=== PATIENT | male | born 1945 | race Caucasian/White ===

== ENCOUNTER 2017-11-12 14:07 | Emergency (ER) | payer OTHER ==
[2017-11-12] MEDS ORDERED: ONDANSETRON 4 MG/2 ML VIAL ONE (14:48)
[2017-11-12] MEDS ORDERED: FAMOTIDINE 20 MG/2 ML VIAL IV ONE (14:48)
--- NOTE | 2017-11-12 15:00 | RAD REPORT ---
EXAM DESCRIPTION: RAD - Chest Single View - 11/12/2017 2:53 pm CLINICAL HISTORY: Abdominal pain, vomiting, CHF history COMPARISON: September 29, 2017 TECHNIQUE: AP portable chest image was obtained 1449 hours . FINDINGS: Lung volumes are low. Mediastinum is substantially distorted by rotation. No acute lung pa renchymal process seen. Heart size is felt to be stable from September. No significant failure or volume overload findings. No tracheal deviation. No pneumothorax or large pleural effusion. No gross bony a bnormality seen. Vascular tortuosity noted accentuated by the rotation. Prominent upper abdominal bowel gas pattern. This can be further evaluated on pending CT abdomen imag ing. No free air or pneumatosis. IMPRESSION: Shallow inspiration film shows no acute cardiopulmonary process. When adjusting for the shallow inspiration and rotation, chest is not substantially different from th e prior study.
[2017-11-12 15:06] LABS: Absolute Lymphocytes (CBC) 0.5 K/uL (0.7-4.9); Absolute Monocytes 0.9 K/uL (0.1-1.3); Basophils % 0.3 % (0-1.3); Eosinophils % 0.1 % (0-4.4); Hematocrit 46.3 % (39.6-49.0); Lymphocytes % 3.2 % (15.3-44.8); MCH 30.9 pg (27.0-35.0); MCV 90.7 fL (80-100); MPV 9.8 fL (7.6-11.3); Monocytes % 6.2 % (3.3-12.3)
[2017-11-12 15:22] LABS: ALT/SGPT 21 U/L (12-78); AST/SGOT 16 U/L (15-37); Albumin 3.9 g/dL (3.4-5.0); Alkaline Phosphatase 106 U/L (45-117); BUN Blood Urea Nitrogen 17 mg/dL (7-18); Bicarbonate 30 mmol/L (21-32); Bilirubin Direct 0.2 mg/dL (0-0.2); Bilirubin Total 0.8 mg/dL (0.2-1.0); Glucose Level 145 mg/dL (74-106); Lipase 95 U/L (73-393); Magnesium 2.7 mg/dL (1.8-2.4); Potassium 4.5 mmol/L (3.5-5.1); Sodium Level 136 mmol/L (136-145); Troponin I < 0.02 ng/mL (0.0-0.045)
--- NOTE | 2017-11-12 15:26 | EKG ---
Test Date: 2017-11-12 Test Time: 14:40:59 System Integration Engineer: KATHY MEASUREMENT RESULTS: Intervals: Rate: 100 MD: 188 QRSD: 82 QT: 346 QTc: 446 Beverly: P: 29 MD: 188 QRS: -11 T: 15 INTERPRETIVE STATEMENTS: Sinus rhythm with premature atrial complexes Minimal voltage criteria for LVH, may be normal variant Borderline ECG Compared to ECG 10/02/2014 06:06:51 Atrial premature complex(es) now present Left ventricular hypertrophy now present Sinus bradycardia no longer present Electronically Signed On 11-12-17 15:25:09 CDT by Jose Rafael Miller
[2017-11-12 15:35] LABS: Blood Morphology Comment NOT SEEN (NOT SEEN); Platelet Estimate ADEQ; Urine White Blood Cell Casts OK
[2017-11-12 17:24] LABS: Urine Blood TRACE (NEG); Urine Glucose NEGATIVE (NEG); Urine Protein 1+ (NEG); Urine Specific Gravity 1.015 (1.005-1.030); Urine pH 5.5 (5.0-7.0)
--- NOTE | 2017-11-12 17:40 | RAD REPORT ---
EXAM DESCRIPTION: CT - Abdomen Pelvis W Contrast - 11/12/2017 5:24 pm CLINICAL HISTORY: Abdominal pain. Constipation COMPARISON: 2010 R TECHNIQUE: Computed axial tomography of the abdomen and pelvis was obtained. 100 cc Isovue-300 is ad ministered intravenously. Oral contrast was given. All CT scans are performed using dose optimization technique as appropriate and may include automated exposure control or mA/KV adjustment according to patient size. FINDINGS: A 28 millimeters cyst containing a septation is present within the dome of the liver. Mild fatty filt ration is present Spleen, pancreas, adrenals and kidneys appear unremarkable. Small renal cysts are present. There is no evidence of diverticulitis. The rectum is mildly distended with stool measuring 6 centime ters. The cecum measures 6.2 centimeters. A moderate amount of stool is present throughout the colon. An ulcerated plaque is present within the upper abdominal aorta. A Kruse catheter has its tip in the bladder Scoliosis is present. A right inguinal hernia contains fat. The prostate gland is mildly to moderatel y enlarged IMPRESSION: Moderate amount of stool within the colon. Mild rectal and cecal distention
[2017-11-12] MEDS ORDERED: MAGNESIUM CITRATE 300 ML BOT ONE (17:56)
[2017-11-12] MEDS ORDERED: FLEET ENEMA ADULT PR ONE (18:29)
[2017-11-12] MEDS ORDERED: FAMOTIDINE 20 MG TAB ONE (18:29)
[2017-11-12] MEDS ORDERED: MAGNE/ALUM HYDROXD 30 ML UCUP ONE (20:21)
[2017-11-12] MEDS ORDERED: LIDOCAINE VISCOUS 2% SOLN 15 ML UDC ONE (20:21)
--- NOTE | 2017-11-12 20:33 | EDPHYS ---
Physician Documentation [facility] Name: Jovani Reinoso Age: 72 yrs Sex: Male : 1945 Arrival Date: 11/12/2017 Time: 14:08 Bed 27 Private MD: None, None ED Physician Sukhjinder Cadet HPI: 11/12 14:35 This 72 yrs old Male presents to ER via Ambulatory with complaints of cp Constipation. 14:35 The patient presents with constipation times 4 days and urinary retention today. cp 14:35 Associated signs and symptoms: Pertinent positives: constipation, vomiting, urinary cp retention, Pertinent negatives: blood in stools, chest pain, diarrhea, fever, headache, testicular pain. Historical: - Allergies: 14:17 No Known Drug Allergies; hb - Home Meds: 14:17 atorvastatin 40 mg Oral tab [Active]; furosemide 40 mg Oral tab [Active]; lisinopril 20 hb mg Oral tab [Active]; ofloxacin 0.3 % Otic drop [Active]; pantoprazole 40 mg Oral TbEC [Active]; Plavix 75 mg Oral tab [Active]; sotalol 80 mg Oral tab [Active]; - PMHx: 14:17 CHF; Hypertension; hb - PSHx: 14:17 stent; foot sx; hb - Immunization history:: Adult Immunizations up to date. - Social history:: Smoking status: Patient/guardian denies using tobacco. - Ebola Screening: : No symptoms or risks identified at this time. ROS: 14:40 Constitutional: Negative for body aches, chills, fever, poor PO intake. cp 14:40 Eyes: Negative for injury, pain, redness, and discharge. cp Exam: 14:45 Constitutional: The patient appears in no acute distress, alert, non-diaphoretic, cp non-toxic, well developed, well nourished, uncomfortable. 14:45 Head/Face: Normocephalic, atraumatic. cp 14:45 Eyes: Periorbital structures: appear normal, Conjunctiva: normal, no exudate, no injection, Sclera: no appreciated abnormality, Lids and lashes: appear normal, bilaterally. 14:45 ENT: External ear(s): are unremarkable, Nose: is normal, Mouth: Lips: dry, Oral mucosa: moist, Posterior pharynx: is normal, airway is patent, no erythema, no exudate. 14:45 Neck: ROM/movement: is normal, is supple, without pain, no range of motions limitations, no nuchal rigidity. 14:45 Chest/axilla: Inspection: normal, Palpation: is normal, no crepitus, no tenderness. 14:45 Cardiovascular: Rate: tachycardic, Rhythm: regular, Edema: is not appreciated, JVD: is not appreciated. 14:45 Respiratory: the patient does not display signs of respiratory distress, Respirations: normal, no use of accessory muscles, no retractions, no splinting, no tachypnea, labored breathing, is not present, Breath sounds: are clear throughout, no decreased breath sounds, no stridor, no wheezing. 14:45 Abdomen/GI: Inspection: distension, that is mild, Bowel sounds: active, all quadrants, Palpation: soft, in all quadrants, mild abdominal tenderness, in all quadrants, Rectal exam: fecal impaction, that is moderate. 14:45 Skin: cellulitis, is not appreciated, no rash present. 14:45 Neuro: Orientation: to person, place \T\ time. Mentation: lucid, able to follow commands, Cerebellar function: is grossly normal, Motor: moves all fours, strength is normal, Sensation: no obvious gross deficits. 14:47 ECG was reviewed by the Attending Physician. Vital Signs: 14:16 BP 149 / 100; Pulse 106; Resp 20; Temp 98.5; Pulse Ox 96% on R/A; Pain 0/10; hb 17:15 BP 157 / 62; Pulse 74; Resp 16; Pulse Ox 100% on R/A; la1 19:40 BP 144 / 75; Pulse 80; Resp 18; Pulse Ox 95% on R/A; aa1 MDM: 14:29 Patient medically screened. cp 15:00 Differential diagnosis: bowel obstruction, diverticulitis, gastritis, Ureterolithiasis, cp urinary tract infection, fecal impaction, prostatitis. 20:30 Data reviewed: vital signs, nurses notes, lab test result(s), EKG, radiologic studies, cp CT scan. 20:30 Test interpretation: by ED physician or midlevel provider: ECG, plain radiologic cp studies. 20:31 Response to treatment: the patient's symptoms have markedly improved after treatment, cp VSS. Patient with BM in ED after fecal disimpaction and soap suds enema. Kruse removed as requested by patient and discharge to home for continued monitoring. 11/12 14:34 Order name: Basic Metabolic Panel; Complete Time: 16:50 cp 11/12 14:34 Order name: CBC with Diff; Complete Time: 16:50 cp 11/12 14:34 Order name: Creatinine for Radiology; Complete Time: 16:50 cp 11/12 14:34 Order name: Hepatic Function; Complete Time: 16:50 cp 11/12 14:34 Order name: Lipase; Complete Time: 16:50 cp 11/12 14:34 Order name: Troponin I; Complete Time: 16:50 cp 11/12 14:34 Order name: CT Abd/Pelvis - W/Contrast; Complete Time: 17:45 cp 11/12 17:46 Interpretation: Report reviewed. cp 11/12 14:34 Order name: Magnesium; Complete Time: 16:50 cp 11/12 14:34 Order name: XRAY Chest (1 view); Complete Time: 16:50 cp 11/12 15:15 Order name: CBC Smear Scan; Complete Time: 16:50 EDMS 11/12 17:10 Order name: Urine Dipstick--Ancillary (enter results); Complete Time: 17:45 bd 11/12 17:45 Interpretation: Normal except: UBLD TRACE; UPROT 1+. cp 11/12 14:34 Order name: IV Saline Lock; Complete Time: 14:40 cp 11/12 14:34 Order name: Labs collected and sent; Complete Time: 14:40 cp 11/12 14:34 Order name: EKG; Complete Time: 14:34 cp 11/12 14:34 Order name: EKG - Nurse/Tech; Complete Time: 14:46 cp 11/12 19:23 Order name: Misc. Order: soap suds enema; Complete Time: 20:00 cp EC:47 Rate is 100 beats/min. Rhythm is regular. MN interval is normal. QRS interval is cp normal. QT interval is normal. Interpreted by me. Reviewed by me. Administered Medications: 14:46 Drug: Zofran 4 mg Route: IVP; Site: right forearm; la1 17:55 Follow up: Response: No adverse reaction la1 14:46 Drug: Pepcid 20 mg Route: IVP; Site: right forearm; la1 17:54 Follow up: Response: No adverse reaction la1 17:54 Drug: Magnesium Citrate Liquid 300 ml Route: PO; la1 19:30 Follow up: Response: No change in condition aa1 18:51 Drug: Fleet Enema 133 ml Route: MN; la1 19:30 Follow up: Response: No change in condition aa1 19:23 CANCELLED (Physician Discretion): Golytely 240 ml PO once cp 20:25 Drug: GI Cocktail without - (Maalox Suspension 30 ml, Lidocaine Liquid 2 % 15 aa1 ml) Route: PO; 20:45 Follow up: Response: No adverse reaction aa1 Disposition: 11/12/17 20:32 Discharged to Home. Impression: Constipation, Retention of urine. - Condition is Stable. - Discharge Instructions: Constipation, Adult, Acute Urinary Retention, Male, Fecal Impaction. - Prescriptions for Miralax 17 gram/dose Oral - take 1 packet by ORAL route once daily dilute powder in 8 ounces of water or juice; 30 packet. - Medication Reconciliation Form, Thank You Letter, Antibiotic Education, Prescription Opioid Use form. - Follow up: Private Physician; When: 1 - 2 days; Reason: Recheck today's complaints. - Problem is new. - Symptoms have improved. Signatures: Dispatcher [employer] EDMaxine Salmon RN RN aa1 Tr Jay RN RN la1 Maurice Mendoza PA PA cp Baxter, Heather, RN RN Corrections: (The following items were deleted from the chart) 19:23 19:20 Golytely 240 ml PO once ordered. cp cp 20:47 20:32 11/12/2017 20:32 Discharged to Home. Impression: Constipation; Retention of aa1 urine. Condition is Stable. Forms are Medication Reconciliation Form, Thank You Letter, Antibiotic Education, Prescription Opioid Use. Follow up: Private Physician; When: 1 - 2 days; Reason: Recheck today's complaints. Problem is new. Symptoms have improved. cp
--- NOTE | 2017-11-12 20:33 | ER ---
Nurse's Notes [facility] Name: Jovani Reinoso Age: 72 yrs Sex: Male : 1945 Arrival Date: 11/12/2017 Time: 14:08 Bed 27 Private MD: None, None Diagnosis: Constipation;Retention of urine Presentation: 11/12 14:15 Presenting complaint: Constipation x 4 days, vomit x 1 today. Transition of care: hb patient was not received from another setting of care. Onset of symptoms was November 08, 2017. Risk Assessment: Do you want to hurt yourself or someone else? Patient reports no desire to harm self or others. 14:15 Method Of Arrival: Ambulatory hb 14:15 Acuity: CAMILA 3 hb 14:30 Initial Sepsis Screen: Does the patient meet any 2 criteria? No. Patient's initial la1 sepsis screen is negative. Does the patient have a suspected source of infection? No. Patient's initial sepsis screen is negative. Care prior to arrival: None. Historical: - Allergies: 14:17 No Known Drug Allergies; hb - Home Meds: 14:17 atorvastatin 40 mg Oral tab [Active]; furosemide 40 mg Oral tab [Active]; lisinopril 20 hb mg Oral tab [Active]; ofloxacin 0.3 % Otic drop [Active]; pantoprazole 40 mg Oral TbEC [Active]; Plavix 75 mg Oral tab [Active]; sotalol 80 mg Oral tab [Active]; - PMHx: 14:17 CHF; Hypertension; hb - PSHx: 14:17 stent; foot sx; hb - Immunization history:: Adult Immunizations up to date. - Social history:: Smoking status: Patient/guardian denies using tobacco. - Ebola Screening: : No symptoms or risks identified at this time. Screenin:47 Abuse screen: Denies threats or abuse. Nutritional screening: No deficits noted. la1 Tuberculosis screening: No symptoms or risk factors identified. Fall Risk None identified. Assessment: 14:47 General: Appears in no apparent distress. Behavior is calm, cooperative. Pain: la1 Complains of pain in abdomen. Neuro: Level of Consciousness is awake, alert, obeys commands, Oriented to person, place, time, situation. Cardiovascular: Capillary refill < 3 seconds Patient's skin is warm and dry. Respiratory: Airway is patent Respiratory effort is even, unlabored, Respiratory pattern is regular, symmetrical, Breath sounds are clear bilaterally. GI: Abdomen is round non-distended, Bowel sounds present X 4 quads. Abd is soft and non tender X 4 quads. : No signs and/or symptoms were reported regarding the genitourinary system. 18:51 Reassessment: Patient appears in no apparent distress at this time. No changes from la1 previously documented assessment. Patient and/or family updated on plan of care and expected duration. Pain level reassessed. 19:40 Reassessment: Patient appears in no apparent distress at this time. Patient and/or aa1 family updated on plan of care and expected duration. Pain level reassessed. Patient is alert, oriented x 3, equal unlabored respirations, skin warm/dry/pink. 20:36 Reassessment: Patient appears in no apparent distress at this time. Patient and/or aa1 family updated on plan of care and expected duration. Pain level reassessed. Patient is alert, oriented x 3, equal unlabored respirations, skin warm/dry/pink. Pt passed 4 gold ball sized hard stools. Reports he feels much better and is ready to be released. Pt given option of being dc'd with bolaños catheter and leg bag until f/u with urologist but pt reports he would rather have the catheter removed and if he is unable to urinate he will return to ED Patient denies pain at this time. Patient states feeling better. 20:46 Reassessment: Discussed d/c \T\ f/u instructions with pt; denies questions or concerns at aa1 this time. Vital Signs: 14:16 BP 149 / 100; Pulse 106; Resp 20; Temp 98.5; Pulse Ox 96% on R/A; Pain 0/10; hb 17:15 BP 157 / 62; Pulse 74; Resp 16; Pulse Ox 100% on R/A; la1 19:40 BP 144 / 75; Pulse 80; Resp 18; Pulse Ox 95% on R/A; aa1 ED Course: 14:08 Patient arrived in ED. sb2 14:08 None, None is Private Physician. sb2 14:16 Triage completed. hb 14:17 Arm band placed on left wrist. hb 14:28 Maurice Mendoza PA is PHCP. cp 14:28 Sukhjinder Cadet MD is Attending Physician. cp 14:29 Tr Jay, RN is Primary Nurse. la1 14:46 EKG done, by low voltage technician. reviewed by Maurice OSBORN. at1 14:47 No provider procedures requiring assistance completed. Inserted saline lock: 20 gauge la1 in right forearm, using aseptic technique. Blood collected. 14:48 Placed in gown. Bed in low position. Call light in reach. la1 14:53 X-ray completed. Portable x-ray completed in exam room. Patient tolerated procedure sw well. 14:53 XRAY Chest (1 view) In Process Unspecified. EDMS 17:01 Bolaños cath inserted, using sterile technique, 18 Fr., by wi, balloon inflated, to la1 gravity drainage, urine specimen collected. returned clear yellow urine. Patient tolerated well. 17:24 CT Abd/Pelvis - W/Contrast In Process Unspecified. EDMS 19:40 Soap suds enema given. Patient tolerated well. aa1 20:46 IV discontinued, intact, bleeding controlled, No redness/swelling at site. Pressure aa1 dressing applied. Administered Medications: 14:46 Drug: Zofran 4 mg Route: IVP; Site: right forearm; la1 17:55 Follow up: Response: No adverse reaction la1 14:46 Drug: Pepcid 20 mg Route: IVP; Site: right forearm; la1 17:54 Follow up: Response: No adverse reaction la1 17:54 Drug: Magnesium Citrate Liquid 300 ml Route: PO; la1 19:30 Follow up: Response: No change in condition aa1 18:51 Drug: Fleet Enema 133 ml Route: OR; la1 19:30 Follow up: Response: No change in condition aa1 19:23 CANCELLED (Physician Discretion): Golytely 240 ml PO once cp 20:25 Drug: GI Cocktail without - (Maalox Suspension 30 ml, Lidocaine Liquid 2 % 15 aa1 ml) Route: PO; 20:45 Follow up: Response: No adverse reaction aa1 Outcome: 20:32 Discharge ordered by . cp 20:46 Discharged to home ambulatory, with friend. aa1 20:46 Condition: good 20:46 Discharge instructions given to patient, Instructed on discharge instructions, follow up and referral plans. medication usage, Demonstrated understanding of instructions, follow-up care, medications, Prescriptions given X 1. 20:47 Patient left the ED. aa1 Signatures: Dispatcher [employer] EDMS Maxine Whitley RN RN aa1 Lissette Vick, spike maker EKG Tat1 Tr Jay RN RN la1 Angeline Munoz Corey, PA PA cp Baxter, Heather, RN RN hb Billeau, Sheri 2
[2017-11-12 20:54] VITALS: TEMP 98.5
[2017-11-12 20:56] VITALS: BP 144/75; O2SAT 95
== END 2017-11-12 20:47 | disposition home or self-care (01) ==
LOC: ER 14:07
DX: R33.9 Retention of urine, unspecified (principal); I10 Essential (primary) hypertension; I50.9 Heart failure, unspecified; Z79.01 Long term (current) use of anticoagulants
CPT/HCPCS: 36415; 71045; 74177; 80048; 80076; 81003; 83690; 83735; 84484; 85025; 93005; J2405; Q9967; 51702; 96374; 96375; 99285

== ENCOUNTER 2017-11-17 08:07 | Emergency (ER) | payer OTHER ==
[2017-11-17 08:38] LABS: Urine Bacteria <20 /HPF (NONE SEEN); Urine Culture Reflex Order NOT NEEDED; Urine RBC TNTC /HPF (NONE SEEN)
--- NOTE | 2017-11-17 09:09 | ER ---
Nurse's Notes [facility] Name: Jovani Reinoso Age: 72 yrs Sex: Male : 1945 Arrival Date: 11/17/2017 Time: 08:08 Bed 5 Private MD: Diagnosis: Hematuria Presentation: 11/17 08:15 Presenting complaint: Patient states: Blood in urine for one day. Transition of care: la1 patient was not received from another setting of care. Onset of symptoms was November 17, 2017. Risk Assessment: Do you want to hurt yourself or someone else? Patient reports no desire to harm self or others. Initial Sepsis Screen: Does the patient meet any 2 criteria? No. Patient's initial sepsis screen is negative. Does the patient have a suspected source of infection? No. Patient's initial sepsis screen is negative. Care prior to arrival: None. 08:15 Method Of Arrival: Ambulatory la1 08:15 Acuity: CAMILA 3 la1 Triage Assessment: 12:00 General: Appears. aj Historical: - Allergies: 08:16 No Known Allergies; la1 - PMHx: 08:16 CHF; Hypertension; cerebral palsy; la1 - Immunization history:: Adult Immunizations up to date. - Social history:: Smoking status: Patient/guardian denies using tobacco. - Ebola Screening: : No symptoms or risks identified at this time. Screenin:20 Abuse screen: Denies threats or abuse. Denies injuries from another. Nutritional sg screening: No deficits noted. Tuberculosis screening: No symptoms or risk factors identified. Never had TB. Fall Risk None identified. Assessment: 08:20 Reassessment: Patient is alert, oriented x 3, equal unlabored respirations, skin sg warm/dry/pink. pt provided urine specimen, yadira blood noted, notified, orders received for post void residual, Urine Micro sent to lab. 08:39 Reassessment: Patient appears in no apparent distress at this time. pt ambulatory with sg use of assist device from home to ER restroom. pt back in exam room on stretcher at this time, awaiting results from urine micro, pt stated understanding. 11:59 Reassessment: Patient appears in no apparent distress at this time. No changes from aj previously documented assessment. Patient and/or family updated on plan of care and expected duration. Pain level reassessed. Patient is alert, oriented x 3, equal unlabored respirations, skin warm/dry/pink. Vital Signs: 08:16 BP 171 / 95; Pulse 85; Resp 16; Temp 97.9(TE); Pulse Ox 100% on R/A; la1 11:24 BP 129 / 68; Pulse 82; Resp 16; Pulse Ox 99% on R/A; iw ED Course: 08:08 Patient arrived in ED. mr 08:16 Triage completed. la1 08:17 Sukhjinder Cadet MD is Attending Physician. gs 08:17 Arm band placed on left wrist. la1 08:28 Hema Rasmussen, RN is Primary Nurse. sg 08:31 Bladder scan completed. 152. la1 08:35 Urine collected: clean catch specimen, cloudy, yadira blood. jb1 09:06 Boogie Ribera MD is Referral Physician. gs 09:47 Missed attempt(s): 20 gauge in right forearm. Bleeding controlled, band aid applied, sg catheter tip intact. 09:53 Primary Nurse role handed off by Hema Rasmussen RN aj 09:53 Lissette Merino, RN is Primary Nurse. aj 10:07 Initial lab(s) drawn, by ri, sent to lab. Inserted saline lock: 22 gauge in left jb1 antecubital area, using aseptic technique. Blood collected. 11:49 Boogie Ribera MD is Referral Physician. gs 11:59 Patient has correct armband on for positive identification. aj 11:59 No provider procedures requiring assistance completed. IV discontinued, intact, aj bleeding controlled, No redness/swelling at site. Pressure dressing applied. Administered Medications: No medications were administered Outcome: 09:08 Discharge ordered by . gs 11:50 Discharge ordered by . gs 11:59 Discharged to home ambulatory. aj 11:59 Condition: good 11:59 Discharge instructions given to patient, Instructed on discharge instructions, follow up and referral plans. medication usage, Need to follow up with Dr Bhatt tomorrow and to hold Xarelto. Patient states "I'll try my best" Demonstrated understanding of instructions, follow-up care, medications, Prescriptions given X 1. 12:00 Patient left the ED. aj Signatures: Elpidio Arellano jb1 Hema Rasmussen RN RN Lissette Merino RN RN aj Rivera, Mary Edilia Beck RN RN iw Attema, Lee, RN RN la1 Sukhjinder Cadet MD MD
--- NOTE | 2017-11-17 09:09 | EDPHYS ---
Physician Documentation [facility] Name: Jovani Reinoso Age: 72 yrs Sex: Male : 1945 Arrival Date: 11/17/2017 Time: 08:08 Bed 5 Private MD: ED Physician Sukhjinder Cadet HPI: 11/17 09:05 This 72 yrs old Male presents to ER via Ambulatory with complaints of Blood gs in Urine. 09:05 The patient presents with urinary symptoms. Onset: The symptoms/episode began/occurred gs yesterday. Modifying factors: The symptoms are alleviated by nothing, the symptoms are aggravated by nothing. Associated signs and symptoms: Pertinent positives: hematuria, Pertinent negatives: abdominal pain, fever. Severity of symptoms: At their worst the symptoms were moderate, in the emergency department the symptoms are unchanged. The patient has experienced similar episodes in the past, a few times. Historical: - Allergies: 08:16 No Known Allergies; la1 - PMHx: 08:16 CHF; Hypertension; cerebral palsy; la1 - Immunization history:: Adult Immunizations up to date. - Social history:: Smoking status: Patient/guardian denies using tobacco. - Ebola Screening: : No symptoms or risks identified at this time. ROS: 09:05 All other systems are negative. gs Exam: 09:05 Head/Face: Normocephalic, atraumatic. Eyes: Pupils equal round and reactive to light, gs extra-ocular motions intact. Lids and lashes normal. Conjunctiva and sclera are non-icteric and not injected. Cornea within normal limits. Periorbital areas with no swelling, redness, or edema. ENT: Nares patent. No nasal discharge, no septal abnormalities noted. Tympanic membranes are normal and external auditory canals are clear. Oropharynx with no redness, swelling, or masses, exudates, or evidence of obstruction, uvula midline. Mucous membranes moist. Neck: Trachea midline, no thyromegaly or masses palpated, and no cervical lymphadenopathy. Supple, full range of motion without nuchal rigidity, or vertebral point tenderness. No Meningismus. Chest/axilla: Normal chest wall appearance and motion. Nontender with no deformity. No lesions are appreciated. Cardiovascular: Regular rate and rhythm with a normal S1 and S2. No gallops, murmurs, or rubs. Normal PMI, no JVD. No pulse deficits. Respiratory: Lungs have equal breath sounds bilaterally, clear to auscultation and percussion. No rales, rhonchi or wheezes noted. No increased work of breathing, no retractions or nasal flaring. Abdomen/GI: Soft, non-tender, with normal bowel sounds. No distension or tympany. No guarding or rebound. No evidence of tenderness throughout. Back: No spinal tenderness. No costovertebral tenderness. Full range of motion. Skin: Warm, dry with normal turgor. Normal color with no rashes, no lesions, and no evidence of cellulitis. MS/ Extremity: Pulses equal, no cyanosis. Neurovascular intact. Full, normal range of motion. Neuro: Awake and alert, GCS 15, oriented to person, place, time, and situation. Cranial nerves II-XII grossly intact. Motor strength 5/5 in all extremities. Sensory grossly intact. Cerebellar exam normal. Normal gait. 09:05 Constitutional: The patient appears alert, awake. Vital Signs: 08:16 BP 171 / 95; Pulse 85; Resp 16; Temp 97.9(TE); Pulse Ox 100% on R/A; la1 11:24 BP 129 / 68; Pulse 82; Resp 16; Pulse Ox 99% on R/A; iw MDM: 08:26 Patient medically screened. 09:05 Differential diagnosis: UTI, urinary retention, prostatitis. Data reviewed: vital gs signs, nurses notes. Counseling: I had a detailed discussion with the patient and/or guardian regarding: the historical points, exam findings, and any diagnostic results supporting the discharge/admit diagnosis, lab results, the need for outpatient follow up, a urologist. Response to treatment: the patient's symptoms have mildly improved after treatment, and as a result, I will discharge patient. 11:48 ED course: talked to dr sky will see in 1-2 days hold xaralto. 11/17 08:18 Order name: Urine Microscopic Only; Complete Time: 09:03 11/17 08:23 Order name: Urine Dipstick--Ancillary (enter results) eb 11/17 08:18 Order name: Urine Dipstick-Ancillary (obtain specimen); Complete Time: 08:28 11/17 09:28 Order name: CBC with Diff; Complete Time: 10:43 11/17 09:28 Order name: Basic Metabolic Panel; Complete Time: 10:43 11/17 09:28 Order name: PT-INR; Complete Time: 10:43 11/17 08:28 Order name: Bladder Scanner; Complete Time: 08:30 Administered Medications: No medications were administered Disposition: 11/17/17 11:50 Discharged to Home. Impression: Hematuria. - Condition is Stable. - Discharge Instructions: Hematuria, Adult. - Prescriptions for Keflex 500 mg Oral Capsule - take 1 capsule by ORAL route every 6 hours for 7 days; 28 capsule. - Medication Reconciliation Form, Thank You Letter, Antibiotic Education, Prescription Opioid Use form. - Follow up: Private Physician; When: 1 - 2 days; Reason: Re-evaluation by your physician. Follow up: Boogie Ribera MD; When: 2 - 3 days; Reason: Re-evaluation by your physician. - Notes: HAN KAUFMAN TOMORROW SEE DR ARAIZA TOMORROW Signatures: Dispatcher [employer] EDMS Hema Rasmussen RN RN sg Myers, Amanda, RN RN aj Attema, Lee, RN RN la1 Sukhjinder Cadet MD MD Corrections: (The following items were deleted from the chart) 09:26 09:08 11/17/2017 09:08 Discharged to Home. Impression: Hematuria. Condition is Stable. Forms are Medication Reconciliation Form, Thank You Letter, Antibiotic Education, Prescription Opioid Use. Follow up: Boogie Ribera; When: 2 - 3 days; Reason: Re-evaluation by your physician. 12:00 11:50 11/17/2017 11:50 Discharged to Home. Impression: Hematuria. Condition is Stable. Prescriptions for Keflex 500 mg Oral Capsule - take 1 capsule by ORAL route every 6 hours for 7 days; 28 capsule. and Forms are Medication Reconciliation Form, Thank You Letter, Antibiotic Education, Prescription Opioid Use. Follow up: Private Physician; When: 1 - 2 days; Reason: Re-evaluation by your physician. Follow up: Boogie Ribera; When: 2 - 3 days; Reason: Re-evaluation by your physician.
[2017-11-17 10:17] LABS: Potassium 4.8 mmol/L (3.5-5.1)
[2017-11-17 10:25] LABS: Absolute Lymphocytes (CBC) 0.7 K/uL (0.7-4.9); Absolute Monocytes 0.8 K/uL (0.1-1.3); Absolute Neutrophil 6.5 K/uL (1.8-8.0); Basophils % 0.4 % (0-1.3); Eosinophils % 1.6 % (0-4.4); Hematocrit 42.4 % (39.6-49.0); Lymphocytes % 8.8 % (15.3-44.8); MCH 30.7 pg (27.0-35.0); MCV 90.6 fL (80-100); MPV 9.6 fL (7.6-11.3); Monocytes % 10.2 % (3.3-12.3); RBC Red Blood Cell Count 4.69 M/uL (4.33-5.43)
[2017-11-17 10:30] LABS: Protime INR 2.14
[2017-11-17 12:06] VITALS: TEMP 97.9
[2017-11-17 12:07] VITALS: BP 129/68; O2SAT 99
[2017-11-17 20:28] LABS: Urine Blood 3+ (NEG); Urine Glucose NEGATIVE (NEG); Urine Protein 3+ (NEG); Urine Specific Gravity 1.015 (1.005-1.030); Urine pH 8.5 (5.0-7.0)
== END 2017-11-17 12:00 | disposition home or self-care (01) ==
LOC: ER 08:07
DX: R31.9 Hematuria, unspecified (principal); I10 Essential (primary) hypertension; G80.9 Cerebral palsy, unspecified
CPT/HCPCS: 36415; 80048; 81003; 81015; 85025; 85610; 99283

== ENCOUNTER 2017-12-10 10:39 | Day surgery (SDC) | payer OTHER ==
[2017-12-05 15:44] LABS: Absolute Lymphocytes (CBC) 0.2 K/uL (0.7-4.9); Absolute Monocytes 0.8 K/uL (0.1-1.3); Absolute Neutrophil 10.2 K/uL (1.8-8.0); Basophils % 0.2 % (0-1.3); Eosinophils % 1.4 % (0-4.4); Hematocrit 43.6 % (39.6-49.0); Lymphocytes % 1.6 % (15.3-44.8); MCH 30.5 pg (27.0-35.0); MPV 8.7 fL (7.6-11.3); Monocytes % 6.6 % (3.3-12.3); RBC Red Blood Cell Count 4.79 M/uL (4.33-5.43)
[2017-12-05 15:57] LABS: Urine Appearance CLEAR; Urine Bilirubin NEGATIVE (NEG); Urine Blood NEGATIVE (NEG); Urine Color YELLOW; Urine Glucose NEGATIVE (NEG); Urine Protein NEGATIVE (NEG); Urine Urobilinogen 0.2 mg/dL (0.2-1.0)
[2017-12-05 15:59] LABS: Urine Microscopic Reflex NO UMIC
[2017-12-05 16:01] LABS: Protime INR 1.13
[2017-12-05 16:07] LABS: Potassium 5.1 mmol/L (3.5-5.1)
--- NOTE | 2017-12-05 16:39 | RAD REPORT ---
EXAM DESCRIPTION: RAD - Chest Pa And Lat (2 Views) - 12/05/2017 4:25 pm CLINICAL HISTORY: Preop chest, pending prostate surgery COMPARISON: September 11 2017, September 30, 2015 TECHNIQUE: PA and lateral views of the chest were obtained. FINDINGS: The lungs are clear of an acute infiltrate, mass or failure finding. Lung markings are sim ilar to comparison. Heart size is normal and central vasculature is within normal limits. No pleur al effusion or pneumothorax seen. Osteopenic changes are noted. These appear prominent for patient a ge. Accentuated kyphosis is noted creating slight wedging of multiple midthoracic vertebrae. Findings are similar to 2016. No aortic abnormality. IMPRESSION: No acute cardiopulmonary process. No significant change from comparison.
[2017-12-05 17:33] LABS: Blood Morphology Comment NOT SEEN (NOT SEEN); Platelet Estimate ADEQ; Urine White Blood Cell Casts OK
[2017-12-10] MEDS ORDERED: Ringers Lactate 1,000 ML IV ONE (11:25)
[2017-12-10] MEDS ORDERED: GENTAMICIN 100 MG/100 ML BAG 100 MG/100 ML BAG IV ONE (11:26)
[2017-12-10] MEDS ORDERED: MIDAZOLAM HCL 2 MG/2 ML INJ ONE (12:22)
[2017-12-10] MEDS ORDERED: LIDOCAINE 2% MPF 5 ML VIAL ONE (12:22)
[2017-12-10] MEDS ORDERED: PROPOFOL 200 MG/20 ML VIAL IV ONE (12:22)
[2017-12-10] MEDS ORDERED: FENTANYL CITR 100 MCG/2 ML ONE (12:22)
[2017-12-10] MEDS ORDERED: LANO/MINERAL OIL/PETRO 3.5 GM ONE (12:35)
[2017-12-10] MEDS ORDERED: EPHEDRINE SULF 50 MG/10 ML SYR ONE (12:38)
[2017-12-10 13:53] VITALS: TEMP 98
[2017-12-10 15:22] VITALS: BP 98/43; O2SAT 95
== END 2017-12-10 14:55 | disposition home or self-care (01) ==
LOC: OR 10:39
PROVIDERS: ATTEND Urology
PROC: 0VT08ZZ Resection of Prostate, Via Natural or Artificial Opening Endoscopic (ICD-10-PCS; principal; 2017-12-10 11:45)
DX: N40.1 Benign prostatic hyperplasia with lower urinary tract symptoms (principal); N39.0 Urinary tract infection, site not specified; R39.12 Poor urinary stream; I10 Essential (primary) hypertension; R79.1 Abnormal coagulation profile; E78.00 Pure hypercholesterolemia, unspecified; K21.9 Gastro-esophageal reflux disease without esophagitis; Z01.818 Encounter for other preprocedural examination; Z79.01 Long term (current) use of anticoagulants; Z87.891 Personal history of nicotine dependence
CPT/HCPCS: 36415; 52601; 71046; 80048; 81003; 85025; 85610; 85730; 87086; 87088; 88305; J1580; J3010; J2250

== ENCOUNTER 2018-05-23 16:38 | Emergency (ER) | payer OTHER ==
[2018-05-23 17:46] LABS: Absolute Lymphocytes (CBC) 1.1 K/uL (0.7-4.9); Absolute Monocytes 1.5 K/uL (0.1-1.3); Absolute Neutrophil 9.5 K/uL (1.8-8.0); Basophils % 0.6 % (0-1.3); Eosinophils % 1.7 % (0-4.4); Hematocrit 43.1 % (39.6-49.0); Lymphocytes % 8.8 % (15.3-44.8); MPV 8.7 fL (7.6-11.3); Monocytes % 12.3 % (3.3-12.3); RBC Red Blood Cell Count 4.75 M/uL (4.33-5.43)
[2018-05-23 17:51] LABS: Protime INR 2.05
[2018-05-23 18:08] LABS: ALT/SGPT 18 U/L (12-78); AST/SGOT 10 U/L (15-37); Albumin 3.2 g/dL (3.4-5.0); Alkaline Phosphatase 110 U/L (45-117); BUN Blood Urea Nitrogen 15 mg/dL (7-18); Bicarbonate 28 mmol/L (21-32); Bilirubin Direct 0.2 mg/dL (0-0.2); Bilirubin Total 0.8 mg/dL (0.2-1.0); Glucose Level 93 mg/dL (74-106); Magnesium 1.8 mg/dL (1.8-2.4); NT PRO-BNP 372 pg/mL (<125); Potassium 3.9 mmol/L (3.5-5.1); Protein, Total 7.1 g/dL (6.4-8.2); Sodium Level 130 mmol/L (136-145); Troponin (Emerg Dept Use Only) < 0.02 ng/mL (0.0-0.045)
[2018-05-23] MEDS ORDERED: IPRATROPIUM BROM 0.5MG/2.5ML ONE (19:36)
[2018-05-23] MEDS ORDERED: ALBUTEROL 2.5 MG/3 ML NEB SOL ONE (19:36)
--- NOTE | 2018-05-23 20:41 | ER ---
Nurse's Notes [facility] Name: Jovani Reinoso Age: 73 yrs Sex: Male : 1945 Arrival Date: 05/23/2018 Time: 16:38 Bed 26 Private MD: Diagnosis: Cough;Palpitations Presentation: 05/23 16:43 Presenting complaint: Patient states: i have cough started a day or so ago; denies hj fever and chills; denies chest; reports irregular heart beat;. Transition of care: patient was not received from another setting of care. Onset of symptoms was May 23, 2018. Risk Assessment: Do you want to hurt yourself or someone else? Patient reports no desire to harm self or others. Initial Sepsis Screen: Does the patient meet any 2 criteria? No. Patient's initial sepsis screen is negative. Does the patient have a suspected source of infection? No. Patient's initial sepsis screen is negative. Care prior to arrival: None. 16:43 Method Of Arrival: Ambulatory 16:43 Acuity: CAMILA 3 hj Historical: - Allergies: 16:45 No Known Allergies; hj - PMHx: 16:45 Cerebral Palsy; CHF; Hypertension; hj - PSHx: 16:45 heart cath; hj - Immunization history:: Adult Immunizations up to date. - Social history:: Smoking status: unknown. - Ebola Screening: : Patient negative for fever greater than or equal to 101.5 degrees Fahrenheit, and additional compatible Ebola Virus Disease symptoms Patient denies exposure to infectious person Patient denies travel to an Ebola-affected area in the 21 days before illness onset. Screenin:37 Abuse screen: Denies threats or abuse. Denies injuries from another. Nutritional rv screening: No deficits noted. Tuberculosis screening: No symptoms or risk factors identified. Fall Risk None identified. Assessment: 17:36 General: Appears in no apparent distress. comfortable, Behavior is calm, cooperative. rv Pain: Denies pain. Neuro: Level of Consciousness is awake, alert, obeys commands, Oriented to person, place, time, situation. Cardiovascular: Capillary refill < 3 seconds. Cardiovascular: Rhythm is atrial fibrillation. Respiratory: Airway is patent. GI: No signs and/or symptoms were reported involving the gastrointestinal system. : No signs and/or symptoms were reported regarding the genitourinary system. EENT: No signs and/or symptoms were reported regarding the EENT system. Derm: Skin is intact. Musculoskeletal: No signs and/or symptoms reported regarding the musculoskeletal system. 19:52 Reassessment: Patient appears in no apparent distress at this time. Patient and/or rv family updated on plan of care and expected duration. Pain level reassessed. Patient is alert, oriented x 3, equal unlabored respirations, skin warm/dry/pink. Patient states feeling better. Vital Signs: 16:45 BP 153 / 83; Pulse 65; Resp 18; Temp 98.8(O); Pulse Ox 95% on R/A; Weight 63.5 kg; hj Height 5 ft. 6 in. (167.64 cm); 18:10 BP 119 / 65 LA; Pulse 60; Resp 20 S; Pulse Ox 95% on R/A; rv 19:51 BP 139 / 69 LA; Pulse 67; Resp 18 S; Pulse Ox 95% on R/A; rv 21:05 BP 130 / 71 LA Supine; Pulse 65; Resp 16 S; Pulse Ox 95% on R/A; rv 16:45 Body Mass Index 22.60 (63.50 kg, 167.64 cm) hj ED Course: 16:38 Patient arrived in ED. as 16:45 Triage completed. hj 16:46 Arm band placed on right wrist. hj 17:00 Patient has correct armband on for positive identification. Bed in low position. Call rv light in reach. Side rails up X 1. Pulse ox on. NIBP on. 17:04 Maurice Mendoza PA is PHCP. cp 17:04 Andrew Cam MD is Attending Physician. cp 17:17 Joel Goodman, REBECCA is Primary Nurse. rv 17:22 EKG done, by career guidance technician. reviewed by Maurice OSBORN. sm3 17:30 Inserted saline lock: 20 gauge in right forearm, using aseptic technique. Blood rv collected. 18:36 X-ray completed. Patient tolerated procedure well. Patient moved back from radiology. 1 18:37 XRAY Chest Pa And Lat (2 Views) In Process Unspecified. EDMS 21:07 No provider procedures requiring assistance completed. IV discontinued, bleeding rv controlled, No redness/swelling at site. Pressure dressing applied. Administered Medications: 19:26 Drug: Albuterol 2.5 mg Route: Inhalation; rv 21:08 Follow up: Response: Marked relief of symptoms rv 19:26 Drug: AtroVENT Aerosol 0.5 mg Route: Inhalation; rv 21:08 Follow up: Response: Marked relief of symptoms rv Outcome: 20:41 Discharge ordered by . cp 21:07 Discharged to home ambulatory. rv 21:07 Condition: good 21:07 Discharge instructions given to patient, Instructed on discharge instructions, follow up and referral plans. medication usage, Demonstrated understanding of instructions, follow-up care, medications, Prescriptions given X 3. 21:07 Patient left the ED. rv Signatures: Dispatcher [employer] EDMS Shelly Pepe 1 Sandy Barboza Henry, RN RN Maurice Richards PA PA cp Montes, Shakira 3 Joel Goodman, RN RN rv
--- NOTE | 2018-05-23 20:41 | EDPHYS ---
Physician Documentation [facility] Name: Jovani Reinoso Age: 73 yrs Sex: Male : 1945 Arrival Date: 05/23/2018 Time: 16:38 Bed 26 Private MD: ED Physician Andrew Cam HPI: 05/23 17:30 This 73 yrs old Male presents to ER via Ambulatory with complaints of cp Palpitations, Cough. 17:30 The patient presents with a history of irregular heart beat. Context: The symptoms cp occur at rest. 17:30 Onset: The symptoms/episode began/occurred today. Duration: The patient or guardian cp reports multiple episodes, that wax and wane. Associated signs and symptoms: Pertinent positives: cough, Pertinent negatives: chest pain, fever, SOB, syncope, vomiting. Severity of symptoms: in the emergency department the symptoms are unchanged. Historical: - Allergies: 16:45 No Known Allergies; hj - PMHx: 16:45 Cerebral Palsy; CHF; Hypertension; hj - PSHx: 16:45 heart cath; hj - Immunization history:: Adult Immunizations up to date. - Social history:: Smoking status: unknown. - Ebola Screening: : Patient negative for fever greater than or equal to 101.5 degrees Fahrenheit, and additional compatible Ebola Virus Disease symptoms Patient denies exposure to infectious person Patient denies travel to an Ebola-affected area in the 21 days before illness onset. ROS: 17:35 Constitutional: Negative for body aches, chills, fever, poor PO intake. cp 17:35 Eyes: Negative for injury, pain, redness, and discharge. cp 17:35 ENT: Negative for drainage from ear(s), ear pain, sore throat, difficulty swallowing, difficulty handling secretions. 17:35 Cardiovascular: Positive for palpitations, Negative for chest pain, edema. 17:35 Respiratory: Positive for cough, with no reported sputum, Negative for wheezing. 17:35 Abdomen/GI: Negative for abdominal pain, nausea, vomiting, and diarrhea. 17:35 Back: Negative for pain at rest, pain with movement. 17:35 MS/extremity: Negative for decreased range of motion, paresthesias, swelling, tenderness. 17:35 Skin: Negative for cellulitis, rash. 17:35 Neuro: Negative for altered mental status, headache, syncope, weakness. 17:35 All other systems are negative. Exam: 17:20 ECG was reviewed by the Attending Physician. cp 17:42 Constitutional: The patient appears in no acute distress, alert, awake, comfortable, cp non-diaphoretic, non-toxic, well developed, well nourished. 17:42 Head/Face: Normocephalic, atraumatic. Eyes: Pupils equal round and reactive to light, cp extra-ocular motions intact. Lids and lashes normal. Conjunctiva and sclera are non-icteric and not injected. Cornea within normal limits. Periorbital areas with no swelling, redness, or edema. ENT: Nares patent. No nasal discharge, no septal abnormalities noted. Tympanic membranes are normal and external auditory canals are clear. Oropharynx with no redness, swelling, or masses, exudates, or evidence of obstruction, uvula midline. Mucous membranes moist. Chest/axilla: Normal chest wall appearance and motion. Nontender with no deformity. No lesions are appreciated. 17:42 Cardiovascular: Rate: normal, Rhythm: regular, Edema: is not appreciated, JVD: is not appreciated. 17:42 Respiratory: the patient does not display signs of respiratory distress, Respirations: labored breathing, is not present, accessory muscle usage, is absent, tachypnea, is not appreciated, Breath sounds: rales, are not appreciated, decreased breath sounds, that are mild, throughout, rhonchi, are not appreciated, stridor, is not appreciated, wheezing: is not appreciated. 17:42 Abdomen/GI: Inspection: abdomen appears normal, Bowel sounds: active, all quadrants, Palpation: abdomen is soft and non-tender, in all quadrants. 17:42 Back: pain, is absent, ROM is normal. 17:42 Skin: cellulitis, is not appreciated, no rash present. 17:42 Neuro: Orientation: to person, place \T\ time. Mentation: is normal, Cerebellar function: is grossly normal, Motor: moves all fours, strength is normal, Sensation: is normal, Gait: is steady. Vital Signs: 16:45 BP 153 / 83; Pulse 65; Resp 18; Temp 98.8(O); Pulse Ox 95% on R/A; Weight 63.5 kg; hj Height 5 ft. 6 in. (167.64 cm); 18:10 BP 119 / 65 LA; Pulse 60; Resp 20 S; Pulse Ox 95% on R/A; rv 19:51 BP 139 / 69 LA; Pulse 67; Resp 18 S; Pulse Ox 95% on R/A; rv 21:05 BP 130 / 71 LA Supine; Pulse 65; Resp 16 S; Pulse Ox 95% on R/A; rv 16:45 Body Mass Index 22.60 (63.50 kg, 167.64 cm) hj MDM: 17:07 Patient medically screened. cp 20:40 Data reviewed: vital signs, nurses notes, radiologic studies, plain films. cp 20:40 Test interpretation: by ED physician or midlevel provider: chest xray negative for cp infiltrates. Counseling: I had a detailed discussion with the patient and/or guardian regarding: the historical points, exam findings, and any diagnostic results supporting the discharge/admit diagnosis, lab results, radiology results, the need for outpatient follow up, a family practitioner, to return to the emergency department if symptoms worsen or persist or if there are any questions or concerns that arise at home. Response to treatment: the patient's symptoms have mildly improved after treatment, and as a result, I will discharge patient. 05/23 17:24 Order name: Basic Metabolic Panel; Complete Time: 19:12 cp 05/23 19:55 Interpretation: Normal except: NA 130; CL 94; GFR 69. cp 05/23 17:24 Order name: CBC with Diff; Complete Time: 19:12 cp 05/23 20:24 Interpretation: Normal except: WBC 12.5; JUANJO% 76.6; LYM% 8.8; NEUT A 9.5; MNA 1.5. cp 05/23 17:24 Order name: LFT's; Complete Time: 19:12 cp 05/23 19:55 Interpretation: Normal except: AST 10; ALB 3.2; GLOB 3.9; A/G 0.8. cp 05/23 17:24 Order name: Magnesium; Complete Time: 19:12 cp 05/23 19:12 Interpretation: Reviewed. cp 05/23 17:24 Order name: NT PRO-BNP; Complete Time: 19:12 cp 05/23 19:55 Interpretation: Abnormal: NT PRO-BNP 372. cp 05/23 17:24 Order name: PT-INR; Complete Time: 19:12 cp 05/23 17:24 Order name: Troponin (emerg Dept Use Only); Complete Time: 19:12 cp 05/23 19:55 Interpretation: Reviewed. 05/23 17:24 Order name: EKG; Complete Time: 17:25 cp 05/23 17:24 Order name: Cardiac monitoring; Complete Time: 17:36 cp 05/23 17:24 Order name: EKG - Nurse/Tech; Complete Time: 17:36 cp 05/23 17:24 Order name: XRAY Chest Pa And Lat (2 Views); Complete Time: 21:04 cp 05/23 21:04 Interpretation: Report reviewed. 05/23 17:24 Order name: Influenza Screen (a \T\ B); Complete Time: 19:12 cp 05/23 17:24 Order name: IV Saline Lock; Complete Time: 17:36 cp 05/23 17:24 Order name: Labs collected and sent; Complete Time: 17:36 cp 05/23 17:24 Order name: O2 Per Protocol; Complete Time: 17:36 cp 05/23 17:24 Order name: O2 Sat Monitoring; Complete Time: 17:36 cp EC:20 Rate is 65 beats/min. Rhythm is regular. GA interval is normal. QRS interval is normal. cp QT interval is normal. T waves are Flattened in lead aVL. Interpreted by me. Reviewed by me. Administered Medications: 19:26 Drug: Albuterol 2.5 mg Route: Inhalation; rv 21:08 Follow up: Response: Marked relief of symptoms rv 19:26 Drug: AtroVENT Aerosol 0.5 mg Route: Inhalation; rv 21:08 Follow up: Response: Marked relief of symptoms rv Disposition: 05/23/18 20:41 Discharged to Home. Impression: Cough, Palpitations. - Condition is Stable. - Discharge Instructions: Palpitations, Cough, Adult. - Prescriptions for Tessalon Perles 100 mg Oral Capsule - take 1 capsule by ORAL route every 8 hours As needed; 15 capsule. Albuterol Sulfate 2.5 mg /3 mL (0.083 %) Inhalation Solution for Nebulization - inhale 1 unit by NEBULIZATION route every 8 hours As needed; 1 box. Albuterol Sulfate 90 mcg/actuation - inhale 1-2 puff by INHALATION route every 4-6 hours; 1 Inhaler. - Medication Reconciliation Form, Thank You Letter, Antibiotic Education, Prescription Opioid Use form. - Follow up: Private Physician; When: 2 - 3 days; Reason: Recheck today's complaints. - Problem is new. - Symptoms have improved. Addendum: 05/26/2018 07:16 Co-signature as Attending Physician, Andrew Cam MD I agree with the assessment and k dr plan of care. Signatures: Dispatcher [employer] EDND Andrew Cam MD MD kdr Umer Rivero RN RN hj Maurice Mendoza PA PA cp Joel Goodman RN RN rv Corrections: (The following items were deleted from the chart) 05/23 20:24 19:55 Normal except: WBC 12.5; JUANJO% 76.6; LYM% 8.8; NEUT A 9.5. cp cp 20:42 20:41 05/23/2018 20:41 Discharged to Home. Impression: Cough. Condition is Stable. cp Forms are Medication Reconciliation Form, Thank You Letter, Antibiotic Education, Prescription Opioid Use. Follow up: Private Physician; When: 2 - 3 days; Reason: Recheck today's complaints. Problem is new. Symptoms have improved. cp 21:07 20:42 05/23/2018 20:41 Discharged to Home. Impression: Cough; Palpitations. Condition rv is Stable. Discharge Instructions: Palpitations, Cough, Adult. Prescriptions for Tessalon Perles 100 mg Oral Capsule - take 1 capsule by ORAL route every 8 hours As needed; 15 capsule, Albuterol Sulfate 2.5 mg /3 mL (0.083 %) Inhalation Solution for Nebulization - inhale 1 unit by NEBULIZATION route every 8 hours As needed; 1 box, Albuterol Sulfate 90 mcg/actuation - inhale 1-2 puff by INHALATION route every 4-6 hours; 1 Inhaler. and Forms are Medication Reconciliation Form, Thank You Letter, Antibiotic Education, Prescription Opioid Use. Follow up: Private Physician; When: 2 - 3 days; Reason: Recheck today's complaints. Problem is new. Symptoms have improved. cp
--- NOTE | 2018-05-23 20:48 | RAD REPORT ---
EXAM DESCRIPTION: RAD - Chest Pa And Lat (2 Views) - 05/23/2018 6:37 pm CLINICAL HISTORY: Cough, arrhythmia COMPARISON: November 2017 TECHNIQUE: PA and lateral views of the chest were obtained. FINDINGS: The lungs are clear of a peripheral mass or consolidation. Interstitial pattern matches th e comparison. Heart size is normal and central vasculature is within normal limits. No pleural eff usion or pneumothorax seen. No acute bone finding. Osteopenic changes are present. Accentuated midth oracic kyphosis present with wedging of several midthoracic vertebrae. This is a stable pattern. No a ortic abnormality. IMPRESSION: No acute cardiopulmonary process. No significant interval change.
[2018-05-23 21:12] VITALS: TEMP 98.8; O2SAT 95
[2018-05-23 21:15] VITALS: BP 130/71
--- NOTE | 2018-05-27 11:26 | EKG ---
Test Date: 2018-05-23 Test Time: 17:11:12 Craft Artist: NOMAN MEASUREMENT RESULTS: Intervals: Rate: 65 NC: 152 QRSD: 78 QT: 416 QTc: 432 Davilla: P: 11 NC: 152 QRS: 13 T: 55 INTERPRETIVE STATEMENTS: Sinus rhythm with premature atrial complexes Otherwise normal ECG Compared to ECG 12/05/2017 16:06:23 Atrial premature complex(es) now present Electronically Signed On 05-23-18 18:20:59 CDT by Bon Kowalski
== END 2018-05-23 21:07 | disposition home or self-care (01) ==
LOC: ER 16:38
DX: R00.2 Palpitations (principal); R05 Cough; G80.9 Cerebral palsy, unspecified; I11.0 Hypertensive heart disease with heart failure; I50.9 Heart failure, unspecified
CPT/HCPCS: 36415; 71046; 80048; 80076; 83735; 83880; 84484; 85025; 85610; 87804; 93005; 99285

== ENCOUNTER 2021-04-09 10:26 | Inpatient (IN) | payer OTHER ==
--- OUTSIDE RECORDS SUMMARY | 2021-04-09 10:31 | XMS REPORT | Continuity of Care Document ---
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, A Attending Clinician Doctor Unassigned, Name Attending Clinician Unavailable Crispin MEHTA Attending Clinician 2, Lab Attending Clinician Unavailable CRISPIN Attending Clinician Unavailable Rm, Surg Spec Procedure Attending Clinician Unavailable Day LUA Attending Clinician Unavailable Abelino MEHTA Attending Clinician Payers Payer Name Policy Type Policy Number Effective Date Expiration Date S ource Problems Condition Condition Condition Status Onset Resolution Last Treating Co mments Source Name Details Category Date Date Treatment Clinician Date No known No known Disease Unive rs active active ity of problems problems [facility] Allergies, Adverse Reactions, Alerts Allergy Allergy Status Severity Reaction(s) Onset Inactive Treating Comm ents Source Name Type Date Date Clinician NO KNOWN Drug Active Univers ALLERGIE Class ity of S [facility] Social History Social Habit Start Date Stop Date Quantity Comments Source Exposure to Not sure University of SARS-CoV-2 [facility] (event) [place] Tobacco use and 2020-06-23 2020-06-23 Never used Universit y of exposure 00:00:00 00:00:00 [facility] Alcohol intake 2020-06-23 2020-06-23 Current drinker of Un iversity of 00:00:00 00:00:00 alcohol (finding) [facility] Tobacco Comment 2014-12-14 2014-12-14 Quit smoking 6 Unive rsity of 00:00:00 00:00:00 years ago; smoked [place] [facility] 1PPD X 40 years Branch Alcohol Comment 2014-12-14 2014-12-14 Occasional Drinker U niversity of 00:00:00 00:00:00 [facility] Sex [birth year] Universit y of 00:00:00 00:00:00 [facility] Smoking Status Start Date Stop Date Source Former smoker 2020-06-23 00:00:00 2020-06-23 00:00:00 Universi ty of [facility] Medications Ordered Filled Start Stop Current Ordering Indication Dosage Frequency Signature Comments Components Source Medication Medication Date Date Medication? Clinician (SIG) Name Name cephALEXin Yes Urinary 500mg Take 1 U nivers 500 mg 3-26 tract capsule by ity of capsule 00:00: infection mouth 2 [place] (two) Medical hematuria, times Branch site daily. unspecified cephALEXin 2020-0 Yes Urinary 500mg Take 1 U nivers 500 mg 3-26 tract capsule by ity of capsule 00:00[place] mouth 2 [place] without (two) Medical hematuria, times Branch site daily. unspecified cephALEXin 2020-0 Yes Urinary 500mg Take 1 U nivers 500 mg 3-26 tract capsule by ity of capsule 00:00: infection mouth 2 [place] without (two) Medical hematuria, times Branch site daily. unspecified cephALEXin 2020-0 Yes [id number] 500mg Take 1 Univers 500 mg 3-26 capsule by ity of capsule 00:00: mouth 2 [place] (two) Medical times Branch daily. cephALEXin 2021-0 Yes [id number] 500mg Take 1 Univers 500 mg 3-26 capsule by ity of capsule 00:00: mouth 2 [place] (two) Medical times Branch daily. cephALEXin 2021-0 Yes [id number] 500mg Take 1 Univers 500 mg 3-26 capsule by ity of capsule 00:00: mouth 2 [place] (two) Medical times Branch daily. cephALEXin 2021-0 Yes [id number] 500mg Take 1 Univers 500 mg 3-26 capsule by ity of capsule 00:00: mouth 2 [place] (two) Medical times Branch daily. cephALEXin 2021-0 Yes [id number] 500mg Take 1 Univers 500 mg 3-26 capsule by ity of capsule 00:00: mouth 2 [place] (two) Medical times [place] daily. cephALEXin 2020-0 Yes [id number] 500mg Take 1 Univers 500 mg 3-26 capsule by ity of capsule 00:00: mouth 2 [place] (two) Medical times [place] daily. cephALEXin 2020-0 Yes [id number] 500mg Take 1 Univers 500 mg 3-26 capsule by ity of capsule 00:00: mouth 2 [place] 00 (two) Medical times [place] daily. cephALEXin 2020-0 Yes [id number] 500mg Take 1 Univers 500 mg 3-26 capsule by ity of capsule 00:00: mouth 2 [place] (two) Medical times [place] daily. cephALEXin 2020-0 Yes [id number] 500mg Take 1 Univers 500 mg 3-26 capsule by ity of capsule 00:00: mouth 2 [place] (two) Medical times [place] daily. cephALEXin 2020-0 Yes [id number] 500mg Take 1 Univers 500 mg 3-26 capsule by ity of capsule 00:00: mouth 2 [place] (two) Medical times [place] daily. iohexol 2020- No [id number] 130mL 130 mL, Univers (OMNIPAQUE 3-16 03-16 Intravenou it y of 350 17:00: 16:52 s, ONCE, 1 [place] BULK-150 00 :00 dose, Tue Medica l mL) 05/03/20 at [place] injection 1200, 130 mL Routine lisinopril 2014-02 Yes 20mg Take 20 mg U nivers (PRINIVIL,Z 2-09 by mouth 2 it y of ESTRIL) 20 17:16: (two) [place] mg tablet 52 times Medical daily. Branch atorvastati 2014-02 Yes 40mg Take 40 mg Univers n (LIPITOR) 2-09 by mouth ity of 40 mg 17:16: at [place] tablet 52 bedtime. Medical Branch clopidogrel 2014-02 Yes 75mg Take 75 mg Univers (PLAVIX) 75 2-09 by mouth ity of mg tablet 17:16: daily. [place] [address] Medical Branch sotalol 2014-02 Yes 80mg Take 80 mg Univ ers (BETAPACE) 2-09 by mouth 2 ity of 80 mg 17:16: (two) [place] tablet 52 times Medical daily. Branch pantoprazol 2014-02 Yes 40mg Take 40 mg Univers e 2-09 by mouth ity of (PROTONIX) 17:16: daily. [place] 40 mg EC 52 Medical tablet Branch lisinopril 2014-02 Yes 20mg Take 20 mg U nivers (PRINIVIL,Z 2-09 by mouth 2 it y of ESTRIL) 20 17:16: (two) [place] mg tablet 52 times Medical daily. Branch atorvastati 2014-02 Yes 40mg Take 40 mg Univers n (LIPITOR) 2-09 by mouth ity of 40 mg 17:16: at [place] tablet 52 bedtime. Medical Branch clopidogrel 2014-02 Yes 75mg Take 75 mg Univers (PLAVIX) 75 2-09 by mouth ity of mg tablet 17:16: daily. [place] [address] Medical Branch sotalol 2014-02 Yes 80mg Take 80 mg Univ ers (BETAPACE) 2-09 by mouth 2 ity of 80 mg 17:16: (two) [place] tablet 52 times Medical daily. Branch pantoprazol 2014-02 Yes 40mg Take 40 mg Univers e 2-09 by mouth ity of (PROTONIX) 17:16: daily. [place] 40 mg EC 52 Medical tablet Branch atorvastati 2014-02 Yes 40mg Take 40 mg Univers n (LIPITOR) 2-09 by mouth ity of 40 mg 17:16: at [place] tablet 52 bedtime. Medical Branch lisinopril 2014-02 Yes 20mg Take 20 mg U nivers (PRINIVIL,Z 2-09 by mouth 2 it y of ESTRIL) 20 17:16: (two) [place] mg tablet 52 times Medical daily. Branch clopidogrel 2014-02 Yes 75mg Take 75 mg Univers (PLAVIX) 75 2-09 by mouth ity of mg tablet 17:16: daily. [place] [address] Medical Branch sotalol 2014-02 Yes 80mg Take 80 mg Univ ers (BETAPACE) 2-09 by mouth 2 ity of 80 mg 17:16: (two) [place] tablet 52 times Medical daily. Branch pantoprazol 2014-02 Yes 40mg Take 40 mg Univers e 2-09 by mouth ity of (PROTONIX) 17:16: daily. [place] 40 mg EC 52 Medical tablet Branch lisinopril 2014-02 Yes 20mg Take 20 mg U nivers (PRINIVIL,Z 2-09 by mouth 2 it y of ESTRIL) 20 17:16: (two) [place] mg tablet 52 times Medical daily. Branch atorvastati 2014-02 Yes 40mg Take 40 mg Univers n (LIPITOR) 2-09 by mouth ity of 40 mg 17:16: at [place] tablet 52 bedtime. Medical Branch clopidogrel 2014-02 Yes 75mg Take 75 mg Univers (PLAVIX) 75 2-09 by mouth ity of mg tablet 17:16: daily. [place] [address] Medical Branch sotalol 2014-02 Yes 80mg Take 80 mg Univ ers (BETAPACE) 2-09 by mouth 2 ity of 80 mg 17:16: (two) [place] tablet 52 times Medical daily. Branch pantoprazol 2014-02 Yes 40mg Take 40 mg Univers e 2-09 by mouth ity of (PROTONIX) 17:16: daily. [place] 40 mg EC 52 Medical tablet Branch lisinopril 2014-02 Yes 20mg Take 20 mg U nivers (PRINIVIL,Z 2-09 by mouth 2 it y of ESTRIL) 20 17:16: (two) [place] mg tablet 52 times Medical daily. Branch atorvastati 2014-02 Yes 40mg Take 40 mg Univers n (LIPITOR) 2-09 by mouth ity of 40 mg 17:16: at [place] tablet 52 bedtime. Medical Branch atorvastati 2014-02 Yes 40mg Take 40 mg Univers n (LIPITOR) 2-09 by mouth ity of 40 mg 17:16: at [place] tablet 52 bedtime. Medical Branch clopidogrel 2014-02 Yes 75mg Take 75 mg Univers (PLAVIX) 75 2-09 by mouth ity of mg tablet 17:16: daily. [place] [address] Medical Branch sotalol 2014-02 Yes 80mg Take 80 mg Univ ers (BETAPACE) 2-09 by mouth 2 ity of 80 mg 17:16: (two) [place] tablet 52 times Medical daily. Branch pantoprazol 2014-02 Yes 40mg Take 40 mg Univers e 2-09 by mouth ity of (PROTONIX) 17:16: daily. [place] 40 mg EC 52 Medical tablet Branch lisinopril 2014-02 Yes 20mg Take 20 mg U nivers (PRINIVIL,Z 2-09 by mouth 2 it y of ESTRIL) 20 17:16: (two) [place] mg tablet 52 times Medical daily. Branch atorvastati 2014-02 Yes 40mg Take 40 mg Univers n (LIPITOR) 2-09 by mouth ity of 40 mg 17:16: at [place] tablet 52 bedtime. Medical Branch clopidogrel 2014-02 Yes 75mg Take 75 mg Univers (PLAVIX) 75 2-09 by mouth ity of mg tablet 17:16: daily. [place] [address] Medical Branch sotalol 2014-02 Yes 80mg Take 80 mg Univ ers (BETAPACE) 2-09 by mouth 2 ity of 80 mg 17:16: (two) [place] tablet 52 times Medical daily. Branch pantoprazol 2014-02 Yes 40mg Take 40 mg Univers e 2-09 by mouth ity of (PROTONIX) 17:16: daily. [place] 40 mg EC 52 Medical tablet Branch lisinopril 2014-02 Yes 20mg Take 20 mg U nivers (PRINIVIL,Z 2-09 by mouth 2 it y of ESTRIL) 20 17:16: (two) [place] mg tablet 52 times Medical daily. Branch atorvastati 2014-02 Yes 40mg Take 40 mg Univers n (LIPITOR) 2-09 by mouth ity of 40 mg 17:16: at [place] tablet 52 bedtime. Medical Branch clopidogrel 2014-02 Yes 75mg Take 75 mg Univers (PLAVIX) 75 2-09 by mouth ity of mg tablet 17:16: daily. [place] [address] Medical Branch clopidogrel 2014-02 Yes 75mg Take 75 mg Univers (PLAVIX) 75 2-09 by mouth ity of mg tablet 17:16: daily. [place] [address] Medical Branch sotalol 2014-02 Yes 80mg Take 80 mg Univ ers (BETAPACE) 2-09 by mouth 2 ity of 80 mg 17:16: (two) [place] tablet 52 times Medical daily. Branch pantoprazol 2014-02 Yes 40mg Take 40 mg Univers e 2-09 by mouth ity of (PROTONIX) 17:16: daily. [place] 40 mg EC 52 Medical tablet Branch lisinopril 2014-02 Yes 20mg Take 20 mg U nivers (PRINIVIL,Z 2-09 by mouth 2 it y of ESTRIL) 20 17:16: (two) [place] mg tablet 52 times Medical daily. Branch atorvastati 2014-02 Yes 40mg Take 40 mg Univers n (LIPITOR) 2-09 by mouth ity of 40 mg 17:16: at [place] tablet 52 bedtime. Medical Branch clopidogrel 2014-02 Yes 75mg Take 75 mg Univers (PLAVIX) 75 2-09 by mouth ity of mg tablet 17:16: daily. [place] [address] Medical Branch sotalol 2014-02 Yes 80mg Take 80 mg Univ ers (BETAPACE) 2-09 by mouth 2 ity of 80 mg 17:16: (two) [place] tablet 52 times Medical daily. Branch pantoprazol 2014-02 Yes 40mg Take 40 mg Univers e 2-09 by mouth ity of (PROTONIX) 17:16: daily. [place] 40 mg EC 52 Medical tablet Branch lisinopril 2014-02 Yes 20mg Take 20 mg U nivers (PRINIVIL,Z 2-09 by mouth 2 it y of ESTRIL) 20 17:16: (two) [place] mg tablet 52 times Medical daily. Branch atorvastati 2014-02 Yes 40mg Take 40 mg Univers n (LIPITOR) 2-09 by mouth ity of 40 mg 17:16: at [place] tablet 52 bedtime. Medical Branch sotalol 2014-02 Yes 80mg Take 80 mg Univ ers (BETAPACE) 2-09 by mouth 2 ity of 80 mg 17:16: (two) [place] tablet 52 times Medical daily. Branch clopidogrel 2014-02 Yes 75mg Take 75 mg Univers (PLAVIX) 75 2-09 by mouth ity of mg tablet 17:16: daily. [place] [address] Medical Branch sotalol 2014-02 Yes 80mg Take 80 mg Univ ers (BETAPACE) 2-09 by mouth 2 ity of 80 mg 17:16: (two) [place] tablet 52 times Medical daily. Branch pantoprazol 2014-02 Yes 40mg Take 40 mg Univers e 2-09 by mouth ity of (PROTONIX) 17:16: daily. [place] 40 mg EC 52 Medical tablet Branch lisinopril 2014-02 Yes 20mg Take 20 mg U nivers (PRINIVIL,Z 2-09 by mouth 2 it y of ESTRIL) 20 17:16: (two) [place] mg tablet 52 times Medical daily. Branch atorvastati 2014-02 Yes 40mg Take 40 mg Univers n (LIPITOR) 2-09 by mouth ity of 40 mg 17:16: at [place] tablet 52 bedtime. Medical Branch clopidogrel 2014-02 Yes 75mg Take 75 mg Univers (PLAVIX) 75 2-09 by mouth ity of mg tablet 17:16: daily. [address] sotalol 2014-02 Yes 80mg Take 80 mg Univ ers (BETAPACE) 2-09 by mouth 2 ity of 80 mg 17:16: (two) [place] tablet 52 times Medical daily. Branch pantoprazol 2014-02 Yes 40mg Take 40 mg Univers e 2-09 by mouth ity of (PROTONIX) 17:16: daily. [place] 40 mg EC 52 Medical tablet Branch lisinopril 2014-02 Yes 20mg Take 20 mg U nivers (PRINIVIL,Z 2-09 by mouth 2 it y of ESTRIL) 20 17:16: (two) [place] mg tablet 52 times Medical daily. Branch atorvastati 2014-02 Yes 40mg Take 40 mg Univers n (LIPITOR) 2-09 by mouth ity of 40 mg 17:16: at [place] tablet 52 bedtime. Medical Branch pantoprazol 2014-02 Yes 40mg Take 40 mg Univers e 2-09 by mouth ity of (PROTONIX) 17:16: daily. [place] 40 mg EC 52 Medical tablet Branch clopidogrel 2014-02 Yes 75mg Take 75 mg Univers (PLAVIX) 75 2-09 by mouth ity of mg tablet 17:16: daily. [place] [address] Medical Branch sotalol 2014-02 Yes 80mg Take 80 mg Univ ers (BETAPACE) 2-09 by mouth 2 ity of 80 mg 17:16: (two) [place] tablet 52 times Medical daily. Branch pantoprazol 2014-02 Yes 40mg Take 40 mg Univers e 2-09 by mouth ity of (PROTONIX) 17:16: daily. [place] 40 mg EC 52 Medical tablet Branch lisinopril 2014-02 Yes 20mg Take 20 mg U nivers (PRINIVIL,Z 2-09 by mouth 2 it y of ESTRIL) 20 17:16: (two) [place] mg tablet 52 times Medical daily. Branch atorvastati 2014-02 Yes 40mg Take 40 mg Univers n (LIPITOR) 2-09 by mouth ity of 40 mg 17:16: at [place] tablet 52 bedtime. Medical Branch clopidogrel 2014-02 Yes 75mg Take 75 mg Univers (PLAVIX) 75 2-09 by mouth ity of mg tablet 17:16: daily. [place] [address] Medical Branch sotalol 2014-02 Yes 80mg Take 80 mg Univ ers (BETAPACE) 2-09 by mouth 2 ity of 80 mg 17:16: (two) [place] tablet 52 times Medical daily. Branch pantoprazol 2014-02 Yes 40mg Take 40 mg Univers e 2-09 by mouth ity of (PROTONIX) 17:16: daily. [place] 40 mg EC 52 Medical tablet Branch lisinopril 2014-02 Yes 20mg Take 20 mg U nivers (PRINIVIL,Z 2-09 by mouth 2 it y of ESTRIL) 20 17:16: (two) [place] mg tablet 52 times Medical daily. Branch atorvastati 2014-02 Yes 40mg Take 40 mg Univers n (LIPITOR) 2-09 by mouth ity of 40 mg 17:16: at [place] tablet 52 bedtime. Medical Branch clopidogrel 2014-02 Yes 75mg Take 75 mg Univers (PLAVIX) 75 2-09 by mouth ity of mg tablet 17:16: daily. [place] [address] Medical Branch sotalol 2014-02 Yes 80mg Take 80 mg Univ ers (BETAPACE) 2-09 by mouth 2 ity of 80 mg 17:16: (two) [place] tablet 52 times Medical daily. Branch pantoprazol 2014-02 Yes 40mg Take 40 mg Univers e 2-09 by mouth ity of (PROTONIX) 17:16: daily. [place] 40 mg EC 52 Medical tablet Branch lisinopril 2014-02 Yes 20mg Take 20 mg U nivers (PRINIVIL,Z 2-09 by mouth 2 it y of ESTRIL) 20 17:16: (two) [place] mg tablet 52 times Medical daily. Branch atorvastati 2014-02 Yes 40mg Take 40 mg Univers n (LIPITOR) 2-09 by mouth ity of 40 mg 17:16: at [place] tablet 52 bedtime. Medical Branch clopidogrel 2014-02 Yes 75mg Take 75 mg Univers (PLAVIX) 75 2-09 by mouth ity of mg tablet 17:16: daily. [place] [address] Medical Branch sotalol 2014-02 Yes 80mg Take 80 mg Univ ers (BETAPACE) 2-09 by mouth 2 ity of 80 mg 17:16: (two) [place] tablet 52 times Medical daily. Branch pantoprazol 2014-02 Yes 40mg Take 40 mg Univers e 2-09 by mouth ity of (PROTONIX) 17:16: daily. [place] 40 mg EC 52 Medical tablet Branch lisinopril 2014-02 Yes 20mg Take 20 mg U nivers (PRINIVIL,Z 2-09 by mouth 2 it y of ESTRIL) 20 17:16: (two) [place] mg tablet 52 times Medical daily. Branch atorvastati 2014-02 Yes 40mg Take 40 mg Univers n (LIPITOR) 2-09 by mouth ity of 40 mg 17:16: at [place] tablet 52 bedtime. Medical Branch clopidogrel 2014-02 Yes 75mg Take 75 mg Univers (PLAVIX) 75 2-09 by mouth ity of mg tablet 17:16: daily. [place] [address] Medical Branch sotalol 2014-02 Yes 80mg Take 80 mg Univ ers (BETAPACE) 2-09 by mouth 2 ity of 80 mg 17:16: (two) [place] tablet 52 times Medical daily. Branch pantoprazol 2014-02 Yes 40mg Take 40 mg Univers e 2-09 by mouth ity of (PROTONIX) 17:16: daily. [place] 40 mg EC 52 Medical tablet Branch lisinopril 2014-02 Yes 20mg Take 20 mg U nivers (PRINIVIL,Z 2-09 by mouth 2 it y of ESTRIL) 20 17:16: (two) [place] mg tablet 52 times Medical daily. Branch atorvastati 2014-02 Yes 40mg Take 40 mg Univers n (LIPITOR) 2-09 by mouth ity of 40 mg 17:16: at [place] tablet 52 bedtime. Medical Branch clopidogrel 2014-02 Yes 75mg Take 75 mg Univers (PLAVIX) 75 2-09 by mouth ity of mg tablet 17:16: daily. [place] [address] Medical Branch sotalol 2014-02 Yes 80mg Take 80 mg Univ ers (BETAPACE) 2-09 by mouth 2 ity of 80 mg 17:16: (two) [place] tablet 52 times Medical daily. Branch pantoprazol 2014-02 Yes 40mg Take 40 mg Univers e 2-09 by mouth ity of (PROTONIX) 17:16: daily. [place] 40 mg EC 52 Medical tablet Branch lisinopril 2014-02 Yes 20mg Take 20 mg U nivers (PRINIVIL,Z 2-09 by mouth 2 it y of ESTRIL) 20 17:16: (two) [place] mg tablet 52 times Medical daily. Branch atorvastati 2014-02 Yes 40mg Take 40 mg Univers n (LIPITOR) 2-09 by mouth ity of 40 mg 17:16: at [place] tablet 52 bedtime. Medical Branch clopidogrel 2014-02 Yes 75mg Take 75 mg Univers (PLAVIX) 75 2-09 by mouth ity of mg tablet 17:16: daily. [place] [address] Medical Branch sotalol 2014-02 Yes 80mg Take 80 mg Univ ers (BETAPACE) 2-09 by mouth 2 ity of 80 mg 17:16: (two) [place] tablet 52 times Medical daily. Branch pantoprazol 2014-02 Yes 40mg Take 40 mg Univers e 2-09 by mouth ity of (PROTONIX) 17:16: daily. [place] 40 mg EC 52 Medical tablet Branch lisinopril 2014-02 Yes 20mg Take 20 mg U nivers (PRINIVIL,Z 2-09 by mouth 2 it y of ESTRIL) 20 17:16: (two) [place] mg tablet 52 times Medical daily. Branch atorvastati 2014-02 Yes 40mg Take 40 mg Univers n (LIPITOR) 2-09 by mouth ity of 40 mg 17:16: at [place] tablet 52 bedtime. Medical Branch clopidogrel 2014-02 Yes 75mg Take 75 mg Univers (PLAVIX) 75 2-09 by mouth ity of mg tablet 17:16: daily. [address] sotalol 2014-02 Yes 80mg Take 80 mg Univ ers (BETAPACE) 2-09 by mouth 2 ity of 80 mg 17:16: (two) [place] tablet 52 times Medical daily. Branch pantoprazol 2014-02 Yes 40mg Take 40 mg Univers e 2-09 by mouth ity of (PROTONIX) 17:16: daily. [place] 40 mg EC 52 Medical tablet Branch lisinopril 2014-02 Yes 20mg Take 20 mg U nivers (PRINIVIL,Z 2-09 by mouth 2 it y of ESTRIL) 20 17:16: (two) [place] mg tablet 52 times Medical daily. Branch atorvastati 2014-02 Yes 40mg Take 40 mg Univers n (LIPITOR) 2-09 by mouth ity of 40 mg 17:16: at [place] tablet 52 bedtime. Medical Branch clopidogrel 2014-02 Yes 75mg Take 75 mg Univers (PLAVIX) 75 2-09 by mouth ity of mg tablet 17:16: daily. [address] sotalol 2014-02 Yes 80mg Take 80 mg Univ ers (BETAPACE) 2-09 by mouth 2 ity of 80 mg 17:16: (two) [place] tablet 52 times Medical daily. Branch pantoprazol 2014-02 Yes 40mg Take 40 mg Univers e 2-09 by mouth ity of (PROTONIX) 17:16: daily. [place] 40 mg EC 52 Medical tablet Branch lisinopril 2014-02 Yes 20mg Take 20 mg U nivers (PRINIVIL,Z 2-09 by mouth 2 it y of ESTRIL) 20 17:16: (two) [place] mg tablet 52 times Medical daily. Branch Immunizations Ordered Filled Immunization Date Status Comments [facility] Immunization Name Name SARS-COV-2 COVID-19 2020-05-16 Completed Unive rsity of MODERNA VACCINE 00:00:00 [facility] Branch SARS-COV-2 COVID-19 2020-05-16 Completed Unive rsity of MODERNA VACCINE 00:00:00 [facility] SARS-COV-2 COVID-19 2020-05-16 Completed Unive rsity of MODERNA VACCINE 00:00:00 [facility] SARS-COV-2 COVID-19 2020-05-16 Completed Unive rsity of MODERNA VACCINE 00:00:00 [facility] Branch SARS-COV-2 COVID-19 2020-05-16 Completed Unive rsity of MODERNA VACCINE 00:00:00 [facility] Branch SARS-COV-2 COVID-19 2020-05-16 Completed Unive rsity of MODERNA VACCINE 00:00:00 [facility] SARS-COV-2 COVID-19 2020-05-16 Completed Unive rsity of MODERNA VACCINE 00:00:00 [facility] Branch SARS-COV-2 COVID-19 2020-05-16 Completed Unive rsity of MODERNA VACCINE 00:00:00 [facility] Branch SARS-COV-2 COVID-19 2020-05-16 Completed Unive rsity of MODERNA VACCINE 00:00:00 [facility] Branch SARS-COV-2 COVID-19 2020-05-16 Completed Unive rsity of MODERNA VACCINE 00:00:00 [facility] SARS-COV-2 COVID-19 2020-05-16 Completed Unive rsity of MODERNA VACCINE 00:00:00 [facility] SARS-COV-2 COVID-19 2020-05-16 Completed Unive rsity of MODERNA VACCINE 00:00:00 [place] [facility] SARS-COV-2 COVID-19 2020-04-18 Completed Unive rsity of MODERNA VACCINE 00:00:00 [place] [facility] SARS-COV-2 COVID-19 2020-04-18 Completed Unive rsity of MODERNA VACCINE 00:00:00 [place] [facility] SARS-COV-2 COVID-19 2020-04-18 Completed Unive rsity of MODERNA VACCINE 00:00:00 [place] [facility] SARS-COV-2 COVID-19 2020-04-18 Completed Unive rsity of MODERNA VACCINE 00:00:00 [place] [facility] Branch SARS-COV-2 COVID-19 2020-04-18 Completed Unive rsity of MODERNA VACCINE 00:00:00 [place] [facility] Branch SARS-COV-2 COVID-19 2020-04-18 Completed Unive rsity of MODERNA VACCINE 00:00:00 [place] [facility] Branch SARS-COV-2 COVID-19 2020-04-18 Completed Unive rsity of MODERNA VACCINE 00:00:00 [place] [facility] Branch SARS-COV-2 COVID-19 2020-04-18 Completed Unive rsity of MODERNA VACCINE 00:00:00 [place] [facility] Branch SARS-COV-2 COVID-19 2020-04-18 Completed Unive rsity of MODERNA VACCINE 00:00:00 [place] [facility] Branch SARS-COV-2 COVID-19 2020-04-18 Completed Unive rsity of MODERNA VACCINE 00:00:00 [place] [facility] Branch SARS-COV-2 COVID-19 2020-04-18 Completed Unive rsity of MODERNA VACCINE 00:00:00 [place] [facility] Branch SARS-COV-2 COVID-19 2020-04-18 Completed Unive rsity of MODERNA VACCINE 00:00:00 [place] [facility] Branch SARS-COV-2 COVID-19 2020-04-18 Completed Unive rsity of MODERNA VACCINE 00:00:00 [place] [facility] Branch SARS-COV-2 COVID-19 2020-04-18 Completed Unive rsity of MODERNA VACCINE 00:00:00 [place] [facility] Branch SARS-COV-2 COVID-19 2020-04-18 Completed Unive rsity of MODERNA VACCINE 00:00:00 [facility] ical Branch SARS-COV-2 COVID-19 2020-04-18 Completed Unive rsity of MODERNA VACCINE 00:00:00 [facility] ical Branch SARS-COV-2 COVID-19 2020-04-18 Completed Unive rsity of MODERNA VACCINE 00:00:00 [facility] Branch SARS-COV-2 COVID-19 2020-04-18 Completed Unive rsity of MODERNA VACCINE 00:00:00 [facility] SARS-COV-2 COVID-19 2020-04-18 Completed Unive rsity of MODERNA VACCINE 00:00:00 [facility] SARS-COV-2 COVID-19 2020-04-18 Completed Unive rsity of MODERNA VACCINE 00:00:00 [facility] Vital Signs Vital Name Observation Time Observation Value Comments Source Systolic blood 2020-06-23 15:10:00 134 mm[Hg] Univer sity of pressure [facility] Diastolic blood 2020-06-23 15:10:00 69 mm[Hg] Unive rsity of pressure [place] [facility] [place] Heart rate 2020-06-23 15:10:00 54 /min [facility] Body temperature 2020-06-23 15:10:00 36.5 [place] Univ ersity of [facility] Systolic blood 2020-06-23 15:10:00 134 mm[Hg] Univer sity of pressure [facility] Diastolic blood 2020-06-23 15:10:00 69 mm[Hg] Unive rsity of pressure [facility] Branch Heart rate 2020-06-23 15:10:00 54 /min [facility] Body temperature 2020-06-23 15:10:00 36.5 [place] Univ ersity of [facility] Branch Respiratory rate 2020-06-23 15:10:00 18 /min Univ ersity of [facility] Body height 2020-06-23 15:10:00 167.6 cm [facility] Respiratory rate 2020-06-23 15:10:00 18 /min Univ ersity of [facility] Body weight 2020-06-23 15:10:00 63.685 kg [facility] BMI 2020-06-23 15:10:00 22.66 kg/m2 [facility] [place] [facility] Body height 2020-06-23 15:10:00 167.6 cm [facility] [place] [facility] Body weight 2020-06-23 15:10:00 63.685 kg [facility] [place] [facility] BMI 2020-06-23 15:10:00 22.66 kg/m2 [facility] [place] [facility] Systolic blood 2020-06-23 15:10:00 134 mm[Hg] Univer [facility] Diastolic blood 2020-06-23 15:10:00 69 mm[Hg] [facility] pressure [facility] Heart rate 2020-06-23 15:10:00 54 /min [facility] Body temperature 2020-06-23 15:10:00 36.5 Katherine [facility] Systolic blood 2020-06-23 15:10:00 134 mm[Hg] [facility] Diastolic blood 2020-06-23 15:10:00 69 mm[Hg] [facility] pressure [facility] Heart rate 2020-06-23 15:10:00 54 /min [facility] Body temperature 2020-06-23 15:10:00 36.5 Katherine [facility] Respiratory rate 2020-06-23 15:10:00 18 /min [facility] Body height 2020-06-23 15:10:00 167.6 cm [facility] Respiratory rate 2020-06-23 15:10:00 18 /min [facility] Body weight 2020-06-23 15:10:00 63.685 kg [facility] BMI 2020-06-23 15:10:00 22.66 kg/m2 [facility] Body height 2020-06-23 15:10:00 167.6 cm [facility] Body weight 2020-06-23 15:10:00 63.685 kg [facility] BMI 2020-06-23 15:10:00 22.66 kg/m2 [facility] Systolic blood 2020-05-23 20:27:00 136 mm[Hg] [facility] pressure [facility] Diastolic blood 2020-05-23 20:27:00 77 mm[Hg] [facility] pressure [facility] Heart rate 2020-05-23 20:27:00 80 /min [facility] Body temperature 2020-05-23 20:27:00 36.83 Katherine [facility] Respiratory rate 2020-05-23 20:27:00 20 /min [facility] Body height 2020-05-23 20:27:00 167.6 cm [facility] Body weight 2020-05-23 20:27:00 65.227 kg [facility] BMI 2020-05-23 20:27:00 23.21 kg/m2 [facility] Oxygen saturation in 2020-05-23 20:27:00 98 /min University of Arterial blood by [facility] Pulse oximetry Branch Systolic blood 2020-05-09 15:34:00 152 mm[Hg] Univer sity of pressure [facility] Diastolic blood 2020-05-09 15:34:00 81 mm[Hg] Unive rsity of pressure [facility] Heart rate 2020-05-09 15:34:00 59 /min [facility] Body temperature 2020-05-09 15:34:00 36.44 Katherine [facility] Respiratory rate 2020-05-09 15:34:00 18 /min [facility] Body height 2020-05-09 15:34:00 167.6 cm [facility] Body weight 2020-05-09 15:34:00 66.497 kg [facility] BMI 2020-05-09 15:34:00 23.66 kg/m2 [facility] Systolic blood 2020-05-03 17:00:00 151 mm[Hg] [facility] Diastolic blood 2020-05-03 17:00:00 72 mm[Hg] Unive rs[facility] pressure [facility] Heart rate 2020-05-03 17:00:00 57 /min [facility] Respiratory rate 2020-05-03 17:00:00 18 /min [facility] Oxygen saturation in 2020-05-03 17:00:00 96 /min [facility] Arterial blood by [facility] Pulse oximetry [place] Body temperature 2020-05-03 14:35:00 36.11 Katherine [facility] Body weight 2020-05-03 14:35:00 64.864 kg [facility] BMI 2020-05-03 14:35:00 23.09 kg/m2 [facility] Procedures Procedure Date / Time Performing Clinician Source Performed REFERRAL- 2020-06-29 05:01:00 Doctor Unassigned, [facility] REQUEST/RESPONSE Name [facility] POCT URINALYSIS AUTO 2020-05-23 20:29:00 Ayesha Roa [facility] DISCLOSURE AND CONSENT, 2020-05-23 05:01:00 Doctor Unassigned, N o [facility] MEDICAL AND SURGICAL Name Medical [facility] PROCEDURES POCT URINALYSIS AUTO 2020-05-09 15:40:00 Ayesha Roa [facility] ASSIGNMENT OF BENEFITS 2020-05-09 14:59:28 Doctor Unassigned, No [facility] CT ABDOMEN PELVIS W WO 2020-05-03 16:55:31 [facility] CONTRAST [facility] HEPATIC FUNCTION PANEL 2020-05-03 14:54:00 Armani Roca [facility] ([id number]) (ALB,T.PRO,BILI [facility] T,BU/BC,ALT,AST,ALK PHOS) BASIC METABOLIC PANEL 2020-05-03 14:54:00 Armani Roca [facility] (NA, K, CL, CO2, Medical [place] GLUCOSE, BUN, CREATININE, CA) CBC WITH DIFF 2020-05-03 14:54:00 Armani Roca o f [facility] PROTHROMBIN TIME / INR 2020-05-03 14:54:00 [facility] ACTIVATED PARTIAL 2020-05-03 14:54:00 Armani Roca [facility] THRMPLAS RAVINDER [facility] URINALYSIS 2020-05-03 14:54:00 Armani Roca o f [facility] Branch Plan of Care Planned Activity Planned Date Details Comments Source Future Scheduled 2021-05-09 Depression screening Uni versity of Test 00:00:00 (procedure) [code = [facility] dical 775620935] Branch Future Scheduled 2021-05-09 Depression screening Uni versity of Test 00:00:00 (procedure) [code = [place] [facility] 882332091] Branch Future Scheduled 2021-05-09 Depression screening Uni versity of Test 00:00:00 (procedure) [code = [facility] dical 669931887] Branch Future Scheduled 2020-10-19 INFLUENZA VACCINE Univer sity of Test 00:00:00 (Season Ended) [code [facility] edical = INFLUENZA VACCINE Branch (Season Ended)] Future Scheduled 2020-10-19 INFLUENZA VACCINE Univer sity of Test 00:00:00 (Season Ended) [code [facility] edical = INFLUENZA VACCINE Branch (Season Ended)] Future Scheduled 2020-10-19 INFLUENZA VACCINE Univer sity of Test 00:00:00 (Season Ended) [code [facility] edical = INFLUENZA VACCINE Branch (Season Ended)] Diagnostic Test 2020-06-23 URINE CULTURE [code Expected: Unive rsity of Pending 00:00:00 = 630-4] 06/23/2020, [place] [facility] Expires: Branch 06/23/2021 Diagnostic Test 2020-06-23 PROSTATIC SPECIFIC Expected: Univer sity of Pending 00:00:00 ANTIGEN [code = 06/23/2020, [place] [facility] 2857-1] Expires: Branch 06/23/2021 Diagnostic Test 2020-06-23 URINE CULTURE [code Expected: Unive rsity of Pending 00:00:00 = 630-4] 06/23/2020, [place] [facility] Expires: Branch 06/23/2021 Diagnostic Test 2020-06-23 PROSTATIC SPECIFIC Expected: Univer sity of Pending 00:00:00 ANTIGEN [code = 06/23/2020, [place] [facility] 2857-1] Expires: Branch 06/23/2021 Future Scheduled 2012 Medicare Annual Universi ty of Test 00:00:00 Wellness Visit [facility] (procedure) [code = Branch 466227075286096] Future Scheduled 2012 PNEUMOCOCCAL University of Test 00:00:00 VACCINES 65+ (1 of 1 [place] edical - PPSV23) [code = Branch PNEUMOCOCCAL VACCINES 65+ (1 of 1 - PPSV23)] Future Scheduled 2012 Medicare Annual Universi ty of Test 00:00:00 Wellness Visit [facility] (procedure) [code = Branch 638980994037673] Future Scheduled 2012 PNEUMOCOCCAL University of Test 00:00:00 VACCINES 65+ (1 of 1 [place] edical - PPSV23) [code = Branch PNEUMOCOCCAL VACCINES 65+ (1 of 1 - PPSV23)] Future Scheduled 2012 Medicare Annual Universi ty of Test 00:00:00 Wellness Visit [facility] (procedure) [code = Branch [id number]] Future Scheduled 2012 PNEUMOCOCCAL University of Test 00:00:00 VACCINES 65+ (1 of 1 [facility] edical - PPSV23) [code = Branch PNEUMOCOCCAL VACCINES 65+ (1 of 1 - PPSV23)] Future Scheduled 2002 Screening for University of Test 00:00:00 malignant neoplasm [place] [facility] lung (procedure) Branch [code = 105151967] Future Scheduled 2002 Screening for University of Test 00:00:00 malignant neoplasm [place] [facility] lung (procedure) Branch [code = 644503167] Future Scheduled 2002 Screening for University of Test 00:00:00 malignant neoplasm [place] [facility] lung (procedure) Branch [code = 231798345] Future Scheduled 1997 Screening for occult Uni versity of Test 00:00:00 blood in feces [facility] (procedure) [code = Branch 330138766] Future Scheduled 1997 Stool DNA-based Universi ty of Test 00:00:00 colorectal cancer [facility] screening Branch (procedure) [code = 018074137973968] Future Scheduled 1997 Flexible fiberoptic Univ ersity of Test 00:00:00 sigmoidoscopy [facility] (procedure) [code = Branch 92361414] Future Scheduled 1997 Screening for University of Test 00:00:00 malignant neoplasm [place] [facility] colon (procedure) Branch [code = 607829794] Future Scheduled 1997 Screening for University of Test 00:00:00 malignant neoplasm [place] [facility] of colon (procedure) Branch [code = 031304067] Future Scheduled 1997 Zoster Recombinant Unive rsity of Test 00:00:00 Vaccine (SHINGRIX) [place] [facility] (1 of 2) [code = Branch Zoster Recombinant Vaccine (SHINGRIX) (1 of 2)] Future Scheduled 1997 Screening for occult Uni versity of Test 00:00:00 blood in feces [facility] (procedure) [code = Branch 647152226] Future Scheduled 1997 Stool DNA-based Universi ty of Test 00:00:00 colorectal cancer [facility] screening Branch (procedure) [code = 072807900538318] Future Scheduled 1997 Flexible fiberoptic Univ ersity of Test 00:00:00 sigmoidoscopy [facility] (procedure) [code = Branch 35695639] Future Scheduled 1997 Screening for University of Test 00:00:00 malignant neoplasm [place] [facility] of colon (procedure) Branch [code = 509154579] Future Scheduled 1997 Screening for University of Test 00:00:00 malignant neoplasm [place] [facility] of colon (procedure) Branch [code = 414429078] Future Scheduled 1997 Zoster Recombinant Unive rsity of Test 00:00:00 Vaccine (SHINGRIX) [place] [facility] (1 of 2) [code = Branch Zoster Recombinant Vaccine (SHINGRIX) (1 of 2)] Future Scheduled 1997 Screening for occult Uni versity of Test 00:00:00 blood in feces [facility] (procedure) [code = Branch 959770792] Future Scheduled 1997 Stool DNA-based Universi ty of Test 00:00:00 colorectal cancer [facility] screening Branch (procedure) [code = 928533617244942] Future Scheduled 1997 Flexible fiberoptic Univ ersity of Test 00:00:00 sigmoidoscopy [facility] (procedure) [code = Branch 67692209] Future Scheduled 1997 Screening for University of Test 00:00:00 malignant neoplasm [place] [facility] of colon (procedure) Branch [code = 656777595] Future Scheduled 1997 Screening for University of Test 00:00:00 malignant neoplasm [place] [facility] of colon (procedure) Branch [code = 327246355] Future Scheduled 1997 Zoster Recombinant Unive rsity of Test 00:00:00 Vaccine (SHINGRIX) [facility] ical (1 of 2) [code = Branch Zoster Recombinant Vaccine (SHINGRIX) (1 of 2)] Future Scheduled 1966 DTaP,Tdap,and Td Univers ity of Test 00:00:00 Vaccines (1 - Tdap) [place] [facility] [code = Branch DTaP,Tdap,and Td Vaccines (1 - Tdap)] Future Scheduled 1966 DTaP,Tdap,and Td Univers ity of Test 00:00:00 Vaccines (1 - Tdap) [place] [facility] [code = Branch DTaP,Tdap,and Td Vaccines (1 - Tdap)] Future Scheduled 1966 DTaP,Tdap,and Td Univers ity of Test 00:00:00 Vaccines (1 - Tdap) [place] [facility] [code = Branch DTaP,Tdap,and Td Vaccines (1 - Tdap)] Future Scheduled 1965 Hepatitis C University of Test 00:00:00 screening [facility] (procedure) [code = Branch 390545493] Future Scheduled 1965 Hepatitis C University of Test 00:00:00 screening [facility] (procedure) [code = Branch 613492924] Future Scheduled 1965 Hepatitis C University of Test 00:00:00 screening [facility] (procedure) [code = Branch 987615906] Future Scheduled PROSTATIC SPECIFIC Unive rsity of Test ANTIGEN [code = [place] [facility] 2857-1] Branch Future Scheduled PROSTATIC SPECIFIC Unive rsity of Test ANTIGEN [code = [place] [facility] 2857-1] Branch Future Scheduled PROSTATIC SPECIFIC Unive rsity of Test ANTIGEN [code = [place] [facility] 2857-1] Branch Encounters Start End Encounter Admission Attending Care Care Encounter Source Date/Time Date/Time Type Type Clinicians Facility Department ID 2020-07-07 2020-07-07 Telephone KARTIK Decker [id number] Univers 00:00:00 00:00:00 Arlene Cadena [id number] ity frank Teran [id number] Teresa Godoy [phone] Me dical nal 204 Branch Building 2020-06-29 2020-06-29 Orders Doctor DUDLEY [id number] Univers 00:00:00 00:00:00 Only Unassigned, COLEMAN [id number] ity of [place] [facility] [id number] [place] as [phone] [address] 2020-06-28 2020-06-28 Telephone Crispin [facility] [id number] Univers 00:00:00 00:00:00 Ayeshakaren Cadena [id number] i [id number] [phone] Dc dical nal 204 [facility] 2020-06-23 2020-06-23 Berry Planter 2, Adc Lab [facility] [id number] Univers 10:54:36 11:09:36 Visit Crispin Ayesha Cadena [id number] [id number] [phone] Dc dical [facility] [address] [facility] 2020-06-23 2020-06-23 [facility] [id number] Univers 09:24:15 10:40:15 Visit Ayesha Cadena [id number] i [id number] [phone] Dc dical [facility] 204 [facility] 2020-06-23 2020-06-23 Outpatient R CRISPIN [facility] [id number] P-20 Univers 09:15:00 09:15:00 [facility] [id number] [facility] 2020-06-23 2020-06-23 [facility] [id number] Univers 09:15:00 09:15:00 [facility] 2020-06-20 2020-06-20 Outpatient R CRISPIN [facility] [id number] P-20 Univers 10:30:00 10:30:00 AYESHA [id number] [facility] 2020-06-20 2020-06-20 [facility] [id number] Univers 10:30:00 10:30:00 [facility] 2020-05-23 2020-05-23 Office Frankosoraida [facility] [id number] Univers 14:39:08 16:25:21 Visit Rm, Adc Surg Spec Procedure [place] 3 50.1.13.10 ity [id number] [phone] Dc dic[address] 2020-05-23 2020-05-23 Outpatient R CRISPIN [facility] [id number] P-20 Univers 14:30:00 14:30:00 [facility] [id number] [facility] 2020-05-23 2020-05-23 [facility] [id number] Univers 14:30:00 14:30:00 [facility] 2020-05-23 2020-05-23 Orders Doctor BUCKNER [id number] Univers 00:00:00 00:00:00 Only Unassigned, COLE[place] [id number] ity of [place] [facility] 4.2.7.2.686 [place] [phone] [address] 2020-05-16 2020-05-16 Outpatient R CHANELL [facility] [id number] Univers 09:50:00 09:50:00 ANASTASIA [id number] ity [facility] 2020-05-16 2020-05-16 Outpatient Kimberly LUA [facility] [id number] Univers 09:50:00 09:50:00 ANASTASIA ity [facility] 2020-05-13 2020-05-13 Telephone [facility] [id number] Univers 00:00:00 00:00:00 Arlene Cadena [id number] it[id number] [phone] Dc dical nal [address] [place] [address] 2020-05-13 2020-05-13 [facility] 1.2.840.114 [id number] Univers 00:00:00 00:00:00 Management Arlene Pang Tammi [id number] it[id number] [phone] [address] 2020-05-12 2020-05-12 Telephone [facility] [id number] Univers 00:00:00 00:00:00 Arlene Pang Tammi [id number] it[place] [phone] [address] 2020-05-09 2020-05-09 Office [facility] 1.2.840.114 [id number] Univers 10:00:00 11:20:47 Visit Ayesha Tammi [id number] i [place] [phone] [address] 2020-05-09 2020-05-09 Outpatient R CRISPIN [facility] [id number] Univers 10:00:00 10:00:00 AYESHA ity [facility] 2020-05-09 2020-05-09 Orders Doctor DUDLEY [id number] [id number] Univers 00:00:00 00:00:00 Only Unassigned, [place]LE[place] [id number] ity of [place] [facility] 4.2.7.2.686 [place] [phone] [facility] [address] [place] 2020-05-03 2020-05-03 Emergency [facility] [id number] Univers 09:47:00 13:00:00 Armani Tammi [id number] i [place] [phone] [facility] 084 [place] 2020-05-03 2020-05-03 Emergency X [facility] ERT [id number] Univers 09:26:00 09:26:00 ity of [facility] 2020-04-18 2020-04-18 Outpatient R CHANELL [facility] [id number] Univers 08:20:00 11:16:47 ANASTASIA [facility] Results Test Description Test Time Test Comments Results Result Comments Source POCT URINALYSIS, INSTRUMENT 2020-05-23 20:30:00 Test Item Value Reference Range Interpretation Comme nts POCT U SP GRAV (test code = 3255) 1.025 mg/dl 1.005-1.025 POCT PH U (test code = 3254) 5.5 mg/dl 5-8 POCT U LEUK EST (test code = 3263) Negative Negative - Negative POCT U NIT (test code = 3262) Negative Negative - Negative POCT U PROT (test code = 3259) Negative Negative - Negative POCT U GLU (test code = 3256) Negative Negative - Negative POCT U KETONE (test code = 3258) Negative Negative - Negative POCT U UROBILI (test code = 3260) 0.2 mg/dl 0.2-1 POCT U BILI (test code = 3261) Negative Negative - Negative POCT U BLD (test code = 3257) Negative Negative - Negative POCT U COLOR (test code = 3266) yellow POCT U APPEAR (test code = 3267) clear Lab Interpretation (test code = 28227-1) [facility] [id number] 20:30:00 Test Item Value Reference Range Interpretation Comments POCT U SP GRAV (test code = 1.025 mg/dl 1.005-1.025 3255) POCT PH U (test code = 3254) 5.5 mg/dl 5-8 POCT U LEUK EST (test code = Negative Negative - Negative 3263) POCT U NIT (test code = 3262) Negative Negative - Negative POCT U PROT (test code = Negative Negative - Negative 3259) POCT U GLU (test code = 3256) Negative Negative - Negative POCT U KETONE (test code = Negative Negative - Negative 3258) POCT U UROBILI (test code = 0.2 mg/dl 0.2-1 3260) POCT U BILI (test code = Negative Negative - Negative 3261) POCT U BLD (test code = 3257) Negative Negative - Negative POCT U COLOR (test code = yellow 3266) POCT U APPEAR (test code = clear 3267) Lab Interpretation (test code Normal = 82740-5) [facility] URINALYSIS, [id number] 15:40:00 Test Item Value Reference Range Interpretation Comments POCT U SP GRAV (test code = 1.020 mg/dl 1.005-1.025 3255) POCT PH U (test code = 3254) 6.0 mg/dl 5-8 POCT U LEUK EST (test code = small Negative - Negative 3263) POCT U NIT (test code = 3262) Negative Negative - Negative POCT U PROT (test code = Negative Negative - Negative 3259) POCT U GLU (test code = 3256) Negative Negative - Negative POCT U KETONE (test code = Negative Negative - Negative 3258) POCT U UROBILI (test code = 0.2 mg/dl 0.2-1 3260) POCT U BILI (test code = Negative Negative - Negative 3261) POCT U BLD (test code = 3257) Negative Negative - Negative POCT U COLOR (test code = yellow 3266) POCT U APPEAR (test code = clear 3267) Lab Interpretation (test code Abnormal = 50459-4) [facility] URINALYSIS, [id number] 15:40:00 Test Item Value Reference Range Interpretation Comments POCT U SP GRAV (test code = 1.020 mg/dl 1.005-1.025 3255) POCT PH U (test code = 3254) 6.0 mg/dl 5-8 POCT U LEUK EST (test code = small Negative - Negative 3263) POCT U NIT (test code = 3262) Negative Negative - Negative POCT U PROT (test code = Negative Negative - Negative 3259) POCT U GLU (test code = 3256) Negative Negative - Negative POCT U KETONE (test code = Negative Negative - Negative 3258) POCT U UROBILI (test code = 0.2 mg/dl 0.2-1 3260) POCT U BILI (test code = Negative Negative - Negative 3261) POCT U BLD (test code = 3257) Negative Negative - Negative POCT U COLOR (test code = yellow 3266) POCT U APPEAR (test code = clear 3267) Lab Interpretation (test code Abnormal = 62549-2) [facility] URINALYSIS, [id number] 15:40:00 Test Item Value Reference Range Interpretation Comments POCT U SP GRAV (test code = 1.020 mg/dl 1.005-1.025 3255) POCT PH U (test code = 3254) 6.0 mg/dl 5-8 POCT U LEUK EST (test code = small Negative - Negative 3263) POCT U NIT (test code = 3262) Negative Negative - Negative POCT U PROT (test code = Negative Negative - Negative 3259) POCT U GLU (test code = 3256) Negative Negative - Negative POCT U KETONE (test code = Negative Negative - Negative 3258) POCT U UROBILI (test code = 0.2 mg/dl 0.2-1 3260) POCT U BILI (test code = Negative Negative - Negative 3261) POCT U BLD (test code = 3257) Negative Negative - Negative POCT U COLOR (test code = yellow 3266) POCT U APPEAR (test code = clear 3267) Lab Interpretation (test code Abnormal = 77227-3) [facility] [id number] 17:10:10CT Abdomen and Pelvis without and with intravenous contrast. CLINICAL HISTORY: Bladder cancer. DOSE:Up-to-date CT equipment and radiation dose reduction techniques wereemployed. CTDIvol: 4.71+4.68 mGy. DLP: 233+232 mGy-cm. TECHNIQUE : Contiguous axial imaging from the level of the lung basesthrough the pubic symphysis were performed initially without contrast andsubsequently after the uncomplicatedadministration of Omnipaque contrastmaterial. ?Coronal and sagittal reconstructions were obtained. Auto mAand/or iterative reconstruction were used to reduce radiation dose. FINDINGS: ? Lower lungs: Clear. Gynecomastia and short sliding hiatal hernia noted. Liver, Gallbladder and Spleen: 3.1 cm size irregular shaped cystic lesionseen in the anterior subdiaphragmatic right lobe of the liver. Liver isapproximately 10.9 cm and spleen measures 10.5 x 5.4 cm. Peritoneum: ?No free air or free fluid. No lymphadenopathy. Pancreas and Adrenals: ?Unremarkable pancreas and adrenal glands. Kidneys and Ureters:?No visible calculi in the renal collecting systems. No hydroureter or hydronephrosis. 15 mm low-density lesion along theposterior cortex and 13 mm lesion along the upper pole of the right kidneyconsistent with simple cysts. Another 6 mm or smaller size lesions arepresent also in the right kidney, too small to accurately characterize. Stable low-density lesions present also in the left kidney rangingfrom 13mm to 4 mm in size, likely incidental simple renal cysts. Vessels: Moderate diffuse atherosclerosis of aorta and iliac arteries aretortuous abdominal aorta and a large noncalcified plaque in theanteriorwall of the descending thoracic aorta at the level of diaphragm, measuringapproximately 21 x18 x 6 mm in size. Retroperitoneum: No abnormal fluid or lymphadenopathy. Bowel: No acute findings. Constipation noted. Normal appendix isvisualized. Bladder and Reproductive Organs: Irregular shaped 14 x 21 x 28 mm tumornoted in the posterior wall of the urinary bladder with frond- likeextensions of the tumor into the bladder lumen. There is no CT evidence ofextraluminal extension of this tumor. Moderately enlarged prostate gland noted. Bones: Kyphoscoliosis of thoracolumbar spines with multilevel de generativedisc disease and changes of old trauma to the endplates of L1, L2 and Q3izozyprgy bodies. Mild bilateral hip joint arthritis. Cystic irregularshaped lesions noted in the neck of the right femur, likely postoperativeresidua from remote of orthopedic hardware. Bone islands in the neck of theleft femur. Soft tissues: Fat-containing direct type bilateral inguinal hernias, largeron the right side without any complications. CONCLUSION:1. 40 x 21 x 28 mm tumor in the posterior wall of the urinarybladder withfrond-like extensions of the tumor protruding into the bladder lumen. No CTevidence of extraluminal extension of the bladder tumor.2. Enlarged prostate.3. Multiple low-density lesions in both kidneys, most of which areconsistent with Bosniak type I renal cysts. Smaller cysts are difficult toaccurately characterize but could be Bosniak type II lesions.4. Irregular shaped cystic lesion in the right lobe of the liver. [facility], Radiant Results Inft User - 05/03/2020 12:11 PM CDTCT Abdomen and Pelvis without and with intravenous contrast.CLINICAL HISTORY: Bladder cancer.DOSE: Up-to-date CTequipment and radiation dose reduction techniques wereemployed. CTDIvol: 4.71+4.68 mGy. DLP: 233+232mGy-cm.TECHNIQUE : Contiguous axial imaging from the level of the lung basesthrough the pubic symphysis were performed initially without contrast andsubsequently after the uncomplicated administration of Omnipaque contrastmaterial. Coronal and sagittal reconstructions were obtained. Auto mAand/or iterative reconstruction were used to reduce radiation dose.FINDINGS: Lower lungs: Clear. Gynecomastia and short sliding hiatal hernia noted.Liver, Gallbladder and Spleen: 3.1 cm size irregular shaped cystic lesionseen in the anterior subdiaphragmatic right lobe of the liver. Liver isapproximately 10.9 cm and spleen measures 10.5 x 5.4 cm.Peritoneum: No free air or free fluid. No lymphadenopathy.Pancreas and Adrenals: Unremarkable pancreas and adrenal glands.Kidneys and Ureters: No visible calculi in the renal collecting systems. No hydroureter or hydronephrosis. 15 mm low-density lesion along theposterior cortex and 13 mm lesion along the upper pole of the right kidneyconsistent with simple cysts. Another 6 mm or smaller size lesions arepresent also in the right kidney, too small to accurately characterize.Stable low-density lesions present also in the left kidney ranging from 13mm to 4 mm in size, likely incidental simple renal cysts. Vessels: Moderate diffuse atherosclerosis of aorta and iliac arteries aretortuous abdominal aorta and a large noncalcified plaque in the anteriorwall of the descending thoracic aorta at the level of diaphragm, measuringapproximately 21 x 18 x 6 mm in size.Retroperitoneum: No abnormal fluid or lymphadenopathy.Bowel: No acute findings. Constipation noted. Normal appendix isvisualized.Bladder and Reproductive Organs: Irregular shaped 14 x 21 x 28 mm tumornoted in the posterior wall of the urinary bladder with frond- likeextensions of the tumor into the bladder lumen. There is no CT evidence ofextraluminal extension of this tumor.Moderately enlarged prostate gland noted.Bones: Kyphoscoliosis of thoracolumbar spines with multilevel degenerativedisc disease and changes of old trauma to the endplates of L1, L2 and X5xuygcudqn bodies. Mild bilateral hip joint arthritis. Cystic irregularshaped lesions noted in the neck of the right femur, likely postoperativeresidua from remote of orthopedic hardware. Bone islands in the neck of theleft femur.Soft tissues: Fat-containing direct type bilateral inguinal hernias, largeron the right side without any complications.CO NCLUSION:1. 40 x 21 x 28 mm tumor in the posterior wall of the urinary bladder withfrond-like extensions of the tumor protruding into the bladder lumen. No CTevidence of extraluminal extension of the bladder tumor.2. Enlarged prostate.3. Multiple low-density lesions in both kidneys, most of which areco nsistent with Bosniak type I renal cysts. Smaller cysts are difficult toaccurately characterize but could be Bosniak type II lesions.4. Irregular shaped cystic lesion in the right lobe of the liver.[facility] QfbkwrTqrybzfmar1205-36-32 15:49:47 Test Item Value Reference Range Interpretation Comments APPEARANCE (test code = Hazy Clear A Prev ious preliminary 3706847950) verified result was Turbid on 2020 at 1045 CDT COLOR (test code = Yellow Yellow Previous preliminary 5568403046) verified result was Red on at 1045 CDT PH (test code = 4.8-8.0 6750739925) SP GRAVITY (test code = 1.003-1.030 6201684329) GLU U QUAL (test code = Normal Normal 0309386229) BLOOD (test code = 3+ Negative A 8156087695) KETONES (test code = Negative Negative 4361835912) PROTEIN (test code = 100 mg/dL Negative A 2887-8) UROBILIN (test code = Normal Normal 2592948694) BILIRUBIN (test code = Negative Negative 4749134359) NITRITE (test code = Negative Negative 4557928236) LEUK ALIRIO (test code = Negative Negative 5465793989) RBC/HPF (test code = >182 See_Comment H [Autom ated message] 2839018317) The system [employer] generated this result transmit kostas reference range : 0 - 3 HPF. The refe rence range was not u sed to interpret th is result as normal/abnormal . WBC/HPF (test code = See_Comment [Autom ated message] 5964491988) The system [employer] generated this result transmit kostas reference range : 0 - 5 HPF. The refe rence range was not u sed to interpret th is result as normal/abnormal . BACTERIA (test code = Few Negative A 9802697150) Lab Interpretation (test Abnormal code = 56278-4) [facility] (NA, K, CL, CO2, GLUCOSE, BUN, CREATININE, CA)2020-05-03 15:23:12 Test Item Value Reference Range Interpretation Comments NA (test code = 135 mmol/L 135-145 5639092761) K (test code = 4.8 mmol/L 3.5-5.0 0767076846) CL (test code = 99 mmol/L 98-108 6357155451) CO2 TOTAL (test code = 29 mmol/L 23-31 6723637004) AGAP (test code = 2-16 5656031127) BUN (test code = 28 mg/dL 7-23 H 8412617435) GLUCOSE (test code = 104 mg/dL 70-110 6107043018) CREATININE (test code = 1.12 mg/dL 0.60-1.25 9862584848) CALCIUM (test code = 9.2 mg/dL 8.6-10.6 7722154224) eGFR Calculation mL/min/1.73m2 (Non-) (test code = 4904712402) eGFR Calculation mL/min/1.73m2 () (test code = 9988155105) ZACHARY (test code = ZACHARY) Association of Glomerular Filtration Rate (GFR) and Staging of Kidney Disease* + --+ --+ ------+| GFR (mL/min/1.73 m2) ?| With Kidney Damage ?| ?Without Kidney Damage+ --------+ --------+ +| ?>90 ?| ?Stage one ?| ? Normal ?+ ---+ ---+ -------+| ?60-89 ?| ?Stage two ?| ? Decreased GFR ? + --+ --+ ------+| ?30-59 ?| ?Stage three ?| ? Stage three ? + --+ --+ ------+| ?15-29 ?| ?Stage four ? | ? Stage four ?+ ---+ ---+ -------+| ?<15 (or dialysis) ? ?| ?Stage five ? | ? Stage five ?+ ---+ ---+ -------+ *Each stage assumes the associated GFR level has been in effect for at least three months. ?Stages 1 to 5, with or without kidney disease, indicate chronic kidney disease. Notes: Determination of stages one and two (with eGFR >59mL/min/1.73 m2) requires estimation of kidney damage for at least three months as defined by structural or functional abnormalities of the kidney, manifested by either:Pathological abnormalities or Markers of kidney damage (including abnormalities in the composition of the blood or urine or abnormalities in imaging tests). Lab Interpretation Abnormal (test code = 15586-5) [facility] (ALB, T.PRO, BILI T, BU/BC, ALT, AST, ALK PHOS)2020-05-03 15:23:12 Test Item Value Reference Range Interpretation Comments TOTAL BILI (test code = 8107927800) 0.6 mg/dL 0.1-1.1 BILI UNCON (test code = 5235553964) 0.6 mg/dL 0.1-1.1 BILI CONJ (test code = 1423118437) 0.0 mg/dL 0.0-0.3 T PROTEIN (test code = 2774727449) 7.1 g/dL 6.3-8.2 ALBUMIN (test code = 6604019256) 4.3 g/dL 3.5-5.0 ALK PHOS (test code = 3644484378) 93 U/L 34-122 ALTv (test code = 1742-6) 17 U/L 5-50 AST(SGOT) (test code = 2856128260) 20 U/L 13-40 Lab Interpretation (test code = Normal 61375-8) [facility]35 Test Item Value Reference Range Interpretation Comments APTT Patient (test See_Comment [Automat ed code = 3173-2) message] The system which generated this result transmitted reference range : 23 - 38 Seconds . The reference range was not used to interpr et this result as normal/abnormal . ZACHARY (test code = ZACHARY) The [facility] patient population mean normal value for aPTT is 30 seconds. Lab Interpretation Normal (test code = 04727-2) [facility] / [id number] 15:16:34 Test Item Value Reference Range Interpretation Comments PROTIME PATIENT (test See_Comment H [Auto mated message] code = 5964-2) The system wh ich generated this result transmitted ref erence range: 12.0 - 1 4.7 Seconds. The reference range was not used to int erpret this result as normal/abnormal . INR (test code = 6301-6) Nor mal INR <1.1; Warfarin Therap eutic range 2.0 to 3. 0 or 2.5 to 3.5, dep ending upon the indica tions. Lab Interpretation (test Abnormal code = 00158-1) [facility] with Ifbydqautsuy6862-54-87 15:03:46 Test Item Value Reference Range Interpretation Comments WBC (test code = See_Comment [Automated 9290-2) message] The sy stem which generated this result transmitted reference range : 4.20 - 10.70 10*3/?L. The reference range was not used to interpret this result as normal/abnormal . RBC (test code = See_Comment [Automated 789-8) message] The sy stem which generated this result transmitted reference range : 4.26 - 5.52 10*6/?L. The reference range was not used to interpret this result as normal/abnormal . HGB (test code = 14.4 g/dL 12.2-16.4 718-7) HCT (test code = 43.7 % 38.4-49.3 4544-3) MCV (test code = 91.0 fL 81.7-95.6 787-2) MCH (test code = 30.0 pg 26.1-32.7 785-6) MCHC (test code = 33.0 g/dL 31.2-35.0 786-4) RDW-SD (test code = 42.1 fL 38.5-51.6 67541-6) RDW-CV (test code = 12.5 % 12.1-15.4 788-0) PLT (test code = See_Comment [Automated 777-3) message] The sy stem which generated this result transmitted reference range : 150 - 328 10*3/ ?L. The reference r jeison was not used to interpret this result as normal/abnormal . MPV (test code = 10.6 fL 9.8-13.0 91546-8) NRBC/100 WBC (test See_Comment [Automat ed code = 2183986663) message] The system which generated this result transmitted reference range : 0.0 - 10.0 /100 WBCs. The refer ence range was not u sed to interpret th is result as normal/abnormal . NRBC x10^3 (test code <0.01 See_Comment [Auto mated = 1861678838) message] The s ystem which generated this result transmitted reference range : 10*3/?L. The reference range was not used to interpret this result as normal/abnormal . GRAN MAT (NEUT) % 74.8 % (test code = 770-8) IMM GRAN % (test code 0.30 % = 8050452906) LYMPH % (test code = 12.0 % 736-9) MONO % (test code = 9.6 % 5905-5) EOS % (test code = 2.5 % 713-8) BASO % (test code = 0.8 % 706-2) GRAN MAT x10^3(ANC) 5.40 10*3/uL 1.99-6.95 (test code = 8504163961) IMM GRAN x10^3 (test <0.03 0.00-0.06 code = 7121998046) LYMPH x10^3 (test code 0.87 10*3/uL 1.09-3.23 L = 731-0) MONO x10^3 (test code 0.69 10*3/uL 0.36-1.02 = 742-7) EOS x10^3 (test code = 0.18 10*3/uL 0.06-0.53 711-2) BASO x10^3 (test code 0.06 10*3/uL 0.01-0.09 = 704-7) Lab Interpretation Abnormal (test code = 52697-3) [facility]"
[2021-04-09 11:07] LABS: Absolute Lymphocytes (CBC) 0.6 K/uL (0.7-4.9); Hematocrit 44.2 % (39.6-49.0); Lymphocytes % 7.9 % (15.3-44.8); MPV 8.7 fL (7.6-11.3); RBC Red Blood Cell Count 5.02 M/uL (4.33-5.43)
[2021-04-09 11:11] LABS: Protime INR 1.18
[2021-04-09 11:24] LABS: ALT/SGPT 17 U/L (12-78); AST/SGOT 9 U/L (15-37); Albumin 3.3 g/dL (3.4-5.0); Alkaline Phosphatase 97 U/L (45-117); BUN Blood Urea Nitrogen 23 mg/dL (7-18); Bicarbonate 30 mmol/L (21-32); Bilirubin Direct 0.1 mg/dL (0-0.2); Bilirubin Total 0.5 mg/dL (0.2-1.0); Glucose Level 92 mg/dL (74-106); Potassium 4.1 mmol/L (3.5-5.1); Protein, Total 7.2 g/dL (6.4-8.2); Sodium Level 138 mmol/L (136-145)
--- NOTE | 2021-04-09 11:32 | RAD REPORT ---
EXAM DESCRIPTION: Kye Single View04/09/2021 11:00 am CLINICAL HISTORY: Cough COMPARISON: none FINDINGS: The lungs appear clear of acute infiltrate. The heart is moderately enlarged. Prominence of the right parahilar region without significant change probably tortuous/ectatic vessels .
--- NOTE | 2021-04-09 11:34 | RAD REPORT ---
EXAM DESCRIPTION: CT - Head Brain Wo Cont - 04/09/2021 11:12 am CLINICAL HISTORY: Alteration of awareness/confusion COMPARISON: None TECHNIQUE: Computed axial tomography of the head was obtained. IV contrast was not requested. All CT scans are performed using dose optimization technique as appropriate and may include automated exposure control or mA/KV adjustment according to patient size. FINDINGS: Significant artifact obscures evaluation of portions of the cerebellum bilaterally. An intracranial bleed is not seen . The ventricles are normal in caliber. No extra-axial fluid collection is noted. Mild low-density areas within periventricular, deep and subcortical white matter likely represent isc hemic changes secondary to small vessel disease. Fluid within the sinuses/ mastoids is not seen. IMPRESSION: No acute intracranial abnormality is seen. If patient's symptoms persist MRI of the bra in would be recommended.
--- NOTE | 2021-04-09 11:42 | RAD REPORT ---
EXAM DESCRIPTION: CTHead angio04/09/2021 11:14 am CLINICAL HISTORY: Confusion COMPARISON: None TECHNIQUE: CT angiogram of the head was obtained. 3D MIPS reconstruction performed. All CT scans are performed using dose optimization technique as appropriate and may include automated exposure control or mA/KV adjustment according to patient size. FINDINGS: Moderate calcified plaque distal left vertebral artery. Mild plaque within right vertebral and right and left internal carotid arteries. Anterior cerebral, middle cerebral and posterior cerebral do not demonstrate a significant stenosis. No aneurysm seen IMPRESSION: Moderate calcified plaque distal left vertebral artery resulting in an approximately 50% stenosis
[2021-04-09 11:51] LABS: Barbiturates NEGATIVE (NEGATIVE); Benzodiazepines NEGATIVE (NEGATIVE); Cocaine NEGATIVE (NEGATIVE); METHAMPHETAM NEGATIVE (NEGATIVE); Methadone NEGATIVE (NEGATIVE); Opiates NEGATIVE (NEGATIVE); Phencyclidine NEGATIVE (NEGATIVE); THC Cannibis NEGATIVE (NEGATIVE)
[2021-04-09 12:11] LABS: SARS-COV-2 RT PCR NEGATIVE (NEGATIVE)
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
[2021-04-09] MEDS ORDERED: ACETAMINOPHEN 500 MG TAB PO PRN (13:25)
[2021-04-09] MEDS ORDERED: MORPHINE 2 MG/ML SYR IV PRN (13:25)
[2021-04-09] MEDS ORDERED: ONDANSETRON 4 MG/2 ML VIAL IV PRN (13:25)
[2021-04-09] MEDS ORDERED: ALBUTEROL 2.5 MG/3 ML NEB SOL NEB PRN (13:25)
--- NOTE | 2021-04-09 13:32 | P.HP ---
Certification for Inpatient Patient admitted to: Observation With expected LOS: <2 Midnights Patient will require the following post-hospital care: None Practitioner: I am a practitioner with admitting privileges, knowledge of patient current condition, hospital course, and medical plan of care. Services: Services provided to patient in accordance with Admission requirements found in Title 42 Section 412.3 of the Code of Federal Regulations Patient History Date of Service: 04/09/21 Reason for admission: Acute confusion History of Present Illness: 76-year-old male with history of hypertension, CAD status post PCI, cerebral palsy with reduced mental intelligence but functional at baseline and reside by himself, was brought in by EMS after patient caregiver who lives in a different house had called EMS. Caregiver reportedly states patient has driven to her place and was driving erratically on the way day. Patient was apparently confused while speaking with a caregiver, which is different from his usual speech pattern at baseline. She had called EMS for acute confusion. On arrival in the ED patient had no recollection of event but was coherent and conversant as reported by the emergency room. Patient is seen now. He is intermittently confused although he attributes some of his poor responses to his lack of hearing aids. He seems to be impulsive and almost stumbled while walking down from his emergency room to the bathroom. He was also noticed to have difficulty opening the door of the bathroom while he was inside. 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 EKG was unremarkable. Laboratory work-up was normal. Urinalysis was negative. Patient is being kept for observation overnight with follow-up MRI in a.m. Allergies No Known Drug Allergies Allergy (Verified 12/09/17 15:48) Unknown Home Medications: Atorvastatin Calcium [Lipitor] 80 mg PO BEDTIME 09/30/14 Furosemide [Lasix] 40 mg PO DAILY #30 tab 10/01/14 Amlodipine [Norvasc] 2.5 mg PO TID 12/09/17 Losartan Potassium 100 mg PO DAILY 12/09/17 Pantoprazole [Protonix Tab] 80 mg PO DAILY 12/09/17 Rivaroxaban [Xarelto] 20 mg PO DAILY 12/09/17 Sotalol HCl [Betapace*] 80 mg PO BID 6AM 6PM 12/09/17 Nitrofurantoin Macrocrystal [Macrodantin] 100 mg PO DAILY 12/10/17 Tamsulosin HCl 0.4 mg PO DAILY 12/10/17 - Past Medical/Surgical History Diabetic: No -: HTN -: Hypercholesterolemia -: Cerebral Palsy -: Heart Stents -: Foot surgery - Social History Smoking Status: Never smoker Smoking therapy provided: No Patient receptive to therapy: No Alcohol use: No CD- Drugs: No Caffeine use: Yes Place of Residence: Home Review of Systems 10-point ROS is otherwise unremarkable Physical Examination - Physical Exam General: In no apparent distress, Oriented x2, Confused HEENT: Atraumatic, Normocephalic, PERRLA, Mucous membr. moist/pink Neck: Supple, 2+ carotid pulse no bruit, JVD not distended Respiratory: Clear to auscultation bilaterally, Normal air movement Cardiovascular: No edema, Normal pulses, Regular rate/rhythm, Normal S1 S2 Gastrointestinal: Normal bowel sounds, Soft and benign, Non-distended Musculoskeletal: No clubbing, No swelling Neurological: Normal speech, Normal strength at 5/5 x4 extr - Studies Laboratory Data (last 24 hrs) 04/09/21 10:46: PT 13.6 H, INR 1.18, APTT 36.1 04/09/21 10:46: WBC 8.10, Hgb 14.8, Hct 44.2, Plt Count 246 04/09/21 10:46: Sodium 138, Potassium 4.1, BUN 23 H, Creatinine 1.24, Glucose 92, Total Bilirubin 0.5, AST 9 L, ALT 17, Alkaline Phosphatase 97 Assessment and Plan - Advance Directives Does patient have a Living Will: No Does patient have a Durable POA for Healthcare: No Physician Review: Patient Assessed, Agree with Above Assessment and Plan Physician Review Additional Text: Impression Acute confusional state Hypertension History of coronary diseasestable History of cerebral palsy Plan We will admit patient to observation His confusion appears to be intermittent, will continue to monitor him We do Geodon as needed agitation or continue confusion My need inpatient psych eval Nursing staff to try to get patient home medication list We will place in telemetry given his history of CAD Neurochecks as needed We will schedule for MRI in a.m. Resume home meds when reconciled DVT prophylaxiscontinue Xarelto
[2021-04-09] MEDS ORDERED: ZIPRASIDONE MESYLA 20 MG/VIAL IM PRN (13:59)
[2021-04-09] MEDS ORDERED: WATER FOR INJ,STERILE 10 ML IM PRN (13:59)
[2021-04-09 16:54] VITALS: BMI 21.6
[2021-04-09] MEDS: METOPROLOL TAR 50 MG TAB PO SCH (17:21)
[2021-04-10 05:47] LABS: Absolute Lymphocytes (CBC) 0.8 K/uL (0.7-4.9); Hematocrit 42.4 % (39.6-49.0); Lymphocytes % 9.7 % (15.3-44.8); MPV 8.7 fL (7.6-11.3); RBC Red Blood Cell Count 4.77 M/uL (4.33-5.43)
[2021-04-10 06:06] LABS: Bilirubin Total 0.5 mg/dL (0.2-1.0); Potassium 4.3 mmol/L (3.5-5.1); Protein, Total 6.7 g/dL (6.4-8.2)
--- NOTE | 2021-04-10 08:59 | RAD REPORT ---
EXAM DESCRIPTION: MRI - Brain W/Wo Cont - 04/10/2021 7:49 am CLINICAL HISTORY: acute confusional state COMPARISON: Head Brain Wo Cont dated 04/09/2021 TECHNIQUE: Sagittal and axial T1-weighted images were obtained. Axial PD/heavily T2-weighted and T2- FLAIR images were obtained along with axial DWI/ADC mapping sequences. Coronal heavily T2 weighted s equence obtained. Axial and coronal post-contrast T1-weighted images were also obtained. A 13 ml Mul tihance contrast following utilized. FINDINGS: Diffusion-weighted imaging shows 2.2 x 1.2 centimeter area of abnormal hyperintense diffus ion signal. There is corresponding diminished signal on ADC mapping. Hyperintense T2/IR corresponding signal seen. This is an acute/ subacute nonhemorrhagic CVA pattern. Patient has mild to moderate for age cerebral atrophy. Moderate severity T2/IR cerebral white matter signal abnormalities are present . The these white matter lesions are typical for chronic ischemic change. Ventricles are in proportio n to the volume loss. There is no edema or shift of midline structures. No extra-axial fluid collections. Rodriguez-matter/white matter junction is preserved. Signal voids are seen as a normal finding in the major intracranial v essels. No enhancement at the infarction site. No abnormal brain or dural enhancement identified. Mastoid air cells and paranasal sinuses are clear. IMPRESSION: Moderately large 2.2 x 1.2 cm brainstem acute/subacute CVA involving substantial portion of the left-side abhijit. Elsewhere the patient has up to moderate severity cerebral chronic ischemic change and mild to modera te atrophy. Ventricles are in proportion to the volume loss.
[2021-04-10] MEDS: METOPROLOL TAR 50 MG TAB PO SCH (09:15)
[2021-04-10 11:20] VITALS: O2SAT 98
[2021-04-10 11:47] LABS: Urine Blood Negative (Negative); Urine Glucose Negative (Negative); Urine Protein Negative (Negative); Urine pH 5.5 (5.0-7.0)
[2021-04-10] MEDS ORDERED: CLOPIDOGREL 75 MG TABLET PO ONE (15:59)
[2021-04-10] MEDS ORDERED: ASPIRIN EC 81 MG TAB PO ONE (15:59)
[2021-04-10] MEDS: SOTALOL HCL 80 MG TAB PO SCH (17:28)
[2021-04-10] MEDS ORDERED: ALBUTEROL 2.5 MG/3 ML NEB SOL NEB PRN (19:00)
[2021-04-10] MEDS ORDERED: ATORVASTATIN 40 MG TAB PO SCH (21:00)
--- NOTE | 2021-04-10 22:38 | CON ---
Reason For Consultation: Acute confusion. History Of Present Illness: Mr. Reinoso is a 76-year-old right-handed patient with hypertension and coronary artery disease, who has baseline cognitive impairment, but still lives alone and drives independently. Reportedly became disoriented and confused when he tried to drive to his caregiver, who lives in a separate home. The emergency medical service was contacted and the patient was brought to [facility]. He himself noted some problems moving his right side when he is trying to walk and actually stumbling and could not move throughout the house to get to the bathroom and he had difficulty opening the door to get to the bathroom. At [facility], he was evaluated by head CT scan, which identified a 50% stenosis in the left vertebral artery. The head CT scan showed no acute ischemic hemorrhagic change. However, subsequent brain MRI done earlier today identified a moderately large, 2.2 x 1.2, brainstem subacute to acute stroke in the more left side of the abhijit. Otherwise, the brain did show moderate severity chronic small-vessel ischemic disease with ventricles increased in size due to the portion of loss of brain tissue. His CT angiogram of the head showed no significant abnormalities. Prior to coming to [facility], the patient was not taking an aspirin. At [facility], he was given aspirin 162 mg daily, Lipitor 40 mg at bedtime, and actually, he has also been on Xarelto 20 mg daily due to possible atrial fibrillation. He does have rate control with sotalol. Past Medical History: Hypertension, dyslipidemia, and history of cerebral palsy. Past Surgical History: Cardiac stents and foot surgery. Family History: Noncontributory. Allergies: NO KNOWN DRUG ALLERGIES. Home Medications: Lipitor 80 mg at bedtime, Lasix 40 mg daily, Norvasc 2.5 mg 3 times daily, losartan 100 mg daily, Xarelto 10 mg daily, sotalol 80 mg twice daily, nitrofurantoin 100 mg daily, and Flomax 0.4 mg daily. Social History: No alcohol, tobacco, or IV drug use. The patient does drink caffeinated beverages. Review of Systems: He reports no recent fevers or chills, nausea, vomiting, myalgias, arthralgias, headache, weight change, rash, or psychiatric issues. He has chronic cognitive impairment. Physical Examination: Vital Signs: Blood pressure 147/83, pulse 73, respiratory rate 16, temperature 97.5, oxygen saturation 98% on room air. Weight 134 pounds, height 5 feet 6 inches, BMI 21.6. General: Mr. Reinoso is resting in bed. He is in no significant distress. HEENT: He appears to be normocephalic, atraumatic with poor dentition. His sclerae are anicteric. Oropharynx is moist and pink. Neck: Supple. Chest: Clear. Heart: Regular. Extremities: Show no significant edema, cyanosis, or clubbing. Neurological: He is slow to respond and repeated questions had to be asked for him to follow instructions. In terms of cranial nerves, there is a subtle decrease of the right nasolabial fold with excursions on smiling. No sensory loss on the right compared to the left face. Otherwise, tongue and palate are midline. Motor examination in the upper extremities, subtle right-sided weakness, 5-/5 proximally and distally; on the left side, 5/5 strength in the lower extremity, subtle 5/5 strength, weakness on the right compared to 5/5 on the left. Sensation intact in the left and right upper and lower extremities. Reflexes symmetric. Coordination intact in upper and lower extremities. Laboratory Studies: Complete blood count with differential essentially normal. Coagulation panel, unremarkable. Chemistries, essentially unremarkable. BUN of 19. Liver function studies unremarkable. Urine drug screen, unremarkable. COVID-19 test is negative. Influenza A and B negative. Assessment: Mr. Reinoso is a 76-year-old patient with a brainstem stroke involving the left brainstem with some right-sided residual upper and lower extremity along with face, findings of weakness. He does have a 50% stenosis of the left vertebral artery, which may have been a contributing factor to that stroke. He did not arrive at [facility] in time for tPA as his stroke onset was unclear. The patient said he could not tell a time when these symptoms began. He did arrive in the ED at 10:29 a[address] and have a CT scan at 11:12 a.m. that was negative. His NIH Stroke Scale is 3 because of dysarthria and mild aphasia and right facial asymmetry with weakness there. Plan: He is currently on Xarelto and aspirin. 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 He may be discharged home and have outpatient physical therapy if need be. At this point, he is actually doing well enough that he may not require it and he should follow up in Dr. Sheets's clinic 1 month later. JUMA/VICTOR HUGO Voice ID: [id number] Report ID: [id number] LAZARA
--- NOTE | 2021-04-10 23:56 | P.PN ---
Subjective Date of Service: 04/10/21 Subjective: Improving, Doing well PATIENT IS DOING WELL. SPOKE TO FAMILY. POSSIBLE DISCHARGE TOMORROW Review of Systems 10-point ROS is otherwise unremarkable Physical Examination - Vital Signs Temperature: 97.8 F Blood Pressure: 154/85 Pulse: 79 Respirations: 18 Pulse Ox (%): 96 - Physical Exam General: Alert, In no apparent distress HEENT: Atraumatic, PERRLA, EOMI Neck: Supple, JVD not distended Respiratory: Clear to auscultation bilaterally, Normal air movement Cardiovascular: Regular rate/rhythm, Normal S1 S2 Gastrointestinal: Normal bowel sounds, No tenderness Musculoskeletal: No tenderness Integumentary: No rashes Neurological: Normal speech, Normal tone, Normal affect Lymphatics: No axilla or inguinal lymphadenopathy - Studies Laboratory Data (last 24 hrs) 04/10/21 05:34: Sodium 138, Potassium 4.3, BUN 19 H, Creatinine 1.06, Glucose 99, Total Bilirubin 0.5, AST 9 L, ALT 16, Alkaline Phosphatase 88 04/10/21 05:34: WBC 8.00, Hgb 14.1, Hct 42.4, Plt Count 241 Medications List Reviewed: Yes Assessment & Plan - Problems (Diagnosis) (1) Acute CVA (cerebrovascular accident) Current Visit: Yes Status: Acute (2) CHF (congestive heart failure) Onset Date: 10/01/14 Current Visit: No Status: Acute - Plan 1. Physical therapy evaluation 2. Speech therapy evaluation 3. Anti-platelet therapy and statin therapy 4. Lipid profile in the morning 5. MRI of the brain/echocardiogram/carotid Doppler 6. Physically patient is doing well and may benefit more from outpatient physical therapy and inpatient rehab 7. Neurology consultation 8. Permissive hypertension and gradual blood pressure control 9. Neuro checks every 4 hr 10. GI and DVT prophylaxis - Advance Directives Does patient have a Living Will: No Does patient have a Durable POA for Healthcare: No Physician Review: Patient Assessed, Agree with Above Assessment and Plan
[2021-04-11] MEDS: SOTALOL HCL 80 MG TAB PO SCH ×2 (06:05→17:56)
[2021-04-11 06:15] LABS: Absolute Lymphocytes (CBC) 0.8 K/uL (0.7-4.9); Hematocrit 41.7 % (39.6-49.0); Lymphocytes % 11.1 % (15.3-44.8); MPV 8.7 fL (7.6-11.3); RBC Red Blood Cell Count 4.74 M/uL (4.33-5.43)
[2021-04-11 07:05] LABS: Potassium 4.5 mmol/L (3.5-5.1)
[2021-04-11 07:06] LABS: Magnesium 2.3 mg/dL (1.8-2.4)
[2021-04-11] MEDS ORDERED: TAMSULOSIN 0.4 MG SR CAP PO SCH (09:00)
[2021-04-11] MEDS ORDERED: ASPIRIN EC 81 MG TAB PO SCH (09:00)
[2021-04-11] MEDS ORDERED: CLOPIDOGREL 75 MG TABLET PO SCH (09:00)
[2021-04-11] MEDS ORDERED: LOSARTAN POTASSIUM 50 MG TABLET PO SCH (09:00)
[2021-04-11] MEDS ORDERED: CYANOCOBALAMIN 1000MCG/ML INJ IM ONE (10:35)
[2021-04-11 17:34] VITALS: BP 147/67; TEMP 97.3
[2021-04-12] MEDS ORDERED: RIVAROXABAN 10 MG TABLET PO SCH (09:00)
[2021-04-12] MEDS ORDERED: RIVAROXABAN 20 MG TABLET PO SCH (17:00)
== END 2021-04-11 17:59 | disposition home health service (06) | DRG 66 ==
LOC: ER 10:26 → ERHOLD 13:25 → 2ND 15:18 → OBSVTOIN 04-10 12:11
PROVIDERS: ADMIT Internal Medicine; ATTEND Hospitalist
DX: I63.9 Cerebral infarction, unspecified (principal); I25.10 Atherosclerotic heart disease of native coronary artery without angina pectoris; I11.0 Hypertensive heart disease with heart failure; I50.9 Heart failure, unspecified; R41.0 Disorientation, unspecified; R47.01 Aphasia; R47.1 Dysarthria and anarthria; R29.703 NIHSS score 3; Z95.5 Presence of coronary angioplasty implant and graft; Z79.899 Other long term (current) drug therapy; Z79.01 Long term (current) use of anticoagulants; Z60.2 Problems related to living alone
CPT/HCPCS: 0240U; 36415; 70450; 70496; 70553; 71045; 80048; 80053; 80061; 80076; 80307; 80320; 80329; 81003; 82565; 82607; 83735; 85025; 85610; 85730; 93005; 96374; 97161; 97165; 99285; A9577; G0378; Q9967

== ENCOUNTER 2021-05-05 15:30 | Emergency (ER) | payer OTHER ==
--- OUTSIDE RECORDS SUMMARY | 2021-05-05 15:33 | XMS REPORT | Continuity of Care Document ---
:1945 Author Organization [facility] t Address [address] [place] [address] Care Team Providers Name Role Phone Izzy Primary Care Physician Valeria SHEIKH Attending Clinician Therapist, Respiratory Attending Clinician Unavailable Darvin Yu MD Attending Clinician VALERIA Attending Clinician Unavailable VALERIA Attending Clinician Unavailable Darvin YU Attending Clinician Unavailable Doctor Unassigned, Name Attending Clinician Unavailable Only, Test Attending Clinician Unavailable Gerson MEHTA Attending Clinician 2, Lab Attending Clinician Unavailable Crispin MEHTA Attending Clinician CRISPIN Attending Clinician Unavailable Day LUA Attending Clinician Unavailable Payers Payer Name Policy Type Policy Number Effective Date Expiration Date S ource Problems Condition Condition Condition Status Onset Resolution Last Treating Co mments Source Name Details Category Date Date Treatment Clinician Date No known No known Disease Unive rs active active ity of problems problems [facility] Allergies, Adverse Reactions, Alerts Allergy Allergy Status Severity Reaction(s) Onset Inactive Treating Comm ents Source Name Type Date Date Clinician NO KNOWN Drug Active Univers ALLERGIE Class ity of S [facility] Social History Social Habit Start Date Stop Date Quantity Comments Source History SDOH University o f Alcohol Frequency [place] [facility] Branch History SDOH University o f Alcohol Std [place] [facility] Drinks Branch History SDOH University o f Alcohol Binge [place] [facility] al Branch Exposure to Not sure University of SARS-CoV-2 [facility] (event) Branch Alcohol intake 2021-04-27 2021-04-27 Current drinker Unive rsity of 00:00:00 00:00:00 of alcohol [place] [facility] (finding) Branch Tobacco use and 2014-12-14 2014-12-14 Never used Universit y of exposure 00:00:00 00:00:00 [facility] Tobacco Comment 2014-12-14 2014-12-14 Quit smoking 6 Unive rsity of 00:00:00 00:00:00 years ago; smoked Alo humphreys 1PPD X 40 years Branch Alcohol Comment 2014-12-14 2014-12-14 Occasional Universit y of 00:00:00 00:00:00 Dr[facility] Sex [birth year] Universit y of 00:00:00 00:00:00 [facility] Smoking Status Start Date Stop Date Source Former smoker 2014-12-14 00:00:00 2014-12-14 00:00:00 Universi ty of [facility] Medications Ordered Filled Start Stop Current Ordering Indication Dosage Frequency Signature Comments Components Source Medication Medication Date Date Medication? Clinician (SIG) Name Name amLODIPine 2022-0 Yes 2.5mg Take 2.5 Un chaitanya 2.5 mg 3-10 mg by ity of tablet 09:24: mouth 2 [place] [id number] ([facility]) Medical times Branch daily. amLODIPine 2022-0 Yes 2.5mg Take 2.5 Un chaitanya 2.5 mg 3-10 mg by ity of tablet 09:24: mouth 2 [place] [address] ([facility]) Medical times Branch daily. amLODIPine 2022-0 Yes 2.5mg Take 2.5 Un chaitanya 2.5 mg 3-10 mg by ity of tablet 09:24: mouth 2 [place] [address] (two) Medical times Branch daily. amLODIPine 2022-0 Yes 2.5mg Take 2.5 Un chaitanya 2.5 mg 3-10 mg by ity of tablet 09:24: mouth 2 [place] [address] (two) Medical times Branch daily. amLODIPine 2022-0 Yes 2.5mg Take 2.5 Un chaitanya 2.5 mg 3-10 mg by ity of tablet 09:24: mouth 2 [place] [address] (two) Medical times Branch daily. amLODIPine 2022-0 Yes 2.5mg Take 2.5 Un chaitanya 2.5 mg 3-10 mg by ity of tablet 09:24: mouth 2 [place] [address] (two) Medical times Branch daily. lisinopril 2022-0 Yes 20mg Take 20 mg U nivers (PRINIVIL,Z 3-10 by mouth 2 it y of ESTRIL) 20 09:11: (two) [place] mg tablet 22 times Medical daily. Branch atorvastati 2-0 Yes 40mg Take 40 mg Univers n (LIPITOR) 3-10 by mouth ity of 40 mg 09:11: at [place] tablet 22 bedtime. Medical Branch clopidogrel 2-0 Yes 75mg Take 75 mg Univers (PLAVIX) 75 3-10 by mouth ity of mg tablet 09:11: daily. [place] 22 Medical Branch sotalol 2-0 Yes 80mg Take 80 mg Univ ers (BETAPACE) 3-10 by mouth 2 ity of 80 mg 09:11: (two) [place] tablet 22 times Medical daily. Branch pantoprazol 2-0 Yes 40mg Take 40 mg Univers e 3-10 by mouth ity of (PROTONIX) 09:11: daily. [place] 40 mg EC 22 Medical tablet Branch lisinopril 2-0 Yes 20mg Take 20 mg U nivers (PRINIVIL,Z 3-10 by mouth 2 it y of ESTRIL) 20 09:11: (two) [place] mg tablet 22 times Medical daily. Branch atorvastati 2-0 Yes 40mg Take 40 mg Univers n (LIPITOR) 3-10 by mouth ity of 40 mg 09:11: at [place] tablet 22 bedtime. Medical Branch clopidogrel 2-0 Yes 75mg Take 75 mg Univers (PLAVIX) 75 3-10 by mouth ity of mg tablet 09:11: daily. [place] [address] Medical Branch sotalol 2-0 Yes 80mg Take 80 mg Univ ers (BETAPACE) 3-10 by mouth 2 ity of 80 mg 09:11: (two) [place] tablet 22 times Medical daily. Branch pantoprazol 2022-0 Yes 40mg Take 40 mg Univers e 3-10 by mouth ity of (PROTONIX) 09:11: daily. [place] 40 mg EC 22 Medical tablet Branch lisinopril 2022-0 Yes 20mg Take 20 mg U nivers (PRINIVIL,Z 3-10 by mouth 2 it y of ESTRIL) 20 09:11: (two) [place] mg tablet 22 times Medical daily. Branch atorvastati 2022-0 Yes 40mg Take 40 mg Univers n (LIPITOR) 3-10 by mouth ity of 40 mg 09:11: at [place] tablet 22 bedtime. Medical Branch clopidogrel 2021-0 Yes 75mg Take 75 mg Univers (PLAVIX) 75 3-10 by mouth ity of mg tablet 09:11: daily. [place] [address] Medical Branch sotalol 2021-0 Yes 80mg Take 80 mg Univ ers (BETAPACE) 3-10 by mouth 2 ity of 80 mg 09:11: (two) [place] tablet 22 times Medical daily. Branch pantoprazol 2021-0 Yes 40mg Take 40 mg Univers e 3-10 by mouth ity of (PROTONIX) 09:11: daily. [place] 40 mg EC 22 Medical tablet Branch lisinopril 2021-0 Yes 20mg Take 20 mg U nivers (PRINIVIL,Z 3-10 by mouth 2 it y of ESTRIL) 20 09:11: (two) [place] mg tablet 22 times Medical daily. Branch atorvastati 2021-0 Yes 40mg Take 40 mg Univers n (LIPITOR) 3-10 by mouth ity of 40 mg 09:11: at [place] tablet 22 bedtime. Medical Branch clopidogrel 2021-0 Yes 75mg Take 75 mg Univers (PLAVIX) 75 3-10 by mouth ity of mg tablet 09:11: daily. [place] [address] Medical Branch sotalol 2021-0 Yes 80mg Take 80 mg Univ ers (BETAPACE) 3-10 by mouth 2 ity of 80 mg 09:11: (two) [place] tablet 22 times Medical daily. Branch pantoprazol 2021-0 Yes 40mg Take 40 mg Univers e 3-10 by mouth ity of (PROTONIX) 09:11: daily. [place] 40 mg EC 22 Medical tablet Branch lisinopril 2021-0 Yes 20mg Take 20 mg U nivers (PRINIVIL,Z 3-10 by mouth 2 it y of ESTRIL) 20 09:11: (two) [place] mg tablet 22 times Medical daily. Branch atorvastati 2-0 Yes 40mg Take 40 mg Univers n (LIPITOR) 3-10 by mouth ity of 40 mg 09:11: at [place] tablet 22 bedtime. Medical Branch clopidogrel 2-0 Yes 75mg Take 75 mg Univers (PLAVIX) 75 3-10 by mouth ity of mg tablet 09:11: daily. [place] [address] Medical Branch sotalol 2021-0 Yes 80mg Take 80 mg Univ ers (BETAPACE) 3-10 by mouth 2 ity of 80 mg 09:11: (two) [place] tablet 22 times Medical daily. Branch pantoprazol 2021-0 Yes 40mg Take 40 mg Univers e 3-10 by mouth ity of (PROTONIX) 09:11: daily. [place] 40 mg EC 22 Medical tablet Branch lisinopril 2021-0 Yes 20mg Take 20 mg U nivers (PRINIVIL,Z 3-10 by mouth 2 it y of ESTRIL) 20 09:11: (two) [place] mg tablet 22 times Medical daily. Branch atorvastati 2021-0 Yes 40mg Take 40 mg Univers n (LIPITOR) 3-10 by mouth ity of 40 mg 09:11: at [place] tablet 22 bedtime. Medical Branch clopidogrel 2021-0 Yes 75mg Take 75 mg Univers (PLAVIX) 75 3-10 by mouth ity of mg tablet 09:11: daily. [place] [address] Medical Branch sotalol 2021-0 Yes 80mg Take 80 mg Univ ers (BETAPACE) 3-10 by mouth 2 ity of 80 mg 09:11: (two) [place] tablet 22 times Medical daily. Branch pantoprazol 2021-0 Yes 40mg Take 40 mg Univers e 3-10 by mouth ity of (PROTONIX) 09:11: daily. [place] 40 mg EC 22 Medical tablet Branch albuterol 0 Yes [id number] 2.5mg Inhale 3 Univers 2.5 mg /3 3-10 mL every 6 ity of mL (0.083 00:00: (six) [place] %) 00 hours as Medical nebulizer needed for Bran ch solution Wheezing or Shortness of Breath. albuterol 2021-0 Yes [id number] 2.5mg Inhale 3 Univers 2.5 mg /3 3-10 mL every 6 ity of mL (0.083 00:00: (six) [place] %) 00 hours as Medical nebulizer needed for Bran ch solution Wheezing or Shortness of Breath. albuterol 2021-0 Yes [id number] 2.5mg Inhale 3 Univers 2.5 mg /3 3-10 mL every 6 ity of mL (0.083 00:00: (six) [place] %) 00 hours as Medical nebulizer needed for Bran ch solution Wheezing or Shortness of Breath. albuterol 2021-0 Yes [id number] 2.5mg Inhale 3 Univers 2.5 mg /3 3-10 mL every 6 ity of mL (0.083 00:00: (six) [place] %) 00 hours as Medical nebulizer needed for Bran ch solution Wheezing or Shortness of Breath. albuterol 2021-0 Yes [id number] 2.5mg Inhale 3 Univers 2.5 mg /3 3-10 mL every 6 ity of mL (0.083 00:00: (six) [place] %) 00 hours as Medical nebulizer needed for Bran ch solution Wheezing or Shortness of Breath. albuterol 2021-0 Yes [id number] 2.5mg Inhale 3 Univers 2.5 mg /3 3-10 mL every 6 ity of mL (0.083 00:00: (six) [place] %) 00 hours as Medical nebulizer needed for Bran ch solution Wheezing or Shortness of Breath. FLOVENT HFA 2021-0 Yes INHALE ONE Univers 44 3-04 (1) PUFF ity of mcg/actuati 00:00: BY MOUTH [place] on inhaler 00 IN THE [facility] MORNING Branch AND 1 PUFF BEFORE BEDTIME. RINSE MOUTH WITH WATER AFTER USE TO REDUCE AFTERTASTE AND INCIDENCE FLOVENT HFA 2-0 Yes INHALE ONE Univers 44 3-04 (1) PUFF ity of mcg/actuati 00:00: BY MOUTH [place] on inhaler 00 IN THE [facility] Branch AND 1 PUFF BEFORE BEDTIME. RINSE MOUTH WITH WATER AFTER USE TO REDUCE AFTERTASTE AND INCIDENCE FLOVENT HFA 2022-0 Yes INHALE ONE Univers 44 3-04 (1) PUFF ity of mcg/actuati 00:00: BY MOUTH [place] on inhaler 00 IN THE [facility] MORNING Branch AND 1 PUFF BEFORE BEDTIME. RINSE MOUTH WITH WATER AFTER USE TO REDUCE AFTERTASTE AND INCIDENCE FLOVENT HFA 2022-0 Yes INHALE ONE Univers 44 3-04 (1) PUFF ity of mcg/actuati 00:00: BY MOUTH [place] on inhaler 00 IN THE [facility] MORNING Branch AND 1 PUFF BEFORE BEDTIME. RINSE MOUTH WITH WATER AFTER USE TO REDUCE AFTERTASTE AND INCIDENCE FLOVENT HFA 2022-0 Yes INHALE ONE Univers 44 3-04 (1) PUFF ity of mcg/actuati 00:00: BY MOUTH [place] on inhaler 00 IN THE Medical MORNING Branch AND 1 PUFF BEFORE BEDTIME. RINSE MOUTH WITH WATER AFTER USE TO REDUCE AFTERTASTE AND INCIDENCE FLOVENT HFA 2021-0 Yes INHALE ONE Univers 44 3-04 (1) PUFF ity of mcg/actuati 00:00: BY MOUTH [place] on inhaler 00 IN THE Medical MORNING Branch AND 1 PUFF BEFORE BEDTIME. RINSE MOUTH WITH WATER AFTER USE TO REDUCE AFTERTASTE AND INCIDENCE cyanocobala Yes INJECT 1 Un chaitanya min 1,000 3-03 ML IN THE ity o f mcg/mL 00:00: MUSCLE [place] injection 00 TWICE A Medical WEEK FOR1 Branch MONTH THEN 1 ML IN THE MUSCLE EVERY MONTH cyanocobala 0 Yes INJECT 1 Un chaitanya min 1,000 3-03 ML IN THE ity o f mcg/mL 00:00: MUSCLE [place] injection 00 TWICE A Medical WEEK FOR1 Branch MONTH THEN 1 ML IN THE MUSCLE EVERY MONTH cyanocobala 0 Yes INJECT 1 Un chaitanya min 1,000 3-03 ML IN THE ity o f mcg/mL 00:00: MUSCLE [place] injection 00 TWICE A Medical WEEK FOR1 Branch MONTH THEN 1 ML IN THE MUSCLE EVERY MONTH cyanocobala 2021-0 Yes INJECT 1 Un chaitanya min 1,000 3-03 ML IN THE ity o f mcg/mL 00:00: MUSCLE [place] injection 00 TWICE A Medical WEEK FOR1 Branch MONTH THEN 1 ML IN THE MUSCLE EVERY MONTH cyanocobala 0 Yes INJECT 1 Un chaitanya min 1,000 3-03 ML IN THE ity o f mcg/mL 00:00: MUSCLE [place] injection 00 TWICE A Medical WEEK FOR1 Branch MONTH THEN 1 ML IN THE MUSCLE EVERY MONTH cyanocobala 0 Yes INJECT 1 Un chaitanya min 1,000 3-03 ML IN THE ity o f mcg/mL 00:00: MUSCLE [place] injection 00 TWICE A Medical WEEK FOR1 Branch MONTH THEN 1 ML IN THE MUSCLE EVERY MONTH FLOVENT 2021-0 2- No INHALE 1 Unive rs DISKUS 50 3-03 03-10 PUFF BY ity of mcg/actuati 00:00: 00:00 [place]TH [place] disk[place] 00 :00 EVERY Medical inhaler MORNING Branch AND 1 EVERY NIGHT AT BEDTIME. RINSE MOUTH WITH WATER AFTER USE. DO NOT SWALLOW FLOVENT 2-0 2- No INHALE 1 Unive rs DISKUS 50 3-03 03-10 PUFF BY ity of mcg/actuati 00:00: 00:00 MOUTH [place] disk[place] 00 :00 EVERY Medical inhaler MORNING Branch AND 1 EVERY NIGHT AT BEDTIME. RINSE MOUTH WITH WATER AFTER USE. DO NOT SWALLOW doxycycline 2-0 Yes TAKE 1 Univ ers hyclate 100 3-02 CAPSULE BY it y of mg capsule 00:00: MOUTH 00 EVERY Medical MORNING Branch AND EVERY EVENING WITH FULL GLASS OF WATER AND DO NOT LIE FOR 30 MINS omeprazole 2-0 Yes One po Unive rs 40 mg 3-02 Each Day ity of capsule 00:00: for [facility] gerd Branch doxycycline 2-0 Yes TAKE 1 Univ ers hyclate 100 3-02 CAPSULE BY it y of mg capsule 00:00: MOUTH EVERY Medical MORNING Branch AND EVERY EVENING WITH FULL GLASS OF WATER AND DO NOT LIE FOR 30 MINS omeprazole 2-0 Yes One po Unive rs 40 mg 3-02 Each Day ity of capsule 00:00: for [facility] nDx gerd Branch doxycycline 2-0 Yes TAKE 1 Univ ers hyclate 100 3-02 CAPSULE BY it y of mg capsule 00:00: MOUTH EVERY Medical MORNING Branch AND EVERY EVENING WITH FULL GLASS OF WATER AND DO NOT LIE FOR 30 MINS omeprazole 2022-0 Yes One po Unive rs 40 mg 3-02 Each Day ity of capsule 00:00: for [facility] nDx gerd Branch doxycycline 2022-0 Yes TAKE 1 Univ ers hyclate 100 3-02 CAPSULE BY it y of mg capsule 00:00: MOUTH EVERY Medical MORNING Branch AND EVERY EVENING WITH FULL GLASS OF WATER AND DO NOT LIE FOR 30 MINS omeprazole 2022-0 Yes One po Unive rs 40 mg 3-02 Each Day ity of capsule 00:00: for [facility] nDx gerd Branch doxycycline 2022-0 Yes TAKE 1 Univ ers hyclate 100 3-02 CAPSULE BY it y of mg capsule 00:00: MOUTH EVERY Medical MORNING Branch AND EVERY EVENING WITH FULL GLASS OF WATER AND DO NOT LIE FOR 30 MINS omeprazole Yes One po Unive rs 40 mg 3-02 Each Day ity of capsule 00:00: for [place] [facility] Branch doxycycline Yes TAKE 1 Univ ers hyclate 100 3- CAPSULE BY it y of mg capsule 00:00: MOUTH EVERY Medical MORNING Branch AND EVERY EVENING WITH FULL GLASS OF WATER AND DO NOT LIE FOR 30 MINS omeprazole Yes One po Unive rs 40 mg 3-02 Each Day ity of capsule 00:00: for [facility] Medical nDx gerd Branch albuterol 2021- No One vial Uni vers 2.5 mg /3 04-19 03-10 in ity of mL (0.083 00:00: 00:00 nebulizer [place] %) 00 :00 every 4 to Medical nebulizer 6 hrs prn Branc h solution sob, cough or wheeze albuterol 2021- No USE 1 VIAL U nivers 2.5 mg /3 04-19 03-10 VIA ity of mL (0.083 00:00: 00:00 NEBULIZER [place] %) 00 :00 EVERY 4 TO Medical nebulizer 6 HOURS Bran ch solution NEEDED FOR SHORTNESS OF BREATH OR COUGH OR WHEEZING albuterol 2021- No One vial Uni vers 2.5 mg /3 04-19 03-10 in ity of mL (0.083 00:00: 00:00 nebulizer [place] %) 00 :00 every 4 to Medical nebulizer 6 hrs prn Branc h solution sob, cough or wheeze albuterol 2021- No USE 1 VIAL U nivers 2.5 mg /3 04-19 03-10 VIA ity of mL (0.083 00:00: 00:00 NEBULIZER [place] %) 00 :00 EVERY 4 TO Medical nebulizer 6 HOURS Bran ch solution NEEDED FOR SHORTNESS OF BREATH OR COUGH OR WHEEZING XARELTO 20 Yes 20mg Take 20 mg U nivers mg tablet 2-23 by mouth ity of 00:00: every [place] morning. Medical Branch XARELTO 20 Yes 20mg Take 20 mg U nivers mg tablet 2-23 by mouth ity of 00:00: every [place] morning. Medical Branch XARELTO 20 2-0 Yes 20mg Take 20 mg U nivers mg tablet 2-23 by mouth ity of 00:00: every [place] morning. Medical Branch XARELTO 20 2-0 Yes 20mg Take 20 mg U nivers mg tablet 2-23 by mouth ity of 00:00: [place] morning. Medical Branch XARELTO 20 2-0 Yes 20mg Take 20 mg U nivers mg tablet 2-23 by mouth ity of 00:00: [place] morning. Medical Branch XARELTO 20 2-0 Yes 20mg Take 20 mg U nivers mg tablet 2-23 by mouth ity of 00:00: [place] morning. Medical Branch clonazePAM 2-0 Yes .5mg Take 0.5 Uni vers 0.5 mg 2-22 mg by ity of tablet 00:00: [facility] [place] (two) Medical times Branch daily as needed. clonazePAM 2022-0 Yes .5mg Take 0.5 Uni vers 0.5 mg 2-22 mg by ity of tablet 00:00: [facility] [place] (two) Medical times Branch daily as needed. clonazePAM 2022-0 Yes .5mg Take 0.5 Uni vers 0.5 mg 2-22 mg by ity of tablet 00:00: [facility] [place] (two) Medical times Branch daily as needed. clonazePAM 2022-0 Yes .5mg Take 0.5 Uni vers 0.5 mg 2-22 mg by ity of tablet 00:00: [facility] [place] (two) Medical times Branch daily as needed. clonazePAM 2022-0 Yes .5mg Take 0.5 Uni vers 0.5 mg 2-22 mg by ity of tablet 00:00: [address] (two) Medical times Branch daily as needed. clonazePAM 2022-0 Yes .5mg Take 0.5 Uni vers 0.5 mg 2-22 mg by ity of tablet 00:00: [address] (two) Medical times Branch daily as needed. albuterol 2021-0 Yes INHALE 2 Univ ers 90 2-14 PUFFS BY ity of mcg/actuati 00:00: [facility] on inhaler 00 EVERY 4 TO Med ical 6 HOURS Branch WHILE AWAKE NEEDED FOR COUGHING SHORTNESS OF BREATH OR WHEEZING albuterol Yes INHALE 2 Univ ers 90 2-14 PUFFS BY ity of mcg/actuati 00:00: MOUTH [place] on inhaler 00 EVERY 4 TO Med ical 6 HOURS Branch WHILE AWAKE NEEDED FOR COUGHING SHORTNESS OF BREATH OR WHEEZING albuterol 0 Yes INHALE 2 Univ ers 90 2-14 PUFFS BY ity of mcg/actuati 00:00: MOUTH [place] on inhaler 00 EVERY 4 TO Med ical 6 HOURS Branch WHILE AWAKE NEEDED FOR COUGHING SHORTNESS OF BREATH OR WHEEZING albuterol Yes INHALE 2 Univ ers 90 2-14 PUFFS BY ity of mcg/actuati 00:00: MOUTH [place] on inhaler 00 EVERY 4 TO Med ical 6 HOURS Branch WHILE AWAKE NEEDED FOR COUGHING SHORTNESS OF BREATH OR WHEEZING albuterol Yes INHALE 2 Univ ers 90 2-14 PUFFS BY ity of mcg/actuati 00:00: MOUTH [place] on inhaler 00 EVERY 4 TO Med ical 6 HOURS Branch WHILE AWAKE NEEDED FOR COUGHING SHORTNESS OF BREATH OR WHEEZING albuterol Yes INHALE 2 Univ ers 90 2-14 PUFFS BY ity of mcg/actuati 00:00: MOUTH [place] on inhaler 00 EVERY 4 TO Med ical 6 HOURS Branch WHILE AWAKE NEEDED FOR COUGHING SHORTNESS OF BREATH OR WHEEZING levothyroxi 2020-02 Yes TAKE 1 Univ ers ne 75 mcg 0-25 TABLET BY ity o f tablet 00:00: MOUTH IN [place] 00 THE Medical MORNING ON Branch AN EMPTY STOMACH FOR THYROID DISEASE. levothyroxi 2020-02 Yes TAKE 1 Univ ers ne 75 mcg 0-25 TABLET BY ity o f tablet 00:00: MOUTH IN [place] 00 THE Medical MORNING ON Branch AN EMPTY STOMACH FOR THYROID DISEASE. levothyroxi 2020-02 Yes TAKE 1 Univ ers ne 75 mcg 0-25 TABLET BY ity o f tablet 00:00: MOUTH IN [place] 00 THE Medical MORNING ON Branch AN EMPTY STOMACH FOR THYROID DISEASE. levothyroxi 2020-02 Yes TAKE 1 Univ ers ne 75 mcg 0-25 TABLET BY ity o f tablet 00:00: MOUTH IN [place] 00 THE Medical MORNING ON Branch AN EMPTY STOMACH FOR THYROID DISEASE. levothyroxi 2020-02 Yes TAKE 1 Univ ers ne 75 mcg 0-25 TABLET BY ity o f tablet 00:00: MOUTH IN [place] 00 THE Medical MORNING ON Branch AN EMPTY STOMACH FOR THYROID DISEASE. levothyroxi 2020-02 Yes TAKE 1 Univ ers ne 75 mcg 0-25 TABLET BY ity o f tablet 00:00: MOUTH IN [place] 00 THE Medical MORNING ON Branch AN EMPTY STOMACH FOR THYROID DISEASE. cephALEXin Yes Urinary 500mg Take 1 U nivers 500 mg 3-26 tract capsule by ity of capsule 00:00: infection mouth 2 [place] 00 without (two) Medical hematuria, times Branch site daily. unspecified cephALEXin Yes Urinary 500mg Take 1 U nivers 500 mg 3-26 tract capsule by ity of capsule 00:00: infection mouth 2 [place] 00 without (two) Medical hematuria, times Branch site daily. unspecified cephALEXin Yes Urinary 500mg Take 1 U nivers 500 mg 3-26 tract capsule by ity of capsule 00:00: infection mouth 2 [place] 00 without (two) Medical hematuria, times Branch site daily. unspecified cephALEXin 2021- No [id number] 500mg Take 1 Univers 500 mg 3-26 03-10 capsule by ity of capsule 00:00: 00:00 mouth 2 [place] 00 :00 (two) Medical times Branch daily. cephALEXin 2021- No [id number] 500mg Take 1 Univers 500 mg 3-26 03-10 capsule by ity of capsule 00:00: 00:00 mouth 2 [place] 00 :00 (two) Medical times Branch daily. lisinopril 2014-02 Yes 20mg Take 20 mg U nivers (PRINIVIL,Z 03-29 by mouth 2 it y of ESTRIL) 20 17:16: (two) [place] mg tablet 52 times Medical daily. Branch atorvastati 2014-02 Yes 40mg Take 40 mg Univers n (LIPITOR) 03-29 by mouth ity of 40 mg 17:16: at [place] tablet 52 bedtime. Medical Branch clopidogrel 2014-02 Yes 75mg Take 75 mg Univers (PLAVIX) 75 03-29 by mouth ity of mg tablet 17:16: daily. [place] [address] Medical Branch sotalol 2014-02 Yes 80mg Take 80 mg Univ ers (BETAPACE) 2-09 by mouth 2 ity of 80 mg 17:16: (two) [place] tablet 52 times Medical daily. Branch pantoprazol 2014-02 Yes 40mg Take 40 mg Univers e 2-09 by mouth ity of (PROTONIX) 17:16: daily. [place] 40 mg EC 52 Medical tablet Branch [...] mouth ity of mg tablet 17:16: daily. [place] [address] Medical Branch sotalol 2014-02 Yes 80mg Take 80 mg Univ ers (BETAPACE) 2-09 by mouth 2 ity of 80 mg 17:16: (two) [place] tablet 52 times Medical daily. Branch pantoprazol 2014-02 Yes 40mg Take 40 mg Univers e 2-09 by mouth ity of (PROTONIX) 17:16: daily. [place] 40 mg EC 52 Medical tablet Branch [...] mouth ity of mg tablet 17:16: daily. [place] [address] Medical Branch sotalol 2014-02 Yes 80mg Take 80 mg Univ ers (BETAPACE) 2-09 by mouth 2 ity of 80 mg 17:16: (two) [place] tablet 52 times Medical daily. Branch pantoprazol 2014-02 Yes 40mg Take 40 mg Univers e 2-09 by mouth ity of (PROTONIX) 17:16: daily. [place] 40 mg EC 52 Medical tablet Branch Immunizations Ordered Filled Immunization Date Status Comments [facility] e Immunization Name Name SARS-COV-2 COVID-19 2020-05-16 Completed Unive rsity of MODERNA VACCINE 00:00:00 [place] Med ical Branch SARS-COV-2 COVID-19 2020-05-16 Completed Unive rsity of MODERNA VACCINE 00:00:00 [place] Med ical Branch SARS-COV-2 COVID-19 2020-05-16 Completed Unive rsity of MODERNA VACCINE 00:00:00 [place] Med ical Branch SARS-COV-2 COVID-19 2020-05-16 Completed Unive rsity of MODERNA VACCINE 00:00:00 [place] Med ical Branch SARS-COV-2 COVID-19 2020-05-16 Completed Unive rsity of MODERNA VACCINE 00:00:00 [place] Med ical Branch SARS-COV-2 COVID-19 2020-05-16 Completed Unive rsity of MODERNA VACCINE 00:00:00 [place] Med ical Branch SARS-COV-2 COVID-19 2020-05-16 Completed Unive rsity of MODERNA VACCINE 00:00:00 [place] Med ical Branch SARS-COV-2 COVID-19 2020-05-16 Completed Unive rsity of MODERNA VACCINE 00:00:00 [place] Med ical Branch SARS-COV-2 COVID-19 2020-05-16 Completed Unive rsity [...] Unive rsity of MODERNA VACCINE 00:00:00 [facility] [place] [facility] Branch SARS-COV-2 COVID-19 2020-04-18 Completed Unive rsity of MODERNA VACCINE 00:00:00 [facility] [place] [facility] Branch SARS-COV-2 COVID-19 2020-04-18 Completed Unive rsity of MODERNA VACCINE 00:00:00 [facility] [place] SARS-COV-2 COVID-19 2020-04-18 Completed Unive rsity of MODERNA VACCINE 00:00:00 [facility] [place] Vital Signs Vital Name Observation Time Observation Value Comments Source Systolic blood 2021-04-27 15:26:00 156 mm[Hg] Univer sity of pressure [facility] Diastolic blood 2021-04-27 15:26:00 70 mm[Hg] Unive rsity of pressure [facility] Heart rate 2021-04-27 15:26:00 62 /min Universi ty [facility] Respiratory rate 2021-04-27 15:24:00 19 /min Univ ersity of [facility] Body height 2021-04-27 15:24:00 167.6 cm Universi ty of [facility] Body weight 2021-04-27 15:24:00 60.782 kg Universi ty [facility] BMI 2021-04-27 15:24:00 21.63 kg/m2 Universi ty [facility] Oxygen saturation in 2021-04-27 15:24:00 96 /min [facility] Arterial blood by [facility] Pulse oximetry Branch Systolic blood 2020-06-23 15:10:00 134 mm[Hg] Univer sity of pressure [facility] Diastolic blood 2020-06-23 15:10:00 69 mm[Hg] Unive rsity of pressure [facility] Heart rate 2020-06-23 15:10:00 54 /min Universi ty of [facility] Body temperature 2020-06-23 15:10:00 36.5 [place] Univ ersity of [facility] Respiratory rate 2020-06-23 15:10:00 18 /min Univ ersity of [facility] Body height 2020-06-23 15:10:00 167.6 cm [facility] Body weight 2020-06-23 15:10:[address] [facility] BMI 2020-06-23 15:10:00 22.66 kg/m2 [facility] Procedures Procedure Date / Time Performed Performing Clinician Formerly [facility] e ASSIGNMENT OF BENEFITS 2021-05-03 19:08:15 Doctor Unassigned, No [facility] Plan of Care Planned Activity Planned Date Details Comments Source Future Scheduled 2021-05-09 Depression screening Uni versity of Test 00:00:00 (procedure) [code = [facility] dical [id number]] Branch Future Scheduled 2021-05-09 Depression screening Uni versity of Test 00:00:00 (procedure) [code = [facility] dical [id number]] Branch Future Scheduled 2021-05-09 Depression screening Uni versity of Test 00:00:00 (procedure) [code = [facility] dical [id number]] Branch Future Scheduled 2020-10-19 INFLUENZA VACCINE Univer sity of Test 00:00:00 (Season Ended) [code [facility] edical = INFLUENZA VACCINE Branch (Season Ended)] Future Scheduled 2020-10-19 INFLUENZA VACCINE Univer sity of Test 00:00:00 (Season Ended) [code [facility] edical = INFLUENZA VACCINE Branch (Season Ended)] Future Scheduled 2020-10-19 INFLUENZA VACCINE Univer sity of Test 00:00:00 (Season Ended) [code [facility] edical = INFLUENZA VACCINE Branch (Season Ended)] Diagnostic Test 2020-06-23 URINE CULTURE [code Expected: Unive rsity of Pending 00:00:00 = 630-4] 06/23/2020, [facility] Expires: Branch 06/23/2021 Diagnostic Test 2020-06-23 PROSTATIC SPECIFIC Expected: Univer sity of Pending 00:00:00 ANTIGEN [code = 06/23/2020, [place] [facility] 2857-1] Expires: Branch 06/23/2021 Diagnostic Test 2020-06-23 URINE CULTURE [code Expected: Unive rsity of Pending 00:00:00 = 630-4] 06/23/2020, [facility] Expires: Branch 06/23/2021 Diagnostic Test 2020-06-23 PROSTATIC SPECIFIC Expected: Univer sity of Pending 00:00:00 ANTIGEN [code = 06/23/2020, [place] [facility] 2857-1] Expires: Branch 06/23/2021 Future Scheduled 2012 Medicare Annual Universi ty of Test 00:00:00 Wellness Visit [facility] (procedure) [code = Branch [id number]] Future Scheduled 2012 PNEUMOCOCCAL University of Test 00:00:00 VACCINES 65+ (1 of 1 [place] [facility] - PPSV23) [code = Branch PNEUMOCOCCAL VACCINES 65+ (1 of 1 - PPSV23)] Future Scheduled 2012 Medicare Annual Universi ty of Test 00:00:00 Wellness Visit [facility] (procedure) [code = Branch [id number]] Future Scheduled 2012 PNEUMOCOCCAL University of Test 00:00:00 VACCINES 65+ (1 of 1 [place] [facility] - PPSV23) [code = Branch PNEUMOCOCCAL VACCINES 65+ (1 of 1 - PPSV23)] Future Scheduled 2012 Medicare Annual Universi ty of Test 00:00:00 Wellness Visit [facility] (procedure) [code = Branch [id number]] Future Scheduled 2012 PNEUMOCOCCAL University of Test 00:00:00 VACCINES 65+ (1 of 1 [place] [facility] - PPSV23) [code = Branch PNEUMOCOCCAL VACCINES 65+ (1 of 1 - PPSV23)] Future Scheduled 2002 Screening for University of Test 00:00:00 malignant neoplasm [place] [facility] of lung (procedure) Branch [code = 583279007] Future Scheduled 2002 Screening for University of Test 00:00:00 malignant neoplasm [place] [facility] of lung (procedure) Branch [code = 984352470] Future Scheduled 2002 Screening for University of Test 00:00:00 malignant neoplasm [place] [facility] of lung (procedure) Branch [code = 334065004] Future Scheduled 1997 Screening for occult Uni versity of Test 00:00:00 blood in feces [facility] (procedure) [code = Branch [id number]] Future Scheduled 1997 Stool DNA-based Universi ty of Test 00:00:00 colorectal cancer [place] [facility] osmani screening Branch (procedure) [code = [id number]] Future Scheduled 1997 Flexible fiberoptic Univ ersity of Test 00:00:00 sigmoidoscopy [facility] (procedure) [code = Branch 53586713] Future Scheduled 1997 Screening for University of Test 00:00:00 malignant neoplasm [place] [facility] of colon (procedure) Branch [code = 767196912] Future Scheduled 1997 Screening for University of Test 00:00:00 malignant neoplasm [place] [facility] of colon (procedure) Branch [code = 689271692] Future Scheduled 1997 Zoster Recombinant Unive rsity of Test 00:00:00 Vaccine (SHINGRIX) [place] [facility] (1 of 2) [code = Branch Zoster Recombinant Vaccine (SHINGRIX) (1 of 2)] Future Scheduled 1997 Screening for occult Uni versity of Test 00:00:00 blood in feces [facility] (procedure) [code = Branch [id number]] Future Scheduled 1997 Stool DNA-based Universi ty of Test 00:00:00 colorectal cancer [facility] screening Branch (procedure) [code = 735550535040437] Future Scheduled 1997 Flexible fiberoptic Univ ersity of Test 00:00:00 sigmoidoscopy [facility] (procedure) [code = Branch 44462388] Future Scheduled 1997 Screening for University of Test 00:00:00 malignant neoplasm [place] [facility] of colon (procedure) Branch [code = 805867286] Future Scheduled 1997 Screening for University of Test 00:00:00 malignant neoplasm [place] [facility] of colon (procedure) Branch [code = 332652105] Future Scheduled 1997 Zoster Recombinant Unive rsity of Test 00:00:00 Vaccine (SHINGRIX) [place] [facility] (1 of 2) [code = Branch Zoster Recombinant Vaccine (SHINGRIX) (1 of 2)] Future Scheduled 1997 Screening for occult Uni versity of Test 00:00:00 blood in feces [facility] (procedure) [code = Branch 309089529] Future Scheduled 1997 Stool DNA-based Universi ty of Test 00:00:00 colorectal cancer [facility] screening Branch (procedure) [code = 589659217858415] Future Scheduled 1997 Flexible fiberoptic Univ ersity of Test 00:00:00 sigmoidoscopy [facility] (procedure) [code = Branch 46134128] Future Scheduled 1997 Screening for University of Test 00:00:00 malignant neoplasm [place] [facility] of colon (procedure) Branch [code = 183762605] Future Scheduled 1997 Screening for University of Test 00:00:00 malignant neoplasm [place] [facility] ical of colon (procedure) Branch [code = 158605125] Future Scheduled 1997 Zoster Recombinant Unive rsity of Test 00:00:00 Vaccine (SHINGRIX) [place] [facility] (1 of 2) [code = Branch Zoster Recombinant Vaccine (SHINGRIX) (1 of 2)] Future Scheduled 1966 DTaP,Tdap,and Td Univers ity of Test 00:00:00 Vaccines (1 - Tdap) [place] [facility] [code = Branch DTaP,Tdap,and Td Vaccines (1 - Tdap)] Future Scheduled 1966 DTaP,Tdap,and Td Univers ity of Test 00:00:00 Vaccines (1 - Tdap) [place] [facility] [code = Branch DTaP,Tdap,and Td Vaccines (1 - Tdap)] Future Scheduled 1966 DTaP,Tdap,and Td Univers ity of Test 00:00:00 Vaccines (1 - Tdap) [facility] dical [code = Branch DTaP,Tdap,and Td Vaccines (1 - Tdap)] Future Scheduled 1965 Hepatitis C University of Test 00:00:00 screening [facility] (procedure) [code = Branch [id number]] Future Scheduled 1965 Hepatitis C University of Test 00:00:00 screening [facility] (procedure) [code = Branch 562396110] Future Scheduled 1965 Hepatitis C University of Test 00:00:00 screening [facility] (procedure) [code = Branch 795977001] Future Scheduled PROSTATIC SPECIFIC Unive rsity of [...] Date/Time Type Type Clinicians Facility Department ID 2021-05-03 2021-05-03 [facility] [id number] Univers 15:37:13 23:59:00 Encounter Alma Rosa HAYES [id number] ity of [place] [id number] [facility] [id number] [facility] 801 Branch 2021-05-03 2021-05-03 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 10 ity of [place] [id number] [facility] [phone] [facility] 083 Branch 2021-05-03 2021-05-03 Outpatient R ALMA ROSA SHAW [facility] [id number] Univers 14:00:00 14:00:00 ALMA ROSA SHAW [id number] i ty of [facility] 2021-05-03 2021-05-03 Outpatient R GIGI [facility] [id number] Univers 14:00:00 14:00:00 INDRA ity [facility] 2021-05-03 2021-05-03 Orders Doctor DUDLEY [id number] Univers 00:00:00 00:00:00 Only Unassigned, COLEMAN [id number] ity of [place] [facility] [id number] [place] [address] [id number] [facility] 009 Branch 2021-05-01 2021-05-01 Ornamental Metal Erector Only, [facility] Test [facility] 1.2.840. [id number] Univers 16:00:00 16:15:00 Visit Mkii Nieto 350.1.13.10 ity of Alma Rosa Shaw 4.2.7.2.686 [facility] [id number] [facility] 353 Branch 2021-05-01 2021-05-01 Outpatient R [facility] [id number] Univers 16:00:00 16:00:00 [id number] ity of [facility] 2021-05-01 2021-05-01 Outpatient R ALMA ROSA SHAW [facility] [id number] Univers 16:00:00 16:00:00 ALMA ROSA SHAW i ty of [facility] 2021-04-27 2021-04-27 Office Valeria [facility] [id number] Univers 09:00:00 10:06:47 Visit Alma Rosa HAYES 350.1.13.10 i ty of [facility] [id number] Roberthaz traore SANJU[place] [id number] Mo dical [facility] [employer] 2021-04-27 2021-04-27 Outpatient R ALMA ROSA SHAW [facility] [id number] Univers 09:00:00 10:06:47 ALMA ROSA SHAW i ty of [facility] 2020-05-23 2020-05-23 Outpatient R CRISPIN [facility] [id number] Univers 14:30:00 16:25:21 [facility] 2020-05-16 2020-05-16 Outpatient R CHANELL [facility] [id number] Univers 09:50:00 09:30:56 [facility] 2020-05-09 2020-05-09 Outpatient R CRISPIN [facility] [id number] Univers 10:00:00 11:20:47 [facility] Results This patient has no known results.
--- NOTE | 2021-05-05 16:28 | RAD REPORT ---
EXAM DESCRIPTION: CT - CTHCSPWOC - 05/05/2021 3:59 pm CLINICAL HISTORY: Trauma, head and neck injury. fall COMPARISON: No comparisons TECHNIQUE: Axial 5 mm thick images of the head were obtained. Axial 2 mm thick images of the cervical spine were obtained with sagittal and coronal reconstruction images generated and reviewed. All CT scans are performed using dose optimization technique as appropriate and may include automated exposure control or mA/KV adjustment according to patient size. FINDINGS: CT HEAD WITHOUT CONTRAST: No acute hemorrhage, hydrocephalus or extra-axial collection is identified.Mild generalized brain atr ophy is present with mild periventricular and deep white matter chronic microvascular ischemic change s.No areas of brain edema or midline shift. The paranasal sinuses and mastoids are clear.Bilateral vertebral atherosclerosis.The calvarium is int act. CT CERVICAL SPINE WITHOUT CONTRAST: No fracture or subluxation.Mild mid and lower cervical degenerative spondylosis.No prevertebral soft tissues swelling is identified. IMPRESSION: No acute intracranial or cervical spine findings.
--- NOTE | 2021-05-05 16:58 | RAD REPORT ---
EXAM DESCRIPTION: RAD - Hip Right 2 View - 05/05/2021 4:17 pm CLINICAL HISTORY: PAIN COMPARISON: No comparisons FINDINGS: Fracture is seen involving the inferior pubic ramus on the right. Proximal right femur priscilla ears intact.
--- NOTE | 2021-05-05 16:58 | RAD REPORT ---
EXAM DESCRIPTION: RAD - Pelvis - 05/05/2021 4:16 pm CLINICAL HISTORY: fall Fall, pain COMPARISON: No comparisons FINDINGS: Mildly displaced fracture involves the inferior pubic ramus on the right. Proximal right f emur appears intact.
[2021-05-05 17:24] LABS: Absolute Lymphocytes (CBC) 0.8 K/uL (0.7-4.9); Hematocrit 42.7 % (39.6-49.0); Lymphocytes % 7.9 % (15.3-44.8); MPV 9.8 fL (7.6-11.3); RBC Red Blood Cell Count 4.83 M/uL (4.33-5.43)
[2021-05-05 17:34] LABS: Potassium 4.1 mmol/L (3.5-5.1)
--- NOTE | 2021-05-05 18:08 | RAD REPORT ---
EXAM DESCRIPTION: CT - Chest Abdomen Pelvis W Cont - 05/05/2021 5:57 pm CLINICAL HISTORY: Chest and abdomen pain. fall COMPARISON: No comparisons TECHNIQUE: Approximately 100 mL nonionic IV contrast was administered to the patient. All CT scans are performed using dose optimization technique as appropriate and may include automated exposure control or mA/KV adjustment according to patient size. FINDINGS: The lungs are clear.No pleural or pericardial effusion.No intrathoracic adenopathy. Benign liver cysts are present anterior right lobe of the liver measuring up to 27 mm. Spleen is inta ct. The pancreas is mildly atrophic with possible ductal dilatation in the region of the pancreatic n francisco j. Both adrenal glands are normal. Renal cysts are present bilaterally, benign appearance. No bowel obstruction, free air, free fluid or abscess. Normal appendix. No pathologic lymphadenopath y in the abdomen or pelvis. Mildly displaced fracture the right ischium is noted. Prominent multilevel degenerative spondylosis o f the thoracic and lumbar spine is seen. Moderate scoliosis of the thoracolumbar spine also present. IMPRESSION: Mildly displaced fracture of the right ischium.No additional trauma related abnormality seen. Mild dilatation of the pancreatic duct is possible. Advise followup nonemergent MRCP study.
--- NOTE | 2021-05-05 18:51 | ER ---
Nurse's Notes [facility] Name: Jovani Reinoso Age: 76 yrs Sex: Male : 1945 Arrival Date: 05/05/2021 Time: 15:33 Bed 19 Private MD: Diagnosis: Right Ishium Fracture Presentation: 05/05 15:33 Chief complaint: Patient states: pt presented to Ed reporting Fall hitting head and ruiz injured right hip. pt denies LOC and is currently taking blood thiners. Coronavirus screen: Vaccine status: Patient reports receiving the 2nd dose of the covid vaccine. Ebola Screen: Patient denies travel to an Ebola-affected area in the 21 days before illness onset. Initial Sepsis Screen: Does the patient meet any 2 criteria? No. Patient's initial sepsis screen is negative. Does the patient have a suspected source of infection? No. Patient's initial sepsis screen is negative. Risk Assessment: Do you want to hurt yourself or someone else? Patient reports no desire to harm self or others. 15:33 Method Of Arrival: EMS: [facility] ruiz 15:33 Acuity: CAMILA 3 ruiz Triage Assessment: 15:33 General: Appears in no apparent distress. Behavior is calm, cooperative. Pain: ruiz Complains of pain in scalp and right leg. Historical: - Home Meds: 15:45 atorvastatin 40 mg Oral tab [Active]; sotalol 80 mg Oral tab [Active]; ruiz 15:48 aspirin 81 mg Oral chew 1 tab once daily [Active]; Xarelto 20 mg oral tab 1 tab once ruiz daily [Active]; omeprazole 20 mg Oral cpDR 1 cap once daily [Active]; levothyroxine 75 mcg cap 1 cap once daily [Active]; amlodipine 2.5 mg tab 1 tab once daily [Active]; - PMHx: 15:45 Cerebral Palsy; CHF; Hypertension; ruiz - Immunization history:: Adult Immunizations up to date. - Social history:: Smoking status: Patient/guardian denies using tobacco, the patient reports quitting approximately 14 years ago. Screenin:48 Abuse screen: Denies threats or abuse. Nutritional screening: No deficits noted. sf1 Tuberculosis screening: No symptoms or risk factors identified. Fall Risk Fall in past 12 months (25 points). Secondary diagnosis (15 points) impaired mobility, IV access (20 points). Ambulatory Aid- None/Bed Rest/Nurse Assist (0 pts). Gait- Impaired (20 pts.). Mental Status- Oriented to own ability (0 pts). Assessment: 15:43 General: Appears in no apparent distress. Behavior is calm, cooperative. Pain: ruiz Complains of pain in scalp and right leg. Vital Signs: 15:33 BP 140 / 89; Pulse 89; Resp 18; Temp 97.1(O); Pulse Ox 96% on R/A; Weight 61.23 kg; ruiz Height 5 ft. 6 in. (167.64 cm); 17:10 BP 135 / 84; Pulse 101; Resp 18; Pulse Ox 96% on R/A; ruiz 18:22 BP 125 / 73; Pulse 93; Resp 18; Pulse Ox 98% on R/A; ruiz 20:48 BP 133 / 86; Pulse 92; Resp 20; Pulse Ox 98% on R/A; sf1 15:33 Body Mass Index 21.79 (61.23 kg, 167.64 cm) ruiz ED Course: 15:33 Patient arrived in ED. ruiz 15:33 Arm band placed on. ruiz 15:35 Maurice Mendoza PA is PHCP. cp 15:35 Rand Rueda MD is Attending Physician. cp 15:35 Triage completed. ruiz 15:44 No provider procedures requiring assistance completed. ruiz 15:48 Chey Tee, RN is Primary Nurse. ruiz 15:59 CT Head C Spine In Process Unspecified. EDMS 16:16 XRAY Pelvis In Process Unspecified. EDMS 16:17 XRAY Hip RIGHT 2 view In Process Unspecified. EDMS 17:04 Basic Metabolic Panel Sent. ruiz 17:04 CBC with Diff Sent. ruiz 17:04 Type And Screen Sent. ruiz 17:04 Initial lab(s) drawn, by az, sent to lab. Legal drug screen obtained per protocol. 3 Inserted saline lock: 22 gauge in right forearm, using aseptic technique. Blood collected. 17:57 CT Chest, Abdomen, Pelvis - W/Contrast: fall, pelvic fracture In Process Unspecified. EDMS 18:26 initiated a transfer with Opal Mitchell from the [facility]. eb 18:51 SARS-COV-2 RT PCR (Document "Date of Onset" if Symptomatic) Sent. mh5 18:51 COVID swab sent to lab. 5 18:58 initiated a transfer with Hermann from [facility]. mw2 19:42 administrative approval given by Yesica Bran/ patient has been accepted to [facility] mw2 [facility] [place] bed 1643/Dr. Barker accepted the patient in transfer/report to be called to [phone]. 20:48 Patient has correct armband on for positive identification. sf1 Administered Medications: No medications were administered Outcome: 18:50 ER care complete, transfer ordered by MD. cp 20:48 Transferred by ground EMS Transfer form completed. X-rays sent w/ patient. sf1 20:48 Condition: stable 20:51 Patient left the ED. sf1 Signatures: Dispatcher [employer] EDMS Maurice Mendoza PA PA cp Martinez, Maria [facility] Larissa Evans 3 Peggy Schaffer 2 Opal Scott Heather, RN RN ha Fillers, Samantha, RN RN sf1 Corrections: (The following items were deleted from the chart) 15:51 15:45 Home Meds: lisinopril 20 mg Oral tab; ruiz ruiz
--- NOTE | 2021-05-05 18:51 | EDPHYS ---
Physician Documentation [facility] Name: Jovani Reinoso Age: 76 yrs Sex: Male : 1945 Arrival Date: 05/05/2021 Time: 15:33 Bed 19 Private MD: ED Physician Rand Rueda HPI: 05/05 15:45 This 76 yrs old Male presents to ER via EMS with complaints of Fall. cp 15:45 Details of fall: The patient fell from an upright position, while walking. cp 15:45 Onset: The symptoms/episode began/occurred just prior to arrival. cp 15:45 Associated injuries: The patient sustained injury to the head, contusion, right hip and cp buttock pain, painful injury. Patient reports losing balance while in home and falling backward causing him to strike head against cabinet and land on floor. No reported LOC. Patient takes Xeralto . Historical: - Home Meds: 15:45 atorvastatin 40 mg Oral tab [Active]; sotalol 80 mg Oral tab [Active]; ruiz 15:48 aspirin 81 mg Oral chew 1 tab once daily [Active]; Xarelto 20 mg oral tab 1 tab once ruiz daily [Active]; omeprazole 20 mg Oral cpDR 1 cap once daily [Active]; levothyroxine 75 mcg cap 1 cap once daily [Active]; amlodipine 2.5 mg tab 1 tab once daily [Active]; - PMHx: 15:45 Cerebral Palsy; CHF; Hypertension; ruiz - Immunization history:: Adult Immunizations up to date. - Social history:: Smoking status: Patient/guardian denies using tobacco, the patient reports quitting approximately 14 years ago. ROS: 15:50 Constitutional: Negative for body aches, chills, fever, poor PO intake. cp 15:50 Eyes: Negative for injury, pain, redness, and discharge. cp 15:50 Neck: Negative for pain with movement, pain at rest, stiffness. 15:50 Cardiovascular: Negative for chest pain, edema, palpitations. 15:50 Respiratory: Negative for cough, shortness of breath, wheezing. 15:50 Abdomen/GI: Negative for abdominal pain, vomiting, diarrhea, constipation. 15:50 Back: Negative for pain at rest, pain with movement. 15:50 MS/extremity: Positive for pain, of the right hip and right buttock, Negative for decreased range of motion, paresthesias. 15:50 Neuro: Negative for altered mental status, headache, loss of consciousness, seizure activity, syncope, weakness. 15:50 All other systems are negative. Exam: 15:55 Constitutional: The patient appears in no acute distress, alert, awake, cp non-diaphoretic, non-toxic, well developed, well nourished, uncomfortable. 15:55 Head/Face: Normocephalic, atraumatic. cp 15:55 Eyes: Periorbital structures: appear normal, Pupils: equal, round, and reactive to light and accomodation, Extraocular movements: intact throughout, Conjunctiva: normal, no exudate, no injection, Sclera: no appreciated abnormality, Lids and lashes: appear normal, bilaterally. 15:55 ENT: External ear(s): are unremarkable, Nose: is normal, Mouth: Lips: moist, Oral mucosa: pink and intact, moist, Posterior pharynx: Airway: no evidence of obstruction, patent. 15:55 Neck: C-spine: vertebral tenderness, is not appreciated, crepitus, is not appreciated, ROM/movement: is normal, is supple, without pain, no range of motions limitations. 15:55 Chest/axilla: Inspection: normal, Palpation: is normal, no crepitus, no tenderness. 15:55 Cardiovascular: Rate: normal, Rhythm: regular, Edema: is not appreciated, JVD: is not appreciated. 15:55 Respiratory: the patient does not display signs of respiratory distress, Respirations: normal, no use of accessory muscles, no retractions, labored breathing, is not present, Breath sounds: are clear throughout, no decreased breath sounds, no stridor, no wheezing. 15:55 Abdomen/GI: Inspection: abdomen appears normal, Bowel sounds: active, all quadrants, Palpation: soft, in all quadrants, mild abdominal tenderness, in the right lower quadrant and left lower quadrant, rebound tenderness, is not appreciated, voluntary guarding, is not appreciated, involuntary guarding, is not appreciated. 15:55 Back: vertebral tenderness, is not appreciated. 15:55 Musculoskeletal/extremity: Extremities: grossly normal except: noted in the right buttock and right hip: pain, There is no evidence of decreased ROM, deformity, ROM: full passive range of motion, in the right hip, Perfusion: the extremity is normally perfused throughout, the right leg Sensation intact. 15:55 Neuro: Orientation: to person, place, situation, Mentation: able to follow commands, Motor: moves all fours, strength is normal. Vital Signs: 15:33 BP 140 / 89; Pulse 89; Resp 18; Temp 97.1(O); Pulse Ox 96% on R/A; Weight 61.23 kg; ruiz Height 5 ft. 6 in. (167.64 cm); 17:10 BP 135 / 84; Pulse 101; Resp 18; Pulse Ox 96% on R/A; ruiz 18:22 BP 125 / 73; Pulse 93; Resp 18; Pulse Ox 98% on R/A; ruiz 20:48 BP 133 / 86; Pulse 92; Resp 20; Pulse Ox 98% on R/A; sf1 15:33 Body Mass Index 21.79 (61.23 kg, 167.64 cm) ruiz MDM: 15:36 Patient medically screened. 18:15 Data reviewed: vital signs, nurses notes, radiologic studies, CT scan, plain films, I cp have discussed the patient's presentation/case with the attending Emergency Department Physician; and as a result, I will transfer patient for orthopedic consult due to no ortho coverage. 19:00 Physician consultation: DR Parnell, ortho with [facility], will consult on cp patient and request transfer to services of hospitalist. 19:30 Physician consultation: was contacted at 19:25, regarding regarding transfer, to [facility]. patient's condition, accepting physician will be DR Barker, hospitalist. 05/05 16:41 Order name: Basic Metabolic Panel; Complete Time: 17:34 05/05 18:12 Interpretation: Normal except: NA 134; BUN 23; GFR 65. 05/05 16:41 Order name: CBC with Diff; Complete Time: 17:34 05/05 16:41 Order name: Type And Screen cp 05/05 18:01 Order name: Antibody Identification EDMS 05/05 18:25 Order name: SARS-COV-2 RT PCR (Document "Date of Onset" if Symptomatic) eb 05/05 15:36 Order name: XRAY Pelvis; Complete Time: 17:34 cp 05/05 15:36 Order name: XRAY Hip RIGHT 2 view; Complete Time: 17:34 cp 05/05 15:36 Order name: CT Head C Spine; Complete Time: 17:34 cp 05/05 16:41 Order name: Labs collected and sent; Complete Time: 17:04 cp 05/05 16:42 Order name: CT Chest, Abdomen, Pelvis - W/Contrast: fall, pelvic fracture; Complete cp Time: 18:10 05/05 20:27 Order name: Antigen type EDMS Administered Medications: No medications were administered Disposition Summary: 05/05/21 18:50 Transfer Ordered Transfer Location: [facility] cp Reason: Higher level of care cp Condition: Stable cp Problem: new cp Symptoms: have improved cp Accepting Physician: DR Barker(05/05/21 20:51) sf1 Diagnosis - Right Ishium Fracture cp Forms: - Medication Reconciliation Form cp - SBAR form cp Signatures: Dispatcher [employer] EDMS Maurice Mendoza PA PA cp Au-StagerChey RN RN ruiz Merle Street RN RN sf1 Corrections: (The following items were deleted from the chart) 15:51 15:45 Home Meds: lisinopril 20 mg Oral tab; ruiz ruiz 18:35 18:20 Misc. Order ordered. cp aa5 19:31 18:50 DR roberson cp 20:51 19:31 DR Barker cp sf1 05/06 19:01 05/05 15:45 Details of fall: The patient fell from an upright position, while walking, cp cp
[2021-05-05 21:34] VITALS: TEMP 97.1
[2021-05-05 21:37] VITALS: O2SAT 98
[2021-05-05 21:38] VITALS: BP 133/86
== END 2021-05-05 20:51 | disposition short-term general hospital (02) ==
LOC: ER 15:30
DX: S32.601A Unspecified fracture of right ischium, initial encounter for closed fracture (principal); W18.30XA Fall on same level, unspecified, initial encounter; I10 Essential (primary) hypertension; I50.9 Heart failure, unspecified; Z79.01 Long term (current) use of anticoagulants; Z79.82 Long term (current) use of aspirin; Z20.822 Contact with and (suspected) exposure to COVID-19
CPT/HCPCS: 85025; 80048; 36415; 86900; 86850; 86902; 86870; 86901; 70450; 72125; 71260; 74177; 72170; 73502; 99285; U0003; Q9967

== ENCOUNTER 2021-05-10 10:13 | Inpatient (IN) | payer OTHER ==
--- NOTE | 2021-05-10 15:49 | R.PREADM ---
PRE-ADMISSION SCREENING FORM SCREENING DATE AND TIME 05/09/2021 10:40 (CDT) ANTICIPATED REHAB ADMISSION DATE 05/11/2021 REFERRING FACILITY [facility] REFERRAL DATE AND TIME 05/09/2021 10:40 (CDT) REFERRAL ROOM# 1646/01 ACUTE ADMIT DATE 05/05/2021 Previous Rehabilitation(s): No. 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 Petros Sheets M.D. MR# [id number] NAME RAFI SCHRADER ADDRESS [address] [place] [address] DATE OF 1945 AGE 76 SSN# [id number] GENDER male MARITAL STATUS Single (Never ) PREF. LANGUAGE (IF NON-ITALIAN) Estonian ADMIT FROM 02 - [facility] PRE-HOSPITAL LIVING SETTING 01 - Home (private home/apt. board/care, assisted living, long term, transitional living) HOME TYPE AND DETAILS Type of home: single family house # of steps to enter the residence: 0 # of levels in the residence: 1 # of steps within the residence: 0 PRE-HOSPITAL LIVING WITH Family/Relatives FAMILY SUPPORT Yes PRIMARY FAMILY CONTACT NAME JW TEIXEIRA PRIMARY FAMILY CONTACT PHONE PRIMARY FAMILY CONTACT RELATIONSHIP FRIEND PHONE PRIMARY FAMILY CONTACT ON ADM.? no IS PRIMARY FAMILY CONTACT AUTH. REP.? no 1ST EMERGENCY CONTACT JW TEIXEIRA 1ST CONTACT PHONE 1ST CONTACT RELATIONSHIP FRIEND PHONE 1ST CONTACT ON ADM. no IS 1ST CONTACT AUTH. REP.? no PHONE 2ND CONTACT ON ADM.? no PATIENT EMPLOYMENT STATUS Retired (for age) PATIENT EMPLOYER No Employer PAYOR INFORMATION: 1ST PAYOR NAME MEDICARE 1ST PAYOR PHONE 1ST PAYOR INJURY/ILLNESS DUE TO ACCIDENT? No ANOTHER CONSTITUTION PARTY RESPONSIBLE? No PRIMARY REHAB/ACUTE DIAGNOSIS: RIGHT ISCHIUM FRACTURE ONSET DATE 05/05/2021 REHAB IMPAIRMENT CATEGORY (PURVI): 09 Orthopaedic (Ortho) may NOT meet conditional compliance for 60% rule PRIMARY DIAGNOSIS-RELATED SURGERIES: N/A INTERVENTIONS: - A-Fib monitor for complications Vitals will be monitored regularly and medications administered as indicated by Physician - HYPERLIPIDEMIA Patient is to continue on lipitor 40 mg p.o. daily - CHF monitoring of patient symptoms and medication management by physician Daily weights will be obtained Regular assessment of patient vitals. RISK FOR COMPLICATIONS: - CARDIC AFIB - Weakness Regular therapeutic activity and exercise Strengthening exercises to be performed - SKIN BREAKDOWN Nursing will assess skin daily using assessment tool and will place on Skin Breakdown Precautions as Indicated per protocol - FALLS Patient will be evaluated for Fall Precautions and will be placed on Fall Precautions as indicated pe r protocol. - DVT PTT and INR will be monitored to effectively mitigate risk for development of DVT or PE while here. Medications will be administered as per MD Mobility training and regular exercise - Pain Educate patient on pain management strategies Clinical staff will assess patient's pain level every shift per protocol to monitor for pain manageme nt effectiveness - CVA pt has history of recent CVA. Will monitor blood pressure and manage with medication. pt has A-Fib and requires medical monitoring and medication management to reduce risk for CVA pt's blood pressures have been inconsistent and require monitoring and medication management as inidi cated by physician. SUMMARY OF ACUTE HOSPITALIZATION: Pt. is a 76 yo Right-handed male. On 05/05/2021 he was admitted to [facility] with diagnosis RIGHT ISCHIUM FRACTURE. His impairment category is Orthopaedic Disorders 08 - Pelvic Fracture (08.3). Pre-morbidly, Pt. was independent/mod-I in Locomotion, Safety Awareness, Social Cognition, Transfers Control, and Balance; and he had good Transfers Control, Sphincter Control, Self-Care, and Endurance. Currently, he has deficits of Locomotion, Safety Awareness, Balance, Social Cognition, Transfers Cont rol, Self-Care, Sphincter Control, and Communication. Pt. is now referred to [facility] for acute in-patient rehabilitation in order to maximize patient's functional independence in activities of daily living, strength, ROM, and mobi lity. Patient has realistic goal of being discharged at assistance level 7-Ind to reside at Home with Fami ly/Relatives. PAST MEDICAL HISTORY AFIB HLD HCC CVA-RIGHT SIDED WEAKNESS FALLS Hypertension MEDICATION ALLERGIES: No Known Drug Allergies (NKDA) ENVIRONMENTAL ALLERGIES: - Substance Allergies None Known - Other Allergies None Known CODE STATUS: Full code BMI N/A DIET: - Diet Type Regular - Diet - Solid Texture Regular - Diet - Liquid Texture Regular - Tube Feed N/A SKIN DIAGRAM: on ; extent - small; stage - NS(Not Stageable). Treatment - Per Physician's Orders. REVIEW OF SYSTEMS: - Gen Alert and awake Lying in bed No apparent distress Oriented to: person, time, and place - Vital Signs Temperature: 98 F SBP/DBP: 116/65 Pulse: 85 Resp: 18 Vital signs stable, afebrile - CVS RRR VITAL SIGNS Temperature: 98 F SBP/DBP: 116/65 Pulse: 85 Resp: 18 Vital signs stable, afebrile MEDICATIONS/TREATMENT: Other- See attached MAR (Medication Administration Record). CURRENT SPHINCTER CONTROL: Pre-hospital bladder status: unspecified # of bladder accidents in the last 7 days prior to screenin Pre-hospital bowel status: unspecified # of bowel accidents in the last 7 days prior to screenin Last Bowel Movement Date: 05/09/2021 CURRENT LOCOMOTION STATUS: distance walked 44' feet WITH ROLLING WALKER DETAILED CURRENT FUNCTIONAL STATUS: - Bladder accident frequency: 7-Ind - No accidents in the past 7 days - Bowel accident frequency: 7-Ind - No accidents in the past 7 days - Walking score based on distance walked: 0(N/A) score based on distance walked: 1(<=50ft) - Wheelchair score based on distance traveled: 0(N/A) QI SCORES: - Self-Care A. Eating 04-Supervision or touching assistance B. Oral hygiene 03-Partial/moderate assistance C. Toileting hygiene 03-Partial/moderate assistance E. Shower/bathe self 03-Partial/moderate assistance F. Upper body dressing 03-Partial/moderate assistance G. Lower body dressing 03-Partial/moderate assistance H. Putting on/taking off footwear 88-Not attempted due to medical condition or safety concerns - Mobility A. Roll left and right 03-Partial/moderate assistance B. Sit to lying 03-Partial/moderate assistance C. Lying to sitting on side of bed 03-Partial/moderate assistance D. Sit to stand 03-Partial/moderate assistance E. Chair/hhr-rv-fknpm transfer 03-Partial/moderate assistance F. Toilet transfer 03-Partial/moderate assistance G. Car transfer 88-Not attempted due to medical condition or safety concerns I. Walk 10 feet 03-Partial/moderate assistance J. Walk 50 feet with two turns 88-Not attempted due to medical condition or safety concerns K. Walk 150 feet 88-Not attempted due to medical condition or safety concerns L. Walking 10 feet on uneven surfaces 88-Not attempted due to medical condition or safety concerns M. 1 step (curb) 88-Not attempted due to medical condition or safety concerns N. 4 steps 88-Not attempted due to medical condition or safety concerns O. 12 steps 88-Not attempted due to medical condition or safety concerns P. Picking up object 03-Partial/moderate assistance R. Wheel 50 feet with two turns 88-Not attempted due to medical condition or safety concerns S. Wheel 150 feet 88-Not attempted due to medical condition or safety concerns - Bladder and Bowel Bladder continence Bowel continence - Endurance Fair - Balance Fair - Safety Awareness Fair CURRENT FUNC. DEFICITS: Self-Care, Mobility, Endurance, Balance, and Safety Awareness CURRENT / PREVIOUS ASSISTIVE DEVICES: Rolling Walker HISTORY OF FALLS. HAS THE PATIENT HAD TWO OR MORE FALLS IN THE PAST YEAR OR ANY FALL WITH INJURY IN T HE PAST YEAR?: Yes PRIOR SURGERY. DID THE PATIENT HAVE MAJOR SURGERY DURING THE 100 DAYS PRIOR TO ADMISSION?: No THERAPY NOTES FROM ACUTE CARE: Attached. SPECIAL NEEDS: - Safety Concerns Skin breakdown precautions needed due to skin breakdown risk PRECAUTIONS: - Fall Precaution SAFTY AND FALL PATIENT NEEDS ACTIVE AND ONGOING THERAPEUTIC INTERVENTION OF MULTIPLE THERAPY DISCIPLINES, INCLUDING: - Dietary and Nutrition Adequate Nutrition. Nutritional Education. Nutritional Supplements. Evaluate and Treat. - Occupational Therapy Cognitive Retraining. Patient needs Occupational Therapy for a daily minimum of 1.5 hours at least 5 out of 7 days, to improve Activities of Daily Living, including: Eating, Grooming, Bathing, Dressing, Toileting, Toilet Transfers, Community Reintegration, Higher functional activities, Adaptive Equipme nt, Splinting, Household Tasks, and Other activities as determined. Visual Perceptual Training. Evalu ate and Treat. Patient/Family Education. Safety Awareness. Transfer Training. ADL Training. Household Tasks. Eating. UE Strengthening. - Speech Therapy Cognitive Training. Expressive Language Skills. Memory Strategies. Patient needs Speech Therapy for a daily minimum of 1.5 hours at least 5 out of 7 days, to improve: Swallowing, Cognition, Language Ski lls, and Compensatory Strategies. Receptive Language Skills. Speech Intelligibility Training. Evaluat e and Treat. - Physical Therapy Mobility Training. Patient needs Physical Therapy for a daily minimum of 1.5 hours at least 5 out of 7 days, to improve: Mobility, Strengthening, Transfers, Stretching, ROM, Endurance, Ability to manage stairs, Gait, and Balance. Balance Training. Gait Training. Safety Awareness. Transfer Training. Pat ient/Family Education. PATIENT NEEDS CLOSE MEDICAL SUPERVISION BY A REHABILITATION PHYSICIAN FOR: Coordination of Treatment Team Wound Care Medical and Co-Morbidity Management Pain Management DVT Management PATIENT REQUIRES 24X7 REHAB NURSING FOR MEDICAL AND FUNCTIONAL MGT. OF THE FOLLOWING DEFICITS: Disease Management Medication Management Patient requires 24x7 Rehabilitation Nursing for: Pain Issues, Identifying and preventing risk factor s, Monitoring and reporting current medical conditions, Assisting with ambulation and transfer, Luis A ting with all ADL-s, Teaching patients about disease process and medications, Family teaching, Provid ing safe environment, Bowel and Bladder Issues, Skin Integrity, and Medication Management Patient/Family Education Providing Safe Environment Skin Integrity Bowel and Bladder Management Pain Management PATIENT REQUIRES INTENSIVE, COORDINATED INTERDISCIPLINARY APPROACH TO REHAB: Arranging Home Equipment/Services Discharge Planning Family Intervention/Training Patient needs Dietary and Nutrition Services for: Adequate Nutrition, Nutritional Supplements, and Nu tritional Education Patient needs Purchasing Department Clerk and/or Case Management for: Discharge Planning, Arranging Home Equipmen t or Services, and Family Interventions Purchasing Department Clerk/Case Management PATIENT REHAB POTENTIAL: Jose SCHRADER is able and expected to receive 3 hours of individualized therapy daily on at least 5 of tami ry 7 days Jose TEJADAs prognosis for significant practical improvement within a reasonable period of time appears Good Expected level of measurable improvement will be of a practical value to Jose SCHRADER's functional capaci ty or adaptations to impairments Has a viable Discharge Plan Medically appropriate; condition is sufficiently stable to participate in intensive rehab program DISCHARGE PLAN: - Estimated Length of Stay (days) 12. - Consensus on plan Discharge plan has been discussed with primary caregiver. Patient/Family is in agreement with the mir n. Primary caregiver is in agreement with the plan. - Patient/Family Goals Return home independently. - Planned Living Setting Upon Discharge Home, to live with Family/Relatives. Transitional Living. RECOMMENDED CARE LEVEL: IRF RECOMMENDATION DETAILS: Recommended Admission to Comprehensive Rehabilitation Program to Increase Functional Pettis SCREENER'S COMPLETENESS CONFIRMATION: - Screening Confirmation The patient data collection on this preadmission screening form is finished PHYSICIANS REVIEW AND ADMISSION DETERMINATION Admit - Based on my review of the Pre-Admission Screening results, in my medical judgment and experie nce, I concur with the findings and recommend admission to [facility], as this patient requires an IRF level of care. SIGNATURE PANEL: Special Trackwork Blacksmith - [electronically] signed by Yu Holland on 05/10/2021 at 15:28 (CDT) Special Trackwork Blacksmith - [electronically] signed by Prince Maurice PT on 05/10/2021 at 15:45 (CDT) Physician Reviewer - [electronically] signed by Dr. Petros Sheets M.D. on 05/10/2021 at 15:48 (CDT )
--- OUTSIDE RECORDS SUMMARY | 2021-05-10 18:36 | XMS REPORT | Continuity of Care Document ---
:1945 Author Organization [facility] t Address [address] [place] [address] Care Team Providers Name Role Phone Izzy Primary Care Physician TREY PASTRANA Attending Clinician Unavailable LORRAINE POWELL Attending Clinician Unavailable Valeria SHEIKH Attending Clinician Therapist, Respiratory Attending Clinician Unavailable Darvin Yu MD Attending Clinician VALERIA Attending Clinician Unavailable VALERIA Attending Clinician Unavailable Darvin YU Attending Clinician Unavailable Doctor Unassigned, Name Attending Clinician Unavailable Only, Test Attending Clinician Unavailable Gerson MEHTA Attending Clinician 2, Lab Attending Clinician Unavailable Crispin MEHTA Attending Clinician CRISPIN Attending Clinician Unavailable Day LUA Attending Clinician Unavailable ANJELICA Admitting Clinician Unavailable Payers Payer Name Policy Type Policy Number Effective Date Expiration Date S r[place] MEDICARE A B [id number] 2012 00:00:00 MEDICAID [facility] [id number] 2021 00:00:00 [place]ICAID [place] [id number] Problems Condition Condition Condition Status Onset Resolution Last Treating Co mments Source Name Details Category Date Date Treatment Clinician Date No known No known Disease Unive rs active active ity of problems problems [facility] Allergies, Adverse Reactions, Alerts Allergy Allergy Status Severity Reaction(s) Onset Inactive Treating Comm ents Source Name Type Date Date Clinician NO KNOWN Drug Active Univers ALLERGIE Class ity of S [facility] NO KNOWN Allergy Active [facility] Social History Social Habit Start Date Stop Date Quantity Comments Source History SDOH University o f Alcohol Frequency [place] [facility] History SDOH University o f Alcohol Std [place] [facility] Drinks Branch History SDOH University o f Alcohol Binge [place] [facility] Branch Exposure to Not sure University of SARS-CoV-2 [facility] (event) Branch Alcohol intake 2021-04-27 2021-04-27 Current drinker Unive rsity of 00:00:00 00:00:00 of alcohol [facility] (finding) Branch Tobacco use and 2014-12-14 2014-12-14 Never used Universit y of exposure 00:00:00 00:00:00 [facility] Tobacco Comment 2014-12-14 2014-12-14 Quit smoking 6 Unive rsity of 00:00:00 00:00:00 years ago; smoked [facility] edical 1PPD X 40 years Branch Alcohol Comment 2014-12-14 2014-12-14 Occasional Universit y of 00:00:00 00:00:00 Drinker [facility] Sex [birth year] Universit y of 00:00:00 00:00:00 [facility] Smoking Status Start Date Stop Date Source Former smoker 2014-12-14 00:00:00 2014-12-14 00:00:00 Universi ty of [facility] Medications Ordered Filled Start Stop Current Ordering Indication Dosage Frequency Signature Comments Components Source Medication Medication Date Date Medication? Clinician (SIG) Name Name amLODIPine 2021- Yes 2.5mg Take 2.5 Un chaitanya 2.5 mg 3-10 mg by ity of tablet 09:24: mouth 2 [place] [address] (two) Medical times Branch daily. amLODIPine 2021-0 Yes 2.5mg Take 2.5 Un chaitanya 2.5 mg 3-10 mg by ity of tablet 09:24: mouth 2 [place] [address] (two) Medical times Branch daily. amLODIPine 2022-0 Yes 2.5mg Take 2.5 Un chaitanya 2.5 mg 3-10 mg by ity of tablet 09:24: mouth 2 [place] [address] (two) Medical times Branch daily. amLODIPine 2-0 Yes 2.5mg Take 2.5 Un chaitanya 2.5 mg 3-10 mg by ity of tablet 09:24: mouth 2 [place] 33 (two) Medical times Branch daily. amLODIPine 2022-0 Yes 2.5mg Take 2.5 Un chaitanya 2.5 mg 3-10 mg by ity of tablet 09:24: mouth 2 [place] 33 (two) Medical times Branch daily. amLODIPine 2022-0 Yes 2.5mg Take 2.5 Un chaitanya 2.5 mg 3-10 mg by ity of tablet 09:24: mouth 2 [place] 33 (two) Medical times Branch daily. lisinopril 2022-0 [...] mouth ity of mg tablet 09:11: daily. [place] [address] Medical Branch sotalol 2-0 Yes 80mg Take 80 mg Univ ers (BETAPACE) 3-10 by mouth 2 ity of 80 mg 09:11: (two) [place] tablet 22 times Medical daily. Branch pantoprazol 2-0 Yes 40mg Take 40 mg Univers e 3-10 by mouth ity of (PROTONIX) 09:11: daily. [place] 40 mg EC 22 Medical tablet Branch lisinopril 2-0 Yes 20mg Take 20 mg U nivers (PRINIVIL,Z 3-10 by mouth 2 it y of ESTRIL) 20 09:11: (two) [place] mg tablet 22 times Medical daily. Branch atorvastati 2022-0 Yes 40mg Take 40 mg Univers n (LIPITOR) 3-10 by mouth ity of 40 mg 09:11: at [place] tablet 22 bedtime. Medical Branch clopidogrel 2022-0 Yes 75mg Take 75 mg Univers (PLAVIX) 75 3-10 by mouth ity of mg tablet 09:11: daily. [place] [address] Medical Branch sotalol 2022-0 Yes 80mg Take 80 mg Univ ers [...] mouth ity of mg tablet 09:11: daily. [place] [address] Medical Branch sotalol 2021-0 Yes 80mg Take [...] mouth ity of mg tablet 09:11: daily. [place] 22 Medical Branch sotalol 2-0 Yes 80mg [...] mouth ity of mg tablet 09:11: daily. [place] [address] Medical Branch sotalol 2021-0 Yes 80mg Take [...] tablet 22 times Medical daily. Branch atorvastati 0 Yes 40mg Take 40 mg Univers n (LIPITOR) 3-10 by mouth ity of 40 mg 09:11: at [place] tablet 22 bedtime. Medical Branch clopidogrel 2021-0 Yes 75mg Take 75 mg Univers (PLAVIX) 75 3-10 by mouth ity of mg tablet 09:11: daily. [place] [address] Medical Branch sotalol 2021-0 Yes 80mg Take 80 mg Univ ers (BETAPACE) 3-10 by mouth 2 ity of 80 mg 09:11: (two) [place] tablet 22 times Medical daily. Branch pantoprazol 2021-0 Yes 40mg Take 40 mg Univers e 3-10 by mouth ity of (PROTONIX) 09:11: daily. [place] 40 mg EC 22 Medical tablet Branch albuterol 2021-0 Yes [id number] 2.5mg Inhale 3 Univers 2.5 mg /3 3-10 mL every 6 ity of mL (0.083 00:00: (six) [place] %) 00 hours as Medical nebulizer needed for Bran ch solution Wheezing or Shortness of Breath. albuterol 2021-0 Yes [id number] 2.5mg Inhale 3 Univers 2.5 mg /3 3-10 mL every 6 ity of mL (0.083 00:00: (six) [place] %) 00 hours as Medical nebulizer needed for Bran ch solution Wheezing or Shortness of Breath. albuterol 0 Yes [id number] 2.5mg Inhale 3 Univers 2.5 mg /3 3-10 mL every 6 ity of mL (0.083 00:00: (six) [place] %) 00 hours as Medical nebulizer needed for Bran ch solution Wheezing or Shortness of Breath. albuterol 2021-0 Yes [id number] 2.5mg Inhale 3 Univers 2.5 mg /3 3-10 mL every 6 ity of mL (0.083 00:00: (six) [place] %) 00 hours as Medical nebulizer needed for Bran ch solution Wheezing or Shortness of Breath. albuterol 0 Yes [id number] 2.5mg Inhale 3 Univers 2.5 mg /3 3-10 mL every 6 ity of mL (0.083 00:00: (six) [place] %) 00 hours as Medical nebulizer needed for Bran ch solution Wheezing or Shortness of Breath. albuterol 0 Yes [id number] 2.5mg Inhale 3 Univers 2.5 mg /3 3-10 mL every 6 ity of mL (0.083 00:00: (six) [place] %) 00 hours as Medical nebulizer needed for Bran ch solution Wheezing or Shortness of Breath. FLOVENT HFA Yes INHALE ONE Univers 44 3-04 (1) PUFF ity of mcg/actuati 00:00: BY MOUTH [place] on inhaler 00 IN THE Medical MORNING Branch AND 1 PUFF BEFORE BEDTIME. RINSE MOUTH WITH WATER AFTER USE TO REDUCE AFTERTASTE AND INCIDENCE FLOVENT HFA 0 Yes INHALE ONE Univers 44 3-04 (1) PUFF ity of mcg/actuati 00:00: [place]TH [place] inhaler 00 IN THE Medical MORNING Branch AND 1 PUFF BEFORE BEDTIME. RINSE MOUTH WITH WATER AFTER USE TO REDUCE AFTERTASTE AND INCIDENCE FLOVENT HFA 0 Yes INHALE ONE Univers 44 3-04 (1) [...] USE TO REDUCE AFTERTASTE AND INCIDENCE cyanocobala 2021-0 Yes INJECT 1 Un chaitanya [...] IN THE MUSCLE EVERY MONTH FLOVENT 2021-0 2021- No INHALE 1 Unive rs DISKUS 50 3-03 03-10 PUFF BY ity of mcg/actuati 00:00: 00:00 [place]TH [place] disk[place] 00 :00 EVERY Medical inhaler MORNING Branch AND 1 EVERY NIGHT AT BEDTIME. RINSE MOUTH WITH WATER AFTER USE. DO NOT SWALLOW FLOVENT 2021-0 2021- No INHALE 1 Unive rs DISKUS 50 3-03 03-10 PUFF BY ity of mcg/actuati 00:00: 00:00 MOUTH [place] disk[place] 00 :00 EVERY Medical inhaler MORNING Branch AND 1 EVERY NIGHT AT BEDTIME. RINSE MOUTH WITH WATER AFTER USE. DO NOT SWALLOW doxycycline 2021-0 Yes TAKE 1 Univ ers hyclate 100 3-02 CAPSULE BY it y of mg capsule 00:00: MOUTH 00 EVERY Medical MORNING Branch AND EVERY EVENING WITH FULL GLASS OF WATER AND DO NOT LIE FOR 30 MINS omeprazole 2021-0 Yes One po Unive rs 40 mg 3-02 Each Day ity of capsule 00:00: for [facility] nDx gerd Branch doxycycline 2021-0 Yes TAKE 1 Univ ers hyclate 100 3-02 CAPSULE BY it y of mg capsule 00:00: MOUTH 00 EVERY Medical MORNING Branch AND EVERY EVENING WITH FULL GLASS OF WATER AND DO NOT LIE FOR 30 MINS omeprazole 2-0 Yes One po Unive rs 40 mg 3-02 Each Day ity of capsule 00:00: for [place] [facility] nDx gerd Branch doxycycline 2021-0 Yes TAKE 1 Univ ers hyclate 100 3-02 CAPSULE BY it y of mg capsule 00:00: MOUTH 00 EVERY Medical MORNING Branch AND EVERY EVENING WITH FULL GLASS OF WATER AND DO NOT LIE FOR 30 MINS omeprazole 2-0 Yes One po Unive rs 40 mg 3-02 Each Day ity of capsule 00:00: for [place] [facility] nDx gerd Branch doxycycline 2021-0 Yes TAKE 1 Univ ers hyclate 100 3-02 CAPSULE BY it y of mg capsule 00:00: MOUTH 00 EVERY Medical MORNING Branch AND EVERY EVENING WITH FULL GLASS OF WATER AND DO NOT LIE FOR 30 MINS omeprazole 0 Yes One po Unive rs 40 mg 3-02 Each Day ity of capsule 00:00: for [place] nDx gerd Branch doxycycline Yes TAKE 1 Univ ers hyclate 100 3-02 CAPSULE BY it y of mg capsule 00:00: MOUTH EVERY Medical MORNING Branch AND EVERY EVENING WITH FULL GLASS OF WATER AND DO NOT LIE FOR 30 MINS omeprazole 2021-0 Yes One po Unive rs 40 mg 3-02 Each Day ity of capsule 00:00: for [place] [facility] nDx gerd Branch doxycycline Yes TAKE 1 Univ ers hyclate 100 3-02 CAPSULE BY it y of mg capsule 00:00: MOUTH EVERY Medical MORNING Branch AND EVERY EVENING WITH FULL GLASS OF WATER AND DO NOT LIE FOR 30 MINS omeprazole 2021-0 Yes One po Unive rs 40 mg 3-02 Each Day ity of capsule 00:00: for [place] nDx gerd Branch albuterol 2021- No One vial Uni vers 2.5 mg /3 - 03-10 in ity of mL (0.083 00:00: 00:00 nebulizer [place] 00 :00 every 4 to Medical nebulizer 6 hrs prn Branc h solution sob, cough or wheeze albuterol 2021- No USE 1 VIAL U nivers 2.5 mg /3 - 03-10 VIA ity of mL (0.083 00:00: 00:00 NEBULIZER [place] 00 :00 EVERY 4 TO Medical nebulizer 6 HOURS Bran ch solution NEEDED FOR SHORTNESS OF BREATH OR COUGH OR WHEEZING albuterol 2021- No One vial Uni vers 2.5 mg /3 - 03-10 in ity of mL (0.083 00:00: 00:00 nebulizer [place] 00 :00 every 4 to Medical nebulizer 6 hrs prn Branc h solution sob, cough or wheeze albuterol 2021- No USE 1 VIAL U nivers 2.5 mg /3 04-1910 VIA ity of mL (0.083 00:00: 00:00 NEBULIZER [place] 00 :00 EVERY 4 TO Medical nebulizer 6 HOURS Bran ch solution NEEDED FOR SHORTNESS OF BREATH OR COUGH OR WHEEZING XARELTO 20 2021-0 Yes 20mg Take 20 mg U nivers mg tablet 2-23 by mouth ity of 00:00: every [place] morning. Medical Branch XARELTO 20 2021-0 Yes 20mg Take 20 mg U nivers mg tablet 2-23 by mouth ity of 00:00: morning. Medical Branch XARELTO 20 2021-0 Yes 20mg Take 20 mg U nivers mg tablet 2-23 by mouth ity of 00:00: morning. Medical Branch XARELTO 20 2021-0 Yes 20mg Take 20 mg U nivers mg tablet 2-23 by mouth ity of 00:00: [place] morning. Medical Branch XARELTO 20 2021-0 Yes 20mg Take 20 mg U nivers mg tablet 2-23 by mouth ity of 00:00: every morning. Medical Branch XARELTO 20 2021-0 Yes 20mg Take 20 mg U nivers mg tablet 2-23 by mouth ity of 00:00: [place] morning. Medical Branch clonazePAM 2022-0 Yes .5mg Take 0.5 Uni vers 0.5 mg 2-22 mg by ity of tablet 00:00: mouth (two) Medical times Branch daily as needed. clonazePAM 2022-0 Yes .5mg Take 0.5 Uni vers 0.5 mg 2-22 mg by ity of tablet 00:00: mouth (two) Medical times Branch daily as needed. clonazePAM 2022-0 Yes .5mg Take 0.5 Uni vers 0.5 mg 2-22 mg by ity of tablet 00:00: mouth (two) Medical times Branch daily as needed. clonazePAM 2022-0 Yes .5mg Take 0.5 Uni vers 0.5 mg 2-22 mg by ity of tablet 00:00: mouth (two) Medical times Branch daily as needed. clonazePAM 2022-0 Yes .5mg Take 0.5 Uni vers 0.5 mg 2-22 mg by ity of tablet 00:00: mouth 2 (two) Medical times Branch daily as needed. clonazePAM 0 Yes .5mg Take 0.5 Uni vers 0.5 mg 2-22 mg by ity of tablet 00:00: mouth 2 (two) Medical times Branch daily as needed. albuterol Yes INHALE 2 Univ ers 90 2-14 PUFFS BY ity of mcg/actuati 00:00: MOUTH [place] on inhaler 00 EVERY 4 TO Med ical 6 HOURS Branch WHILE AWAKE NEEDED FOR COUGHING SHORTNESS OF BREATH OR WHEEZING albuterol Yes INHALE 2 Univ ers 90 2-14 PUFFS BY ity of mcg/actuati 00:00: MOUTH on inhaler 00 EVERY 4 TO Med ical 6 HOURS Branch WHILE AWAKE NEEDED FOR COUGHING SHORTNESS OF BREATH OR WHEEZING albuterol Yes INHALE 2 Univ ers 90 2-14 PUFFS BY ity of mcg/actuati 00:00: MOUTH on inhaler 00 EVERY 4 TO Med ical 6 HOURS Branch WHILE AWAKE NEEDED FOR COUGHING SHORTNESS OF BREATH OR WHEEZING albuterol Yes INHALE 2 Univ ers 90 2-14 PUFFS BY ity of mcg/actuati 00:00: MOUTH on inhaler 00 EVERY 4 TO Med ical 6 HOURS Branch WHILE AWAKE NEEDED FOR COUGHING SHORTNESS OF BREATH OR WHEEZING albuterol Yes INHALE 2 Univ ers 90 2-14 PUFFS BY ity of mcg/actuati 00:00: MOUTH on inhaler 00 EVERY 4 TO Med [...] ity o f tablet 00:00: MOUTH IN [place] 00 THE Medical MORNING ON Branch AN EMPTY STOMACH FOR THYROID DISEASE. levothyroxi 2020-02 Yes TAKE 1 Univ ers ne 75 mcg 0-25 TABLET BY ity o f tablet 00:00: MOUTH IN [place] 00 THE Medical MORNING ON Branch AN EMPTY STOMACH FOR THYROID DISEASE. levothyroxi 2020-02 Yes TAKE 1 Univ ers ne 75 mcg 0-25 TABLET BY ity o f tablet 00:00: MOUTH IN [place] 00 THE Medical MORNING ON Branch AN EMPTY STOMACH FOR THYROID DISEASE. levothyroxi 2020-02 Yes TAKE 1 Univ ers ne 75 mcg 0-25 TABLET BY ity o f tablet 00:00: MOUTH IN [place] 00 THE Medical MORNING ON Branch AN EMPTY STOMACH FOR THYROID DISEASE. levothyroxi 2020-02 Yes TAKE 1 Univ ers ne 75 mcg 0-25 TABLET BY ity o f tablet 00:00: MOUTH IN [place] 00 THE Medical MORNING ON Branch AN EMPTY STOMACH FOR THYROID DISEASE. levothyroxi 2020-02 Yes TAKE 1 Univ ers ne 75 mcg 0-25 TABLET BY ity o f tablet 00:00: MOUTH IN [place] 00 THE Medical MORNING ON Branch AN [...] Branch site daily. unspecified cephALEXin 2021- No [id number] 500mg Take 1 Univers 500 mg 3-26 03-10 capsule by ity of capsule 00:00: 00:00 mouth 2 [place] 00 :00 (two) Medical times Branch daily. cephALEXin 2020-0 2021- No [id number] 500mg Take 1 Univers 500 mg 3-26 03-10 capsule by ity of capsule 00:00: 00:00 mouth 2 [place] 00 :00 (two) Medical times Branch daily. [...] mouth ity of mg tablet 17:16: daily. [place] [address] Medical Branch sotalol 2014-02 Yes 80mg Take [...] mouth ity of mg tablet 17:16: daily. [place] [address] Medical Branch sotalol 2014-02 Yes 80mg Take [...] mouth ity of mg tablet 17:16: daily. [place] 52 Medical Branch sotalol 2014-02 Yes 80mg Take 80 mg Univ ers (BETAPACE) 2-09 by mouth 2 ity of 80 mg 17:16: (two) [place] tablet 52 times Medical daily. Branch pantoprazol 2014-02 Yes 40mg Take 40 mg Univers e 2-09 by mouth ity of (PROTONIX) 17:16: daily. [place] 40 mg EC 52 Medical tablet Branch Immunizations Ordered Filled Immunization Date Status Comments [facility] e Immunization Name Name SARS-COV-2 COVID-19 2020-05-16 Completed Unive rsity of MODERNA VACCINE 00:00:00 [facility] Branch SARS-COV-2 COVID-19 2020-05-16 Completed Unive rsity of MODERNA VACCINE 00:00:00 [facility] Branch SARS-COV-2 COVID-19 2020-05-16 Completed Unive rsity of MODERNA VACCINE 00:00:00 [facility] Branch SARS-COV-2 COVID-19 2020-05-16 Completed Unive rsity of MODERNA VACCINE 00:00:00 [facility] Branch SARS-COV-2 COVID-19 2020-05-16 Completed Unive rsity of MODERNA VACCINE 00:00:00 [facility] [place] [facility] Branch SARS-COV-2 COVID-19 2020-05-16 Completed Unive rsity of MODERNA VACCINE 00:00:00 [facility] Branch SARS-COV-2 COVID-19 2020-05-16 Completed Unive rsity of MODERNA VACCINE 00:00:00 [facility] Branch SARS-COV-2 COVID-19 2020-05-16 Completed Unive rsity of MODERNA VACCINE 00:00:00 [facility] Branch SARS-COV-2 COVID-19 2020-05-16 Completed Unive rsity of MODERNA VACCINE 00:00:00 [facility] Branch SARS-COV-2 COVID-19 2020-04-18 Completed Unive rsity of MODERNA VACCINE 00:00:00 [facility] [place] [facility] SARS-COV-2 COVID-19 2020-04-18 Completed Unive rsity of MODERNA VACCINE 00:00:00 [facility] [place] [facility] SARS-COV-2 COVID-19 2020-04-18 Completed Unive rsity of MODERNA VACCINE 00:00:00 [facility] ical Branch SARS-COV-2 COVID-19 2020-04-18 Completed Unive rsity of MODERNA VACCINE 00:00:00 [facility] ical Branch SARS-COV-2 COVID-19 2020-04-18 Completed Unive rsity of MODERNA VACCINE 00:00:00 [facility] Branch SARS-COV-2 COVID-19 2020-04-18 Completed Unive rsity of MODERNA VACCINE 00:00:00 [facility] Branch SARS-COV-2 COVID-19 2020-04-18 Completed Unive rsity of MODERNA VACCINE 00:00:00 [facility] Branch SARS-COV-2 COVID-19 2020-04-18 Completed Unive rsity of MODERNA VACCINE 00:00:00 [facility] [place] [facility] SARS-COV-2 COVID-19 2020-04-18 Completed Unive rsity of MODERNA VACCINE 00:00:00 [facility] [place] [facility] Vital Signs Vital Name Observation Time Observation Value Comments Source Systolic blood 2021-04-27 15:26:00 156 mm[Hg] Univer sity of pressure [facility] Diastolic blood 2021-04-27 15:26:00 70 mm[Hg] Unive rsity of pressure [facility] Heart rate 2021-04-27 15:26:00 62 /min [facility] Respiratory rate 2021-04-27 15:24:00 19 /[facility] Body height 2021-04-27 15:24:00 167.6 cm [facility] Body weight 2021-04-27 15:24:00 60.782 kg [facility] BMI 2021-04-27 15:24:00 21.63 kg/m2 [facility] Oxygen saturation in 2021-04-27 15:24:00 96 /min [facility] Arterial blood by [facility] Pulse oximetry Branch Systolic blood 2020-06-23 15:10:00 134 mm[Hg] Univer sity of pressure [facility] Diastolic blood 2020-06-23 15:10:00 69 mm[Hg] Unive rsity of pressure [facility] Heart rate 2020-06-23 15:10:00 54 /min [facility] Body temperature 2020-06-23 15:10:00 36.5 [facility] Respiratory rate 2020-06-23 15:10:00 18 /min [facility] Body height 2020-06-23 15:10:00 167.6 cm [facility] Body weight 2020-06-23 15:10:00 63.685 kg [facility] BMI 2020-06-23 15:10:00 22.66 kg/m2 [facility] Procedures Procedure Date / Time Performed Performing Clinician Sour e ASSIGNMENT OF BENEFITS 2021-05-03 19:08:15 Doctor Unassigned, No [facility] Plan of Care Planned Activity Planned Date Details Comments Source Future Scheduled 2021-05-09 Depression screening Uni versity of Test 00:00:00 (procedure) [code = [facility] dical [id number]] Branch Future Scheduled 2021-05-09 Depression screening Uni versity of Test 00:00:00 (procedure) [code = [facility] dical [id number]] Branch Future Scheduled 2021-05-09 Depression screening Uni versity of Test 00:00:00 (procedure) [code = [facility] dical [id number]] Branch Future Scheduled 2020-10-19 INFLUENZA VACCINE Univer sity of Test 00:00:00 (Season Ended) [code [facility] edical = INFLUENZA VACCINE Branch (Season Ended)] Future Scheduled 2020-10-19 INFLUENZA VACCINE Univer sity of Test 00:00:00 (Season Ended) [code [facility] edical = INFLUENZA VACCINE Branch (Season Ended)] Future Scheduled 2020-10-19 INFLUENZA VACCINE Univer sity of Test 00:00:00 (Season Ended) [code [facility] edical = INFLUENZA VACCINE Branch (Season [...] Universi ty of Test 00:00:00 Wellness Visit [facility] (procedure) [code = Branch [id number]] Future Scheduled 2012 PNEUMOCOCCAL University of Test 00:00:00 VACCINES 65+ (1 of 1 [place] M edical - PPSV23) [code = Branch PNEUMOCOCCAL VACCINES 65+ (1 of 1 - PPSV23)] Future Scheduled 2012 Medicare Annual Universi ty of Test 00:00:00 Wellness Visit [facility] (procedure) [code = Branch [id number]] Future Scheduled 2012 PNEUMOCOCCAL University of Test 00:00:00 VACCINES 65+ (1 of 1 [place] M edical - PPSV23) [code = Branch PNEUMOCOCCAL VACCINES 65+ (1 of 1 - PPSV23)] Future Scheduled 2012 Medicare Annual Universi ty of Test 00:00:00 Wellness Visit [facility] (procedure) [code = Branch [id number]] Future Scheduled 2012 PNEUMOCOCCAL University of Test 00:00:00 VACCINES 65+ (1 of 1 [place] M edical - PPSV23) [code = Branch PNEUMOCOCCAL VACCINES 65+ (1 of 1 - PPSV23)] Future Scheduled 2002 Screening for University of Test 00:00:00 malignant neoplasm [place] Med ical of lung (procedure) Branch [code = [id number]] Future Scheduled 2002 Screening for University of Test 00:00:00 malignant neoplasm [place] Med ical of lung (procedure) Branch [code = [id number]] Future Scheduled 2002 Screening for University of Test 00:00:00 malignant neoplasm [place] Med ical of lung (procedure) Branch [code = [id number]] Future Scheduled 1997 Flexible fiberoptic Univ ersity of Test 00:00:00 sigmoidoscopy [place] [facility] (procedure) [code = Branch [id number]] Future Scheduled 1997 Screening for University of Test 00:00:00 malignant neoplasm [place] Med ical of colon (procedure) Branch [code = [id number]] Future Scheduled 1997 Screening for University of Test 00:00:00 malignant neoplasm [place] Med ical of colon (procedure) Branch [code = [id number]] Future Scheduled 1997 Zoster Recombinant Unive rsity of Test 00:00:00 Vaccine (SHINGRIX) [place] Med ical (1 of 2) [code = Branch Zoster Recombinant Vaccine (SHINGRIX) (1 of 2)] Future Scheduled 1997 Screening for occult Uni versity of Test 00:00:00 blood in feces [facility] (procedure) [code = Branch [id number]] Future Scheduled 1997 Stool DNA-based Universi ty of Test 00:00:00 colorectal cancer [facility] screening Branch (procedure) [code = [id number]] Future Scheduled 1997 Flexible fiberoptic Univ ersity of Test 00:00:00 sigmoidoscopy [place] [facility] (procedure) [code = Branch [id number]] Future Scheduled 1997 Screening for University of Test 00:00:00 malignant neoplasm [place] Med ical of colon (procedure) Branch [code = [id number]] Future Scheduled 1997 Screening for University of Test 00:00:00 malignant neoplasm [place] Med ical of colon (procedure) Branch [code = [id number]] Future Scheduled 1997 Zoster Recombinant Unive rsity of Test 00:00:00 Vaccine (SHINGRIX) [place] Med ical (1 of 2) [code = Branch Zoster Recombinant Vaccine (SHINGRIX) (1 of 2)] Future Scheduled 1997 Screening for occult Uni versity of Test 00:00:00 blood in feces [facility] (procedure) [code = Branch [id number]] Future Scheduled 1997 Stool DNA-based Universi ty of Test 00:00:00 colorectal cancer [facility] screening Branch (procedure) [code = [id number]] Future Scheduled 1997 Flexible fiberoptic Univ ersity of Test 00:00:00 sigmoidoscopy [facility] (procedure) [code = Branch [id number]] Future Scheduled 1997 Screening for University of Test 00:00:00 malignant neoplasm [place] Med ical of colon (procedure) Branch [code = [id number]] Future Scheduled 1997 Screening for University of Test 00:00:00 malignant neoplasm [place] Med ical of colon (procedure) Branch [code = [id number]] Future Scheduled 1997 Zoster Recombinant Unive rsity of Test 00:00:00 Vaccine (SHINGRIX) [facility] ical (1 of 2) [code = Branch Zoster Recombinant Vaccine (SHINGRIX) (1 of 2)] Future Scheduled 1997 Screening for occult Uni versity of Test 00:00:00 blood in feces [facility] (procedure) [code = Branch [id number]] Future Scheduled 1997 Stool DNA-based Universi ty of Test 00:00:00 colorectal cancer [facility] screening Branch (procedure) [code = [id number]] Future Scheduled 1966 DTaP,Tdap,and Td Univers ity of Test 00:00:00 Vaccines (1 - Tdap) [facility] dical [code = Branch DTaP,Tdap,and Td Vaccines (1 - Tdap)] Future Scheduled 1966 DTaP,Tdap,and Td Univers ity of Test 00:00:00 Vaccines (1 - Tdap) [facility] dical [code = Branch DTaP,Tdap,and Td Vaccines (1 - Tdap)] Future Scheduled 1966 DTaP,Tdap,and Td Univers ity of Test 00:00:00 Vaccines (1 - Tdap) [facility] dical [code = Branch DTaP,Tdap,and Td Vaccines (1 - Tdap)] Future Scheduled 1965 Hepatitis C University of Test 00:00:00 screening [facility] (procedure) [code = Branch [id number]] Future Scheduled 1965 Hepatitis C University of Test 00:00:00 screening [facility] (procedure) [code = Branch [id number]] Future Scheduled 1965 Hepatitis C University of Test 00:00:00 screening [facility] (procedure) [code = Branch [id number]] Future Scheduled PROSTATIC SPECIFIC Unive rsity of [...] Date/Time Type Type Clinicians Facility Department ID 2021-05-05 2021-05-10 Inpatient ER [facility], [facility] Orthopaedic [id number] [facility] 22:12:00 17:27:00 BRENNAN 2021-05-03 2021-05-03 Hospital [facility] [id number] Univers 15:37:13 23:59:00 Encounter Alma Rosa HAYES [id number] ity of [place] 4.2.7.[address] [facility] [phone] [facility] osmani 801 Branch 2021-05-03 2021-05-03 Chief Estimator Therapist, Adc Respiratory [facility] [id number] Univers 14:00:00 15:30:00 Visit Indra Yu 350.1.13. 10 ity of [place] 4.2.7.2.686 [facility] [id number] [facility] osmani 083 Branch 2021-05-03 2021-05-03 Outpatient R ALMA ROSA SAHW [facility] [id number] Univers 14:00:00 14:00:00 ALMA ROSA SHAW [id number] i ty [facility] 2021-05-03 2021-05-03 Outpatient R GIGI [facility] [id number] Univers 14:00:00 14:00:00 INDRA ity of [facility] 2021-05-03 2021-05-03 Orders Doctor BUCKNER [id number] [id number] Univers 00:00:00 00:00:00 Only Unassigned, COLEMAN 350.1.13.10 ity of [place] [facility] 4.2.7.2.686 [facility] [phone] [facility] osmani 009 Branch 2021-05-01 2021-05-01 Chief Estimator Only, Adc Test [facility] 1.2.840. 114 [id number] Univers 16:00:00 16:15:00 Visit Miki Nieto 350.1.13.10 ity of [place] Rosa Shaw [place] 4.2.7.2.686 [facility] [phone] [address] 2021-05-01 2021-05-01 Outpatient R [facility] [id number] Univers 16:00:00 16:00:00 [id number] ity [facility] 2021-05-01 2021-05-01 Outpatient R ALMA ROSA SHAW [facility] [id number] Univers 16:00:00 16:00:00 ALMA ROSA SHAW i ty of [facility] 2021-04-27 2021-04-27 Office Valeria [facility] [id number] [facility] 09:00:00 10:06:47 Visit Alma Rosa HAYES 350.1.13.10 i ty of [place] 4.2.7.2.686 [id number] Co d[facility] [address] 2021-04-27 2021-04-27 Outpatient R ALMA ROSA SHAW [facility] 10 [id number] Univers 09:00:00 10:06:47 ALMA ROSA SHAW i ty of [facility] 2020-05-23 2020-05-23 Outpatient R CRISPIN [facility] [id number] Univers 14:30:00 16:25:21 [facility]-05-[facility] 2020-05-16 Outpatient R CHANELL [facility] [id number] Univers 09:50:00 09:30:56 [facility] 2020-05-09 2020-05-09 Outpatient R CRISPIN [facility] [id number] Univers 10:00:00 11:20:47 [facility] Results Test Description Test Time Test Comments Results Result Comments Source SARS-COV2/RT-PCR ([facility]) 2021-05-10 14:51:32 Test Item Value Reference Range Interpretation Comme nts SARS-COV2/RT-PCR (test code = Negative Negative The SARS-CoV-2 target nucleic [id number]) acids are not d etected in this specimen. Nega tive results do not preclude SA RS-CoV-2 infection and s hould not be used as the sole bas is for patient management deci sions. Negative results must be combined with clinical observ ations, patient history, and ep idemiological information. A false negative result may occu r if a specimen is improperly c ollected, transported or handled. This SARS CoV-2 test is a rapid, real-time RT-PC R test intended for the qualita tive detection of nucleic acid fr om SARS-CoV-2 in a nasopharyngea l swab specimen collected from individuals suspected of CO VID-19 by their healthcare [facility]. This test has been authorized by FDA under an EUA for use by authorized laboratories. This test is only authorized for the duration of the declaration that circumstances exist justifying the authorization of emergency use of in vitro diagnostic tests for detection and/or diagnosis of COVID-19 under Section 564(b)(1) of the Federal Food, Drug and Cosmetic Act, 21 U.S.C. 360bbb- 3(b)(1), unless the authorization is terminated or revoked sooner. Fact Sheet for Healthcare Providers: https://www.[employer])/Documents/Xpert%20Xpress%20SARS%20CoV-2/Fact%20Sheets/302-3802%20SARS-COV -2%20HEALTHCARE%20PROVIDERS%20FACT%20SHEET.pdf Fact Sheet for Healthcare Patients: https://www.[employer]/Documents/Xpert %20Xpress%20SARS%20CoV-2/Fact%20Sheets/302-3801%41LUKQ-JJG-0%20PATIENT%20FACT%20 SHEET.pdfBASI METABOLIC [id number] 05:29:37 Test Item Value Reference Range Interpretation Comments SODIUM (BEAKER) 135 meq/L 136-145 L (test code = 381) POTASSIUM (BEAKER) 4.3 meq/L 3.5-5.1 (test code = 379) CHLORIDE (BEAKER) 100 meq/L 98-107 (test code = 382) CO2 (BEAKER) (test 29 meq/L 22-29 code = 355) BLOOD UREA NITROGEN 22 mg/dL 7-21 H (BEAKER) (test code = 354) CREATININE (BEAKER) 0.96 mg/dL 0.57-1.25 (test code = 358) GLUCOSE RANDOM 96 mg/dL 70-105 (BEAKER) (test code = 652) CALCIUM (BEAKER) 8.6 mg/dL 8.4-10.2 (test code = 697) EGFR (BEAKER) (test 77 mL/min/1.73 ESTIMA ARMAND GFR IS code = 1092) sq m NOT ACCURATE CREATININE CLEARANCE IN PREDICTING GLOMERULAR FILTRATION RATE . ESTIMATED GFR I S NOT APPLICABLE FOR DIALYSIS PATIEN TS. Employment Programs Analyst ID - BSCBC W/PLT COUNT & AUTO [id number] 04:58:35 Test Item Value Reference Range Interpretation Comments WHITE BLOOD CELL COUNT (BEAKER) 8.5 K/ L 3.5-10.5 (test code = 775) RED BLOOD CELL COUNT (BEAKER) 4.63 M/ L 4.63-6.08 (test code = 761) HEMOGLOBIN (BEAKER) (test code = 13.5 GM/DL 13.7-17.5 L 410) HEMATOCRIT (BEAKER) (test code = 42.1 % 40.1-51.0 411) MEAN CORPUSCULAR VOLUME (BEAKER) 90.9 fL 79.0-92.2 (test code = 753) MEAN CORPUSCULAR HEMOGLOBIN 29.2 pg 25.7-32.2 (BEAKER) (test code = 751) MEAN CORPUSCULAR HEMOGLOBIN CONC 32.1 GM/DL 32.3-36.5 L (BEAKER) (test code = 752) RED CELL DISTRIBUTION WIDTH 14.0 % 11.6-14.4 (BEAKER) (test code = 412) PLATELET COUNT (BEAKER) (test 222 K/CU MM 150-450 code = 756) MEAN PLATELET VOLUME (BEAKER) 11.6 fL 9.4-12.4 (test code = 754) NUCLEATED RED BLOOD CELLS 0 /100 WBC 0-0 (BEAKER) (test code = 413) NEUTROPHILS RELATIVE PERCENT 73 % (BEAKER) (test code = 429) LYMPHOCYTES RELATIVE PERCENT 10 % (BEAKER) (test code = 430) MONOCYTES RELATIVE PERCENT 14 % (BEAKER) (test code = 431) EOSINOPHILS RELATIVE PERCENT 2 % (BEAKER) (test code = 432) BASOPHILS RELATIVE PERCENT 1 % (BEAKER) (test code = 437) NEUTROPHILS ABSOLUTE COUNT 6.23 K/ L 1.78-5.38 H (BEAKER) (test code = 670) LYMPHOCYTES ABSOLUTE COUNT 0.87 K/ L 1.32-3.57 L (BEAKER) (test code = 414) MONOCYTES ABSOLUTE COUNT (BEAKER) 1.16 K/ L 0.30-0.82 H (test code = 415) EOSINOPHILS ABSOLUTE COUNT 0.20 K/ L 0.04-0.54 (BEAKER) (test code = 416) BASOPHILS ABSOLUTE COUNT (BEAKER) 0.04 K/ L 0.01-0.08 (test code = 417) IMMATURE GRANULOCYTES-RELATIVE 0 % 0-1 PERCENT (BEAKER) (test code = 2801) CT, PELVIS, WO [id number] 23:44:00Unlisted Reason for Exam - Click Yes and Enter Reason Below->NoWill this procedure require oral contrast?->No [facility] 1945 Sex: MFINAL REPORT CLINICAL HISTORY: Pelvic trauma, initial exam COMPARISON:None. FINDINGS: Multiple axial images were obtained without IV contrast. Coronal and sagittal reformats were created. This exam was performed according to our departmental dose-optimization program, which includes automated exposure control, adjustment of the mA and/or kV according to patient size and/or use of the iterative reconstruction technique. There is a minimally displaced, comminuted fracture of the right ischial tuberosity. No additional pelvic fracture is identified. The hip joints are aligned. Degenerative changes are present in the lower lumbar spine and bilateral hips. There is atheros clerotic calcification in the pelvis. The prostate gland is prominent. IMPRESSION: Minimally displaced, comminuted fracture of the right ischial tuberosity. Signed: Shiva Anderson MDReport Verified Date/Time: 05/06/2021 23:44:32 RAD, PELVIS, 1 OR 2 [id number] 13:38:00Reason for exam:->ischial tuberoisty fracture, with inlet/outlet views and AP [facility] 1945 Sex: MFINAL REPORT TECHNIQUE: Two views of the pelvis. INDICATION: 76-year-old man with ischial tuberosity fracture. COMPARISON: None. FINDINGS:Cortical irregularity of the rightischial tuberosity likely correlates with the reported fracture; no significant displacement of the fracture fragments.Visualized joint spaces are within normal limits.Soft tissues are grossly unremarkable. IMPRESSION:Suspected right ischial tuberosity fracture without significant displacement. Signed: Kp Moore MDReport Verified Date/Time: 05/06/2021 13:38:35 BASI METABOLIC [id number] 06:35:20 Test Item Value Reference Range Interpretation Comments SODIUM (BEAKER) 134 meq/L 136-145 L (test code = 381) POTASSIUM (BEAKER) 4.1 meq/L 3.5-5.1 Specimen slightly (test code = 379) hemolyzed CHLORIDE (BEAKER) 100 meq/L 98-107 (test code = 382) CO2 (BEAKER) (test 24 meq/L 22-29 code = 355) BLOOD UREA NITROGEN 20 mg/dL 7-21 (BEAKER) (test code = 354) CREATININE (BEAKER) 0.85 mg/dL 0.57-1.25 Specimen slightly (test code = 358) hemolyzed GLUCOSE RANDOM 90 mg/dL 70-105 (BEAKER) (test code = 652) CALCIUM (BEAKER) 8.8 mg/dL 8.4-10.2 (test code = 697) EGFR (BEAKER) (test 88 mL/min/1.73 ESTIMA ARMAND GFR IS code = 1092) sq m NOT ACCURATE CREATININE CLEARANCE IN PREDICTING GLOMERULAR FILTRATION RATE . ESTIMATED GFR I S NOT APPLICABLE FOR DIALYSIS PATIEN TS. Employment Programs Analyst ID - DBHEPATIC FUNCTION [id number] 06:35:20 Test Item Value Reference Range Interpretation Comments TOTAL PROTEIN (BEAKER) 6.4 gm/dL 6.0-8.3 Speci men slightly (test code = 770) hemolyzed ALBUMIN (BEAKER) (test 3.5 g/dL 3.5-5.0 Speci men slightly code = 1145) hemolyzed BILIRUBIN TOTAL 0.6 mg/dL 0.2-1.2 Specimen sli ghtly (BEAKER) (test code = hemoly zed 377) BILIRUBIN DIRECT 0.2 mg/dL 0.1-0.5 Specimen sl ightly (BEAKER) (test code = hemoly zed 706) ALKALINE PHOSPHATASE 94 U/L 40-150 (BEAKER) (test code = 346) AST (SGOT) (BEAKER) 18 U/L 5-34 Specimen slightly (test code = 353) hemolyzed ALT (SGPT) (BEAKER) 16 U/L 6-55 Specimen slightly (test code = 347) hemolyzed Employment Programs Analyst ID - [id number] 06:35:19 Test Item Value Reference Range Interpretation Comments MAGNESIUM (BEAKER) 2.0 mg/dL 1.6-2.6 Specimen slightly (test code = 627) hemolyzed Employment Programs Analyst ID - [id number] 06:03:49 Test Item Value Reference Range Interpretation Comments PROTIME (BEAKER) 18.5 seconds 11.9-14.2 H (test code = 759) INR (BEAKER) (test 1.57 See_Comment [Automat ed message] code = 370) The system [employer] generated this result transmitted ref erence range: <=5.90. The reference range was not used to int erpret this result as normal/abnormal . RECOMMENDED COUMADIN/WARFARIN INR THERAPY RANGESSTANDARD DOSE: 2.0 - 3.0 Includes: PROPHYLAXIS forvenous thrombosis, systemic embolization; TREATMENT for venous thrombosis and/or pulmonary embolus.HIGH RISK: Target INR is 2.5-3.5 for patients with mechanical heart valves.CBC W/PLT COUNT & AUTO DIFFERENTIAL 2021-05-06 05:53:35 Test Item Value Reference Range Interpretation Comments WHITE BLOOD CELL COUNT (BEAKER) 9.9 K/ L 3.5-10.5 (test code = 775) RED BLOOD CELL COUNT (BEAKER) 4.91 M/ L 4.63-6.08 (test code = 761) HEMOGLOBIN (BEAKER) (test code = 14.3 GM/DL 13.7-17.5 410) HEMATOCRIT (BEAKER) (test code = 43.4 % 40.1-51.0 411) MEAN CORPUSCULAR VOLUME (BEAKER) 88.4 fL 79.0-92.2 (test code = 753) MEAN CORPUSCULAR HEMOGLOBIN 29.1 pg 25.7-32.2 (BEAKER) (test code = 751) MEAN CORPUSCULAR HEMOGLOBIN CONC 32.9 GM/DL 32.3-36.5 (BEAKER) (test code = 752) RED CELL DISTRIBUTION WIDTH 13.7 % 11.6-14.4 (BEAKER) (test code = 412) PLATELET COUNT (BEAKER) (test 226 K/CU MM 150-450 code = 756) MEAN PLATELET VOLUME (BEAKER) 11.8 fL 9.4-12.4 (test code = 754) NUCLEATED RED BLOOD CELLS 0 /100 WBC 0-0 (BEAKER) (test code = 413) NEUTROPHILS RELATIVE PERCENT 77 % (BEAKER) (test code = 429) LYMPHOCYTES RELATIVE PERCENT 9 % (BEAKER) (test code = 430) MONOCYTES RELATIVE PERCENT 12 % (BEAKER) (test code = 431) EOSINOPHILS RELATIVE PERCENT 1 % (BEAKER) (test code = 432) BASOPHILS RELATIVE PERCENT 0 % (BEAKER) (test code = 437) NEUTROPHILS ABSOLUTE COUNT 7.58 K/ L 1.78-5.38 H (BEAKER) (test code = 670) LYMPHOCYTES ABSOLUTE COUNT 0.89 K/ L 1.32-3.57 L (BEAKER) (test code = 414) MONOCYTES ABSOLUTE COUNT (BEAKER) 1.18 K/ L 0.30-0.82 H (test code = 415) EOSINOPHILS ABSOLUTE COUNT 0.13 K/ L 0.04-0.54 (BEAKER) (test code = 416) BASOPHILS ABSOLUTE COUNT (BEAKER) 0.03 K/ L 0.01-0.08 (test code = 417) IMMATURE GRANULOCYTES-RELATIVE 0 % 0-1 PERCENT (BEAKER) (test code = 2801)
[2021-05-10] MEDS ORDERED: BISACODYL 10 MG RECTAL SUPP PR PRN (18:51)
[2021-05-10] MEDS ORDERED: MELATONIN 3 MG TABLET PO PRN (18:51)
[2021-05-10] MEDS: ATORVASTATIN 40 MG TAB PO SCH (20:15)
[2021-05-10] MEDS: AMLODIPINE 2.5 MG TAB PO SCH (20:15)
[2021-05-10] MEDS: DOCUSATE NA/SENNA CONC 1 TAB PO SCH (20:15)
[2021-05-10] MEDS: ALBUTEROL 2.5 MG/3 ML NEB SOL NEB PRN (20:30)
[2021-05-10] MEDS: IPRATROPIUM BROM 0.5MG/2.5ML NEB PRN (20:30)
[2021-05-10 23:10] LABS: Urine Appearance Clear (Clear); Urine Bilirubin Negative (Negative); Urine Blood Trace-intact (Negative); Urine Color Yellow (Yellow); Urine Glucose Negative (Negative); Urine Protein Negative (Negative); Urine Specific Gravity 1.025 (1.005-1.030)
[2021-05-10 23:31] LABS: Urine Microscopic Reflex ORDER UMIC
[2021-05-10 23:59] LABS: Urine Bacteria <20 /HPF (NONE SEEN); Urine RBC <5 /HPF (NONE SEEN)
[2021-05-11] LABS: Urine Urothelial Cells <5 /HPF (NONE SEEN)
[2021-05-11 04:42] LABS: Absolute Lymphocytes (CBC) 0.7 K/uL (0.7-4.9); Hematocrit 38.4 % (39.6-49.0); Lymphocytes % 7.7 % (15.3-44.8); MPV 9.3 fL (7.6-11.3); RBC Red Blood Cell Count 4.37 M/uL (4.33-5.43)
[2021-05-11 05:00] LABS: Albumin 2.4 g/dL (3.4-5.0); Magnesium 2.2 mg/dL (1.8-2.4); Potassium 4.5 mmol/L (3.5-5.1); Prealbumin 12.8 mg/dL (20-40)
[2021-05-11] MEDS: LEVOTHYROXINE SOD 0.075 MG TAB PO SCH ×2 (05:25→06:25)
[2021-05-11] MEDS ORDERED: PANTOPRAZOLE 40MG TABLET PO SCH (07:30)
[2021-05-11] MEDS: TRAMADOL HCL 50 MG TAB PO PRN (08:13)
[2021-05-11] MEDS: ASPIRIN EC 81 MG TAB PO SCH (08:13)
[2021-05-11] MEDS: SOTALOL HCL 80 MG TAB PO SCH (08:13)
[2021-05-11] MEDS: AMLODIPINE 2.5 MG TAB PO SCH ×2 (08:13→19:34)
--- NOTE | 2021-05-11 15:02 | RAD REPORT ---
EXAM DESCRIPTION: RAD - Hip Right 2 View - 05/11/2021 2:51 pm CLINICAL HISTORY: R/O fracture COMPARISON: No comparisonsHip Right 2 View dated 05/05/2021 FINDINGS: AP and frog-leg views of the right hip were obtained. No fracture or dislocation of the femoral head. Femoral neck and intertrochanteric regions are intact . There is bony hypertrophy along the superior margin of the greater trochanter. Previously detailed fracture of the ischium at the inferior acetabular margin shows no change in posi tioning from prior examination. No new or additional fracture identified. IMPRESSION: No significant change to the previously detailed right ischium fracture detailed on the 05/05/2021 study. No new hip joint or proximal femur finding.
--- NOTE | 2021-05-11 15:05 | RAD REPORT ---
EXAM DESCRIPTION: CT - Head Brain Wo Cont - 05/11/2021 2:48 pm CLINICAL HISTORY: r/o hemorrhagic conversion after stroke COMPARISON: Head Brain Wo Cont dated 04/09/2021; Brain W/Wo Cont dated 04/10/2021 TECHNIQUE: Axial 5 mm thick images of the head were obtained without IV contrast. All CT scans are performed using dose optimization technique as appropriate and may include automated exposure control or mA/KV adjustment according to patient size. FINDINGS: Previously detailed nonhemorrhagic infarction in the anterior left abhijit shows further redu ction in density. No hemorrhage has developed at the infarction site. No new infarction changes are e vident. Atrophy and chronic ischemic pattern has not changed since the April 09 study. No abnormal extra-axial fluid collections. Ventricles are in proportion to the atrophy. Mastoid air cells and visualized portions of the paranasal sinuses are clear. No acute bony findings. IMPRESSION: No brainstem or other intraparenchymal hemorrhage has developed. 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.
[2021-05-11] MEDS: MAGNESIUM CITRATE 300 ML BOT PO PRN (15:43)
[2021-05-11] MEDS: RIVAROXABAN 10 MG TABLET PO SCH (16:58)
--- NOTE | 2021-05-11 17:30 | R.HP ---
HISTORY AND PHYSICAL FACILITY: [facility] ENCOUNTER DATE AND TIME: 05/11/2021 17:21 (CDT) MR#: [id number] NAME RAFI SCHRADER ADDRESS: [address] [place] [address] CITY: [place] [address]IP [id number] PHONE: DATE OF : 1945 AGE: 76 SSN# [id number] GENDER: Male MARITAL STATUS Single (Never ) PRE-HOSPITAL LIVING SETTING 01 - Home (private home/apt. board/care, assisted living, care home, transitional living) PRE-HOSPITAL LIVING WITH Family/Relatives ENCOUNTER PHYSICIAN: Dr. Petros hSeets M.D. REFERRING DOCTOR: BRENNAN PASTRANA MD DATE OF ADMISSION: 05/10/2021 18:32 (CDT) REFERRING FACILITY [facility] HOME TYPE AND DETAILS: Type of home: single family house # of steps to enter the residence: 0 # of levels in the residence: 1 # of steps within the residence: 0 ONSET DATE: 05/05/2021 PRIMARY DIAGNOSIS-RELATED SURGERIES: N/A HISTORY OF PRESENT ILLNESS (HPI): Pt. is a 76 yo Right-handed male. On 05/05/2021 he was admitted to [facility] with diagnosis RIGHT ISCHIUM FRACTURE. His impairment category is Orthopaedic Disorders 08 - Pelvic Fracture (08.3). Pre-morbidly, Pt. was independent/mod-I in Locomotion, Safety Awareness, Social Cognition, Transfers Control, and Balance; and he had good Transfers Control, Sphincter Control, Self-Care, and Endurance. Currently, he has deficits of Locomotion, Safety Awareness, Balance, Social Cognition, Transfers Cont rol, Self-Care, Sphincter Control, and Communication. Pt. is now referred to [facility] for acute in-patient rehabilitation in order to maximize patient's functional independence in activities of daily living, strength, ROM, and mobi lity. Patient has realistic goal of being discharged at assistance level 7-Ind to reside at Home with Fami ly/Relatives. MEDICATION ALLERGIES: No Known Drug Allergies (NKDA) ENVIRONMENTAL ALLERGIES: - Substance Allergies None Known - Other Allergies None Known PAST MEDICAL HISTORY: AFIB HLD HCC CVA-RIGHT SIDED WEAKNESS FALLS Hypertension SOCIAL HISTORY: - Home Living Family/Relatives REVIEW OF SYSTEMS: - Gen No Chills Fatigue No Fever - Eyes No Double Vision No itchiness - ENMT No Difficulty Swallowing - CVS No Chest Discomfort No Chest Pain Fatigue No Weight Gain - Resp No Cough Shortness of Breath - GI Continent No Abdominal Pain No Constipation No Diarrhea - Continent No Kidney Pain No Painful Urination No Urinary Urgency - MSK No Joint Pain Muscle Cramps Stiffness - Skin No Itching No Rash No Suspicious Lesions - Neuro Coordination Difficulty Difficulty with Concentration No Memory Loss No Seizures Weakness - Psych No Anxiety No Depression No HIV Exposure No Persistent Infections No Seasonal Allergies - Endo No Cold/Heat Intolerance No Excessive Hunger No Excessive Thirst No Excessive Urination PHYSICAL EXAM - Gen Alert and awake Lying in bed No apparent distress Oriented to: person, time, and place - Skin No breakdown No abnormalities - Eyes No abnormalities - ENMT No abnormalities - Neck No abnormalities - CVS RRR - Chest No abnormalities - Abd Soft - GI Soft Deferred - No abnormalities - Ext Mild bilateral lower extremity edema. - MSK 4/5 weakness in left lower extremity. - Neuro 4/5 strength left upper and lower extremities. - Psych Mild depression. VITAL SIGNS Temperature: 97.5 F SBP/DBP: 148/74 Pulse: 85 Resp: 16 NURSING: - Shower allowing shower - Skin care per protocol PRECAUTIONS: - Fall Precaution SAFTY AND FALL ACTIVITIES OOB only with supervision QI SCORES: - Self-Care A. Eating 04-Supervision or touching assistance B. Oral hygiene 03-Partial/moderate assistance C. Toileting hygiene 03-Partial/moderate assistance E. Shower/bathe self 03-Partial/moderate assistance F. Upper body dressing 03-Partial/moderate assistance G. Lower body dressing 03-Partial/moderate assistance H. Putting on/taking off footwear 88-Not attempted due to medical condition or safety concerns - Mobility A. Roll left and right 03-Partial/moderate assistance B. Sit to lying 03-Partial/moderate assistance C. Lying to sitting on side of bed 03-Partial/moderate assistance D. Sit to stand 03-Partial/moderate assistance E. Chair/[id number] transfer 03-Partial/moderate assistance F. Toilet transfer 03-Partial/moderate assistance G. Car transfer 88-Not attempted due to medical condition or safety concerns I. Walk 10 feet 03-Partial/moderate assistance J. Walk 50 feet with two turns 88-Not attempted due to medical condition or safety concerns K. Walk 150 feet 88-Not attempted due to medical condition or safety concerns L. Walking 10 feet on uneven surfaces 88-Not attempted due to medical condition or safety concerns M. 1 step (curb) 88-Not attempted due to medical condition or safety concerns N. 4 steps 88-Not attempted due to medical condition or safety concerns O. 12 steps 88-Not attempted due to medical condition or safety concerns P. Picking up object 03-Partial/moderate assistance R. Wheel 50 feet with two turns 88-Not attempted due to medical condition or safety concerns S. Wheel 150 feet 88-Not attempted due to medical condition or safety concerns - Bladder and Bowel Bladder continence Bowel continence - Endurance Fair - Balance Fair - Safety Awareness Fair CURRENT FUNC. DEFICITS: Self-Care, Mobility, Endurance, Balance, and Safety Awareness MEDICATIONS: - Other See attached MAR (Medication Administration Record) ASSESSMENT: Pt. is a 76 yo Right-handed male.On 05/05/2021 he was admitted to [facility] with di agnosis RIGHT ISCHIUM FRACTURE.His impairment category is Orthopaedic Disorders 08 - Pelvic Fracture (08.3).Pre-morbidly, Pt. was independent/mod-I in Locomotion, Safety Awareness, Social Cognition, Tr ansfers Control, and Balance; and he had good Transfers Control, Sphincter Control, Self-Care, and En durance.Currently, he has deficits of Locomotion, Safety Awareness, Balance, Social Cognition, Transf ers Control, Self-Care, Sphincter Control, and Communication.Pt. is now referred to [facility] for acute in-patient rehabilitation in order to maximize patient's functional indepe ndence in activities of daily living, strength, ROM, and mobility.- Rehab Goal Patient has realistic goal of being discharged at assistance level 7-Ind to reside at Home with Fami ly/Relatives. - Physical Therapy Decreased range of motion - to improve, our physical therapists will perform initial evaluation of pt 's status upon admission and devise an individualized program for increasing patient's Range of Motio n. Gait dysfunction - to improve, our physical therapists will perform initial evaluation of pt's status upon admission and devise an individualized program for Gait Training, and Wheel Chair mobility Inability to transfer - to improve, our physical therapists will perform initial evaluation of pt's s tatus upon admission and devise an individualized program for Bed mobility Need for home safety evaluation - to improve, our physical therapists will perform initial evaluation of pt's status upon admission and devise an individualized program for Home Evaluation Need in caregiver upon discharge - to improve, our physical therapists will perform initial evaluatio n of pt's status upon admission and devise an individualized program for Caregiver Training Edema - to improve, our physical therapists will perform initial evaluation of pt's status upon admi ssion and devise an individualized program for Elevation Training, and Lymphedema Therapy New precaution - to improve, our physical therapists will perform initial evaluation of pt's status u braydon admission and devise an individualized program for Patient precaution education Poor balance - to improve, our physical therapists will perform initial evaluation of pt's status upo n admission and devise an individualized program for Balance Training Weakness - to improve, our physical therapists will perform initial evaluation of pt's status upon ad mission and devise an individualized program for Aquatic Therapy, Neuromuscular Reeducation, and Stre ngthening Achieving independence - to improve, our physical therapists will perform initial evaluation of pt's status upon admission and devise an individualized program for Community Reintegration Activities - Occupational Therapy ADL deficits - to improve, our occupation therapists will perform initial evaluation of pt's status u braydon admission and devise an individualized program for Bathing, Bed mobility, Community Reintegration , Cooking, Dressing, Eating, Fine Motor Skills, Grooming, Homemaking, Kitchen Mobility, Laundry, Kyara ent Education, Safety Awareness, Splinting - Positioning, Transfers(Toilet, Tub, Shower), and Wheel C hair Management Cognitive deficits - to improve, our occupation therapists will perform initial evaluation of pt's st atus upon admission and devise an individualized program for Cognition - orientation Need for care management assistant - to improve, our occupation therapists will perform initial evaluation of pt's s tatus upon admission and devise an individualized program for Caregiver Training Weakness - to improve, our occupation therapists will perform initial evaluation of pt's status upon admission and devise an individualized program for Aquatic Therapy, Balance, Endurance, UE ROM, and U E strengthening MEDICAL PLAN: - Diet Type Start Regular - Diet - Liquid Texture Start Regular - Tube Feed Start N/A - Fall Precaution SAFTY AND FALL - Skin care per protocol - Other See attached MAR (Medication Administration Record) - Diet - Solid Texture Regular - Shower shower DISCHARGE PLAN: - Estimated Length of Stay (days) 12. - Consensus on plan Discharge plan has been discussed with primary caregiver. Patient/Family is in agreement with the mir n. Primary caregiver is in agreement with the plan. - Patient/Family Goals Return home independently. - Planned Living Setting Upon Discharge Home, to live with Family/Relatives. Transitional Living. SIGNATURE PANEL: (CDT)
[2021-05-11] MEDS: ATORVASTATIN 40 MG TAB PO SCH (19:33)
[2021-05-11] MEDS: CRANBERRY FRUIT EXTRACT 400 MG CAP PO SCH (19:34)
[2021-05-11] MEDS: DOCUSATE NA/SENNA CONC 1 TAB PO SCH (19:34)
[2021-05-11] MEDS: guaiFENesin 100 MG/5 ML UCUP PO PRN (21:02)
[2021-05-12] MEDS: LEVOTHYROXINE SOD 0.075 MG TAB PO SCH (05:10)
[2021-05-12] MEDS: PANTOPRAZOLE 40MG TABLET PO SCH ×2 (08:00→08:40)
[2021-05-12] MEDS: TRAMADOL HCL 50 MG TAB PO PRN (08:40)
[2021-05-12] MEDS: ASPIRIN EC 81 MG TAB PO SCH (08:40)
[2021-05-12] MEDS: CRANBERRY FRUIT EXTRACT 400 MG CAP PO SCH ×2 (08:40→21:33)
[2021-05-12] MEDS: AMLODIPINE 2.5 MG TAB PO SCH ×2 (08:41→21:38)
[2021-05-12] MEDS: SOTALOL HCL 80 MG TAB PO SCH (09:10)
--- NOTE | 2021-05-12 09:53 | P.RH.PN ---
Estimated Length of Stay: 12 Expected Discharge Date: 05/23/21 Discharge Disposition Plan: Home Family Support: Yes Half-Way Goal: Mobility, Transfers, Self Care Vital Signs: Last Vital Signs Temp 98.0 F 05/12/21 08:00 Pulse 87 05/12/21 08:41 Resp 18 05/12/21 08:40 BP 120/75 05/12/21 08:41 Pulse Ox 94 05/12/21 08:40 Laboratory: Laboratory Last Values WBC 8.40 K/uL (4.3-10.9) 05/11/21 04:23 RBC 4.37 M/uL (4.33-5.43) 05/11/21 04:23 Hgb 13.0 g/dL (13.6-17.9) L 05/11/21 04:23 Hct 38.4 % (39.6-49.0) L 05/11/21 04:23 MCV 87.8 fL (80-100) 05/11/21 04:23 MCH 29.7 pg (27.0-35.0) 05/11/21 04:23 MCHC 33.9 g/dL (32.0-36.0) 05/11/21 04:23 RDW 14.5 % (12.1-15.2) 05/11/21 04:23 Plt Count 213 K/uL (152-406) 05/11/21 04:23 MPV 9.3 fL (7.6-11.3) 05/11/21 04:23 Neutrophils % 75.8 % (41.7-73.7) H 05/11/21 04:23 Lymphocytes % 7.7 % (15.3-44.8) L 05/11/21 04:23 Monocytes % 13.6 % (3.3-12.3) H 05/11/21 04:23 Eosinophils % 2.3 % (0-4.4) 05/11/21 04:23 Basophils % 0.6 % (0-1.3) 05/11/21 04:23 Absolute Neutrophils 6.4 K/uL (1.8-8.0) 05/11/21 04:23 Absolute Lymphocytes 0.7 K/uL (0.7-4.9) 05/11/21 04:23 Absolute Monocytes 1.1 K/uL (0.1-1.3) 05/11/21 04:23 Absolute Eosinophils 0.2 K/uL (0-0.5) 05/11/21 04:23 Absolute Basophils 0.0 K/uL (0-0.5) 05/11/21 04:23 Sodium 134 mmol/L (136-145) L 05/11/21 04:23 Potassium 4.5 mmol/L (3.5-5.1) 05/11/21 04:23 Chloride 100 mmol/L (98-107) 05/11/21 04:23 Carbon Dioxide 32 mmol/L (21-32) 05/11/21 04:23 BUN 22 mg/dL (7-18) H 05/11/21 04:23 Creatinine 0.95 mg/dL (0.55-1.3) 05/11/21 04:23 Estimated GFR 77 mL/min (=/>90) L 05/11/21 04:23 Glucose 98 mg/dL (74-106) 05/11/21 04:23 Calcium 8.6 mg/dL (8.5-10.1) 05/11/21 04:23 Magnesium 2.2 mg/dL (1.8-2.4) 05/11/21 04:23 Albumin 2.4 g/dL (3.4-5.0) L 05/11/21 04:23 Prealbumin 12.8 mg/dL (20-40) L 05/11/21 04:23 Urine Color Yellow (Yellow) 05/10/21 23:07 Urine Appearance Clear (Clear) 05/10/21 23:07 Urine pH 6.0 (5.0-7.0) 05/10/21 23:07 Ur Specific [place] 1.025 (1.005-1.030) 05/10/21 23:07 Glucose (UA)(Auto) Negative (Negative) 05/10/21 23:07 Urine Ketones Negative (Negative) 05/10/21 23:07 Urine Blood Trace-intact (Negative) H 05/10/21 23:07 Urine Nitrite Negative (Negative) 05/10/21 23:07 Urine Bilirubin Negative (Negative) 05/10/21 23:07 Urine Urobilinogen 1.0 mg/dL (0.2-1.0) 05/10/21 23:07 Ur Leukocyte Esterase Negative (Negative) 05/10/21 23:07 Urine RBC <5 /HPF (NONE SEEN) 05/10/21 23:07 Urine WBC <5 /HPF (<5) 05/10/21 23:07 Ur Squamous Epith Cells FOOD AND BEVERAGE INTERN 05/10/21 23:07 Ur Urothelial Cells <5 /HPF (NONE SEEN) 05/10/21 23:07 Calcium Oxalate Crystal Cancelled 05/10/21 22:45 Uric Acid Crystals Cancelled 05/10/21 22:45 Triple Phos Crystals Cancelled 05/10/21 22:45 Other Crystals Cancelled 05/10/21 22:45 Amorphous Sediment Cancelled 05/10/21 22:45 Glitter Cells Cancelled 05/10/21 22:45 Urine Bacteria <20 /HPF (NONE SEEN) 05/10/21 23:07 Hyaline Casts 0-5 /LPF (NONE SEEN) 05/10/21 23:07 Fine Granular Casts Cancelled 05/10/21 22:45 Coarse Granular Casts Cancelled 05/10/21 22:45 Waxy Casts Cancelled 05/10/21 22:45 RBC Casts Cancelled 05/10/21 22:45 WBC Casts Cancelled 05/10/21 22:45 Urine Mucus Cancelled 05/10/21 22:45 Urine Other Cancelled 05/10/21 22:45 Urine Trichomonas Cancelled 05/10/21 22:45 Urine Yeast Cancelled 05/10/21 22:45 Ur Yeast w Hyphae Cancelled 05/10/21 22:45 Urine Yeast (Budding) Cancelled 05/10/21 22:45 Urine Sperm Cancelled 05/10/21 22:45 Urine Culture Reflexed Not needed 05/10/21 23:07 Urine Total Volume Cancelled 05/10/21 22:45 Urine Total Protein Negative (Negative) 05/10/21 23:07 SARS-CoV-2 Rap RNA(RT-PCR) Negative (NEGATIVE) 05/10/21 18:40 Weight: 131 lb Closed Surgical Incision Present: No Physician Update: Labs were reviewed. He is making fair overall progress. CGA with bed mobility. Need verbal queing. Walked 100' with moderate assistance. L eft pontine subacute stroke. Right hip x-ray showed no unexpected findings. MMSE was 19/30. Speech is working on attention. Comment: clearing bruising on the rt shoulder and lt arm ; st 1 rt butt Functional Improvement: Patient is a new admit, therefore has not reached any goals at this present time. Patient presents w/ good attitude, and seemingly work ethic toward therapy. Summary: Patient's care plan and group home goals have been reviewed and revised as necessary. Please see the Rehabilitation Signature page for all necessary signatures.
[2021-05-12] MEDS: RIVAROXABAN 10 MG TABLET PO SCH (16:53)
[2021-05-12] MEDS: DOCUSATE NA/SENNA CONC 1 TAB PO SCH (21:33)
[2021-05-12] MEDS: ATORVASTATIN 40 MG TAB PO SCH (21:33)
[2021-05-13] MEDS: LEVOTHYROXINE SOD 0.075 MG TAB PO SCH (06:18)
[2021-05-13] MEDS: AMLODIPINE 2.5 MG TAB PO SCH ×2 (08:29→20:12)
[2021-05-13] MEDS: PANTOPRAZOLE 40MG TABLET PO SCH (08:29)
[2021-05-13] MEDS: ASPIRIN EC 81 MG TAB PO SCH (08:30)
[2021-05-13] MEDS: CRANBERRY FRUIT EXTRACT 400 MG CAP PO SCH ×2 (08:30→20:12)
[2021-05-13] MEDS: SOTALOL HCL 80 MG TAB PO SCH (08:30)
[2021-05-13] MEDS: ALBUTEROL 2.5 MG/3 ML NEB SOL NEB PRN (09:48)
[2021-05-13] MEDS: TRAMADOL HCL 50 MG TAB PO PRN (12:28)
[2021-05-13] MEDS: POLYVINYL ALCOHOL 1.4% 15 ML EACH EYE PRN ×2 (13:04→20:13)
[2021-05-13] MEDS: guaiFENesin 100 MG/5 ML UCUP PO PRN (13:04)
[2021-05-13] MEDS ORDERED: LORATADINE 10 MG TAB PO PRN (15:00)
--- NOTE | 2021-05-13 15:12 | R.PN ---
PROGRESS NOTES ENCOUNTER DATE AND TIME: 05/13/2021 15:03 (CDT) NAME RAFI SCHRADER DATE OF : 1945 DATE OF ADMISSION: 05/10/2021 18:32 (CDT) RIGHT ISCHIUM FRACTURECHIEF COMPLAINT: Right ischium fracture SUBJECTIVE: Pt denied any depression. Pt denied any Shortness of Breath. WBC 8.4, Hgb 13.0, Plt 213, Na 134, prealbumin 12.8, UA is negative. Covid-19 is negative. Ambulated 150' with contact guard assistance using rolling walker. VITAL SIGNS Temperature: 97.1 F SBP/DBP: 148/84 Pulse: 90 Resp: 15 MEDICATION ALLERGIES: No Known Drug Allergies (NKDA) ENVIRONMENTAL ALLERGIES: - Substance Allergies None Known - Other Allergies None Known NURSING: - Shower allowing shower - Skin care per protocol PRECAUTIONS: - Fall Precaution SAFTY AND FALL ACTIVITIES OOB only with supervision THERAPIES: - Dietary and Nutrition Adequate Nutrition. Nutritional Education. Nutritional Supplements. Evaluate and Treat. - Occupational Therapy Cognitive Retraining. Patient needs Occupational Therapy for a daily minimum of 1.5 hours at least 5 out of 7 days, to improve Activities of Daily Living, including: Eating, Grooming, Bathing, Dressing, Toileting, Toilet Transfers, Community Reintegration, Higher functional activities, Adaptive Equipme nt, Splinting, Household Tasks, and Other activities as determined. Visual Perceptual Training. Evalu ate and Treat. Patient/Family Education. Safety Awareness. Transfer Training. ADL Training. Household Tasks. Eating. UE Strengthening. - Speech Therapy Cognitive Training. Expressive Language Skills. Memory Strategies. Patient needs Speech Therapy for a daily minimum of 1.5 hours at least 5 out of 7 days, to improve: Swallowing, Cognition, Language Ski lls, and Compensatory Strategies. Receptive Language Skills. Speech Intelligibility Training. Evaluat e and Treat. - Physical Therapy Mobility Training. Patient needs Physical Therapy for a daily minimum of 1.5 hours at least 5 out of 7 days, to improve: Mobility, Strengthening, Transfers, Stretching, ROM, Endurance, Ability to manage stairs, Gait, and Balance. Balance Training. Gait Training. Safety Awareness. Transfer Training. Pat ient/Family Education. PHYSICAL EXAM - Gen Alert and awake Lying in bed No apparent distress Oriented to: person, time, and place - Skin No breakdown No abnormalities - Eyes No abnormalities - ENMT No abnormalities - Neck No abnormalities - CVS RRR - Chest No abnormalities - Abd Soft - GI Soft Deferred - No abnormalities - Ext Mild bilateral lower extremity edema. - MSK 4/5 weakness in left lower extremity. - Neuro 4/5 strength left upper and lower extremities. - Psych Mild depression. ASSESSMENT: Pt. is a 76 yo Right-handed male.On 05/05/2021 he was admitted to [facility] with di agnosis RIGHT ISCHIUM FRACTURE.[05/11/2021 17:31 (CDT), by Dr. Petros Sheets]Subacute left pontin e nonhemorrhagic infarction.His impairment category is Orthopaedic Disorders 08 - Pelvic Fracture (0 8.3).Pre-morbidly, Pt. was independent/mod-I in Locomotion, Safety Awareness, Social Cognition, Trans fers Control, and Balance; and he had good Transfers Control, Sphincter Control, Self-Care, and Endur ance.Currently, he has deficits of Locomotion, Safety Awareness, Balance, Social Cognition, Transfers Control, Self-Care, Sphincter Control, and Communication.Pt. is now referred to [facility] for acute in-patient rehabilitation in order to maximize patient's functional independe nce in activities of daily living, strength, ROM, and mobility.- Rehab Goal Patient has realistic goal of being discharged at assistance level 7-Ind to reside at Home with Fami ly/Relatives. MDM/PLAN: - Physical Therapy Decreased range of motion - to improve, our physical therapists will perform initial evaluation of p t's status upon admission and devise an individualized program for increasing patient's Range of Jamarcus on. Gait dysfunction - to improve, our physical therapists will perform initial evaluation of pt's statu s upon admission and devise an individualized program for Gait Training, and Wheel Chair mobility Inability to transfer - to improve, our physical therapists will perform initial evaluation of pt's status upon admission and devise an individualized program for Bed mobility Need for home safety evaluation - to improve, our physical therapists will perform initial evaluatio n of pt's status upon admission and devise an individualized program for Home Evaluation Need in caregiver upon discharge - to improve, our physical therapists will perform initial evaluati on of pt's status upon admission and devise an individualized program for Caregiver Training Edema - to improve, our physical therapists will perform initial evaluation of pt's status upon admis jennie and devise an individualized program for Elevation Training, and Lymphedema Therapy New precaution - to improve, our physical therapists will perform initial evaluation of pt's status upon admission and devise an individualized program for Patient precaution education Poor balance - to improve, our physical therapists will perform initial evaluation of pt's status up on admission and devise an individualized program for Balance Training Weakness - to improve, our physical therapists will perform initial evaluation of pt's status upon a dmission and devise an individualized program for Aquatic Therapy, Neuromuscular Reeducation, and Str engthening Achieving independence - to improve, our physical therapists will perform initial evaluation of pt's status upon admission and devise an individualized program for Community Reintegration Activities - Occupational Therapy ADL deficits - to improve, our occupation therapists will perform initial evaluation of pt's status upon admission and devise an individualized program for Bathing, Bed mobility, Community Reintegratio n, Cooking, Dressing, Eating, Fine Motor Skills, Grooming, Homemaking, Kitchen Mobility, Laundry, Pat ient Education, Safety Awareness, Splinting - Positioning, Transfers(Toilet, Tub, Shower), and Wheel Chair Management Cognitive deficits - to improve, our occupation therapists will perform initial evaluation of pt's s tatus upon admission and devise an individualized program for Cognition - orientation Need for critical care physician - to improve, our occupation therapists will perform initial evaluation of pt's status upon admission and devise an individualized program for Caregiver Training Weakness - to improve, our occupation therapists will perform initial evaluation of pt's status upon admission and devise an individualized program for Aquatic Therapy, Balance, Endurance, UE ROM, and UE strengthening - Other See attached MAR (Medication Administration Record) - Diet Type Continue Regular - Diet - Liquid Texture Continue Regular - Tube Feed Continue N/A - Fall Precaution SAFTY AND FALL - Skin care per protocol - Diet - Solid Texture Continue Regular - Shower allowing shower FUNCTIONAL STATUS: UPDATED AT WEEKLY TEAM CONFERENCE - Bladder Same accident frequency: 7-Ind - No accidents in the past 7 days - Bowel Same accident frequency: 7-Ind - No accidents in the past 7 days - Walking Same score based on distance walked: 0(N/A) Same score based on distance walked: 1(<=50ft) - Wheelchair Same score based on distance traveled: 0(N/A) FUNCTIONAL STATUS: - Self-Care A. Eating Ind B. Grooming sup C. Bathing Devora D. Dressing - Upper Devora E. Dressing - Lower Devora F. Toileting Devora - Sphincter Control G. Bladder control Norma H. Bowel control Norma - Transfers Control I. Bed/Chair/Wheelchair Devora J. Toilet Devora K. Tub/Shower modA - Locomotion L. Walk/Wheelchair (B) Norma M. Stairs Ind - Communication N. Comprehension (B) Norma O. Expression (B) Norma - Social Cognition P. Social Interaction Ind Q. Problem Solving Ind R. Memory Norma - Endurance Fair - Balance Fair - Safety Awareness Good QI SCORES: - Self-Care A. Eating 04-Supervision or touching assistance B. Oral hygiene 03-Partial/moderate assistance C. Toileting hygiene 03-Partial/moderate assistance E. Shower/bathe self 03-Partial/moderate assistance F. Upper body dressing 03-Partial/moderate assistance G. Lower body dressing 03-Partial/moderate assistance H. Putting on/taking off footwear 88-Not attempted due to medical condition or safety concerns - Mobility A. Roll left and right 03-Partial/moderate assistance B. Sit to lying 03-Partial/moderate assistance C. Lying to sitting on side of bed 03-Partial/moderate assistance D. Sit to stand 03-Partial/moderate assistance E. Chair/otb-pf-cklmi transfer 03-Partial/moderate assistance F. Toilet transfer 03-Partial/moderate assistance G. Car transfer 88-Not attempted due to medical condition or safety concerns I. Walk 10 feet 03-Partial/moderate assistance J. Walk 50 feet with two turns 88-Not attempted due to medical condition or safety concerns K. Walk 150 feet 88-Not attempted due to medical condition or safety concerns L. Walking 10 feet on uneven surfaces 88-Not attempted due to medical condition or safety concerns M. 1 step (curb) 88-Not attempted due to medical condition or safety concerns N. 4 steps 88-Not attempted due to medical condition or safety concerns O. 12 steps 88-Not attempted due to medical condition or safety concerns P. Picking up object 03-Partial/moderate assistance R. Wheel 50 feet with two turns 88-Not attempted due to medical condition or safety concerns S. Wheel 150 feet 88-Not attempted due to medical condition or safety concerns - Bladder and Bowel Bladder continence Bowel continence - Endurance Fair - Balance Fair - Safety Awareness Fair CURRENT [facility]. DEFICITS: Self-Care, Mobility, Endurance, Balance, and Safety Awareness SIGNATURE PANEL: (CDT)
[2021-05-13] MEDS: RIVAROXABAN 10 MG TABLET PO SCH (16:35)
[2021-05-13] MEDS: DOCUSATE NA/SENNA CONC 1 TAB PO SCH (20:12)
[2021-05-13] MEDS: ATORVASTATIN 40 MG TAB PO SCH (20:12)
[2021-05-14] MEDS: LEVOTHYROXINE SOD 0.075 MG TAB PO SCH (06:12)
[2021-05-14] MEDS: POLYVINYL ALCOHOL 1.4% 15 ML EACH EYE PRN ×2 (08:31→19:19)
[2021-05-14] MEDS: SOTALOL HCL 80 MG TAB PO SCH (08:32)
[2021-05-14] MEDS: AMLODIPINE 2.5 MG TAB PO SCH ×2 (08:32→19:19)
[2021-05-14] MEDS: CRANBERRY FRUIT EXTRACT 400 MG CAP PO SCH ×2 (08:33→19:19)
[2021-05-14] MEDS: ASPIRIN EC 81 MG TAB PO SCH (08:33)
[2021-05-14] MEDS: TRAMADOL HCL 50 MG TAB PO PRN (08:33)
[2021-05-14] MEDS: PANTOPRAZOLE 40MG TABLET PO SCH (08:34)
[2021-05-14] MEDS: guaiFENesin 100 MG/5 ML UCUP PO PRN (12:04)
[2021-05-14] MEDS: ACETAMINOPHEN 325 MG TABLET PO PRN (17:02)
[2021-05-14] MEDS: RIVAROXABAN 10 MG TABLET PO SCH (17:03)
[2021-05-14] MEDS: ATORVASTATIN 40 MG TAB PO SCH (19:19)
[2021-05-14] MEDS: DOCUSATE NA/SENNA CONC 1 TAB PO SCH (19:19)
[2021-05-15] MEDS: LEVOTHYROXINE SOD 0.075 MG TAB PO SCH (07:36)
[2021-05-15] MEDS: POLYVINYL ALCOHOL 1.4% 15 ML EACH EYE PRN ×2 (07:37→19:39)
[2021-05-15] MEDS: TRAMADOL HCL 50 MG TAB PO PRN ×2 (07:50→14:24)
[2021-05-15] MEDS: PANTOPRAZOLE 40MG TABLET PO SCH (07:50)
[2021-05-15] MEDS: AMLODIPINE 2.5 MG TAB PO SCH ×2 (08:04→19:41)
[2021-05-15] MEDS: CRANBERRY FRUIT EXTRACT 400 MG CAP PO SCH ×2 (08:04→19:39)
[2021-05-15] MEDS: SOTALOL HCL 80 MG TAB PO SCH (08:05)
[2021-05-15] MEDS: ASPIRIN EC 81 MG TAB PO SCH (08:05)
--- NOTE | 2021-05-15 09:33 | P.CNS ---
Date of Consult: 05/15/21 Reason for Consult: painful toenails Chief Complaint: Painful elongated toenails Allergies No Known Drug Allergies Allergy (Verified 12/09/17 15:48) Unknown Home Medications: Amlodipine [Norvasc*] 2.5 mg PO BID 12/09/17 Sotalol HCl [Betapace*] 40 mg PO DAILY 12/09/17 Aspirin [Aspirin EC 81 MG] 81 mg PO DAILY #30 tablet. 04/10/21 Atorvastatin Calcium [Lipitor] 40 mg PO BEDTIME #30 tab 04/11/21 Rivaroxaban [Xarelto] 20 mg PO DAILY #30 tablet 04/11/21 Acetaminophen [Tylenol] 325 mg PO Q6H PRN 05/10/21 Ipratropium/Albuterol Sulfate [Iprat-Albut 0.5-3(2.5) mg/3 ml] 3 ml IH Q6H PRN 05/10/21 Levothyroxine [Synthroid] 75 mcg PO [id number] 05/10/21 Omeprazole 20 mg PO DAILY 05/10/21 POLYV ALC 1.4% Opth [Liquiflim Tears 1.4% Ophth Michelle] 150 drops EACH EYE QID PRN 05/10/21 Tramadol HCl [Ultram] 50 mg PO Q6H PRN 05/10/21 - Past Medical/Surgical History Diabetic: No -: HTN -: Hypercholesterolemia -: Cerebral Palsy -: Heart Stents 15 yrs ago -: Foot surgery - Social History Smoking Status: Former smoker Alcohol use: No CD- Drugs: No Caffeine use: Yes Place of Residence: Home Review of Systems 10-point ROS is otherwise unremarkable Physical Examination Temp Pulse Resp BP Pulse Ox 97.6 F 96 H 16 149/87 H 97 05/15/21 07:26 05/15/21 08:04 05/15/21 07:50 05/15/21 08:04 05/15/21 07:50 General: Alert, In no apparent distress, Oriented x3 Cardiovascular: No edema, Abnormal pulses (0/4 dp and pt pulses bilateral) Capillary refill: <2 Seconds Musculoskeletal: No clubbing, No swelling, No contractures, No erythema, No tenderness, No warmth Integumentary: No rashes, No breakdown, No significant lesion, No tenderness/swelling, No erythema, No warmth, No cyanosis, Other (thickened hypertrophic nails with subungual debris x 10) Neurological: Sensation intact - Problems (1) Generalized atherosclerosis Current Visit: Yes Status: Acute (2) Tinea unguium Current Visit: Yes Status: Acute Conclusions/Impression: Mechanical debridement of nails at bedside
[2021-05-15] MEDS: LIDOCAINE 4% PATCH TOP SCH (14:25)
[2021-05-15] MEDS: MAGNESIUM CITRATE 300 ML BOT PO PRN (14:25)
[2021-05-15] MEDS: RIVAROXABAN 20 MG TABLET PO SCH (16:49)
--- NOTE | 2021-05-15 17:31 | R.PN ---
PROGRESS NOTES ENCOUNTER DATE AND TIME: 05/15/2021 17:26 (CDT) NAME RAFI SCHRADER DATE OF : 1945 DATE OF ADMISSION: 05/10/2021 18:32 (CDT) RIGHT ISCHIUM FRACTURECHIEF COMPLAINT: Right ischium fracture SUBJECTIVE: Pt denied any depression. Pt denied any Shortness of Breath. WBC 8.4, Hgb 13.0, Plt 213, Na 134, prealbumin 12.8, UA is negative. Covid-19 is negative. Ambulated 200' with contact guard assistance using rolling walker. Alternating attention tasks done with 80% accuracy. VITAL SIGNS Temperature: 97.6 F SBP/DBP: 149/87 Pulse: 90 Resp: 16 MEDICATION ALLERGIES: No Known Drug Allergies (NKDA) ENVIRONMENTAL ALLERGIES: - Substance Allergies None Known - Other Allergies None Known NURSING: - Shower allowing shower - Skin care per protocol PRECAUTIONS: - Fall Precaution SAFTY AND FALL ACTIVITIES OOB only with supervision THERAPIES: - Dietary and Nutrition Adequate Nutrition. Nutritional Education. Nutritional Supplements. Evaluate and Treat. - Occupational Therapy Cognitive Retraining. Patient needs Occupational Therapy for a daily minimum of 1.5 hours at least 5 out of 7 days, to improve Activities of Daily Living, including: Eating, Grooming, Bathing, Dressing, Toileting, Toilet Transfers, Community Reintegration, Higher functional activities, Adaptive Equipme nt, Splinting, Household Tasks, and Other activities as determined. Visual Perceptual Training. Evalu ate and Treat. Patient/Family Education. Safety Awareness. Transfer Training. ADL Training. Household Tasks. Eating. UE Strengthening. - Speech Therapy Cognitive Training. Expressive Language Skills. Memory Strategies. Patient needs Speech Therapy for a daily minimum of 1.5 hours at least 5 out of 7 days, to improve: Swallowing, Cognition, Language Ski lls, and Compensatory Strategies. Receptive Language Skills. Speech Intelligibility Training. Evaluat e and Treat. - Physical Therapy Mobility Training. Patient needs Physical Therapy for a daily minimum of 1.5 hours at least 5 out of 7 days, to improve: Mobility, Strengthening, Transfers, Stretching, ROM, Endurance, Ability to manage stairs, Gait, and Balance. Balance Training. Gait Training. Safety Awareness. Transfer Training. Pat ient/Family Education. PHYSICAL EXAM - Gen Alert and awake Lying in bed No apparent distress Oriented to: person, time, and place - Skin No breakdown No abnormalities - Eyes No abnormalities - ENMT No abnormalities - Neck No abnormalities - CVS RRR - Chest No abnormalities - Abd Soft - GI Soft Deferred - No abnormalities - Ext Mild bilateral lower extremity edema. - MSK 4/5 weakness in left lower extremity. - Neuro 4/5 strength left upper and lower extremities. - Psych Mild depression. ASSESSMENT: Pt. is a 76 yo Right-handed male.On 05/05/2021 he was admitted to [facility] with di agnosis RIGHT ISCHIUM FRACTURE.[05/11/2021 17:31 (CDT), by Dr. Petros Sheets]Subacute left pontin e nonhemorrhagic infarction.His impairment category is Orthopaedic Disorders 08 - Pelvic Fracture (0 8.3).Pre-morbidly, Pt. was independent/mod-I in Locomotion, Safety Awareness, Social Cognition, Trans fers Control, and Balance; and he had good Transfers Control, Sphincter Control, Self-Care, and Endur ance.Currently, he has deficits of Locomotion, Safety Awareness, Balance, Social Cognition, Transfers Control, Self-Care, Sphincter Control, and Communication.Pt. is now referred to [facility] for acute in-patient rehabilitation in order to maximize patient's functional independe nce in activities of daily living, strength, ROM, and mobility.- Rehab Goal Patient has realistic goal of being discharged at assistance level 7-Ind to reside at Home with Fami ly/Relatives. MDM/PLAN: - Physical Therapy Decreased range of motion - to improve, our physical therapists will perform initial evaluation of p t's status upon admission and devise an individualized program for increasing patient's Range of Jamarcus on. Gait dysfunction - to improve, our physical therapists will perform initial evaluation of pt's statu s upon admission and devise an individualized program for Gait Training, and Wheel Chair mobility Inability to transfer - to improve, our physical therapists will perform initial evaluation of pt's status upon admission and devise an individualized program for Bed mobility Need for home safety evaluation - to improve, our physical therapists will perform initial evaluatio n of pt's status upon admission and devise an individualized program for Home Evaluation Need in caregiver upon discharge - to improve, our physical therapists will perform initial evaluati on of pt's status upon admission and devise an individualized program for Caregiver Training Edema - to improve, our physical therapists will perform initial evaluation of pt's status upon admi ssion and devise an individualized program for Elevation Training, and Lymphedema Therapy New precaution - to improve, our physical therapists will perform initial evaluation of pt's status upon admission and devise an individualized program for Patient precaution education Poor balance - to improve, our physical therapists will perform initial evaluation of pt's status up on admission and devise an individualized program for Balance Training Weakness - to improve, our physical therapists will perform initial evaluation of pt's status upon a dmission and devise an individualized program for Aquatic Therapy, Neuromuscular Reeducation, and Str engthening Achieving independence - to improve, our physical therapists will perform initial evaluation of pt's status upon admission and devise an individualized program for Community Reintegration Activities - Occupational Therapy ADL deficits - to improve, our occupation therapists will perform initial evaluation of pt's status upon admission and devise an individualized program for Bathing, Bed mobility, Community Reintegratio n, Cooking, Dressing, Eating, Fine Motor Skills, Grooming, Homemaking, Kitchen Mobility, Laundry, Pat ient Education, Safety Awareness, Splinting - Positioning, Transfers(Toilet, Tub, Shower), and Wheel Chair Management Cognitive deficits - to improve, our occupation therapists will perform initial evaluation of pt's s tatus upon admission and devise an individualized program for Cognition - orientation Need for transitions rn care coordinator - to improve, our occupation therapists will perform initial evaluation of pt's status upon admission and devise an individualized program for Caregiver Training Weakness - to improve, our occupation therapists will perform initial evaluation of pt's status upon admission and devise an individualized program for Aquatic Therapy, Balance, Endurance, UE ROM, and UE strengthening - Other See attached MAR (Medication Administration Record) - Diet Type Continue Regular - Diet - Liquid Texture Continue Regular - Tube Feed Continue N/A - Fall Precaution SAFTY AND FALL - Skin care per protocol - Diet - Solid Texture Continue Regular - Shower allowing shower FUNCTIONAL STATUS: UPDATED AT WEEKLY TEAM CONFERENCE - Bladder Same accident frequency: 7-Ind - No accidents in the past 7 days - Bowel Same accident frequency: 7-Ind - No accidents in the past 7 days - Walking Same score based on distance walked: 0(N/A) Same score based on distance walked: 1(<=50ft) - Wheelchair Same score based on distance traveled: 0(N/A) FUNCTIONAL STATUS: - Self-Care A. Eating Ind B. Grooming sup C. Bathing Devora D. Dressing - Upper Devora E. Dressing - Lower Devora F. Toileting Devora - Sphincter Control G. Bladder control Norma H. Bowel control Norma - Transfers Control I. Bed/Chair/Wheelchair Devora J. Toilet Devora K. Tub/Shower modA - Locomotion L. Walk/Wheelchair (B) Norma M. Stairs Ind - Communication N. Comprehension (B) Norma O. Expression (B) Norma - Social Cognition P. Social Interaction Ind Q. Problem Solving Ind R. Memory Norma - Endurance Fair - Balance Fair - Safety Awareness Good QI SCORES: - Self-Care A. Eating 04-Supervision or touching assistance B. Oral hygiene 03-Partial/moderate assistance C. Toileting hygiene 03-Partial/moderate assistance E. Shower/bathe self 03-Partial/moderate assistance F. Upper body dressing 03-Partial/moderate assistance G. Lower body dressing 03-Partial/moderate assistance H. Putting on/taking off footwear 88-Not attempted due to medical condition or safety concerns - Mobility A. Roll left and right 03-Partial/moderate assistance B. Sit to lying 03-Partial/moderate assistance C. Lying to sitting on side of bed 03-Partial/moderate assistance D. Sit to stand 03-Partial/moderate assistance E. Chair/ira-kg-qpuia transfer 03-Partial/moderate assistance F. Toilet transfer 03-Partial/moderate assistance G. Car transfer 88-Not attempted due to medical condition or safety concerns I. Walk 10 feet 03-Partial/moderate assistance J. Walk 50 feet with two turns 88-Not attempted due to medical condition or safety concerns K. Walk 150 feet 88-Not attempted due to medical condition or safety concerns L. Walking 10 feet on uneven surfaces 88-Not attempted due to medical condition or safety concerns M. 1 step (curb) 88-Not attempted due to medical condition or safety concerns N. 4 steps 88-Not attempted due to medical condition or safety concerns O. 12 steps 88-Not attempted due to medical condition or safety concerns P. Picking up object 03-Partial/moderate assistance R. Wheel 50 feet with two turns 88-Not attempted due to medical condition or safety concerns S. Wheel 150 feet 88-Not attempted due to medical condition or safety concerns - Bladder and Bowel Bladder continence Bowel continence - Endurance Fair - Balance Fair - Safety Awareness Fair CURRENT [facility]. DEFICITS: Self-Care, Mobility, Endurance, Balance, and Safety Awareness SIGNATURE PANEL: (CDT)
[2021-05-15] MEDS: ALBUTEROL 2.5 MG/3 ML NEB SOL NEB PRN (18:24)
[2021-05-15] MEDS: IPRATROPIUM BROM 0.5MG/2.5ML NEB PRN (18:24)
[2021-05-15] MEDS: ATORVASTATIN 40 MG TAB PO SCH (19:39)
[2021-05-15] MEDS: DOCUSATE NA/SENNA CONC 1 TAB PO SCH (19:39)
[2021-05-16] MEDS: LEVOTHYROXINE SOD 0.075 MG TAB PO SCH (05:33)
[2021-05-16] MEDS: LIDOCAINE 4% PATCH TOP SCH (07:28)
[2021-05-16] MEDS: PANTOPRAZOLE 40MG TABLET PO SCH (07:32)
[2021-05-16] MEDS: TRAMADOL HCL 50 MG TAB PO PRN (07:32)
[2021-05-16] MEDS: SOTALOL HCL 80 MG TAB PO SCH (08:18)
[2021-05-16] MEDS: ASPIRIN EC 81 MG TAB PO SCH (08:19)
[2021-05-16] MEDS: AMLODIPINE 2.5 MG TAB PO SCH ×2 (08:19→19:32)
[2021-05-16] MEDS: CRANBERRY FRUIT EXTRACT 400 MG CAP PO SCH ×2 (08:19→19:32)
[2021-05-16] MEDS: ALBUTEROL 2.5 MG/3 ML NEB SOL NEB PRN (14:19)
[2021-05-16] MEDS: IPRATROPIUM BROM 0.5MG/2.5ML NEB PRN (14:19)
[2021-05-16] MEDS: TAMSULOSIN 0.4 MG SR CAP PO SCH (16:37)
[2021-05-16] MEDS: RIVAROXABAN 20 MG TABLET PO SCH (16:37)
--- NOTE | 2021-05-16 18:09 | R.PN ---
PROGRESS NOTES ENCOUNTER DATE AND TIME: 05/16/2021 18:06 (CDT) NAME RAFI SCHRADER DATE OF : 1945 DATE OF ADMISSION: 05/10/2021 18:32 (CDT) RIGHT ISCHIUM FRACTURECHIEF COMPLAINT: Right ischium fracture SUBJECTIVE: Pt denied any depression. Pt denied any Shortness of Breath. WBC 8.4, Hgb 13.0, Plt 213, Na 134, prealbumin 12.8, UA is negative. Covid-19 is negative. Ambulated 250' with standby assistance using rolling walker. Alternating attention tasks done with 80% accuracy. VITAL SIGNS Temperature: 97.8 F SBP/DBP: 131/76 Pulse: 82 Resp: 16 MEDICATION ALLERGIES: No Known Drug Allergies (NKDA) ENVIRONMENTAL ALLERGIES: - Substance Allergies None Known - Other Allergies None Known NURSING: - Shower allowing shower - Skin care per protocol PRECAUTIONS: - Fall Precaution SAFTY AND FALL ACTIVITIES OOB only with supervision THERAPIES: - Dietary and Nutrition Adequate Nutrition. Nutritional Education. Nutritional Supplements. Evaluate and Treat. - Occupational Therapy Cognitive Retraining. Patient needs Occupational Therapy for a daily minimum of 1.5 hours at least 5 out of 7 days, to improve Activities of Daily Living, including: Eating, Grooming, Bathing, Dressing, Toileting, Toilet Transfers, Community Reintegration, Higher functional activities, Adaptive Equipme nt, Splinting, Household Tasks, and Other activities as determined. Visual Perceptual Training. Evalu ate and Treat. Patient/Family Education. Safety Awareness. Transfer Training. ADL Training. Household Tasks. Eating. UE Strengthening. - Speech Therapy Cognitive Training. Expressive Language Skills. Memory Strategies. Patient needs Speech Therapy for a daily minimum of 1.5 hours at least 5 out of 7 days, to improve: Swallowing, Cognition, Language Ski lls, and Compensatory Strategies. Receptive Language Skills. Speech Intelligibility Training. Evaluat e and Treat. - Physical Therapy Mobility Training. Patient needs Physical Therapy for a daily minimum of 1.5 hours at least 5 out of 7 days, to improve: Mobility, Strengthening, Transfers, Stretching, ROM, Endurance, Ability to manage stairs, Gait, and Balance. Balance Training. Gait Training. Safety Awareness. Transfer Training. Pat ient/Family Education. PHYSICAL EXAM - Gen Alert and awake Lying in bed No apparent distress Oriented to: person, time, and place - Skin No breakdown No abnormalities - Eyes No abnormalities - ENMT No abnormalities - Neck No abnormalities - CVS RRR - Chest No abnormalities - Abd Soft - GI Soft Deferred - No abnormalities - Ext Mild bilateral lower extremity edema. - MSK 4/5 weakness in left lower extremity. - Neuro 4/5 strength left upper and lower extremities. - Psych Mild depression. ASSESSMENT: Pt. is a 76 yo Right-handed male.On 05/05/[address] [facility] with di agnosis RIGHT ISCHIUM FRACTURE.[05/11/2021 17:31 (CDT), by Dr. Petros Sheets]Subacute left pontin e nonhemorrhagic infarction.His impairment category is Orthopaedic Disorders 08 - Pelvic Fracture (0 8.3).Pre-morbidly, Pt. was independent/mod-I in Locomotion, Safety Awareness, Social Cognition, Trans fers Control, and Balance; and he had good Transfers Control, Sphincter Control, Self-Care, and Endur ance.Currently, he has deficits of Locomotion, Safety Awareness, Balance, Social Cognition, Transfers Control, Self-Care, Sphincter Control, and Communication.Pt. is now referred to [facility] for acute in-patient rehabilitation in order to maximize patient's functional independe nce in activities of daily living, strength, ROM, and mobility.- Rehab Goal Patient has realistic goal of being discharged at assistance level 7-Ind to reside at Home with Fami ly/Relatives. MDM/PLAN: - Physical Therapy Decreased range of motion - to improve, our physical therapists will perform initial evaluation of p t's status upon admission and devise an individualized program for increasing patient's Range of Jamarcus on. Gait dysfunction - to improve, our physical therapists will perform initial evaluation of pt's statu s upon admission and devise an individualized program for Gait Training, and Wheel Chair mobility Inability to transfer - to improve, our physical therapists will perform initial evaluation of pt's status upon admission and devise an individualized program for Bed mobility Need for home safety evaluation - to improve, our physical therapists will perform initial evaluatio n of pt's status upon admission and devise an individualized program for Home Evaluation Need in caregiver upon discharge - to improve, our physical therapists will perform initial evaluati on of pt's status upon admission and devise an individualized program for Caregiver Training Edema - to improve, our physical therapists will perform initial evaluation of pt's status upon admi ssion and devise an individualized program for Elevation Training, and Lymphedema Therapy New precaution - to improve, our physical therapists will perform initial evaluation of pt's status upon admission and devise an individualized program for Patient precaution education Poor balance - to improve, our physical therapists will perform initial evaluation of pt's status up on admission and devise an individualized program for Balance Training Weakness - to improve, our physical therapists will perform initial evaluation of pt's status upon a dmission and devise an individualized program for Aquatic Therapy, Neuromuscular Reeducation, and Str engthening Achieving independence - to improve, our physical therapists will perform initial evaluation of pt's status upon admission and devise an individualized program for Community Reintegration Activities - Occupational Therapy ADL deficits - to improve, our occupation therapists will perform initial evaluation of pt's status upon admission and devise an individualized program for Bathing, Bed mobility, Community Reintegratio n, Cooking, Dressing, Eating, Fine Motor Skills, Grooming, Homemaking, Kitchen Mobility, Laundry, Pat ient Education, Safety Awareness, Splinting - Positioning, Transfers(Toilet, Tub, Shower), and Wheel Chair Management Cognitive deficits - to improve, our occupation therapists will perform initial evaluation of pt's s tatus upon admission and devise an individualized program for Cognition - orientation Need for child care associate - to improve, our occupation therapists will perform initial evaluation of pt's status upon admission and devise an individualized program for Caregiver Training Weakness - to improve, our occupation therapists will perform initial evaluation of pt's status upon admission and devise an individualized program for Aquatic Therapy, Balance, Endurance, UE ROM, and UE strengthening - Other See attached MAR (Medication Administration Record) - Diet Type Continue Regular - Diet - Liquid Texture Continue Regular - Tube Feed Continue N/A - Fall Precaution SAFTY AND FALL - Skin care per protocol - Diet - Solid Texture Continue Regular - Shower allowing shower FUNCTIONAL STATUS: UPDATED AT WEEKLY TEAM CONFERENCE - Bladder Same accident frequency: 7-Ind - No accidents in the past 7 days - Bowel Same accident frequency: 7-Ind - No accidents in the past 7 days - Walking Same score based on distance walked: 0(N/A) Same score based on distance walked: 1(<=50ft) - Wheelchair Same score based on distance traveled: 0(N/A) FUNCTIONAL STATUS: - Self-Care A. Eating Ind B. Grooming sup C. Bathing Devora D. Dressing - Upper Devora E. Dressing - Lower Devora F. Toileting Devora - Sphincter Control G. Bladder control Norma H. Bowel control Norma - Transfers Control I. Bed/Chair/Wheelchair Devora J. Toilet Devora K. Tub/Shower modA - Locomotion L. Walk/Wheelchair (B) Norma M. Stairs Ind - Communication N. Comprehension (B) Norma O. Expression (B) Norma - Social Cognition P. Social Interaction Ind Q. Problem Solving Ind R. Memory Norma - Endurance Fair - Balance Fair - Safety Awareness Good QI SCORES: - Self-Care A. Eating 04-Supervision or touching assistance B. Oral hygiene 03-Partial/moderate assistance C. Toileting hygiene 03-Partial/moderate assistance E. Shower/bathe self 03-Partial/moderate assistance F. Upper body dressing 03-Partial/moderate assistance G. Lower body dressing 03-Partial/moderate assistance H. Putting on/taking off footwear 88-Not attempted due to medical condition or safety concerns - Mobility A. Roll left and right 03-Partial/moderate assistance B. Sit to lying 03-Partial/moderate assistance C. Lying to sitting on side of bed 03-Partial/moderate assistance D. Sit to stand 03-Partial/moderate assistance E. Chair/[id number] transfer 03-Partial/moderate assistance F. Toilet transfer 03-Partial/moderate assistance G. Car transfer 88-Not attempted due to medical condition or safety concerns I. Walk 10 feet 03-Partial/moderate assistance J. Walk 50 feet with two turns 88-Not attempted due to medical condition or safety concerns K. Walk 150 feet 88-Not attempted due to medical condition or safety concerns L. Walking 10 feet on uneven surfaces 88-Not attempted due to medical condition or safety concerns M. 1 step (curb) 88-Not attempted due to medical condition or safety concerns N. 4 steps 88-Not attempted due to medical condition or safety concerns O. 12 steps 88-Not attempted due to medical condition or safety concerns P. Picking up object 03-Partial/moderate assistance R. Wheel 50 feet with two turns 88-Not attempted due to medical condition or safety concerns S. Wheel 150 feet 88-Not attempted due to medical condition or safety concerns - Bladder and Bowel Bladder continence Bowel continence - Endurance Fair - Balance Fair - Safety Awareness Fair [facility] DEFICITS: Self-Care, Mobility, Endurance, Balance, and Safety Awareness SIGNATURE PANEL: (CDT)
[2021-05-16] MEDS: ATORVASTATIN 40 MG TAB PO SCH (19:32)
[2021-05-16] MEDS: DOCUSATE NA/SENNA CONC 1 TAB PO SCH (19:32)
[2021-05-17] MEDS: LEVOTHYROXINE SOD 0.075 MG TAB PO SCH (05:27)
[2021-05-17] MEDS: TRAMADOL HCL 50 MG TAB PO PRN ×2 (06:45→14:16)
[2021-05-17] MEDS: TAMSULOSIN 0.4 MG SR CAP PO SCH (06:46)
[2021-05-17] MEDS: ASPIRIN EC 81 MG TAB PO SCH (06:46)
[2021-05-17] MEDS: AMLODIPINE 2.5 MG TAB PO SCH ×2 (06:46→19:50)
[2021-05-17] MEDS: SOTALOL HCL 80 MG TAB PO SCH (06:47)
[2021-05-17] MEDS: CRANBERRY FRUIT EXTRACT 400 MG CAP PO SCH ×2 (06:47→19:50)
[2021-05-17] MEDS: PANTOPRAZOLE 40MG TABLET PO SCH (06:47)
[2021-05-17] MEDS: POLYVINYL ALCOHOL 1.4% 15 ML EACH EYE PRN ×2 (06:48→19:50)
[2021-05-17] MEDS: LIDOCAINE 4% PATCH TOP SCH (13:21)
[2021-05-17] MEDS: RIVAROXABAN 20 MG TABLET PO SCH (16:29)
--- NOTE | 2021-05-17 17:34 | R.PN ---
PROGRESS NOTES ENCOUNTER DATE AND TIME: 05/17/2021 17:31 (CDT) NAME RAFI SCHRADER DATE OF : 1945 DATE OF ADMISSION: 05/10/2021 18:32 (CDT) RIGHT ISCHIUM FRACTURECHIEF COMPLAINT: Right ischium fracture SUBJECTIVE: Pt denied any depression. Pt denied any Shortness of Breath. WBC 8.4, Hgb 13.0, Plt 213, Na 134, prealbumin 12.8, UA is negative. Covid-19 is negative. Ambulated 225' with standby assistance using rolling walker. Alternating attention tasks done with 93% accuracy. COVID-19 is negative today. VITAL SIGNS Temperature: 99.2 F SBP/DBP: 112/59 Pulse: 63 Resp: 15 MEDICATION ALLERGIES: No Known Drug Allergies (NKDA) ENVIRONMENTAL ALLERGIES: - Substance Allergies None Known - Other Allergies None Known NURSING: - Shower allowing shower - Skin care per protocol PRECAUTIONS: - Fall Precaution SAFTY AND FALL ACTIVITIES OOB only with supervision THERAPIES: - Dietary and Nutrition Adequate Nutrition. Nutritional Education. Nutritional Supplements. Evaluate and Treat. - Occupational Therapy Cognitive Retraining. Patient needs Occupational Therapy for a daily minimum of 1.5 hours at least 5 out of 7 days, to improve Activities of Daily Living, including: Eating, Grooming, Bathing, Dressing, Toileting, Toilet Transfers, Community Reintegration, Higher functional activities, Adaptive Equipme nt, Splinting, Household Tasks, and Other activities as determined. Visual Perceptual Training. Evalu ate and Treat. Patient/Family Education. Safety Awareness. Transfer Training. ADL Training. Household Tasks. Eating. UE Strengthening. - Speech Therapy Cognitive Training. Expressive Language Skills. Memory Strategies. Patient needs Speech Therapy for a daily minimum of 1.5 hours at least 5 out of 7 days, to improve: Swallowing, Cognition, Language Ski lls, and Compensatory Strategies. Receptive Language Skills. Speech Intelligibility Training. Evaluat e and Treat. - Physical Therapy Mobility Training. Patient needs Physical Therapy for a daily minimum of 1.5 hours at least 5 out of 7 days, to improve: Mobility, Strengthening, Transfers, Stretching, ROM, Endurance, Ability to manage stairs, Gait, and Balance. Balance Training. Gait Training. Safety Awareness. Transfer Training. Pat ient/Family Education. PHYSICAL EXAM - Gen Alert and awake Lying in bed No apparent distress Oriented to: person, time, and place - Skin No breakdown No abnormalities - Eyes No abnormalities - ENMT No abnormalities - Neck No abnormalities - CVS RRR - Chest No abnormalities - Abd Soft - GI Soft Deferred - No abnormalities - Ext Mild bilateral lower extremity edema. - MSK 4/5 weakness in left lower extremity. - Neuro 4/5 strength left upper and lower extremities. - Psych Mild depression. ASSESSMENT: Pt. is a 76 yo Right-handed male.On 05/05/2021 he was admitted to [facility] with di agnosis RIGHT ISCHIUM FRACTURE.[05/11/2021 17:31 (CDT), by Dr. Petros Sheets]Subacute left pontin e nonhemorrhagic infarction.His impairment category is Orthopaedic Disorders 08 - Pelvic Fracture (0 8.3).Pre-morbidly, Pt. was independent/mod-I in Locomotion, Safety Awareness, Social Cognition, Trans fers Control, and Balance; and he had good Transfers Control, Sphincter Control, Self-Care, and Endur ance.Currently, he has deficits of Locomotion, Safety Awareness, Balance, Social Cognition, Transfers Control, Self-Care, Sphincter Control, and Communication.Pt. is now referred to [facility] for acute in-patient rehabilitation in order to maximize patient's functional independe nce in activities of daily living, strength, ROM, and mobility.- Rehab Goal Patient has realistic goal of being discharged at assistance level 7-Ind to reside at Home with Fami ly/Relatives. MDM/PLAN: - Physical Therapy Decreased range of motion - to improve, our physical therapists will perform initial evaluation of p t's status upon admission and devise an individualized program for increasing patient's Range of Jamarcus on. Gait dysfunction - to improve, our physical therapists will perform initial evaluation of pt's statu s upon admission and devise an individualized program for Gait Training, and Wheel Chair mobility Inability to transfer - to improve, our physical therapists will perform initial evaluation of pt's status upon admission and devise an individualized program for Bed mobility Need for home safety evaluation - to improve, our physical therapists will perform initial evaluatio n of pt's status upon admission and devise an individualized program for Home Evaluation Need in caregiver upon discharge - to improve, our physical therapists will perform initial evaluati on of pt's status upon admission and devise an individualized program for Caregiver Training Edema - to improve, our physical therapists will perform initial evaluation of pt's status upon admi ssion and devise an individualized program for Elevation Training, and Lymphedema Therapy New precaution - to improve, our physical therapists will perform initial evaluation of pt's status upon admission and devise an individualized program for Patient precaution education Poor balance - to improve, our physical therapists will perform initial evaluation of pt's status up on admission and devise an individualized program for Balance Training Weakness - to improve, our physical therapists will perform initial evaluation of pt's status upon a dmission and devise an individualized program for Aquatic Therapy, Neuromuscular Reeducation, and Str engthening Achieving independence - to improve, our physical therapists will perform initial evaluation of pt's status upon admission and devise an individualized program for Community Reintegration Activities - Occupational Therapy ADL deficits - to improve, our occupation therapists will perform initial evaluation of pt's status upon admission and devise an individualized program for Bathing, Bed mobility, Community Reintegratio n, Cooking, Dressing, Eating, Fine Motor Skills, Grooming, Homemaking, Kitchen Mobility, Laundry, Pat ient Education, Safety Awareness, Splinting - Positioning, Transfers(Toilet, Tub, Shower), and Wheel Chair Management Cognitive deficits - to improve, our occupation therapists will perform initial evaluation of pt's s tatus upon admission and devise an individualized program for Cognition - orientation Need for urgent care technician - to improve, our occupation therapists will perform initial evaluation of pt's status upon admission and devise an individualized program for Caregiver Training Weakness - to improve, our occupation therapists will perform initial evaluation of pt's status upon admission and devise an individualized program for Aquatic Therapy, Balance, Endurance, UE ROM, and UE strengthening - Other See attached MAR (Medication Administration Record) - Diet Type Continue Regular - Diet - Liquid Texture Continue Regular - Tube Feed Continue N/A - Fall Precaution SAFTY AND FALL - Skin care per protocol - Diet - Solid Texture Continue Regular - Shower allowing shower FUNCTIONAL STATUS: UPDATED AT WEEKLY TEAM CONFERENCE - Bladder Same accident frequency: 7-Ind - No accidents in the past 7 days - Bowel Same accident frequency: 7-Ind - No accidents in the past 7 days - Walking Same score based on distance walked: 0(N/A) Same score based on distance walked: 1(<=50ft) - Wheelchair Same score based on distance traveled: 0(N/A) FUNCTIONAL STATUS: - Self-Care A. Eating Ind B. Grooming sup C. Bathing Devora D. Dressing - Upper Devora E. Dressing - Lower Devora F. Toileting Devora - Sphincter Control G. Bladder control Norma H. Bowel control Norma - Transfers Control I. Bed/Chair/Wheelchair Devora J. Toilet Devora K. Tub/Shower modA - Locomotion L. Walk/Wheelchair (B) Norma M. Stairs Ind - Communication N. Comprehension (B) Norma O. Expression (B) Norma - Social Cognition P. Social Interaction Ind Q. Problem Solving Ind R. Memory Norma - Endurance Fair - Balance Fair - Safety Awareness Good QI SCORES: - Self-Care A. Eating 04-Supervision or touching assistance B. Oral hygiene 03-Partial/moderate assistance C. Toileting hygiene 03-Partial/moderate assistance E. Shower/bathe self 03-Partial/moderate assistance F. Upper body dressing 03-Partial/moderate assistance G. Lower body dressing 03-Partial/moderate assistance H. Putting on/taking off footwear 88-Not attempted due to medical condition or safety concerns - Mobility A. Roll left and right 03-Partial/moderate assistance B. Sit to lying 03-Partial/moderate assistance C. Lying to sitting on side of bed 03-Partial/moderate assistance D. Sit to stand 03-Partial/moderate assistance E. Chair/[id number] transfer 03-Partial/moderate assistance F. Toilet transfer 03-Partial/moderate assistance G. Car transfer 88-Not attempted due to medical condition or safety concerns I. Walk 10 feet 03-Partial/moderate assistance J. Walk 50 feet with two turns 88-Not attempted due to medical condition or safety concerns K. Walk 150 feet 88-Not attempted due to medical condition or safety concerns L. Walking 10 feet on uneven surfaces 88-Not attempted due to medical condition or safety concerns M. 1 step (curb) 88-Not attempted due to medical condition or safety concerns N. 4 steps 88-Not attempted due to medical condition or safety concerns O. 12 steps 88-Not attempted due to medical condition or safety concerns P. Picking up object 03-Partial/moderate assistance R. Wheel 50 feet with two turns 88-Not attempted due to medical condition or safety concerns S. Wheel 150 feet 88-Not attempted due to medical condition or safety concerns - Bladder and Bowel Bladder continence Bowel continence - Endurance Fair - Balance Fair - Safety Awareness Fair [facility]RENT [facility]. DEFICITS: Self-Care, Mobility, Endurance, Balance, and Safety Awareness SIGNATURE PANEL: (CDT)
[2021-05-17] MEDS: ATORVASTATIN 40 MG TAB PO SCH (19:50)
[2021-05-17] MEDS: DOCUSATE NA/SENNA CONC 1 TAB PO SCH (19:50)
[2021-05-17] MEDS: IPRATROPIUM BROM 0.5MG/2.5ML NEB PRN (20:47)
[2021-05-18 04:51] LABS: Absolute Lymphocytes (CBC) 0.8 K/uL (0.7-4.9); Lymphocytes % 10.3 % (15.3-44.8); MPV 8.5 fL (7.6-11.3); RBC Red Blood Cell Count 4.49 M/uL (4.33-5.43)
[2021-05-18 05:13] LABS: Albumin 2.7 g/dL (3.4-5.0); Magnesium 2.3 mg/dL (1.8-2.4); Potassium 4.2 mmol/L (3.5-5.1)
[2021-05-18] MEDS: LEVOTHYROXINE SOD 0.075 MG TAB PO SCH (06:26)
[2021-05-18] MEDS: LIDOCAINE 4% PATCH TOP SCH (06:26)
[2021-05-18] MEDS: POLYVINYL ALCOHOL 1.4% 15 ML EACH EYE PRN ×2 (06:28→19:47)
[2021-05-18] MEDS: TRAMADOL HCL 50 MG TAB PO PRN ×2 (07:10→15:14)
[2021-05-18] MEDS: SOTALOL HCL 80 MG TAB PO SCH (07:11)
[2021-05-18] MEDS: AMLODIPINE 2.5 MG TAB PO SCH ×2 (07:11→19:47)
[2021-05-18] MEDS: ASPIRIN EC 81 MG TAB PO SCH (07:11)
[2021-05-18] MEDS: PANTOPRAZOLE 40MG TABLET PO SCH (07:11)
[2021-05-18] MEDS: TAMSULOSIN 0.4 MG SR CAP PO SCH (07:12)
[2021-05-18] MEDS: CRANBERRY FRUIT EXTRACT 400 MG CAP PO SCH ×2 (07:12→19:47)
[2021-05-18 16:23] LABS: Prealbumin 19.7 mg/dL (20-40)
[2021-05-18] MEDS: RIVAROXABAN 20 MG TABLET PO SCH (17:09)
--- NOTE | 2021-05-18 17:54 | R.PN ---
PROGRESS NOTES ENCOUNTER DATE AND TIME: 05/18/2021 17:48 (CDT) NAME RAFI SCHRADER DATE OF : 1945 DATE OF ADMISSION: 05/10/2021 18:32 (CDT) RIGHT ISCHIUM FRACTURECHIEF COMPLAINT: Right ischium fracture SUBJECTIVE: Pt denied any depression. Pt denied any Shortness of Breath. WBC 7.4, Hgb 13.2, Plt 244, Na 134, prealbumin 19.7, UA is negative. Covid-19 is negative. Ambulated 164' with standby assistance using rolling walker. Alternating attention tasks done with 93% accuracy. COVID-19 is negative today. VITAL SIGNS Temperature: 97.8 F SBP/DBP: 134/76 Pulse: 67 Resp: 15 MEDICATION ALLERGIES: No Known Drug Allergies (NKDA) ENVIRONMENTAL ALLERGIES: - Substance Allergies None Known - Other Allergies None Known NURSING: - Shower allowing shower - Skin care per protocol PRECAUTIONS: - Fall Precaution SAFTY AND FALL ACTIVITIES OOB only with supervision THERAPIES: - Dietary and Nutrition Adequate Nutrition. Nutritional Education. Nutritional Supplements. Evaluate and Treat. - Occupational Therapy Cognitive Retraining. Patient needs Occupational Therapy for a daily minimum of 1.5 hours at least 5 out of 7 days, to improve Activities of Daily Living, including: Eating, Grooming, Bathing, Dressing, Toileting, Toilet Transfers, Community Reintegration, Higher functional activities, Adaptive Equipme nt, Splinting, Household Tasks, and Other activities as determined. Visual Perceptual Training. Evalu ate and Treat. Patient/Family Education. Safety Awareness. Transfer Training. ADL Training. Household Tasks. Eating. UE Strengthening. - Speech Therapy Cognitive Training. Expressive Language Skills. Memory Strategies. Patient needs Speech Therapy for a daily minimum of 1.5 hours at least 5 out of 7 days, to improve: Swallowing, Cognition, Language Ski lls, and Compensatory Strategies. Receptive Language Skills. Speech Intelligibility Training. Evaluat e and Treat. - Physical Therapy Mobility Training. Patient needs Physical Therapy for a daily minimum of 1.5 hours at least 5 out of 7 days, to improve: Mobility, Strengthening, Transfers, Stretching, ROM, Endurance, Ability to manage stairs, Gait, and Balance. Balance Training. Gait Training. Safety Awareness. Transfer Training. Pat ient/Family Education. PHYSICAL EXAM - Gen Alert and awake Lying in bed No apparent distress Oriented to: person, time, and place - Skin No breakdown No abnormalities - Eyes No abnormalities - ENMT No abnormalities - Neck No abnormalities - CVS RRR - Chest No abnormalities - Abd Soft - GI Soft Deferred - No abnormalities - Ext Mild bilateral lower extremity edema. - MSK 4/5 weakness in left lower extremity. - Neuro 4/5 strength left upper and lower extremities. - Psych Mild depression. ASSESSMENT: Pt. is a 76 yo Right-handed male.On 05/05/2021 he was admitted to [facility] with di agnosis RIGHT ISCHIUM FRACTURE.[05/11/2021 17:31 (CDT), by Dr. Petros Sheets]Subacute left pontin e nonhemorrhagic infarction.His impairment category is Orthopaedic Disorders 08 - Pelvic Fracture (0 8.3).Pre-morbidly, Pt. was independent/mod-I in Locomotion, Safety Awareness, Social Cognition, Trans fers Control, and Balance; and he had good Transfers Control, Sphincter Control, Self-Care, and Endur ance.Currently, he has deficits of Locomotion, Safety Awareness, Balance, Social Cognition, Transfers Control, Self-Care, Sphincter Control, and Communication.Pt. is now referred to [facility] for acute in-patient rehabilitation in order to maximize patient's functional independe nce in activities of daily living, strength, ROM, and mobility.- Rehab Goal Patient has realistic goal of being discharged at assistance level 7-Ind to reside at Home with Fami ly/Relatives. MDM/PLAN: - Physical Therapy Decreased range of motion - to improve, our physical therapists will perform initial evaluation of p t's status upon admission and devise an individualized program for increasing patient's Range of Jamarcus on. Gait dysfunction - to improve, our physical therapists will perform initial evaluation of pt's statu s upon admission and devise an individualized program for Gait Training, and Wheel Chair mobility Inability to transfer - to improve, our physical therapists will perform initial evaluation of pt's status upon admission and devise an individualized program for Bed mobility Need for home safety evaluation - to improve, our physical therapists will perform initial evaluatio n of pt's status upon admission and devise an individualized program for Home Evaluation Need in caregiver upon discharge - to improve, our physical therapists will perform initial evaluati on of pt's status upon admission and devise an individualized program for Caregiver Training Edema - to improve, our physical therapists will perform initial evaluation of pt's status upon admi ssion and devise an individualized program for Elevation Training, and Lymphedema Therapy New precaution - to improve, our physical therapists will perform initial evaluation of pt's status upon admission and devise an individualized program for Patient precaution education Poor balance - to improve, our physical therapists will perform initial evaluation of pt's status up on admission and devise an individualized program for Balance Training Weakness - to improve, our physical therapists will perform initial evaluation of pt's status upon a dmission and devise an individualized program for Aquatic Therapy, Neuromuscular Reeducation, and Str engthening Achieving independence - to improve, our physical therapists will perform initial evaluation of pt's status upon admission and devise an individualized program for Community Reintegration Activities - Occupational Therapy ADL deficits - to improve, our occupation therapists will perform initial evaluation of pt's status upon admission and devise an individualized program for Bathing, Bed mobility, Community Reintegratio n, Cooking, Dressing, Eating, Fine Motor Skills, Grooming, Homemaking, Kitchen Mobility, Laundry, Pat ient Education, Safety Awareness, Splinting - Positioning, Transfers(Toilet, Tub, Shower), and Wheel Chair Management Cognitive deficits - to improve, our occupation therapists will perform initial evaluation of pt's s tatus upon admission and devise an individualized program for Cognition - orientation Need for hospice care consultant - to improve, our occupation therapists will perform initial evaluation of pt's status upon admission and devise an individualized program for Caregiver Training Weakness - to improve, our occupation therapists will perform initial evaluation of pt's status upon admission and devise an individualized program for Aquatic Therapy, Balance, Endurance, UE ROM, and UE strengthening - Other See attached MAR (Medication Administration Record) - Diet Type Continue Regular - Diet - Liquid Texture Continue Regular - Tube Feed Continue N/A - Fall Precaution SAFTY AND FALL - Skin care per protocol - Diet - Solid Texture Continue Regular - Shower allowing shower FUNCTIONAL STATUS: UPDATED AT WEEKLY TEAM CONFERENCE - Bladder Same accident frequency: 7-Ind - No accidents in the past 7 days - Bowel Same accident frequency: 7-Ind - No accidents in the past 7 days - Walking Same score based on distance walked: 0(N/A) Same score based on distance walked: 1(<=50ft) - Wheelchair Same score based on distance traveled: 0(N/A) FUNCTIONAL STATUS: - Self-Care A. Eating Ind B. Grooming sup C. Bathing Devora D. Dressing - Upper Devora E. Dressing - Lower Devora F. Toileting Devora - Sphincter Control G. Bladder control Norma H. Bowel control Norma - Transfers Control I. Bed/Chair/Wheelchair Devora J. Toilet Devora K. Tub/Shower modA - Locomotion L. Walk/Wheelchair (B) Norma M. Stairs Ind - Communication N. Comprehension (B) Norma O. Expression (B) Norma - Social Cognition P. Social Interaction Ind Q. Problem Solving Ind R. Memory Norma - Endurance Fair - Balance Fair - Safety Awareness Good QI SCORES: - Self-Care A. Eating 04-Supervision or touching assistance B. Oral hygiene 03-Partial/moderate assistance C. Toileting hygiene 03-Partial/moderate assistance E. Shower/bathe self 03-Partial/moderate assistance F. Upper body dressing 03-Partial/moderate assistance G. Lower body dressing 03-Partial/moderate assistance H. Putting on/taking off footwear 88-Not attempted due to medical condition or safety concerns - Mobility A. Roll left and right 03-Partial/moderate assistance B. Sit to lying 03-Partial/moderate assistance C. Lying to sitting on side of bed 03-Partial/moderate assistance D. Sit to stand 03-Partial/moderate assistance E. Chair/[id number] transfer 03-Partial/moderate assistance F. Toilet transfer 03-Partial/moderate assistance G. Car transfer 88-Not attempted due to medical condition or safety concerns I. Walk 10 feet 03-Partial/moderate assistance J. Walk 50 feet with two turns 88-Not attempted due to medical condition or safety concerns K. Walk 150 feet 88-Not attempted due to medical condition or safety concerns L. Walking 10 feet on uneven surfaces 88-Not attempted due to medical condition or safety concerns M. 1 step (curb) 88-Not attempted due to medical condition or safety concerns N. 4 steps 88-Not attempted due to medical condition or safety concerns O. 12 steps 88-Not attempted due to medical condition or safety concerns P. Picking up object 03-Partial/moderate assistance R. Wheel 50 feet with two turns 88-Not attempted due to medical condition or safety concerns S. Wheel 150 feet 88-Not attempted due to medical condition or safety concerns - Bladder and Bowel Bladder continence Bowel continence - Endurance Fair - Balance Fair - Safety Awareness Fair CURRENT [facility]. DEFICITS: Self-Care, Mobility, Endurance, Balance, and Safety Awareness SIGNATURE PANEL: (CDT)
[2021-05-18] MEDS: DOCUSATE NA/SENNA CONC 1 TAB PO SCH (19:47)
[2021-05-18] MEDS: ATORVASTATIN 40 MG TAB PO SCH (19:47)
[2021-05-19] MEDS: LEVOTHYROXINE SOD 0.075 MG TAB PO SCH (06:28)
[2021-05-19] MEDS: LIDOCAINE 4% PATCH TOP SCH ×2 (06:28→10:23)
[2021-05-19] MEDS: POLYVINYL ALCOHOL 1.4% 15 ML EACH EYE PRN (06:29)
[2021-05-19] MEDS: TRAMADOL HCL 50 MG TAB PO PRN (06:57)
[2021-05-19] MEDS: CRANBERRY FRUIT EXTRACT 400 MG CAP PO SCH ×2 (06:58→20:12)
[2021-05-19] MEDS: ASPIRIN EC 81 MG TAB PO SCH (06:58)
[2021-05-19] MEDS: SOTALOL HCL 80 MG TAB PO SCH (06:58)
[2021-05-19] MEDS: TAMSULOSIN 0.4 MG SR CAP PO SCH (06:58)
[2021-05-19] MEDS: PANTOPRAZOLE 40MG TABLET PO SCH (06:59)
[2021-05-19] MEDS: AMLODIPINE 2.5 MG TAB PO SCH ×2 (06:59→20:00)
--- NOTE | 2021-05-19 09:51 | P.RH.PN ---
Estimated Length of Stay: 12 Expected Discharge Date: 05/24/21 Discharge Disposition Plan: Home Family Support: Yes Nursing Home Goal: Mobility, Transfers, Self Care Vital Signs: Last Vital Signs Temp 98.5 F 05/19/21 07:11 Pulse 71 05/19/21 07:11 Resp 16 05/19/21 07:57 BP 126/73 05/19/21 07:11 Pulse Ox 95 05/19/21 07:57 Laboratory: Laboratory Last Values WBC 7.4 K/uL (4.3-10.9) 05/18/21 04:06 RBC 4.49 M/uL (4.33-5.43) 05/18/21 04:06 Hgb 13.2 g/dL (13.6-17.9) L 05/18/21 04:06 Hct 39.0 % (39.6-49.0) L 05/18/21 04:06 MCV 87.0 fL (80-100) 05/18/21 04:06 MCH 29.4 pg (27.0-35.0) 05/18/21 04:06 MCHC 33.8 g/dL (32.0-36.0) 05/18/21 04:06 RDW 14.8 % (12.1-15.2) 05/18/21 04:06 Plt Count 244 K/uL (152-406) 05/18/21 04:06 MPV 8.5 fL (7.6-11.3) 05/18/21 04:06 Neutrophils % 77.4 % (41.7-73.7) H 05/18/21 04:06 Lymphocytes % 10.3 % (15.3-44.8) L 05/18/21 04:06 Monocytes % 9.5 % (3.3-12.3) 05/18/21 04:06 Eosinophils % 2.1 % (0-4.4) 05/18/21 04:06 Basophils % 0.7 % (0-1.3) 05/18/21 04:06 Absolute Neutrophils 5.7 K/uL (1.8-8.0) 05/18/21 04:06 Absolute Lymphocytes 0.8 K/uL (0.7-4.9) 05/18/21 04:06 Absolute Monocytes 0.7 K/uL (0.1-1.3) 05/18/21 04:06 Absolute Eosinophils 0.2 K/uL (0-0.5) 05/18/21 04:06 Absolute Basophils 0.0 K/uL (0-0.5) 05/18/21 04:06 Sodium 136 mmol/L (136-145) 05/18/21 04:06 Potassium 4.2 mmol/L (3.5-5.1) 05/18/21 04:06 Chloride 99 mmol/L (98-107) 05/18/21 04:06 Carbon Dioxide 30 mmol/L (21-32) 05/18/21 04:06 BUN 29 mg/dL (7-18) H 05/18/21 04:06 Creatinine 0.93 mg/dL (0.55-1.3) 05/18/21 04:06 Estimated GFR 79 mL/min (=/>90) L 05/18/21 04:06 Glucose 103 mg/dL (74-106) 05/18/21 04:06 Calcium 8.8 mg/dL (8.5-10.1) 05/18/21 04:06 Magnesium 2.3 mg/dL (1.8-2.4) 05/18/21 04:06 Albumin 2.7 g/dL (3.4-5.0) L 05/18/21 04:06 Prealbumin 19.7 mg/dL (20-40) L 05/18/21 04:06 Urine Color Yellow (Yellow) 05/10/21 23:07 Urine Appearance Clear (Clear) 05/10/21 23:07 Urine pH 6.0 (5.0-7.0) 05/10/21 23:07 Ur Specific Tracy 1.025 (1.005-1.030) 05/10/21 23:07 Glucose (UA)(Auto) Negative (Negative) 05/10/21 23:07 Urine Ketones Negative (Negative) 05/10/21 23:07 Urine Blood Trace-intact (Negative) H 05/10/21 23:07 Urine Nitrite Negative (Negative) 05/10/21 23:07 Urine Bilirubin Negative (Negative) 05/10/21 23:07 Urine Urobilinogen 1.0 mg/dL (0.2-1.0) 05/10/21 23:07 Ur Leukocyte Esterase Negative (Negative) 05/10/21 23:07 Urine RBC <5 /HPF (NONE SEEN) 05/10/21 23:07 Urine WBC <5 /HPF (<5) 05/10/21 23:07 Ur Squamous Epith Cells EMULSION COATER 05/10/21 23:07 Ur Urothelial Cells <5 /HPF (NONE SEEN) 05/10/21 23:07 Calcium Oxalate Crystal Cancelled 05/10/21 22:45 Uric Acid Crystals Cancelled 05/10/21 22:45 Triple Phos Crystals Cancelled 05/10/21 22:45 Other Crystals Cancelled 05/10/21 22:45 Amorphous Sediment Cancelled 05/10/21 22:45 Glitter Cells Cancelled 05/10/21 22:45 Urine Bacteria <20 /HPF (NONE SEEN) 05/10/21 23:07 Hyaline Casts 0-5 /LPF (NONE SEEN) 05/10/21 23:07 Fine Granular Casts Cancelled 05/10/21 22:45 Coarse Granular Casts Cancelled 05/10/21 22:45 Waxy Casts Cancelled 05/10/21 22:45 RBC Casts Cancelled 05/10/21 22:45 WBC Casts Cancelled 05/10/21 22:45 Urine Mucus Cancelled 05/10/21 22:45 Urine Other Cancelled 05/10/21 22:45 Urine Trichomonas Cancelled 05/10/21 22:45 Urine Yeast Cancelled 05/10/21 22:45 Ur Yeast w Hyphae Cancelled 05/10/21 22:45 Urine Yeast (Budding) Cancelled 05/10/21 22:45 Urine Sperm Cancelled 05/10/21 22:45 Urine Culture Reflexed Not needed 05/10/21 23:07 Urine Total Volume Cancelled 05/10/21 22:45 Urine Total Protein Negative (Negative) 05/10/21 23:07 SARS-CoV-2 Rap RNA(RT-PCR) Negative (NEGATIVE) 05/17/21 05:20 Weight: 131 lb Wound Present: No Closed Surgical Incision Present: No Negative Pressure Wound Therapy Present: No Physician Update: Mod-I with bed mobility, 100' with RW and SBA. He will discharge to a friend who has cancer and is recovering. Labs were reviewed. Comment: bruising noted on the R shoulder and L arm Functional Improvement: Patient is motivated to improve his goal status by working with therapists and always being availble for therapy. Summary: Patient's care plan and penitentiary goals have been reviewed and revised as necessary. Please see the Rehabilitation Signature page for all necessary signatures.
[2021-05-19] MEDS: RIVAROXABAN 20 MG TABLET PO SCH (17:00)
[2021-05-19] MEDS: ATORVASTATIN 40 MG TAB PO SCH (20:12)
[2021-05-19] MEDS: DOCUSATE NA/SENNA CONC 1 TAB PO SCH (20:13)
[2021-05-20 05:27] VITALS: BMI 20.1
[2021-05-20] MEDS: LEVOTHYROXINE SOD 0.075 MG TAB PO SCH (05:36)
[2021-05-20] MEDS: CYANOCOBALAMIN 1,000 MCG TAB PO SCH (07:54)
[2021-05-20] MEDS: PANTOPRAZOLE 40MG TABLET PO SCH (07:54)
[2021-05-20] MEDS: TAMSULOSIN 0.4 MG SR CAP PO SCH (07:54)
[2021-05-20] MEDS: ASPIRIN EC 81 MG TAB PO SCH (07:56)
[2021-05-20] MEDS: CRANBERRY FRUIT EXTRACT 400 MG CAP PO SCH ×2 (07:56→19:59)
[2021-05-20] MEDS: AMLODIPINE 2.5 MG TAB PO SCH ×2 (07:56→19:59)
[2021-05-20] MEDS: SOTALOL HCL 80 MG TAB PO SCH (07:57)
[2021-05-20] MEDS: LIDOCAINE 4% PATCH TOP SCH (07:58)
[2021-05-20] MEDS: RIVAROXABAN 20 MG TABLET PO SCH (17:18)
[2021-05-20] MEDS: POLYVINYL ALCOHOL 1.4% 15 ML EACH EYE PRN (19:59)
[2021-05-20] MEDS: ATORVASTATIN 40 MG TAB PO SCH (19:59)
[2021-05-20] MEDS: DOCUSATE NA/SENNA CONC 1 TAB PO SCH (19:59)
[2021-05-21] MEDS: LEVOTHYROXINE SOD 0.075 MG TAB PO SCH (05:13)
[2021-05-21] MEDS: POLYVINYL ALCOHOL 1.4% 15 ML EACH EYE PRN (08:07)
[2021-05-21] MEDS: CRANBERRY FRUIT EXTRACT 400 MG CAP PO SCH ×2 (08:07→18:33)
[2021-05-21] MEDS: LIDOCAINE 4% PATCH TOP SCH (08:07)
[2021-05-21] MEDS: CYANOCOBALAMIN 1,000 MCG TAB PO SCH (08:08)
[2021-05-21] MEDS: SOTALOL HCL 80 MG TAB PO SCH (08:08)
[2021-05-21] MEDS: TRAMADOL HCL 50 MG TAB PO PRN (08:08)
[2021-05-21] MEDS: TAMSULOSIN 0.4 MG SR CAP PO SCH (08:08)
[2021-05-21] MEDS: ASPIRIN EC 81 MG TAB PO SCH (08:08)
[2021-05-21] MEDS: PANTOPRAZOLE 40MG TABLET PO SCH (08:09)
[2021-05-21] MEDS: ACETAMINOPHEN 325 MG TABLET PO PRN (08:09)
[2021-05-21] MEDS: AMLODIPINE 2.5 MG TAB PO SCH ×2 (08:09→18:33)
[2021-05-21] MEDS: RIVAROXABAN 20 MG TABLET PO SCH (16:16)
[2021-05-21] MEDS: ATORVASTATIN 40 MG TAB PO SCH (18:33)
[2021-05-21] MEDS: DOCUSATE NA/SENNA CONC 1 TAB PO SCH (18:33)
[2021-05-22] MEDS: LEVOTHYROXINE SOD 0.075 MG TAB PO SCH (05:11)
[2021-05-22] MEDS: TAMSULOSIN 0.4 MG SR CAP PO SCH (07:26)
[2021-05-22] MEDS: POLYVINYL ALCOHOL 1.4% 15 ML EACH EYE PRN (07:26)
[2021-05-22] MEDS: ASPIRIN EC 81 MG TAB PO SCH (07:26)
[2021-05-22] MEDS: SOTALOL HCL 80 MG TAB PO SCH (07:26)
[2021-05-22] MEDS: PANTOPRAZOLE 40MG TABLET PO SCH (07:27)
[2021-05-22] MEDS: TRAMADOL HCL 50 MG TAB PO PRN ×2 (07:27→15:52)
[2021-05-22] MEDS: AMLODIPINE 2.5 MG TAB PO SCH ×2 (07:27→19:57)
[2021-05-22] MEDS: CRANBERRY FRUIT EXTRACT 400 MG CAP PO SCH ×2 (07:27→19:57)
[2021-05-22] MEDS: CYANOCOBALAMIN 1,000 MCG TAB PO SCH (07:32)
[2021-05-22] MEDS: LIDOCAINE 4% PATCH TOP SCH (10:21)
[2021-05-22] MEDS: RIVAROXABAN 20 MG TABLET PO SCH (17:06)
--- NOTE | 2021-05-22 18:04 | R.PN ---
PROGRESS NOTES ENCOUNTER DATE AND TIME: 05/22/2021 17:59 (CDT) NAME RAFI SCHRADER DATE OF : 1945 DATE OF ADMISSION: 05/10/2021 18:32 (CDT) RIGHT ISCHIUM FRACTURECHIEF COMPLAINT: Right ischium fracture SUBJECTIVE: Pt denied any depression. Pt denied any Shortness of Breath. WBC 7.4, Hgb 13.2, Plt 244, Na 134, prealbumin 19.7, UA is negative. Covid-19 is negative. Ambulated 500' with standby assistance using rolling walker. Self-propelled wheelchair 250' with josefina dby assistance. Alternating attention tasks done with 93% accuracy. COVID-19 is negative today. VITAL SIGNS Temperature: 98.0 F SBP/DBP: 137/75 Pulse: 62 Resp: 15 MEDICATION ALLERGIES: No Known Drug Allergies (NKDA) ENVIRONMENTAL ALLERGIES: - Substance Allergies None Known - Other Allergies None Known NURSING: - Shower allowing shower - Skin care per protocol PRECAUTIONS: - Fall Precaution SAFTY AND FALL ACTIVITIES OOB only with supervision THERAPIES: - Dietary and Nutrition Adequate Nutrition. Nutritional Education. Nutritional Supplements. Evaluate and Treat. - Occupational Therapy Cognitive Retraining. Patient needs Occupational Therapy for a daily minimum of 1.5 hours at least 5 out of 7 days, to improve Activities of Daily Living, including: Eating, Grooming, Bathing, Dressing, Toileting, Toilet Transfers, Community Reintegration, Higher functional activities, Adaptive Equipme nt, Splinting, Household Tasks, and Other activities as determined. Visual Perceptual Training. Evalu ate and Treat. Patient/Family Education. Safety Awareness. Transfer Training. ADL Training. Household Tasks. Eating. UE Strengthening. - Speech Therapy Cognitive Training. Expressive Language Skills. Memory Strategies. Patient needs Speech Therapy for a daily minimum of 1.5 hours at least 5 out of 7 days, to improve: Swallowing, Cognition, Language Ski lls, and Compensatory Strategies. Receptive Language Skills. Speech Intelligibility Training. Evaluat e and Treat. - Physical Therapy Mobility Training. Patient needs Physical Therapy for a daily minimum of 1.5 hours at least 5 out of 7 days, to improve: Mobility, Strengthening, Transfers, Stretching, ROM, Endurance, Ability to manage stairs, Gait, and Balance. Balance Training. Gait Training. Safety Awareness. Transfer Training. Pat ient/Family Education. PHYSICAL EXAM - Gen Alert and awake Lying in bed No apparent distress Oriented to: person, time, and place - Skin No breakdown No abnormalities - Eyes No abnormalities - ENMT No abnormalities - Neck No abnormalities - CVS RRR - Chest No abnormalities - Abd Soft - GI Soft Deferred - No abnormalities - Ext Mild bilateral lower extremity edema. - MSK 4/5 weakness in left lower extremity. - Neuro 4/5 strength left upper and lower extremities. - Psych Mild depression. ASSESSMENT: Pt. is a 76 yo Right-handed male.On 05/05/2021 he was admitted to [facility] with di agnosis RIGHT ISCHIUM FRACTURE.[05/11/2021 17:31 (CDT), by Dr. Petros Sheets]Subacute left pontin e nonhemorrhagic infarction.His impairment category is Orthopaedic Disorders 08 - Pelvic Fracture (0 8.3).Pre-morbidly, Pt. was independent/mod-I in Locomotion, Safety Awareness, Social Cognition, Trans fers Control, and Balance; and he had good Transfers Control, Sphincter Control, Self-Care, and Endur ance.Currently, he has deficits of Locomotion, Safety Awareness, Balance, Social Cognition, Transfers Control, Self-Care, Sphincter Control, and Communication.Pt. is now referred to [facility] for acute in-patient rehabilitation in order to maximize patient's functional independe nce in activities of daily living, strength, ROM, and mobility.- Rehab Goal Patient has realistic goal of being discharged at assistance level 7-Ind to reside at Home with Fami ly/Relatives. MDM/PLAN: - Physical Therapy Decreased range of motion - to improve, our physical therapists will perform initial evaluation of p t's status upon admission and devise an individualized program for increasing patient's Range of Jamarcus on. Gait dysfunction - to improve, our physical therapists will perform initial evaluation of pt's statu s upon admission and devise an individualized program for Gait Training, and Wheel Chair mobility Inability to transfer - to improve, our physical therapists will perform initial evaluation of pt's status upon admission and devise an individualized program for Bed mobility Need for home safety evaluation - to improve, our physical therapists will perform initial evaluatio n of pt's status upon admission and devise an individualized program for Home Evaluation Need in caregiver upon discharge - to improve, our physical therapists will perform initial evaluati on of pt's status upon admission and devise an individualized program for Caregiver Training Edema - to improve, our physical therapists will perform initial evaluation of pt's status upon admi ssion and devise an individualized program for Elevation Training, and Lymphedema Therapy New precaution - to improve, our physical therapists will perform initial evaluation of pt's status upon admission and devise an individualized program for Patient precaution education Poor balance - to improve, our physical therapists will perform initial evaluation of pt's status up on admission and devise an individualized program for Balance Training Weakness - to improve, our physical therapists will perform initial evaluation of pt's status upon a dmission and devise an individualized program for Aquatic Therapy, Neuromuscular Reeducation, and Str engthening Achieving independence - to improve, our physical therapists will perform initial evaluation of pt's status upon admission and devise an individualized program for Community Reintegration Activities - Occupational Therapy ADL deficits - to improve, our occupation therapists will perform initial evaluation of pt's status upon admission and devise an individualized program for Bathing, Bed mobility, Community Reintegratio n, Cooking, Dressing, Eating, Fine Motor Skills, Grooming, Homemaking, Kitchen Mobility, Laundry, Pat ient Education, Safety Awareness, Splinting - Positioning, Transfers(Toilet, Tub, Shower), and Wheel Chair Management Cognitive deficits - to improve, our occupation therapists will perform initial evaluation of pt's s tatus upon admission and devise an individualized program for Cognition - orientation Need for pediatric critical care nurse - to improve, our occupation therapists will perform initial evaluation of pt's status upon admission and devise an individualized program for Caregiver Training Weakness - to improve, our occupation therapists will perform initial evaluation of pt's status upon admission and devise an individualized program for Aquatic Therapy, Balance, Endurance, UE ROM, and UE strengthening - Other See attached MAR (Medication Administration Record) - Diet Type Continue Regular - Diet - Liquid Texture Continue Regular - Tube Feed Continue N/A - Fall Precaution SAFTY AND FALL - Skin care per protocol - Diet - Solid Texture Continue Regular - Shower allowing shower FUNCTIONAL STATUS: UPDATED AT WEEKLY TEAM CONFERENCE - Bladder Same accident frequency: 7-Ind - No accidents in the past 7 days - Bowel Same accident frequency: 7-Ind - No accidents in the past 7 days - Walking Same score based on distance walked: 0(N/A) Same score based on distance walked: 1(<=50ft) - Wheelchair Same score based on distance traveled: 0(N/A) FUNCTIONAL STATUS: - Self-Care A. Eating Ind B. Grooming sup C. Bathing Devora D. Dressing - Upper Devora E. Dressing - Lower Devora F. Toileting Devora - Sphincter Control G. Bladder control Norma H. Bowel control Norma - Transfers Control I. Bed/Chair/Wheelchair Devora J. Toilet Devora K. Tub/Shower modA - Locomotion L. Walk/Wheelchair (B) Norma M. Stairs Ind - Communication N. Comprehension (B) Norma O. Expression (B) Norma - Social Cognition P. Social Interaction Ind Q. Problem Solving Ind R. Memory Norma - Endurance Fair - Balance Fair - Safety Awareness Good QI SCORES: - Self-Care A. Eating 04-Supervision or touching assistance B. Oral hygiene 03-Partial/moderate assistance C. Toileting hygiene 03-Partial/moderate assistance E. Shower/bathe self 03-Partial/moderate assistance F. Upper body dressing 03-Partial/moderate assistance G. Lower body dressing 03-Partial/moderate assistance H. Putting on/taking off footwear 88-Not attempted due to medical condition or safety concerns - Mobility A. Roll left and right 03-Partial/moderate assistance B. Sit to lying 03-Partial/moderate assistance C. Lying to sitting on side of bed 03-Partial/moderate assistance D. Sit to stand 03-Partial/moderate assistance E. Chair/[id number] transfer 03-Partial/moderate assistance F. Toilet transfer 03-Partial/moderate assistance G. Car transfer 88-Not attempted due to medical condition or safety concerns I. Walk 10 feet 03-Partial/moderate assistance J. Walk 50 feet with two turns 88-Not attempted due to medical condition or safety concerns K. Walk 150 feet 88-Not attempted due to medical condition or safety concerns L. Walking 10 feet on uneven surfaces 88-Not attempted due to medical condition or safety concerns M. 1 step (curb) 88-Not attempted due to medical condition or safety concerns N. 4 steps 88-Not attempted due to medical condition or safety concerns O. 12 steps 88-Not attempted due to medical condition or safety concerns P. Picking up object 03-Partial/moderate assistance R. Wheel 50 feet with two turns 88-Not attempted due to medical condition or safety concerns S. Wheel 150 feet 88-Not attempted due to medical condition or safety concerns - Bladder and Bowel Bladder continence Bowel continence - Endurance Fair - Balance Fair - Safety Awareness Fair CURRENT [facility]. DEFICITS: Self-Care, Mobility, Endurance, Balance, and Safety Awareness SIGNATURE PANEL: (CDT)
[2021-05-22] MEDS: DOCUSATE NA/SENNA CONC 1 TAB PO SCH (19:57)
[2021-05-22] MEDS: ATORVASTATIN 40 MG TAB PO SCH (19:57)
[2021-05-23] MEDS: POLYVINYL ALCOHOL 1.4% 15 ML EACH EYE PRN ×2 (06:33→19:50)
[2021-05-23] MEDS: LEVOTHYROXINE SOD 0.075 MG TAB PO SCH (06:33)
[2021-05-23] MEDS: LIDOCAINE 4% PATCH TOP SCH (06:37)
[2021-05-23] MEDS: TRAMADOL HCL 50 MG TAB PO PRN ×2 (08:29→16:17)
[2021-05-23] MEDS: CYANOCOBALAMIN 1,000 MCG TAB PO SCH (08:30)
[2021-05-23] MEDS: ASPIRIN EC 81 MG TAB PO SCH (08:30)
[2021-05-23] MEDS: AMLODIPINE 2.5 MG TAB PO SCH ×2 (08:30→19:49)
[2021-05-23] MEDS: CRANBERRY FRUIT EXTRACT 400 MG CAP PO SCH ×2 (08:30→19:49)
[2021-05-23] MEDS: PANTOPRAZOLE 40MG TABLET PO SCH (08:30)
[2021-05-23] MEDS: TAMSULOSIN 0.4 MG SR CAP PO SCH (08:30)
[2021-05-23] MEDS: SOTALOL HCL 80 MG TAB PO SCH (08:31)
[2021-05-23] MEDS: RIVAROXABAN 20 MG TABLET PO SCH (16:18)
--- NOTE | 2021-05-23 17:40 | R.PN ---
PROGRESS NOTES ENCOUNTER DATE AND TIME: 05/23/2021 17:37 (CDT) NAME RAFI SCHRADER DATE OF : 1945 DATE OF ADMISSION: 05/10/2021 18:32 (CDT) RIGHT ISCHIUM FRACTURECHIEF COMPLAINT: Right ischium fracture SUBJECTIVE: Pt denied any depression. Pt denied any Shortness of Breath. WBC 7.4, Hgb 13.2, Plt 244, Na 134, prealbumin 19.7, UA is negative. Covid-19 is negative. Ambulated 1000' with standby assistance using rolling walker. Self-propelled wheelchair 250' with sta ndby assistance. Alternating attention tasks done with 93% accuracy. COVID-19 is negative today. VITAL SIGNS Temperature: 97.6 F SBP/DBP: 134/67 Pulse: 64 Resp: 16 MEDICATION ALLERGIES: No Known Drug Allergies (NKDA) ENVIRONMENTAL ALLERGIES: - Substance Allergies None Known - Other Allergies None Known NURSING: - Shower allowing shower - Skin care per protocol PRECAUTIONS: - Fall Precaution SAFTY AND FALL ACTIVITIES OOB only with supervision THERAPIES: - Dietary and Nutrition Adequate Nutrition. Nutritional Education. Nutritional Supplements. Evaluate and Treat. - Occupational Therapy Cognitive Retraining. Patient needs Occupational Therapy for a daily minimum of 1.5 hours at least 5 out of 7 days, to improve Activities of Daily Living, including: Eating, Grooming, Bathing, Dressing, Toileting, Toilet Transfers, Community Reintegration, Higher functional activities, Adaptive Equipme nt, Splinting, Household Tasks, and Other activities as determined. Visual Perceptual Training. Evalu ate and Treat. Patient/Family Education. Safety Awareness. Transfer Training. ADL Training. Household Tasks. Eating. UE Strengthening. - Speech Therapy Cognitive Training. Expressive Language Skills. Memory Strategies. Patient needs Speech Therapy for a daily minimum of 1.5 hours at least 5 out of 7 days, to improve: Swallowing, Cognition, Language Ski lls, and Compensatory Strategies. Receptive Language Skills. Speech Intelligibility Training. Evaluat e and Treat. - Physical Therapy Mobility Training. Patient needs Physical Therapy for a daily minimum of 1.5 hours at least 5 out of 7 days, to improve: Mobility, Strengthening, Transfers, Stretching, ROM, Endurance, Ability to manage stairs, Gait, and Balance. Balance Training. Gait Training. Safety Awareness. Transfer Training. Pat ient/Family Education. PHYSICAL EXAM - Gen Alert and awake Lying in bed No apparent distress Oriented to: person, time, and place - Skin No breakdown No abnormalities - Eyes No abnormalities - ENMT No abnormalities - Neck No abnormalities - CVS RRR - Chest No abnormalities - Abd Soft - GI Soft Deferred - No abnormalities - Ext Mild bilateral lower extremity edema. - MSK 4/5 weakness in left lower extremity. - Neuro 4/5 strength left upper and lower extremities. - Psych Mild depression. ASSESSMENT: Pt. is a 76 yo Right-handed male.On 05/05/2021 he was admitted to [facility] with di agnosis RIGHT ISCHIUM FRACTURE.[05/11/2021 17:31 (CDT), by Dr. Petros Sheets]Subacute left pontin e nonhemorrhagic infarction.His impairment category is Orthopaedic Disorders 08 - Pelvic Fracture (0 8.3).Pre-morbidly, Pt. was independent/mod-I in Locomotion, Safety Awareness, Social Cognition, Trans fers Control, and Balance; and he had good Transfers Control, Sphincter Control, Self-Care, and Endur ance.Currently, he has deficits of Locomotion, Safety Awareness, Balance, Social Cognition, Transfers Control, Self-Care, Sphincter Control, and Communication.Pt. is now referred to [facility] for acute in-patient rehabilitation in order to maximize patient's functional independe nce in activities of daily living, strength, ROM, and mobility.- Rehab Goal Patient has realistic goal of being discharged at assistance level 7-Ind to reside at Home with Fami ly/Relatives. MDM/PLAN: - Physical Therapy Decreased range of motion - to improve, our physical therapists will perform initial evaluation of p t's status upon admission and devise an individualized program for increasing patient's Range of Jamarcus on. Gait dysfunction - to improve, our physical therapists will perform initial evaluation of pt's statu s upon admission and devise an individualized program for Gait Training, and Wheel Chair mobility Inability to transfer - to improve, our physical therapists will perform initial evaluation of pt's status upon admission and devise an individualized program for Bed mobility Need for home safety evaluation - to improve, our physical therapists will perform initial evaluatio n of pt's status upon admission and devise an individualized program for Home Evaluation Need in caregiver upon discharge - to improve, our physical therapists will perform initial evaluati on of pt's status upon admission and devise an individualized program for Caregiver Training Edema - to improve, our physical therapists will perform initial evaluation of pt's status upon admi ssion and devise an individualized program for Elevation Training, and Lymphedema Therapy New precaution - to improve, our physical therapists will perform initial evaluation of pt's status upon admission and devise an individualized program for Patient precaution education Poor balance - to improve, our physical therapists will perform initial evaluation of pt's status up on admission and devise an individualized program for Balance Training Weakness - to improve, our physical therapists will perform initial evaluation of pt's status upon a dmission and devise an individualized program for Aquatic Therapy, Neuromuscular Reeducation, and Str engthening Achieving independence - to improve, our physical therapists will perform initial evaluation of pt's status upon admission and devise an individualized program for Community Reintegration Activities - Occupational Therapy ADL deficits - to improve, our occupation therapists will perform initial evaluation of pt's status upon admission and devise an individualized program for Bathing, Bed mobility, Community Reintegratio n, Cooking, Dressing, Eating, Fine Motor Skills, Grooming, Homemaking, Kitchen Mobility, Laundry, Pat ient Education, Safety Awareness, Splinting - Positioning, Transfers(Toilet, Tub, Shower), and Wheel Chair Management Cognitive deficits - to improve, our occupation therapists will perform initial evaluation of pt's s tatus upon admission and devise an individualized program for Cognition - orientation Need for farm or ranch animal caretaker - to improve, our occupation therapists will perform initial evaluation of pt's status upon admission and devise an individualized program for Caregiver Training Weakness - to improve, our occupation therapists will perform initial evaluation of pt's status upon admission and devise an individualized program for Aquatic Therapy, Balance, Endurance, UE ROM, and UE strengthening - Other See attached MAR (Medication Administration Record) - Diet Type Continue Regular - Diet - Liquid Texture Continue Regular - Tube Feed Continue N/A - Fall Precaution SAFTY AND FALL - Skin care per protocol - Diet - Solid Texture Continue Regular - Shower allowing shower FUNCTIONAL STATUS: UPDATED AT WEEKLY TEAM CONFERENCE - Bladder Same accident frequency: 7-Ind - No accidents in the past 7 days - Bowel Same accident frequency: 7-Ind - No accidents in the past 7 days - Walking Same score based on distance walked: 0(N/A) Same score based on distance walked: 1(<=50ft) - Wheelchair Same score based on distance traveled: 0(N/A) FUNCTIONAL STATUS: - Self-Care A. Eating Ind B. Grooming sup C. Bathing Devora D. Dressing - Upper Devora E. Dressing - Lower Devora F. Toileting Devora - Sphincter Control G. Bladder control Norma H. Bowel control Norma - Transfers Control I. Bed/Chair/Wheelchair Devora J. Toilet Devora K. Tub/Shower modA - Locomotion L. Walk/Wheelchair (B) Norma M. Stairs Ind - Communication N. Comprehension (B) Norma O. Expression (B) Norma - Social Cognition P. Social Interaction Ind Q. Problem Solving Ind R. Memory Norma - Endurance Fair - Balance Fair - Safety Awareness Good QI SCORES: - Self-Care A. Eating 04-Supervision or touching assistance B. Oral hygiene 03-Partial/moderate assistance C. Toileting hygiene 03-Partial/moderate assistance E. Shower/bathe self 03-Partial/moderate assistance F. Upper body dressing 03-Partial/moderate assistance G. Lower body dressing 03-Partial/moderate assistance H. Putting on/taking off footwear 88-Not attempted due to medical condition or safety concerns - Mobility A. Roll left and right 03-Partial/moderate assistance B. Sit to lying 03-Partial/moderate assistance C. Lying to sitting on side of bed 03-Partial/moderate assistance D. Sit to stand 03-Partial/moderate assistance E. Chair/[id number] transfer 03-Partial/moderate assistance F. Toilet transfer 03-Partial/moderate assistance G. Car transfer 88-Not attempted due to medical condition or safety concerns I. Walk 10 feet 03-Partial/moderate assistance J. Walk 50 feet with two turns 88-Not attempted due to medical condition or safety concerns K. Walk 150 feet 88-Not attempted due to medical condition or safety concerns L. Walking 10 feet on uneven surfaces 88-Not attempted due to medical condition or safety concerns M. 1 step (curb) 88-Not attempted due to medical condition or safety concerns N. 4 steps 88-Not attempted due to medical condition or safety concerns O. 12 steps 88-Not attempted due to medical condition or safety concerns P. Picking up object 03-Partial/moderate assistance R. Wheel 50 feet with two turns 88-Not attempted due to medical condition or safety concerns S. Wheel 150 feet 88-Not attempted due to medical condition or safety concerns - Bladder and Bowel Bladder continence Bowel continence - Endurance Fair - Balance Fair - Safety Awareness Fair CURRENT [facility]. DEFICITS: Self-Care, Mobility, Endurance, Balance, and Safety Awareness SIGNATURE PANEL: (CDT)
[2021-05-23] MEDS: ATORVASTATIN 40 MG TAB PO SCH (19:49)
[2021-05-23] MEDS: DOCUSATE NA/SENNA CONC 1 TAB PO SCH (19:56)
[2021-05-24] MEDS: LEVOTHYROXINE SOD 0.075 MG TAB PO SCH (06:40)
[2021-05-24] MEDS: POLYVINYL ALCOHOL 1.4% 15 ML EACH EYE PRN (06:51)
[2021-05-24] MEDS: LIDOCAINE 4% PATCH TOP SCH (07:28)
[2021-05-24] MEDS: TRAMADOL HCL 50 MG TAB PO PRN ×2 (07:28→17:35)
[2021-05-24 07:33] VITALS: BP 108/63; TEMP 97.8
[2021-05-24] MEDS: CRANBERRY FRUIT EXTRACT 400 MG CAP PO SCH (08:33)
[2021-05-24] MEDS: ASPIRIN EC 81 MG TAB PO SCH (08:33)
[2021-05-24] MEDS: PANTOPRAZOLE 40MG TABLET PO SCH (08:33)
[2021-05-24] MEDS: TAMSULOSIN 0.4 MG SR CAP PO SCH (08:33)
[2021-05-24] MEDS: AMLODIPINE 2.5 MG TAB PO SCH (08:33)
[2021-05-24] MEDS: CYANOCOBALAMIN 1,000 MCG TAB PO SCH (08:34)
[2021-05-24] MEDS: SOTALOL HCL 80 MG TAB PO SCH (08:34)
[2021-05-24] MEDS: RIVAROXABAN 20 MG TABLET PO SCH (17:34)
--- NOTE | 2021-05-24 17:45 | R.PN ---
PROGRESS NOTES ENCOUNTER DATE AND TIME: 05/24/2021 17:41 (CDT) NAME RAFI SCHRADER DATE OF : 1945 DATE OF ADMISSION: 05/10/2021 18:32 (CDT) RIGHT ISCHIUM FRACTURECHIEF COMPLAINT: Right ischium fracture SUBJECTIVE: Pt denied any depression. Pt denied any Shortness of Breath. WBC 7.4, Hgb 13.2, Plt 244, Na 134, prealbumin 19.7, UA is negative. Covid-19 is negative. Ambulated 500' with modified independence using rolling walkre, up and down 15 steps with contact gua rd assistance. Self-propelled wheelchair 250' with standby assistance. Alternating attention tasks done with 93% accuracy. COVID-19 is negative today. VITAL SIGNS Temperature: 97.8 F SBP/DBP: 108/63 Pulse: 80 Resp: 16 MEDICATION ALLERGIES: No Known Drug Allergies (NKDA) ENVIRONMENTAL ALLERGIES: - Substance Allergies None Known - Other Allergies None Known NURSING: - Shower allowing shower - Skin care per protocol PRECAUTIONS: - Fall Precaution SAFTY AND FALL ACTIVITIES OOB only with supervision THERAPIES: - Dietary and Nutrition Adequate Nutrition. Nutritional Education. Nutritional Supplements. Evaluate and Treat. - Occupational Therapy Cognitive Retraining. Patient needs Occupational Therapy for a daily minimum of 1.5 hours at least 5 out of 7 days, to improve Activities of Daily Living, including: Eating, Grooming, Bathing, Dressing, Toileting, Toilet Transfers, Community Reintegration, Higher functional activities, Adaptive Equipme nt, Splinting, Household Tasks, and Other activities as determined. Visual Perceptual Training. Evalu ate and Treat. Patient/Family Education. Safety Awareness. Transfer Training. ADL Training. Household Tasks. Eating. UE Strengthening. - Speech Therapy Cognitive Training. Expressive Language Skills. Memory Strategies. Patient needs Speech Therapy for a daily minimum of 1.5 hours at least 5 out of 7 days, to improve: Swallowing, Cognition, Language Ski lls, and Compensatory Strategies. Receptive Language Skills. Speech Intelligibility Training. Evaluat e and Treat. - Physical Therapy Mobility Training. Patient needs Physical Therapy for a daily minimum of 1.5 hours at least 5 out of 7 days, to improve: Mobility, Strengthening, Transfers, Stretching, ROM, Endurance, Ability to manage stairs, Gait, and Balance. Balance Training. Gait Training. Safety Awareness. Transfer Training. Pat ient/Family Education. PHYSICAL EXAM - Gen Alert and awake Lying in bed No apparent distress Oriented to: person, time, and place - Skin No breakdown No abnormalities - Eyes No abnormalities - ENMT No abnormalities - Neck No abnormalities - CVS RRR - Chest No abnormalities - Abd Soft - GI Soft Deferred - No abnormalities - Ext Mild bilateral lower extremity edema. - MSK 4/5 weakness in left lower extremity. - Neuro 4/5 strength left upper and lower extremities. - Psych Mild depression. ASSESSMENT: Pt. is a 76 yo Right-handed male.On 05/05/2021 he was admitted to [facility] with di agnosis RIGHT ISCHIUM FRACTURE.[05/11/2021 17:31 (CDT), by Dr. Petros Sheets]Subacute left pontin e nonhemorrhagic infarction.His impairment category is Orthopaedic Disorders 08 - Pelvic Fracture (0 8.3).Pre-morbidly, Pt. was independent/mod-I in Locomotion, Safety Awareness, Social Cognition, Trans fers Control, and Balance; and he had good Transfers Control, Sphincter Control, Self-Care, and Endur ance.Currently, he has deficits of Locomotion, Safety Awareness, Balance, Social Cognition, Transfers Control, Self-Care, Sphincter Control, and Communication.Pt. is now referred to [facility] for acute in-patient rehabilitation in order to maximize patient's functional independe nce in activities of daily living, strength, ROM, and mobility.- Rehab Goal Patient has realistic goal of being discharged at assistance level 7-Ind to reside at Home with Fami ly/Relatives. MDM/PLAN: - Physical Therapy Decreased range of motion - to improve, our physical therapists will perform initial evaluation of p t's status upon admission and devise an individualized program for increasing patient's Range of Jamarcus on. Gait dysfunction - to improve, our physical therapists will perform initial evaluation of pt's statu s upon admission and devise an individualized program for Gait Training, and Wheel Chair mobility Inability to transfer - to improve, our physical therapists will perform initial evaluation of pt's status upon admission and devise an individualized program for Bed mobility Need for home safety evaluation - to improve, our physical therapists will perform initial evaluatio n of pt's status upon admission and devise an individualized program for Home Evaluation Need in caregiver upon discharge - to improve, our physical therapists will perform initial evaluati on of pt's status upon admission and devise an individualized program for Caregiver Training Edema - to improve, our physical therapists will perform initial evaluation of pt's status upon admi ssion and devise an individualized program for Elevation Training, and Lymphedema Therapy New precaution - to improve, our physical therapists will perform initial evaluation of pt's status upon admission and devise an individualized program for Patient precaution education Poor balance - to improve, our physical therapists will perform initial evaluation of pt's status up on admission and devise an individualized program for Balance Training Weakness - to improve, our physical therapists will perform initial evaluation of pt's status upon a dmission and devise an individualized program for Aquatic Therapy, Neuromuscular Reeducation, and Str engthening Achieving independence - to improve, our physical therapists will perform initial evaluation of pt's status upon admission and devise an individualized program for Community Reintegration Activities - Occupational Therapy ADL deficits - to improve, our occupation therapists will perform initial evaluation of pt's status upon admission and devise an individualized program for Bathing, Bed mobility, Community Reintegratio n, Cooking, Dressing, Eating, Fine Motor Skills, Grooming, Homemaking, Kitchen Mobility, Laundry, Pat ient Education, Safety Awareness, Splinting - Positioning, Transfers(Toilet, Tub, Shower), and Wheel Chair Management Cognitive deficits - to improve, our occupation therapists will perform initial evaluation of pt's s tatus upon admission and devise an individualized program for Cognition - orientation Need for day care director - to improve, our occupation therapists will perform initial evaluation of pt's status upon admission and devise an individualized program for Caregiver Training Weakness - to improve, our occupation therapists will perform initial evaluation of pt's status upon admission and devise an individualized program for Aquatic Therapy, Balance, Endurance, UE ROM, and UE strengthening - Other See attached MAR (Medication Administration Record) - Diet Type Continue Regular - Diet - Liquid Texture Continue Regular - Tube Feed Continue N/A - Fall Precaution SAFTY AND FALL - Skin care per protocol - Diet - Solid Texture Continue Regular - Shower allowing shower FUNCTIONAL STATUS: UPDATED AT WEEKLY TEAM CONFERENCE - Bladder Same accident frequency: 7-Ind - No accidents in the past 7 days - Bowel Same accident frequency: 7-Ind - No accidents in the past 7 days - Walking Same score based on distance walked: 0(N/A) Same score based on distance walked: 1(<=50ft) - Wheelchair Same score based on distance traveled: 0(N/A) FUNCTIONAL STATUS: - Self-Care A. Eating Ind B. Grooming sup C. Bathing Devora D. Dressing - Upper Devora E. Dressing - Lower Devora F. Toileting Devora - Sphincter Control G. Bladder control Norma H. Bowel control Norma - Transfers Control I. Bed/Chair/Wheelchair Devora J. Toilet Devora K. Tub/Shower modA - Locomotion L. Walk/Wheelchair (B) Norma M. Stairs Ind - Communication N. Comprehension (B) Norma O. Expression (B) Norma - Social Cognition P. Social Interaction Ind Q. Problem Solving Ind R. Memory Norma - Endurance Fair - Balance Fair - Safety Awareness Good QI SCORES: - Self-Care A. Eating 04-Supervision or touching assistance B. Oral hygiene 03-Partial/moderate assistance C. Toileting hygiene 03-Partial/moderate assistance E. Shower/bathe self 03-Partial/moderate assistance F. Upper body dressing 03-Partial/moderate assistance G. Lower body dressing 03-Partial/moderate assistance H. Putting on/taking off footwear 88-Not attempted due to medical condition or safety concerns - Mobility A. Roll left and right 03-Partial/moderate assistance B. Sit to lying 03-Partial/moderate assistance C. Lying to sitting on side of bed 03-Partial/moderate assistance D. Sit to stand 03-Partial/moderate assistance E. Chair/[id number] transfer 03-Partial/moderate assistance F. Toilet transfer 03-Partial/moderate assistance G. Car transfer 88-Not attempted due to medical condition or safety concerns I. Walk 10 feet 03-Partial/moderate assistance J. Walk 50 feet with two turns 88-Not attempted due to medical condition or safety concerns K. Walk 150 feet 88-Not attempted due to medical condition or safety concerns L. Walking 10 feet on uneven surfaces 88-Not attempted due to medical condition or safety concerns M. 1 step (curb) 88-Not attempted due to medical condition or safety concerns N. 4 steps 88-Not attempted due to medical condition or safety concerns O. 12 steps 88-Not attempted due to medical condition or safety concerns P. Picking up object 03-Partial/moderate assistance R. Wheel 50 feet with two turns 88-Not attempted due to medical condition or safety concerns S. Wheel 150 feet 88-Not attempted due to medical condition or safety concerns - Bladder and Bowel Bladder continence Bowel continence - Endurance Fair - Balance Fair - Safety Awareness Fair CURRENT [facility]. DEFICITS: Self-Care, Mobility, Endurance, Balance, and Safety Awareness SIGNATURE PANEL: (CDT)
--- NOTE | 2021-05-26 19:30 | PAPE ---
POST ADMISSION PHYSICIAN EVALUATION PATIENT: [facility] MR# [id number] REFERRING DOCTOR BRENNAN PASTRANA MD EVALUATION DATE AND TIME 05/11/2021 17:36 (CDT) NAME RAFI SCHRADER DATE OF 1945 AGE 76 PHONE N# [id number] GENDER male EVALUATING PHYSICIAN Dr. Petros Sheets M.D. ADMISSION DIAGNOSIS: RIGHT ISCHIUM FRACTURE ONSET DATE 05/05/2021 POST-ADMISSION FUNCTIONAL/MEDICAL STATUS: - Bladder Same accident frequency: 7-Ind - No accidents in the past 7 days - Bowel Same accident frequency: 7-Ind - No accidents in the past 7 days - Walking Same score based on distance walked: 0(N/A) Same score based on distance walked: 1(<=50ft) - Wheelchair Same score based on distance traveled: 0(N/A) STATUS CHANGE EVALUATION: No change in Functional or Medical Status is identified compared with Pre-Admission screening. PATIENT NEEDS CLOSE MEDICAL SUPERVISION BY A REHABILITATION PHYSICIAN FOR: Coordination of Treatment Team Wound Care Medical and Co-Morbidity Management Pain Management DVT Management PATIENT REQUIRES 24X7 REHAB NURSING FOR MEDICAL AND FUNCTIONAL MGT. OF THE FOLLOWING DEFICITS: Disease Management Medication Management Patient requires 24x7 Rehabilitation Nursing for: Pain Issues, Identifying and preventing risk factor s, Monitoring and reporting current medical conditions, Assisting with ambulation and transfer, Luis A ting with all ADL-s, Teaching patients about disease process and medications, Family teaching, Provid ing safe environment, Bowel and Bladder Issues, Skin Integrity, and Medication Management Patient/Family Education Providing Safe Environment Skin Integrity Bowel and Bladder Management Pain Management PATIENT REQUIRES INTENSIVE, COORDINATED INTERDISCIPLINARY APPROACH TO REHAB: Arranging Home Equipment/Services Discharge Planning Family Intervention/Training Patient needs Dietary and Nutrition Services for: Adequate Nutrition, Nutritional Supplements, and Nu tritional Education Patient needs Health Psychologist and/or Case Management for: Discharge Planning, Arranging Home Equipmen t or Services, and Family Interventions Health Psychologist/Case Management LIST OF IDENTIFIED AND POTENTIAL PROBLEMS: Alteration in leisure activities Bladder, Incontinence Bowel, Incontinence Infection, Actual or Potential Mobility Impaired Pain, Alteration in Comfort Self Care Deficit Skin Integrity, Actual or Potential Urinary Tract Infection (UTI), Actual or Potential RISK FOR COMPLICATIONS - CARDIC AFIB. - Weakness Regular therapeutic activity and exercise. Strengthening exercises to be performed. - SKIN BREAKDOWN Nursing will assess skin daily using assessment tool and will place on Skin Breakdown Precautions as Indicated per protocol. - FALLS Patient will be evaluated for Fall Precautions and will be placed on Fall Precautions as indicated pe r protocol. - DVT PTT and INR will be monitored to effectively mitigate risk for development of DVT or PE while here. M edications will be administered as per MD. Mobility training and regular exercise. - Pain Educate patient on pain management strategies. Clinical staff will assess patient's pain level every shift per protocol to monitor for pain management effectiveness. - CVA pt has history of recent CVA. Will monitor blood pressure and manage with medication. pt has A-Fib a nd requires medical monitoring and medication management to reduce risk for CVA. pt's blood pressures have been inconsistent and require monitoring and medication management as inidicated by physician. INTERVENTIONS - A-Fib monitor for complications. Vitals will be monitored regularly and medications administered as indicat ed by Physician. - HYPERLIPIDEMIA Patient is to continue on lipitor 40 mg p.o. daily. - CHF monitoring of patient symptoms and medication management by physician. Daily weights will be obtained . Regular assessment of patient vitals. PATIENT COULD BE AT RISK FOR COMPLICATIONS FROM ADVERSE MEDICAL CONDITIONS DUE TO HIS/HER COMORBIDITI ES AND THE RIGORS OF THE INTENSIVE REHABILLITATION PROGRAM. METHODS OR INTERVENTIONS TO AVOID COMPLIC ATIONS INCLUDE: - Deep Vein Thrombosis (DVT) Prophylaxis therapy for prevention . Sequential Compression Device (SCD). TE D Hose. - Bleeding Assess lab values and manage abnormalities. Nursing to teach precautions for anti-coagulation therapy . Wound to be assessed every shift. - Infection Clinical staff to assess and manage the signs and symptoms of infection including fever, redness, war mth, etc. - Urinary Tract Infection - Falls Patient will be evaluated for Fall Precautions and will be placed on Fall Precautions as indicated pe r protocol. - Skin Breakdown Nursing will assess skin daily using assessment tool and will place on Skin Breakdown Precautions as indicated per protocol. - Pain Clinical staff may employ non-medication methods such as massage, distraction, decrease stimulus, etc . as needed. Clinical staff will assess patient's pain level every shift per protocol to assess and e nsure pain management effectiveness. Medications will be given and the pain level re-assessed. PRELIMINARY PLAN OF CARE: - Physical Therapy Patient needs Physical Therapy for a daily minimum of 1.5 hours at least 5 out of 7 days, to improve: Mobility, Strengthening, Transfers, Stretching, ROM, Endurance, Ability to manage stairs, Gait, and Balance. - Speech Therapy Patient needs Speech Therapy for a daily minimum of 0.5 hours at least 5 out of 7 days, to improve: S wallowing, Cognition, Language Skills, and Compensatory Strategies. - Rehabilitation Nursing Patient requires 24x7 Rehabilitation Nursing for: Pain Issues, Identifying and preventing risk factor s, Monitoring and reporting current medical conditions, Assisting with ambulation and transfer, Luis A ting with all ADL-s, Teaching patients about disease process and medications, Family teaching, Provid ing safe environment, Bowel and Bladder Issues, Skin Integrity, and Medication Management. Patient needs Health Psychologist and/or Case Management for: Discharge Planning, Arranging Home Equipmen t or Services, and Family Interventions. - Dietary and Nutrition Services Patient needs Dietary and Nutrition Services for: Adequate Nutrition, Nutritional Supplements, and Nu tritional Education. - Occupational Therapy Patient needs Occupational Therapy for a daily minimum of 1.5 hours at least 5 out of 7 days, to impr ove Activities of Daily Living, including: Eating, Grooming, Bathing, Dressing, Toileting, Toilet Tra nsfers, Community Reintegration, Higher functional activities, Adaptive Equipment, Splinting, Househo ld Tasks, and Other activities as determined. QI SCORES: - Self-Care A. Eating 04-Supervision or touching assistance B. Oral hygiene 03-Partial/moderate assistance C. Toileting hygiene 03-Partial/moderate assistance E. Shower/bathe self 03-Partial/moderate assistance F. Upper body dressing 03-Partial/moderate assistance G. Lower body dressing 03-Partial/moderate assistance H. Putting on/taking off footwear 88-Not attempted due to medical condition or safety concerns - Mobility A. Roll left and right 03-Partial/moderate assistance B. Sit to lying 03-Partial/moderate assistance C. Lying to sitting on side of bed 03-Partial/moderate assistance D. Sit to stand 03-Partial/moderate assistance E. Chair/nqr-nl-zfwnj transfer 03-Partial/moderate assistance F. Toilet transfer 03-Partial/moderate assistance G. Car transfer 88-Not attempted due to medical condition or safety concerns I. Walk 10 feet 03-Partial/moderate assistance J. Walk 50 feet with two turns 88-Not attempted due to medical condition or safety concerns K. Walk 150 feet 88-Not attempted due to medical condition or safety concerns L. Walking 10 feet on uneven surfaces 88-Not attempted due to medical condition or safety concerns M. 1 step (curb) 88-Not attempted due to medical condition or safety concerns N. 4 steps 88-Not attempted due to medical condition or safety concerns O. 12 steps 88-Not attempted due to medical condition or safety concerns P. Picking up object 03-Partial/moderate assistance R. Wheel 50 feet with two turns 88-Not attempted due to medical condition or safety concerns S. Wheel 150 feet 88-Not attempted due to medical condition or safety concerns - Bladder and Bowel Bladder continence Bowel continence - Endurance Fair - Balance Fair - Safety Awareness Fair POTENTIAL FUNCTIONAL GOALS FOR PATIENT TO ACHIEVE BY DISCHARGE: - Safety Precaution Patient will remain free from falls or injury at time of discharge. - Bed Mobility Patient will perform bed mobility at 4-Devora level of assistance. - Transfers Patient will complete transfers from bed to chair at 4-Devora level of assistance. - Mobility Patient will ambulate 150 ft with 4-Devora level of assistance with RW. PATIENT REHAB POTENTIAL Jose SCHRADER is able and expected to receive 3 hours of individualized therapy daily on at least 5 of tami 7 days Jose TEJADAs prognosis for significant practical improvement within a reasonable period of time appears Good Expected level of measurable improvement will be of a practical value to Joes SCHRADER's functional capaci ty or adaptations to impairments Has a viable Discharge Plan Medically appropriate; condition is sufficiently stable to participate in intensive rehab program DISCHARGE PLAN: - Estimated Length of Stay (days) 12. - Consensus on plan Discharge plan has been discussed with primary caregiver. Patient/Family is in agreement with the mir n. Primary caregiver is in agreement with the plan. - Patient/Family Goals Return home independently. - Planned Living Setting Upon Discharge Home, to live with Family/Relatives. Transitional Living. CONCLUSION ON REHABILITATION NECESSITY: I have evaluated patient's pre-admission functional status and, comparing it to the patient's post-ad mission functional status now, I conclude that the pre-admission assessment was accurate. Patient's c ondition on admission supports the medical necessity of admission to IRF. It is safe to proceed with patient's therapy program. SIGNATURE PANEL: (CDT)
--- NOTE | 2021-05-26 19:31 | R.DS ---
DISCHARGE SUMMARY FACILITY [facility] MR# [id number] NAME RAFI SCHRADER ADDRESS [address] [place] [address]IP [id number] PHONE DATE OF 1945 AGE 76 SSN# [id number] GENDER Male MARITAL STATUS Single (Never ) ENCOUNTER PHYSICIAN Dr. Petros Sheets M.D. REFERRING DOCTOR BRENNAN PASTRANA MD REFERRING FACILITY [facility] DISCHARGE DIAGNOSIS: - Orthopaedic Disorders 08 - Pelvic Fracture (08.3) RIGHT ISCHIUM FRACTURE. DATE OF ADMISSION 05/10/2021 18:32 (CDT) MEDICATION ALLERGIES: No Known Drug Allergies (NKDA) ENVIRONMENTAL ALLERGIES: - Substance Allergies None Known - Other Allergies None Known DISCHARGE MEDICATIONS: Other- ContinueSee attached MAR (Medication Administration Record). NURSING: - Shower allowing shower - Skin care per protocol PRECAUTIONS: - Fall Precaution SAFTY AND FALL ACTIVITIES OOB only with supervision THERAPIES: - Dietary and Nutrition Adequate Nutrition Nutritional Education Nutritional Supplements Evaluate and Treat - Occupational Therapy Cognitive Retraining Patient needs Occupational Therapy for a daily minimum of 1.5 hours at least 5 out of 7 days, to impr ove Activities of Daily Living, including: Eating, Grooming, Bathing, Dressing, Toileting, Toilet Tra nsfers, Community Reintegration, Higher functional activities, Adaptive Equipment, Splinting, Househo ld Tasks, and Other activities as determined Visual Perceptual Training Evaluate and Treat Patient/Family Education Safety Awareness Transfer Training ADL Training Household Tasks Eating UE Strengthening - Speech Therapy Cognitive Training Expressive Language Skills Memory Strategies Patient needs Speech Therapy for a daily minimum of 1.5 hours at least 5 out of 7 days, to improve: S wallowing, Cognition, Language Skills, and Compensatory Strategies Receptive Language Skills Speech Intelligibility Training Evaluate and Treat - Physical Therapy Mobility Training Patient needs Physical Therapy for a daily minimum of 1.5 hours at least 5 out of 7 days, to improve: Mobility, Strengthening, Transfers, Stretching, ROM, Endurance, Ability to manage stairs, Gait, and Balance Balance Training Gait Training Safety Awareness Transfer Training Patient/Family Education HISTORY OF PRESENT ILLNESS: Pt. is a 76 yo Right-handed male.On 05/05/2021 he was admitted to [facility] with di agnosis RIGHT ISCHIUM FRACTURE.[05/11/2021 17:31 (CDT), by Dr. Petros Sheets]Subacute left pontin e nonhemorrhagic infarction.His impairment category is Orthopaedic Disorders 08 - Pelvic Fracture (0 8.3).Pre-morbidly, Pt. was independent/mod-I in Locomotion, Safety Awareness, Social Cognition, Trans fers Control, and Balance; and he had good Transfers Control, Sphincter Control, Self-Care, and Endur ance.Currently, he has deficits of Locomotion, Safety Awareness, Balance, Social Cognition, Transfers Control, Self-Care, Sphincter Control, and Communication.Pt. is now referred to [facility] for acute in-patient rehabilitation in order to maximize patient's functional independe nce in activities of daily living, strength, ROM, and mobility.- Rehab Goal Patient has realistic goal of being discharged at assistance level 7-Ind to reside at Home with Fami ly/Relatives. DIET - LIQUID TEXTURE: On 05/09/2021 Pt was upgraded to Regular Diet - Liquid Texture. DIET - SOLID TEXTURE: On 05/09/2021 Pt was upgraded to Regular Diet - Solid Texture. DIET TYPE: On 05/09/2021 Pt was upgraded to Regular Diet Type. FALL PRECAUTION: On 05/09/2021 the following precautions were added for the patient: Fall Precaution - SAFTY AND FALL. On 05/11/2021 the following precautions were added for the patient: Fall Precaution - SAFTY AND FALL . On 05/13/2021 the following precautions were removed for the patient: Fall Precaution - SAFTY AND FA LL. On 05/15/2021 the following precautions were added for the patient: Fall Precaution - SAFTY AND FALL . The following precautions were removed for the patient: Fall Precaution - SAFTY AND FALL, and Fall Pr ecaution - SAFTY AND FALL. TUBE FEED: On 05/09/2021 Pt was changed to N/A Tube Feed. DISCHARGE PHYSICAL EXAM - Gen Alert and awake Lying in bed No apparent distress Oriented to: person, time, and place - Skin No breakdown No abnormalities - Eyes No abnormalities - ENMT No abnormalities - Neck No abnormalities - CVS RRR - Chest No abnormalities - Abd Soft - GI Soft Deferred - No abnormalities - Ext Mild bilateral lower extremity edema. - MSK 4/5 weakness in left lower extremity. - Neuro 4/5 strength left upper and lower extremities. - Psych Mild depression. FUNCTIONAL STATUS: - Self-Care A. Eating 7-Ind B. Grooming 6-Norma C. Bathing 6-Norma D. Dressing - Upper 6-Norma E. Dressing - Lower 6-Norma F. Toileting 6-Norma - Sphincter Control G. Bladder control 6-Norma H. Bowel control 6-Norma - Transfers Control I. Bed/Chair/Wheelchair 6-Norma J. Toilet 6-Norma K. Tub/Shower 6-Norma - Locomotion L. Walk/Wheelchair (B) 6-Norma M. Stairs 7-Ind - Communication N. Comprehension (B) 6-Norma O. Expression (B) 6-Norma - Social Cognition P. Social Interaction 7-Ind Q. Problem Solving 7-Ind R. Memory 6-Norma - Endurance Good - Balance Good - Safety Awareness Good QI SCORES: - Self-Care A. Eating 04-Supervision or touching assistance B. Oral hygiene 03-Partial/moderate assistance C. Toileting hygiene 03-Partial/moderate assistance E. Shower/bathe self 03-Partial/moderate assistance F. Upper body dressing 03-Partial/moderate assistance G. Lower body dressing 03-Partial/moderate assistance H. Putting on/taking off footwear 88-Not attempted due to medical condition or safety concerns - Mobility A. Roll left and right 03-Partial/moderate assistance B. Sit to lying 03-Partial/moderate assistance C. Lying to sitting on side of bed 03-Partial/moderate assistance D. Sit to stand 03-Partial/moderate assistance E. Chair/yor-va-qstfi transfer 03-Partial/moderate assistance F. Toilet transfer 03-Partial/moderate assistance G. Car transfer 88-Not attempted due to medical condition or safety concerns I. Walk 10 feet 03-Partial/moderate assistance J. Walk 50 feet with two turns 88-Not attempted due to medical condition or safety concerns K. Walk 150 feet 88-Not attempted due to medical condition or safety concerns L. Walking 10 feet on uneven surfaces 88-Not attempted due to medical condition or safety concerns M. 1 step (curb) 88-Not attempted due to medical condition or safety concerns N. 4 steps 88-Not attempted due to medical condition or safety concerns O. 12 steps 88-Not attempted due to medical condition or safety concerns P. Picking up object 03-Partial/moderate assistance R. Wheel 50 feet with two turns 88-Not attempted due to medical condition or safety concerns S. Wheel 150 feet 88-Not attempted due to medical condition or safety concerns - Bladder and Bowel Bladder continence Bowel continence - Endurance Fair - Balance Fair - Safety Awareness Fair DISCHARGE INSTRUCTIONS: - N/A Aspirin 81 mg daily. DISCHARGE PLAN, FOLLOW UP CARE PROVISIONS: - Estimated Length of Stay (days) 12. - Consensus on plan Discharge plan has been discussed with primary caregiver. Patient/Family is in agreement with the mir n. Primary caregiver is in agreement with the plan. - Patient/Family Goals Return home independently. - Planned Living Setting Upon Discharge Home, to live with Family/Relatives. Transitional Living. SIGNATURE PANEL: (CDT)
== END 2021-05-24 18:15 | disposition home health service (06) | DRG 560 ==
LOC: 5TH 18:32
PROVIDERS: ADMIT Psychiatry & Neurology Neurology with Special Qualifications in Child Neurology; ATTEND Psychiatry & Neurology Neurology with Special Qualifications in Child Neurology
DX: S32.601D Unspecified fracture of right ischium, subsequent encounter for fracture with routine healing (principal); I69.351 Hemiplegia and hemiparesis following cerebral infarction affecting right dominant side; I48.91 Unspecified atrial fibrillation; E78.5 Hyperlipidemia, unspecified; B35.1 Tinea unguium; I10 Essential (primary) hypertension; Z79.01 Long term (current) use of anticoagulants; Z20.822 Contact with and (suspected) exposure to COVID-19
CPT/HCPCS: 36415; 70450; 80048; 81003; 81015; 82040; 83735; 84134; 85025; 87086; 87088; 92523; 94640; 97110; 97116; 97129; 97130; 97161; 97530; 97542; U0003

== ENCOUNTER 2022-11-05 10:32 | Emergency (ER) | payer OTHER ==
--- OUTSIDE RECORDS SUMMARY | 2022-11-05 10:35 | XMS REPORT | Continuity of Care Document ---
:1945 Author Organization [facility] t Address [address] [place] [address] Care Team Providers Name Role Phone DIMAS GONZALEZ Primary Care Physician Unavailable Sukhjinder Bustamante Attending Clinician Unavailable YUNG QUACH Attending Clinician Unavailable YUNG QUACH Attending Clinician Unavailable Yung Quach MD Attending Clinician Doctor Unassigned, [place] Attending Clinician Unavailable Alma Rosa Shaw DO Attending Clinician BRENNAN PASTRANA Attending Clinician Unavailable ZAMZAM POWELL Attending Clinician Unavailable ALMA ROSA SHAW Attending Clinician Unavailable ALMA ROSA SHAW Attending Clinician Unavailable Therapist, Adc Respiratory Attending Clinician Unavailable Indra Woodall MD Attending Clinician Only, Adc Test Attending Clinician Unavailable Miki Nieto MD Attending Clinician Arlene Chou Attending Clinician Ayesha Roa MD Attending Clinician 2, Adc Lab Attending Clinician Unavailable AYESHA ROA Attending Clinician Unavailable Rm, Adc Surg Spec Procedure Attending Clinician Unavailable ANASTASIA LUA Attending Clinician Unavailable Armani Roca MD Attending Clinician Sukhjinder Bustamante Admitting Clinician Unavailable YUNG QUACH Admitting Clinician Unavailable JOSEFA DEJESUS Admitting Clinician Unavailable Payers Payer Name Policy Type Policy Number Effective Date Expiration Date S r[place] MEDICARE PART A \T\ [id number] 2012 B 00:00:00 MEDICAID [facility] [id number] 2012 00:00:00 MEDICARE A B [id number] 2012 00:00:00 MEDICAID [facility] [id number] 2021 00:00:00 [place]ICA[place] [id number] Problems Condition Condition Condition Status Onset Resolution Last Treating Co mments Source Name Details Category Date Date Treatment Clinician Date No known No known Disease Unive rs active active ity of problems problems [facility] Allergies, Adverse Reactions, Alerts Allergy Allergy Status Severity Reaction(s) Onset Inactive Treating Comm ents Source Name Type Date Date Clinician NO KNOWN Allergy Active [facility] NO KNOWN Drug Active Univers ALLERGIE Class ity of S [facility] Social History Social Habit Start Date Stop Date Quantity Comments Source History SDOH University o f Alcohol Frequency [place] M edical Branch History SDOH University o f Alcohol Std [place] Medical Drinks Branch History SDOH University o f Alcohol Binge [place] Medic al Branch History of Current smoker University of tobacco use [facility] Exposure to 2021-08-26 2021-09-05 Not sure University of SARS-CoV-2 00:00:00 15:06:00 [facility] [place] [facility] (event) [place] Tobacco use and 2021-09-05 2021-09-05 Smokeless tobacco Un iversity of exposure 00:00:00 00:00:00 non-user [facility] Alcohol intake 2021-09-05 2021-09-05 Current drinker Unive rsity of 00:00:00 00:00:00 of alcohol [facility] [place] [facility] (finding) [place] Tobacco Comment 2021-09-05 2021-09-05 Quit smoking 6 Unive rsity of 00:00:00 00:00:00 years ago; smoked [facility] edical 1PPD X 40 years Branch Alcohol Comment 2014-12-14 2014-12-14 Occasional Universit y of 00:00:00 00:00:00 Drinker [facility] Sex [birth year] Universit y of 00:00:00 00:00:00 [facility] Smoking Status Start Date Stop Date Source Ex-smoker 2021-09-05 00:00:00 2021-09-05 00:00:00 Universi ty of [facility] Medications Ordered Filled Start Stop Current Ordering Indication Dosage Frequency Signature Comments Components Source Medication Medication Date Date Medication? Clinician (SIG) Name Name arformotero Yes [id number] 15ug Use 2 mL Univers L (BROVANA) 4-12 as ity of 15 mcg/2 mL 00:00: directed 2 [place] nebulizer 00 (two) Medical solution times Branch daily. Via nebulizer arformotero Yes [id number] 15ug Use 2 mL Univers L (BROVANA) 4-12 as ity of 15 mcg/2 mL 00:00: directed 2 [place] nebulizer 00 (two) Medical solution times Branch daily. Via nebulizer amLODIPine 2021-0 Yes 2.5mg Take 2.5 Un chaitanya 2.5 mg 3-10 mg by ity of tablet 09:24: mouth 2 [place] [address] (two) Medical times Branch daily. amLODIPine 2021-0 Yes 2.5mg Take 2.5 Un chaitanya 2.5 mg 3-10 mg by ity of tablet 09:24: mouth 2 [place] 33 (two) Medical times Branch daily. lisinopril 0 Yes 20mg Take 20 mg U nivers (PRINIVIL,Z 3-10 by mouth 2 it y of ESTRIL) 20 09:11: (two) [place] mg tablet 22 times Medical daily. Branch atorvastati Yes 40mg Take 40 mg Univers n (LIPITOR) 3-10 by mouth ity of 40 mg 09:11: at [place] tablet 22 bedtime. Medical Branch clopidogrel 2021-0 Yes 75mg Take 75 mg Univers (PLAVIX) 75 3-10 by mouth ity of mg tablet 09:11: daily. [place] [address] Medical Branch sotalol 2021-0 Yes 80mg Take 80 mg Univ ers (BETAPACE) 3-10 by mouth 2 ity of 80 mg 09:11: (two) [place] tablet 22 times Medical daily. Branch pantoprazol Yes 40mg Take 40 mg Univers e 3-10 by mouth ity of (PROTONIX) 09:11: daily. [place] 40 mg EC 22 Medical tablet Branch lisinopril Yes 20mg Take 20 mg U nivers (PRINIVIL,Z 3-10 by mouth 2 it y of ESTRIL) 20 09:11: (two) [place] mg tablet 22 times Medical daily. Branch atorvastati Yes 40mg Take 40 mg Univers n (LIPITOR) 3-10 by mouth ity of 40 mg 09:11: at [place] tablet 22 bedtime. Medical Branch clopidogrel Yes 75mg Take 75 mg Univers (PLAVIX) 75 3-10 by mouth ity of mg tablet 09:11: daily. [place] [address] Medical Branch sotalol Yes 80mg Take 80 mg Univ ers (BETAPACE) 3-10 by mouth 2 ity of 80 mg 09:11: (two) [place] tablet 22 times Medical daily. Branch pantoprazol Yes 40mg Take 40 mg Univers e 3-10 by mouth ity of (PROTONIX) 09:11: daily. [place] 40 mg EC 22 Medical tablet Branch albuterol Yes [id number] 2.5mg Inhale 3 Univers 2.5 mg /3 3-10 mL every 6 ity of mL (0.083 00:00: (six) [place] %) 00 hours as Medical nebulizer needed for Bran ch solution Wheezing or Shortness of Breath. albuterol Yes [id number] 2.5mg Inhale 3 Univers 2.5 mg /3 [...] TO REDUCE AFTERTASTE AND INCIDENCE FLOVENT HFA Yes INHALE ONE Univers 44 3-04 (1) PUFF ity of mcg/actuati 00:00: [place]TH [place] inhaler 00 IN THE Medical MORNING Branch AND 1 PUFF BEFORE BEDTIME. RINSE MOUTH WITH WATER AFTER USE TO REDUCE AFTERTASTE AND INCIDENCE cyanocobala 2021-0 Yes INJECT 1 Un chaitanya min 1,000 3-03 ML IN THE ity o f mcg/mL 00:00: MUSCLE [place] injection TWICE A Medical WEEK FOR1 Branch MONTH THEN 1 ML IN THE MUSCLE EVERY MONTH cyanocobala 2021-0 Yes INJECT 1 Un chaitanya min 1,000 3-03 ML IN THE ity o f mcg/mL 00:00: MUSCLE [place] injection 00 TWICE A Medical WEEK FOR1 Branch MONTH THEN 1 ML IN THE MUSCLE EVERY MONTH doxycycline 2021-0 Yes TAKE 1 Univ ers [...] 00:00: for [employer]igestio Medical nDx gerd Branch XARELTO 20 2021-0 Yes 20mg Take 20 mg U nivers mg tablet 2-23 by mouth ity of 00:00: every morning. Medical Branch XARELTO 20 2021-0 Yes 20mg Take 20 mg U nivers mg tablet 2-23 by mouth ity of 00:00: every morning. Medical Branch clonazePAM 2021-0 Yes .5mg Take 0.5 Uni vers 0.5 mg 2-22 mg by ity of tablet 00:00: mouth 2 (two) Medical times Branch daily as needed. clonazePAM 2-0 Yes .5mg Take 0.5 Uni [...] ity o f tablet 00:00: MOUTH IN [place] 00 THE Medical MORNING ON Branch AN EMPTY STOMACH FOR THYROID DISEASE. levothyroxi 2020-02 Yes TAKE 1 Univ ers ne 75 mcg 0-25 TABLET BY ity o f tablet 00:00: MOUTH IN [place] 00 THE Medical MORNING ON Branch AN EMPTY STOMACH FOR THYROID DISEASE. Immunizations Ordered Filled Immunization Date Status Comments [facility] Immunization Name Name SARS-COV-2 COVID-19 2020-05-16 Completed Unive rsity of MODERNA VACCINE 00:00:00 [facility] SARS-COV-2 COVID-19 2020-05-16 Completed Unive rsity of MODERNA VACCINE 00:00:00 [facility] SARS-COV-2 COVID-19 2020-04-18 Completed Unive rsity of MODERNA VACCINE 00:00:00 [facility] SARS-COV-2 COVID-19 2020-04-18 Completed Unive rsity of MODERNA VACCINE 00:00:00 [facility] Vital Signs Vital Name Observation Time Observation Value Comments Source Systolic blood 2021-09-05 20:19:00 106 mm[Hg] Univer sity of [facility] [place] Diastolic blood 2021-09-05 20:19:00 73 mm[Hg] Unive rsity of [facility] [place] Heart rate 2021-09-05 20:19:00 80 /min [facility] Body height 2021-09-05 20:19:00 167.6 cm [facility] Body weight 2021-09-05 20:19:00 56.7 kg [facility] BMI 2021-09-05 20:19:00 20.18 kg/m2 [facility] Procedures Procedure Date / Time Performed Performing Clinician Sourc e CT HEAD WO CONTRAST 2021-10-03 15:40:54 Yung Quach [facility] Encounters Start End Encounter Admission Attending Care Care Encounter Source Date/Time Date/Time Type Type Clinicians Facility Department ID 2022-03-07 Inpatient NITZA Bustamante [facility] [id number] [facility] 11:45:00 Sukhjinder 77 [facility] 2022-02-07 Inpatient MIGUEL A BustamanteWU [facility] [id number] [facility] 10:30:00 Sukhjinder 41 [facility] 2021-10-03 2021-10-03 Outpatient YUNG FALCON [facility] [id number] Univers 09:47:35 23:59:00 YUNG QUACH [facility] 2021-10-03 2021-10-03 [facility] Philomena [facility] [id number] Univers 09:47:35 23:59:00 [facility] [id number] ity [facility] 4.2.7.2.686 [facility] [id number] [place] [address] Branch 2021-09-25 2021-09-25 Outpatient YUNG FALCON [facility] [id number] Univers 00:00:00 00:00:00 YUNG QUACH [facility] 2021-09-19 2021-09-19 Outpatient YUNG FALCON [facility] [id number] Univers 00:00:00 00:00:00 YUNG QUACH [facility] 2021-09-19 2021-09-19 Outpatient YUNG FALCON [facility] [id number] Univers 00:00:00 00:00:00 YUNG QUACH [facility] 2021-09-05 2021-09-05 Office Philomena [facility] [id number] Univers 15:00:00 16:09:09 Visit Yung Zhao [facility] [id number] ity [facility] 4.2.7.2.686 [place] LAURIE?BLEA [phone] Ca farrah PERALES [address] [place] [address] MEDICAL OFFICE BUILDING 2021-09-05 2021-09-05 Outpatient R PHILOMENA YUNG [facility] [id number] Univers 15:00:00 16:09:09 PHILOMENA YUNG paul [facility] 2021-09-05 2021-09-05 Outpatient R PHILOMENA YUNG [facility] [id number] Univers 15:00:00 15:00:00 PHILOMENA YUNG carmichael [facility] 2021-09-05 2021-09-05 Orders Doctor DUDLEY [id number] Univers 00:00:00 00:00:00 Only Unassigned, [place] [id number] ity of [place] [facility] 4.2.7.2.686 [place] as [phone] [address] 2021-05-30 2021-05-30 Orders Doctor DUDLEY 1.2.840.114 [id number] Univers 00:00:00 00:00:00 Only Unassigned, [place]LE[place] [id number] ity of [place] [facility] 4.2.7.2.686 [place] as [id number] [facility] 009 [place] 2021-05-23 2021-05-23 Letter Doctor BUCKNER 1.2.840.114 [id number] Univers 00:00:00 00:00:00 (Out) Unassigned, [place] [id number] ity of [place] [facility] 4.2.7.2.686 [place] as [phone] [facility] 044 [place] 2021-05-23 2021-05-23 Letter Doctor BUCKNER 1.2.840.114 [id number] Univers 00:00:00 00:00:00 (Out) Unassigned, [place] [id number] ity of [place] [facility] 4.2.7.2.686 [place] as [phone] [address] 2021-05-23 2021-05-23 [facility] [id number] Univers 00:00:00 00:00:00 Alma Rosa HAYES [id number] i ty of [place] [id number] Ca dical NAL 085 [facility] 2021-05-12 2021-05-12 Telephone Rito [facility] [id number] Univers 00:00:00 00:00:00 Alma Rosa HAYES [id number] i ty of [place] 4[place] [phone] Ca dical NAL 5 [facility] 2021-05-05 2021-05-10 Inpatient ER VICTORIANO, [facility] [id number] SLE 22:12:00 17:27:00 NEJMUSPENCER 2021-05-03 2021-05-03 Outpatient R ALMA ROSA SHAW [facility] [id number] Univers 15:37:13 23:59:00 ALMA ROSA SHAW i ty of [facility] 2021-05-03 2021-05-03 [facility] Rito [facility] 1.2.840.114 [id number] Univers 15:37:13 23:59:00 Encounter Alma Rosa HAYES 350.1.13.10 ity of [place] 4.2.7.2.686 [place] [id number] [facility] 801 Branch 2021-05-03 2021-05-03 Outpatient R ALMA ROSA SHAW [facility] 10 [id number] Univers 15:37:13 23:59:00 ALMA ROSA SHAW i ty [facility] 2021-05-03 2021-05-03 Cold Header Operator Therapist, Adc Respiratory [facility] 1.2.840.114 [id number] Univers 14:00:00 15:30:00 Visit Indra Woodall 350.1.13. 10 ity of [place].2.[place] [phone] [facility] 083 Branch 2021-05-03 2021-05-03 Orders Doctor BUCKNER 1.2.840.114 [id number] Univers 00:00:00 00:00:00 Only Unassigned, [place] 350.1.13.10 ity of [place] [facility] 4.2.7.2.686 [place] as [phone] [facility] 009 Branch 2021-05-03 2021-05-03 Orders Doctor BUCKNER 1.2.840.114 [id number] Univers 00:00:00 00:00:00 Only Unassigned, [place] 350.1.13.10 [facility] 4.2.7.2.686 [place] [phone] [facility] 009 Branch 2021-05-01 2021-05-01 Cold Header Operator Only, Adc Test [facility] 1.2.840. 114 [id number] Univers 16:00:00 16:15:00 Visit Miki Nieto FREDDY 350.1.13.10 ity of Alma Rosa Shaw [place] 4.2.7.2.686 [facility] [id number] [facility] 353 Branch 2021-05-01 2021-05-01 Outpatient R ALMA ROSA SHAW [facility] 10 [id number] Univers 16:00:00 16:00:00 ALMA ROSA SHAW i ty of [facility] 2021-04-27 2021-04-27 Outpatient R ALMA ROSA SHAW [facility] [id number] Univers 09:00:00 10:06:47 ALMA ROSA SHAW i ty of [facility] 2021-04-27 2021-04-27 Office Rito [facility] 1.2.840.114 [id number] Univers 09:00:00 10:06:47 Visit Kathiejenelle HAYES 350.1.13.10 i ty of [facility] 4.2.7.2.[place] [phone] Ca dical [facility] 2021-04-27 2021-04-27 Outpatient R ALMA ROSA SHAW [facility] 10 [id number] Univers 09:00:00 10:06:47 ALMA ROSA SHAW i ty of [facility] 2021-04-27 2021-04-27 Outpatient R ALMA ROSA SHAW [facility] 10 [id number] Univers 09:00:00 10:06:47 ALMA ROSA SHAW i ty of [facility] 2021-04-20 2021-04-20 Orders Doctor BUCKNER 1.2.840.114 [id number] Univers 00:00:00 00:00:00 Only Unassigned, [place] 350.1.13.10 ity of [place] [facility] 4.2.7.2.686 [place] as [phone] [facility] 009 [place] 2020-07-07 2020-07-07 Telephone [facility] [id number] Univers 00:00:00 00:00:00 Arlene Pang Freddy 350.1.13.10 ity of [place] [phone] [facility] 204 [facility] 2020-06-29 2020-06-29 Orders Doctor DUDLEY 1.2.840.114 [id number] Univers 00:00:00 00:00:00 Only Unassigned, [place] 350.1.13.10 ity of [place] [facility] 4.2.7.2.686 [place] as [phone] [address] 2020-06-28 2020-06-28 Telephone [facility] 1.2.840.114 [id number] Univers 00:00:00 00:00:00 Ayesha Hayes 350.1.13.10 i ty of [place] Profess[place] [phone] [facility] 204 [facility] 2020-06-23 2020-06-23 Cold Header Operator 2, Adc Lab [facility] 1.2.840.114 [id number] Univers 10:54:36 11:09:36 Visit Ayesha Roa 350.1.13.10 ity of [place] 4.2.[place].2.[place] Profess[place] [phone] [facility] 353 [facility] 2020-06-23 2020-06-23 [facility] 1.2.840.114 [id number] Univers 09:24:15 10:40:15 Visit Ayesha Hayes 350.1.13.10 i ty of [place] 4[place] [phone] [facility] 204 [facility] 2020-06-23 2020-06-23 Outpatient R CRISPIN [facility] [id number] Univers 09:15:00 09:15:00 AYESHA ity of [facility] Branch 2020-06-20 2020-06-20 [facility] [id number] Univers 10:30:00 10:30:00 [facility] 2020-05-23 2020-05-23 [facility] 1.2.840.114 [id number] Univers 14:39:08 16:25:21 Visit Rm, Adc Surg Spec Procedure [place] 3 50.1.13.10 ity of [place] 4.2.7.2.[place] [phone] Ca dical nal [address] [place] [address] 2020-05-23 2020-05-23 Outpatient [facility] [id number] Univers 14:30:00 16:25:21 [facility] 2020-05-23 2020-05-23 Out[facility] [id number] Univers 14:30:00 14:30:00 [facility] 2020-05-23 2020-05-23 Orders Doctor DUDLEY 1.2.840.114 [id number] Univers 00:00:00 00:00:00 Only Unassigned, [place] 350.1.13.10 ity of [place] [facility] 4.2.7.2.686 [place] as [phone] [address] 2020-05-16 2020-05-16 [facility] [id number] Univers 09:50:00 09:50:00 ANASTASIA [facility] 2020-05-16 2020-05-16 [facility] [id number] Univers 09:50:00 09:30:56 ANASTASIA [facility] 2020-05-13 2020-05-13 [facility] [id number] Univers 00:00:00 00:00:00 Arlene Hayes 350.1.13.10 ity of [place] 4.2.[place].2.[place] [phone] Ca dical nal [address] [place] [address] 2020-05-13 2020-05-13 Case [facility] 1.2.840.114 [id number] Univers 00:00:00 00:00:00 Management Arlene Hayes 350.1.13.10 ity of [place] 4.[place].2.[place] Profess[place] [phone] [address] 2020-05-12 2020-05-12 Telephone [facility] [id number] Univers 00:00:00 00:00:00 Arlene Hayes 350.1.13.10 ity of [place] 4.2.[place].2.[place] [id number] [address] 2020-05-09 2020-05-09 Office [facility] 1.2.840.114 [id number] Univers 10:00:00 11:20:47 Visit Ayesha Hayes 350.1.13.10 i ty of [place] 4.2.[place] [phone] [address] 2020-05-09 2020-05-09 Outpatient R [facility] [id number] Univers 10:00:00 11:20:47 [facility] 2020-05-09 2020-05-09 Outpatient R [facility] [id number] Univers 10:00:00 10:00:00 [facility] 2020-05-09 2020-05-09 Orders Doctor BUCKNER 1.2.840.114 [id number] Univers 00:00:00 00:00:00 Only Unassigned, [place] 350.1.13.10 ity of [place] [facility] 4.2.7.2.686 [place] as [phone] [facility] 009 Branch 2020-05-03 2020-05-03 Emergency [facility] [id number] Univers 09:47:00 13:00:00 Armani Hayes 350.1.13.10 i ty of [place] 4.2.7.2.[place] [phone] [facility] 084 Branch 2020-05-03 2020-05-03 Emergency X [facility] ERT [id number] Univers 09:26:00 09:26:00 [facility] 2020-04-18 2020-04-18 Outpatient R CHANELL [facility] [id number] Univers 08:20:00 11:16:47 ANASTASIA [facility] Results Test Description Test Time Test Comments Results Result Comments Source SARS-COV2/RT-PCR ([facility]) 2021-05-10 14:51:32 Test Item Value Reference Range Interpretation Comme nts SARS-COV2/RT-PCR (test code = Negative Negative The SARS-CoV-2 target nucleic [id number]) acids are not d etected in this specimen. Negat rodrigo results do not preclude SA RS-CoV-2 infection [...] suspected of CO VID-19 by their healthcare prov ider. This test has been authorized by FDA under an EUA for use by authorized laboratories. This test is only authorized for the duration of the declaration that circumstances exist justifying the authorization of emergency use of in vitro diagnostic tests for detection and/or diagnosis of COVID-19 under Section 564(b)(1) of the Federal Food, Drug and Cosmetic Act, 21 U.S.C. 360bbb-3(b)(1), unless the authorization is terminated or revoked sooner. Fact Sheet for Healthcare Providers: https://www.[employer].Veoh m/Documents/Xpert%20Xpress%20SARS%20CoV-2/Fact%20Sheets/302-9746%63IIRG-UCL-3%20 HEALTHCARE%20PROVIDERS%20FACT%20SHEET.pdf Fact Sheet for Healthcare Patients: https://www.[employer]/Documents/Xpert%20Xp ress%20SARS%20CoV-2/Fact%20Sheets/302-3801%13ZXFU-KFA-5%20PATIENT%20FACT%20SHEET .pdfBASI METABOLIC [id number] 05:29:37 Test Item Value Reference Range Interpretation [...] S NOT APPLICABLE FOR DIALYSIS PATIEN TS. Production Control Scheduler ID - BSCBC W/PLT COUNT & AUTO [id number] 04:58:35 Test Item Value Reference Range Interpretation [...] (test code = 2801) CT, PELVIS, WO [id number] 23:44:00Unlisted Reason for Exam - Click Yes and Enter Reason Below->NoWill this procedure require oral contrast?->No [facility] 1945 Sex: MFINAL REPORT CLINICAL HISTORY: Pelvic trauma, initial exam COMPARISON: None. FINDINGS: Multiple axial images were obtained without IV contrast. Coronal and sagittal reformats were created.This exam was performed according to our departmental [...] lumbar spine and bilateral hips. There is atherosclerotic calcification in the pelvis. The prostate gland is prominent. IMPRESSION: Minimally displaced, comminuted fracture of the right ischial tuberosity. Signed: Shiva Anderson MDReport Verified Date/Time: 05/06/2021 23:44:32 RAD, PELVIS, 1 OR 2 [id number] 13:38:00Reason for exam:->ischial tuberoisty fracture, with inlet/outlet views and [facility] : 1945 Sex: MFINAL REPORT TECHNIQUE: Two views of the pelvis. INDICATION: 76-year-old man with ischial tuberosity fracture. COMPARISON: None. FINDINGS:Cortical irregularity of the right ischial tuberosity likely correlates with the reported fracture; no significant displacement of the fracture fragments.Visualized joint spaces are within normal limits.Soft tissues are grossly unremarkable. IMPRESSION:Suspected right ischial tuberosity fracture without significant displacement. Signed: Darrius Moore MDReport Verified Date/Time: 05/06/2021 13:38:35 Electronically signed by: Lai PERRY 05/06/2021 01:38 PMBASIC METABOLIC [id number] 06:35:20 Test Item Value Reference Range Interpretation [...] S NOT APPLICABLE FOR DIALYSIS PATIEN TS. Production Control Scheduler ID - DBHEPATIC FUNCTION [id number] 06:35:20 Test Item Value Reference Range Interpretation [...] Specimen slightly (test code = 347) hemolyzed Production Control Scheduler ID - [id number] 06:35:19 Test Item Value Reference Range Interpretation Comments MAGNESIUM (BEAKER) 2.0 mg/dL 1.6-2.6 Specimen slightly (test code = 627) hemolyzed Production Control Scheduler ID - DBPROTHROMBIN [id number] 06:03:49 Test Item Value Reference Range Interpretation Comments PROTIME (BEAKER) 18.5 seconds 11.9-14.2 H (test code = 759) INR (BEAKER) (test 1.57 See_Comment [Automat ed message] code = 370) The system Janalakshmi generated this result transmitted ref erence range: <=5.90. The reference range was not used to int erpret this result as normal/abnormal . RECOMMENDED COUMADIN/WARFARIN INR THERAPY RANGESSTANDARD DOSE: 2.0 - 3.0 Includes: PROPHYLAXIS for venous thrombosis, systemic embolization; TREATMENT for venous thrombosis and/or pulmonary embolus.HIGH RISK: Target INR is 2.5-3.5 for patients with mechanical heart valves.CBC W/PLT COUNT & AUTO [id number] 05:53:35 Test Item Value Reference Range Interpretation [...] % 0-1 PERCENT (BEAKER) (test code = 8148)
[2022-11-05] MEDS ORDERED: CEPHALEXIN 250 MG CAP ONE (11:02)
[2022-11-05] MEDS ORDERED: TDAP (DIPHTH,PERTUSS(ACELL),TET VAC) 0.5 ML VIAL IMVAC ONE (11:02)
--- NOTE | 2022-11-05 11:19 | EDPHYS ---
Physician Documentation [facility] Name: Jovani Reinoso Age: 77 yrs Sex: Male : 1945 Arrival Date: 11/05/2022 Time: 10:32 Bed 15 Private MD: ED Physician Jw Rosa HPI: 11/05 11:22 This 77 yrs old Male presents to ER via EMS with complaints of Puncture Wound To Arm. cp3 11:22 Patient is a 77-year-old male with a history of cerebral palsy, CHF, hypertension, TIA cp3 on chronic anticoagulation who presents to the ED secondary to puncture wound to the left forearm. The patient endorses he was moving some artificial dietz and cut his left forearm. The artificial plant punctured his left forearm and started bleeding and was encouraged to come to the ED. Patient arrived by EMS to have his puncture wound evaluated and endorses that bleeding has resolved patient denies pain . Historical: - Allergies: 10:39 No Known Allergies; eh3 - Home Meds: 10:39 amlodipine 2.5 mg tab 1 tab once daily [Active]; aspirin 81 mg Oral chew 1 tab once eh3 daily [Active]; atorvastatin 40 mg Oral tab [Active]; levothyroxine 75 mcg cap 1 cap once daily [Active]; omeprazole 20 mg Oral cpDR 1 cap once daily [Active]; sotalol 80 mg Oral tab [Active]; Xarelto 20 mg Oral tab 1 tab once daily [Active]; - PMHx: 10:39 Cerebral Palsy; CHF; Hypertension; Transient cerebral ischemia; eh3 - Immunization history:: Adult Immunizations unknown. - Social history:: Smoking status: Patient/guardian denies using tobacco, the patient reports quitting approximately 15 years ago, Patient uses alcohol, but reports only rare drinking. - Family history:: not pertinent. ROS: 11:22 Constitutional: Negative for fever, chills, and weight loss, Eyes: Negative for injury, cp3 pain, redness, and discharge, ENT: Negative for injury, pain, and discharge, Neck: Negative for injury, pain, and swelling, Cardiovascular: Negative for chest pain, palpitations, and edema, Respiratory: Negative for shortness of breath, cough, wheezing, and pleuritic chest pain, Abdomen/GI: Negative for abdominal pain, nausea, vomiting, diarrhea, and constipation, Back: Negative for injury and pain, Neuro: Negative for headache, weakness, numbness, tingling, and seizure, Psych: Negative for depression, anxiety, suicide ideation, homicidal ideation, and hallucinations, Allergy/Immunology: Negative for hives, rash, and allergies, Endocrine: Negative for neck swelling, polydipsia, polyuria, polyphagia, and marked weight changes, Hematologic/Lymphatic: Negative for swollen nodes, abnormal bleeding, and unusual bruising, 11:22 Skin: Positive for Puncture wound to left forearm, Exam: 11:22 Constitutional: This is a well developed, well nourished patient who is awake, alert, cp3 and in no acute distress. Head/Face: Normocephalic, atraumatic. Eyes: Pupils equal round and reactive to light, extra-ocular motions intact. Lids and lashes normal. Conjunctiva and sclera are non-icteric and not injected. Cornea within normal limits. Periorbital areas with no swelling, redness, or edema. ENT: Nares patent. No nasal discharge, no septal abnormalities noted. Tympanic membranes are normal and external auditory canals are clear. Oropharynx with no redness, swelling, or masses, exudates, or evidence of obstruction, uvula midline. Mucous membranes moist. Neck: Trachea midline, no thyromegaly or masses palpated, and no cervical lymphadenopathy. Supple, full range of motion without nuchal rigidity, or vertebral point tenderness. No Meningismus. Chest/axilla: Normal chest wall appearance and motion. Nontender with no deformity. No lesions are appreciated. Cardiovascular: Regular rate and rhythm with a normal S1 and S2. No gallops, murmurs, or rubs. Normal PMI, no JVD. No pulse deficits. Respiratory: Lungs have equal breath sounds bilaterally, clear to auscultation and percussion. No rales, rhonchi or wheezes noted. No increased work of breathing, no retractions or nasal flaring. Abdomen/GI: Soft, non-tender, with normal bowel sounds. No distension or tympany. No guarding or rebound. No evidence of tenderness throughout. Back: No spinal tenderness. No costovertebral tenderness. Full range of motion. Skin: Warm, dry with normal turgor. Normal color with no rashes, no lesions, and no evidence of cellulitis. Neuro: Awake and alert, GCS 15, oriented to person, place, time, and situation. Cranial nerves II-XII grossly intact. Motor strength 5/5 in all extremities. Sensory grossly intact. Cerebellar exam normal. Normal gait. Psych: Awake, alert, with orientation to person, place and time. Behavior, mood, and affect are within normal limits. 11:22 Musculoskeletal/extremity: Patient has 1 x 1 cm puncture wound to the left forearm. No laceration. Well approximated. No erythema or induration.. 11:22 Psych: Behavior/mood is Vital Signs: 10:35 Resp 17; Temp 98; Pulse Ox 98% ; aw1 10:36 BP 146 / 79; Pulse 52; aw1 Procedures: 11:22 Performed Wound care provided by nursing staff. Wound is well approximated. Wound clean cp3 and dry but with Hibiclens and bacitracin applied. MDM: 10:35 Patient medically screened. cp3 11:22 Differential diagnosis: Laceration, puncture wound, abrasion. Data reviewed: vital cp3 signs, nurses notes, EMS record. Consideration of Admission/Observation Escalation of care including admission/observation considered. Test considered but Not performed: X-ray: No emergent indication for x-ray at this time.. Historians other than the Patient: EMS: . Response to treatment: the patient's symptoms have resolved after treatment. 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 Exp: 06/07/2024. Lot #: [id number]. } Route: IM; Site: left deltoid; 10:56 Drug: Cephalexin PO 500 mg PO once Route: PO; kc6 Disposition Summary: 11/05/22 11:18 Discharge Ordered Notes: Location: Home cp3 Problem: new cp3 Condition: Stable cp3 Diagnosis - Arm Laceration Left/ Open wound of forearm cp3 - Adverse effect of anticoagulants cp3 Followup: cp3 - With: Khadar Mon DO - When: - Reason: Re-evaluation by your physician Discharge Instructions: - Discharge Summary Sheet cp3 - Puncture Wound cp3 Forms: - Medication Reconciliation Form cp3 - Thank You Letter cp3 - Antibiotic Education cp3 - Prescription Opioid Use cp3 - Patient Portal Instructions cp3 - Leadership Thank You Letter cp3 Prescriptions: - Cephalexin 500 mg Oral Capsule - take 1 capsule by ORAL route every 12 hours for 5 days; 10 capsule; Refills: 0, cp3 Product Selection Permitted Signatures: Jw Rosa MD MD cp3 Shirin Mcclellan RN RN 3 Lanie Siddiqi RN RN kc6
--- NOTE | 2022-11-05 11:19 | ER ---
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 Takes Xarelto. EMS reported approzimately 100mL of blood loss on scene, bleeding controlled on EMS arrival. Coronavirus screen: Vaccine status: Patient reports receiving the 2nd dose of the covid vaccine. Ebola Screen: No symptoms or risks identified at this time. Initial Sepsis Screen: Does the patient meet any 2 criteria? No. Patient's initial sepsis screen is negative. Does the patient have a suspected source of infection? No. Patient's initial sepsis screen is negative. Risk Assessment: Do you want to hurt yourself or someone else? Patient reports no desire to harm self or others. Onset of symptoms was November 05, 2022. 10:37 Method Of Arrival: [facility] 10:37 Acuity: CAMILA 3 eh3 Triage Assessment: 10:39 General: Appears in no apparent distress. uncomfortable, Behavior is calm, cooperative, eh3 appropriate for age. Pain: Complains of pain in dorsal aspect of left forearm. Neuro: Level of Consciousness is awake, alert, obeys commands, Oriented to person, place, time, situation. Cardiovascular: Capillary refill < 3 seconds Patient's skin is warm and dry. Respiratory: Airway is patent Respiratory effort is even, unlabored, Respiratory pattern is regular, symmetrical. GI: Abdomen is round non-distended. Derm: Skin is pink, warm \T\ dry. Musculoskeletal: Circulation, motion, and sensation intact. Historical: - Allergies: 10:39 No Known Allergies; eh3 - Home Meds: 10:39 amlodipine 2.5 mg tab 1 tab once daily [Active]; aspirin 81 mg Oral chew 1 tab once eh3 daily [Active]; atorvastatin 40 mg Oral tab [Active]; levothyroxine 75 mcg cap 1 cap once daily [Active]; omeprazole 20 mg Oral cpDR 1 cap once daily [Active]; sotalol 80 mg Oral tab [Active]; Xarelto 20 mg Oral tab 1 tab once daily [Active]; - PMHx: 10:39 Cerebral Palsy; CHF; Hypertension; Transient cerebral ischemia; eh3 - Immunization history:: Adult Immunizations unknown. - Social history:: Smoking status: Patient/guardian denies using tobacco, the patient reports quitting approximately 15 years ago, Patient uses alcohol, but reports only rare drinking. - Family history:: not pertinent. Screenin:11 [facility] ED Fall Risk Assessment (Adult) History of falling in the last 3 months, kc6 including since admission Yes- single mechanical fall (1 pt) Confusion or Disorientation No (0 pts) Intoxicated or Sedated No (0 pts) Impaired Gait No (0 pts) Mobility Assist Device Used Yes (1 pt) Altered Elimination No (0 pt) Score/Fall Risk Level 0 - 2 = Low Risk. Abuse screen: Denies threats or abuse. Denies injuries from another. Nutritional screening: No deficits noted. Tuberculosis screening: No symptoms or risk factors identified. Assessment: 11:11 General: Appears in no apparent distress. comfortable, Behavior is calm, cooperative, kc6 appropriate for age. Pain: Complains of pain in left arm. Neuro: Level of Consciousness is awake, alert, obeys commands, Oriented to person, place, time, situation, Appropriate for age. Cardiovascular: Capillary refill < 3 seconds. Respiratory: Airway is patent Trachea midline Respiratory effort is even, unlabored, Respiratory pattern is regular, symmetrical. GI: No signs and/or symptoms were reported involving the gastrointestinal system. : No signs and/or symptoms were reported regarding the genitourinary system. EENT: No signs and/or symptoms were reported regarding the EENT system. Derm: Skin is pink, warm \T\ dry. Wound noted left arm and dorsal aspect of left forearm Bruising that is dark purple, on left eye. Musculoskeletal: No signs and/or symptoms reported regarding the musculoskeletal system. Circulation, motion, and sensation intact. Capillary refill < 3 seconds, Range of motion: intact in all extremities. Vital Signs: 10:35 Resp 17; Temp 98; Pulse Ox 98% ; aw1 10:36 BP 146 / 79; Pulse 52; aw1 ED Course: 10:35 Patient arrived in ED. kc6 10:35 Jw Rosa MD is Attending Physician. cp3 10:39 Triage completed. 3 10:39 Arm band placed on. 3 10:47 Lanie Siddiqi, RN is Primary Nurse. kc6 11:11 Patient has correct armband on for positive identification. Bed in low position. Call kc6 light in reach. Side rails up X2. Client placed on continuous cardiac and pulse oximetry monitoring. NIBP monitoring applied. 11:18 Khadar Mon DO is Referral Physician. cp3 11:31 No provider procedures requiring assistance completed. Patient did not have IV access kc6 during this emergency room visit. Administered Medications: 10:55 Drug: Diph,Pertus(Acel),Tetanus Vac (PF) IM 0.5 ml IM once; indicated for adults and kc6 teenagers 11 to 64 years of age {[employer]: [employer] ([employer] [place] Exp: 06/07/2024. Lot #: [id number]. } Route: IM; Site: left deltoid; 10:56 Drug: Cephalexin PO 500 mg PO once Route: PO; kc6 Medication: 11:31 VIS not applicable for this client. kc6 Outcome: 11:18 Discharge ordered by . cp3 11:31 Discharged to home via wheelchair, with friend, kc6 11:31 Condition: stable 11:31 Discharge instructions given to patient, Instructed on discharge instructions, follow up and referral plans. medication usage, Demonstrated understanding of instructions, follow-up care, medications, Prescriptions given X 1, 11:31 Patient left the ED. kc6 Signatures: Jw Rosa MD MD 3 Shirin Mcclellan, RN RN 3 Lanie Siddiqi, REBECCA RN 6 Diana Munoz aw1
[2022-11-05 11:44] VITALS: TEMP 98; O2SAT 98
[2022-11-05 11:45] VITALS: BP 146/79
== END 2022-11-05 11:31 | disposition home or self-care (01) ==
LOC: ER 10:32
DX: S51.832A Puncture wound without foreign body of left forearm, initial encounter (principal); T45.515A Adverse effect of anticoagulants, initial encounter; G80.9 Cerebral palsy, unspecified; I10 Essential (primary) hypertension; I50.9 Heart failure, unspecified

== ENCOUNTER 2023-02-07 21:12 | Inpatient (IN) | payer OTHER ==
[2023-02-07] MEDS ORDERED: IPRATROPIUM BROM 0.5MG/2.5ML ONE (21:52)
[2023-02-07] MEDS ORDERED: ALBUTEROL 2.5 MG/3 ML NEB SOL ONE (21:52)
[2023-02-07] MEDS ORDERED: CEFTRIAXONE 1000 MG/VIAL ONE (21:52)
[2023-02-07 22:14] LABS: Absolute Lymphocytes (CBC) 0.4 K/uL (0.7-4.9); Lymphocytes % 2.4 % (15.3-44.8); MCV 90.8 fL (80-100); MPV 9.5 fL (7.6-11.3); Platelets 133 thou/uL (152-406); RBC Red Blood Cell Count 4.07 M/uL (4.33-5.43)
--- NOTE | 2023-02-07 22:23 | RAD REPORT ---
EXAM DESCRIPTION: RADChest Single View02/07/2023 10:10 pm CLINICAL HISTORY: COPD COMPARISON: Chest Single View dated 04/09/2021; Chest Pa And Lat (2 Views) dated 01/05/2019; Chest Pa And Lat (2 Views) dated 05/23/2018; Chest Pa And Lat (2 Views) dated 12/05/2017 TECHNIQUE: Portable AP view of the chest. FINDINGS: Patchy right basilar airspace opacities. More subtle opacities at the left base obscuring the hemidiaphragm. No pneumothorax. There may be small bilateral effusions. The cardiomediastinal co ntours are unremarkable. IMPRESSION: Bibasilar Airspace opacities, with suspected small effusions. Findings may relate to pne umonia or pulmonary edema.
[2023-02-07 22:32] LABS: Albumin 2.7 g/dL (3.4-5.0); Bilirubin Direct 0.4 mg/dL (0-0.2); Bilirubin Indirect, Calculated 0.7 mg/dL (0.2-0.8); Bilirubin Total 1.1 mg/dL (0.2-1.0); Magnesium 1.7 mg/dL (1.6-2.4); Potassium 3.8 mEq/L (3.5-5.1); Troponin High Sensitivity 20.5 pg/mL (<58.9)
[2023-02-07 22:39] LABS: Protime INR 4.2
[2023-02-07 23:02] LABS: Blood Morphology Comment NOT SEEN (NOT SEEN); Platelet Estimate ADEQ
[2023-02-07] MEDS ORDERED: FUROSEMIDE 40 MG/4 ML VIAL ONE (23:09)
--- NOTE | 2023-02-08 00:11 | EDPHYS ---
Physician Documentation [facility] Name: Jovani Reinoso Age: 77 yrs Sex: Male : 1945 Arrival Date: 02/07/2023 Time: 21:12 Bed 8 Private MD: ED Physician Ángel Tam HPI: 02/07 21:31 This 77 yrs old Male presents to ER via Unassigned with complaints of SOB/Cough. sp3 21:31 77-year-old male with history of cerebral palsy, COPD, CHF, TIA currently on Xarelto, sp3 hypertension, hyperlipidemia presents to the ED with chief complaint cough, congestion and shortness of breath that has been occurring over the last 2 to 3 days. EMS administered Solu-Medrol IV and nebulizers and route which has helped to some degree. Patient denies any other symptoms including chest pain, headache, neurological symptoms, neck pain, abdominal pain, back pain, nausea, vomiting, diarrhea, rash, bleeding, known sick contacts, travel history, or any other signs or symptoms on ROS at this time.. Historical: - Allergies: 21:59 No Known Allergies; jw7 - Home Meds: 21:59 sotalol 80 mg Oral tab twice a day [Active]; levothyroxine 50 mcg oral tablet daily jw7 [Active]; omeprazole 40 mg oral capsule,delayed release (e.c.) daily [Active]; atorvastatin 40 mg Oral tab every evening [Active]; amlodipine 2.5 mg tab 2 times per day [Active]; Claritin 10 mg oral tablet daily [Active]; Xarelto 20 mg Oral tab 1 tab once daily [Active]; tamsulosin 0.4 mg oral capsule daily [Active]; losartan 50 mg oral tablet daily [Active]; - PMHx: 21:59 Cerebral Palsy; CHF; Hypertension; Transient cerebral ischemia; jw7 22:05 COPD; Atrial fibrillation; jw7 - Immunization history:: Adult Immunizations up to date. - Social history:: Smoking status: unknown. ROS: 21:32 Constitutional: Negative for fever, chills, and weight loss, Eyes: Negative for injury, sp3 pain, redness, and discharge, ENT: Negative for injury, pain, and discharge, Neck: Negative for injury, pain, and swelling, Cardiovascular: Negative for chest pain, palpitations, and edema, Abdomen/GI: Negative for abdominal pain, nausea, vomiting, diarrhea, and constipation, Back: Negative for injury and pain, : Negative for injury, bleeding, discharge, and swelling, MS/Extremity: Negative for injury and deformity, Skin: Negative for injury, rash, and discoloration, Neuro: Negative for headache, weakness, numbness, tingling, and seizure, Psych: Negative for depression, anxiety, suicide ideation, homicidal ideation, and hallucinations, Allergy/Immunology: Negative for hives, rash, and allergies, Endocrine: Negative for neck swelling, polydipsia, polyuria, polyphagia, and marked weight changes, Hematologic/Lymphatic: Negative for swollen nodes, abnormal bleeding, and unusual bruising, 21:32 All other systems are negative, Exam: 21:32 Constitutional: This is a well developed, well nourished patient who is awake, alert, sp3 and in no acute distress. Head/Face: Normocephalic, atraumatic. Eyes: Pupils equal round and reactive to light, extra-ocular motions intact. Lids and lashes normal. Conjunctiva and sclera are non-icteric and not injected. Cornea within normal limits. Periorbital areas with no swelling, redness, or edema. ENT: Nares patent. No nasal discharge, no septal abnormalities noted. External auditory canals are clear. Oropharynx with no redness, swelling, or masses, exudates, or evidence of obstruction, uvula midline. Mucous membranes moist. Neck: Trachea midline, no thyromegaly or masses palpated, and no cervical lymphadenopathy. Supple, full range of motion without nuchal rigidity, or vertebral point tenderness. No Meningismus. Chest/axilla: Normal chest wall appearance and motion. Nontender with no deformity. No lesions are appreciated. Cardiovascular: Regular rate and rhythm with a normal S1 and S2. No gallops, murmurs, or rubs. Normal PMI, no JVD. No pulse deficits. Abdomen/GI: Soft, non-tender, with normal bowel sounds. No distension or tympany. No guarding or rebound. No evidence of tenderness throughout. Back: No spinal tenderness. No costovertebral tenderness. Full range of motion. Skin: Warm, dry with normal turgor. Normal color with no rashes, no lesions, and no evidence of cellulitis. MS/ Extremity: Pulses equal, no cyanosis. Neurovascular intact. Full, normal range of motion. Neuro: Awake and alert, GCS 15, oriented to person, place, time, and situation. Cranial nerves II-XII grossly intact. Motor strength 5/5 in all extremities. Sensory grossly intact. Cerebellar exam normal. Normal gait. Psych: Awake, alert, with orientation to person, place and time. Behavior, mood, and affect are within normal limits. 21:32 Respiratory: Scattered wheezes diffusely noted. Patient in no acute distress in the ED after EMS treatments., 22:46 ECG was reviewed by the Attending Physician. EKG done straits normal sinus rhythm at 75 sp3 bpm with normal intervals, normal QRS, normal axis, nonspecific diffuse ST/T changes without evidence of acute ischemia. Vital Signs: 21:15 BP 119 / 64; Pulse 78; Resp 22 S; Temp 97.9(O); Pulse Ox 93% on R/A; Weight 43.5 kg; jw7 22:30 BP 138 / 60; Pulse 69; Resp 26 S; Pulse Ox 100% ; jw7 23:30 BP 117 / 50; Pulse 73; Resp 23 S; Pulse Ox 94% on R/A; jw7 MDM: 21:22 Patient medically screened. sp3 21:32 Data reviewed: vital signs, nurses notes, old medical records, lab test result(s), EKG, sp3 radiologic studies. ED course: 77-year-old male with extensive past medical history now presents with probable COPD exacerbation versus CHF versus infectious process. Caregiver called and also states that he has been complaining off-and-on of abdominal pain. History of cerebral palsy makes history and physical limited. We will treat with nebulizers and antibiotics for COPD and also obtain workup which will include chest x-ray, laboratory values and CT scan of the abdomen pelvis. Disposition pending workup and patient course. Possible admission for COPD and/or infectious process or any abdominal process.. 02/07 21:22 Order name: Basic Metabolic Panel; Complete Time: 22:45 sp3 02/07 21: Order name: CBC with Diff; Complete Time: 23:05 sp3 02/07 21: Order name: LFT's; Complete Time: 22:45 sp3 02/07 21: Order name: Magnesium; Complete Time: 22:45 sp3 12/21 21:22 Order name: NT PRO-BNP; Complete Time: 22:45 sp3 02/07 21:22 Order name: PT-INR; Complete Time: 22:45 sp3 02/07 21:22 Order name: Troponin HS; Complete Time: 22:45 sp3 02/07 21:39 Order name: Flu; Complete Time: 22:45 sp3 02/07 22:21 Order name: Manual Differential; Complete Time: 23:05 EDMS 02/08 00:07 Order name: Blood Culture Adult (2) sp3 02/08 00:07 Order name: Lactate w/ 2H reflex if indic. sp3 02/08 00:42 Order name: Urinalysis w/ reflexes EDMS 02/08 00:42 Order name: CBC with Automated Diff EDMS 02/08 00:42 Order name: CBC with Automated Diff EDMS 02/08 00:42 Order name: Comprehensive Metabolic Panel EDMS 02/08 00:42 Order name: Comprehensive Metabolic Panel EDMS 02/08 02:21 Order name: Urinalysis w/ reflexes EDMS 02/07 21:22 Order name: XRAY Chest (1 view); Complete Time: 22:45 sp3 02/07 21:39 Order name: CT Abd/Pelvis - IV Contrast Only sp3 02/07 21:22 Order name: EKG; Complete Time: 21:22 sp3 02/07 21:22 Order name: Cardiac monitoring; Complete Time: 21:34 sp3 02/07 21:22 Order name: EKG - Nurse/Tech; Complete Time: 21:49 sp3 02/07 21:22 Order name: IV Saline Lock; Complete Time: 21:34 sp3 02/07 21:22 Order name: Labs collected and sent; Complete Time: 21:49 sp3 02/07 21:22 Order name: O2 Per Protocol; Complete Time: 21:34 sp3 02/07 21:22 Order name: O2 Sat Monitoring; Complete Time: 21:34 sp3 Administered Medications: 21:56 Drug: DuoNeb Nebulize (3:1) (2.5 mg - 0.5 mg) 3 ml Nebulizer once Route: Nebulizer; km8 21:56 Drug: Rocephin IV 1 grams IV at calculated rate once; Given slow IV push per pharmacy km8 instructions Route: IV; Rate: calculated rate; Site: right antecubital; 23:12 Drug: Furosemide IVP 40 mg IVP once; give over 2 minutes Route: IVP; Site: left forearm;km8 02/08 01:02 Drug: Zithromax IVPB 500 mg IVPB once over 1 hrs; mix in 250 mL NS Route: IVPB; Infused jw7 Over: 1 hrs; Site: right antecubital; Disposition Summary: 02/08/23 00:10 Hospitalization Ordered Notes: Hospitalization Status: Inpatient Admission sp3 Provider: Dorian An sp3 Condition: Stable sp3 Problem: an acute exacerbation sp3 Symptoms: have worsened sp3 Bed/Room Type: Standard sp3 Location: Telemetry/MedSurg (Inpatient)(02/08/23 13:17) sp Room Assignment: [facility](02/08/23 13:17) sp Diagnosis - Pneumonia, CHF exacerbation, COPD exacerbation sp3 Forms: - Medication Reconciliation Form sp3 - SBAR form sp3 - Leadership Thank You Letter sp3 Signatures: Dispatcher [employer] EDMS Gracia Valdivia Cindy, REBECCA RN cg Ángel Tam MD MD sp3 Josselin Murray RN RN jw7 Zeina Sellers RN RN km8 Corrections: (The following items were deleted from the chart) 01:17 00:10 Telemetry/MedSurg (Inpatient) sp3 cg 01:17 00:10 sp3 cg 13:17 01:17 [facility] ER HOLD cg sp 13:17 01:17 ERHOLD- cg sp
--- NOTE | 2023-02-08 00:11 | ER ---
Nurse's Notes [facility] Name: Jovani Reinoso Age: 77 yrs Sex: Male : 1945 Arrival Date: 02/07/2023 Time: 21:12 Bed 8 Private MD: Diagnosis: Pneumonia, CHF exacerbation, COPD exacerbation Presentation: 02/07 21:15 Chief complaint: EMS states: SOB, Abd pain, and nausea that started yesterday. jw7 Coronavirus screen: At this time, the client does not indicate any symptoms associated with coronavirus-19. Ebola Screen: No symptoms or risks identified at this time. Initial Sepsis Screen: Does the patient meet any 2 criteria? No. Patient's initial sepsis screen is negative. Does the patient have a suspected source of infection? No. Patient's initial sepsis screen is negative. Risk Assessment: Do you want to hurt yourself or someone else? Patient reports no desire to harm self or others. Onset of symptoms was February 06, 2023. Care prior to arrival: Medication(s) given: Solu-Medrol 125 IV initiated. 20 GA, in the right antecubital area. 21:15 Method Of Arrival: EMS: [facility] jw7 21:15 Acuity: CAMILA 3 jw7 Triage Assessment: 21:15 General: Appears in no apparent distress. comfortable, Behavior is calm, cooperative. jw7 Pain: Denies pain. EENT: No deficits noted. No signs and/or symptoms were reported regarding the EENT system. Neuro: Carranza Agitation-Sedation Scale (RASS): 0 - Alert and Calm Level of Consciousness is awake, alert, obeys commands, Oriented to person, place, time. Cardiovascular: Capillary refill < 3 seconds Clubbing of nail beds is absent JVD is absent Patient's skin is warm and dry. Respiratory: Reports shortness of breath Airway is patent Trachea midline Respiratory effort is even, unlabored, Respiratory pattern is regular, symmetrical, tachypnea Breath sounds are diminished bilaterally. GI: No deficits noted. No signs and/or symptoms were reported involving the gastrointestinal system. : No deficits noted. No signs and/or symptoms were reported regarding the genitourinary system. Derm: Skin is intact, is healthy with good turgor, Skin is dry, Skin is normal, Skin temperature is warm. Musculoskeletal: No deficits noted. No signs and/or symptoms reported regarding the musculoskeletal system. Historical: - Allergies: 21:59 No Known Allergies; jw7 - Home Meds: 21:59 sotalol 80 mg Oral tab twice a day [Active]; levothyroxine 50 mcg oral tablet daily jw7 [Active]; omeprazole 40 mg oral capsule,delayed release (e.c.) daily [Active]; atorvastatin 40 mg Oral tab every evening [Active]; amlodipine 2.5 mg tab 2 times per day [Active]; Claritin 10 mg oral tablet daily [Active]; Xarelto 20 mg Oral tab 1 tab once daily [Active]; tamsulosin 0.4 mg oral capsule daily [Active]; losartan 50 mg oral tablet daily [Active]; - PMHx: 21:59 Cerebral Palsy; CHF; Hypertension; Transient cerebral ischemia; jw7 22:05 COPD; Atrial fibrillation; jw7 - Immunization history:: Adult Immunizations up to date. - Social history:: Smoking status: unknown. Screenin:15 [facility] ED Fall Risk Assessment (Adult) History of falling in the last 3 months, jw7 including since admission Yes- physiologic fall (2 pts) Confusion or Disorientation No (0 pts) Intoxicated or Sedated No (0 pts) Impaired Gait Yes (1 pt) Mobility Assist Device Used No (0 pt) Altered Elimination No (0 pt) Score/Fall Risk Level 3 or more points = High Risk Oriented to surroundings, Maintained a safe environment, Educated pt \T\ family on fall prevention, incl call for assistance when getting out of bed, Provided non-skid footwear, Hourly rounding (assess needs \T\ fall precautionary measures) done. Abuse screen: Denies threats or abuse. Denies injuries from another. Nutritional screening: No deficits noted. Tuberculosis screening: No symptoms or risk factors identified. Assessment: 21:20 General: see triage assessment . jw7 22:30 Reassessment: Patient appears in no apparent distress at this time. No changes from jw7 previously documented assessment. Patient and/or family updated on plan of care and expected duration. Pain level reassessed. Patient is alert, oriented x 3, equal unlabored respirations, skin warm/dry/pink. 23:29 Reassessment: Patient appears in no apparent distress at this time. No changes from jw7 previously documented assessment. Patient and/or family updated on plan of care and expected duration. Pain level reassessed. Patient is alert, oriented x 3, equal unlabored respirations, skin warm/dry/pink. 02/08 00:24 Reassessment: Patient appears in no apparent distress at this time. No changes from jw7 previously documented assessment. Patient and/or family updated on plan of care and expected duration. Pain level reassessed. Patient is alert, oriented x 3, equal unlabored respirations, skin warm/dry/pink. Vital Signs: 02/07 21:15 BP 119 / 64; Pulse 78; Resp 22 S; Temp 97.9(O); Pulse Ox 93% on R/A; Weight 43.5 kg; jw7 22:30 BP 138 / 60; Pulse 69; Resp 26 S; Pulse Ox 100% ; jw7 23:30 BP 117 / 50; Pulse 73; Resp 23 S; Pulse Ox 94% on R/A; jw7 ED Course: 21:15 Maintain EMS IV. Dressing intact. Site clean \T\ dry. Gauge \T\ site: 20g RAC. jw 7 21:15 Arm band placed on. jw7 21:15 Patient has correct armband on for positive identification. Bed in low position. Call [facility] light in reach. 21:21 Patient arrived in ED. sp3 21:21 Ángel Tam MD is Attending Physician. sp3 21:45 Inserted saline lock: 22 gauge in left forearm, using aseptic technique. Blood km8 collected. 21:49 Flu Sent. km8 21:49 Basic Metabolic Panel Sent. km8 21:50 CBC with Diff Sent. km8 21:50 LFT's Sent. km8 21:50 Magnesium Sent. km8 21:50 NT PRO-BNP Sent. km8 21:50 PT-INR Sent. km8 21:50 Troponin HS Sent. km8 21:52 EKG done, by ED staff, reviewed by Ángel Tam MD. jw7 21:59 Triage completed. jw7 22:12 XRAY Chest (1 view) In Process Unspecified. EDMS 23:19 CT Abd/Pelvis - IV Contrast Only In Process Unspecified. EDMS 02/08 00:10 Dorian An MD is Hospitalizing Provider. sp3 00:23 Josselin Murray, RN is Primary Nurse. jw7 07:52 Primary Nurse role handed off by Josselin Murray, REBECCA jl7 08:24 Talia Burr, RN is Primary Nurse. ko1 Administered Medications: 02/07 21:56 Drug: DuoNeb Nebulize (3:1) (2.5 mg - 0.5 mg) 3 ml Nebulizer once Route: Nebulizer; km8 21:56 Drug: Rocephin IV 1 grams IV at calculated rate once; Given slow IV push per pharmacy km8 instructions Route: IV; Rate: calculated rate; Site: right antecubital; 23:12 Drug: Furosemide IVP 40 mg IVP once; give over 2 minutes Route: IVP; Site: left forearm;km8 02/08 01:02 Drug: Zithromax IVPB 500 mg IVPB once over 1 hrs; mix in 250 mL NS Route: IVPB; Infused jw7 Over: 1 hrs; Site: right antecubital; Outcome: 00:10 Decision to Hospitalize by Provider. sp3 15:09 Patient left the ED. ph Signatures: Dispatcher [employer] EDUT Dali Mcclellan RN RN ph Leal, Jahala, RN RN jl7 Ángel Tam MD MD sp3 Josselin Murray RN RN jw7 Talia Burr, REBECCA FERNANDEZ ko1 Zeina Sellers RN RN km8 Corrections: (The following items were deleted from the chart) 02/07 22:09 22:05 General: Appears in no apparent distress. comfortable, Behavior is calm, jw7 cooperative, [facility] : 22:05 Pain: Denies pain. jw jw : 22:05 EENT: No deficits noted. No signs and/or symptoms were reported regarding the [facility] EENT system. jw7 : 22:05 Neuro: Carranza Agitation-Sedation Scale (RASS): 0 - Alert and Calm Level of [facility] Consciousness is awake, alert, obeys commands, Oriented to person, place, time, jw7 : 22:05 Cardiovascular: Capillary refill < 3 seconds Clubbing of nail beds is absent JVD jw7 is absent Patient's skin is warm and dry. jw7 : 22:05 Respiratory: Reports shortness of breath Airway is patent Trachea midline jw7 Respiratory effort is even, unlabored, Respiratory pattern is regular, symmetrical, tachypnea Breath sounds are diminished bilaterally. jw7 :11 09:05 GI: No deficits noted. No signs and/or symptoms were reported involving the jw7 gastrointestinal system. jw7 :11 09:05 : No deficits noted. No signs and/or symptoms were reported regarding the jw7 genitourinary system. jw7 : 22:05 Derm: Skin is intact, is healthy with good turgor, Skin is dry, Skin is normal, jw7 Skin temperature is warm jw7 :11 09: Musculoskeletal: No deficits noted. No signs and/or symptoms reported regarding jw7 the musculoskeletal system. jw7 23:28 23:28 General: see triage assessment . jw7 jw7
[2023-02-08] MEDS ORDERED: ALBUTEROL 2.5 MG/3 ML NEB SOL NEB PRN (00:36)
[2023-02-08] MEDS ORDERED: ONDANSETRON 4 MG/2 ML VIAL IV PRN (00:36)
[2023-02-08] MEDS ORDERED: ACETAMINOPHEN 500 MG TAB PO PRN (00:36)
--- NOTE | 2023-02-08 00:36 | P.HP ---
Certification for Inpatient Patient admitted to: Inpatient With expected LOS: >2 Midnights Practitioner: I am a practitioner with admitting privileges, knowledge of patient current condition, hospital course, and medical plan of care. Services: Services provided to patient in accordance with Admission requirements found in Title 42 Section 412.3 of the Code of Federal Regulations Patient History Date of Service: 02/08/23 Reason for admission: Cough , shortness of breath History of Present Illness: 77-year-old male with history of cerebral palsy, COPD, CHF, TIA , hypertension, hyperlipidemia presents with cough, congestion and shortness of breath that has been going on for the last 2 to 3 days. He is a poor historian hence most of the history is obtained from the chart review and also talking to the ER physician. EMS was called for shortness of breath and administered Solu-Medrol and nebulizers which helped him a little bit. Denies any chest pain. No fever or chills. No sick contacts. No nausea vomiting or diarrhea. Patient was assessed in the ER and was admitted for bibasilar pneumonia and CHF exacerbation for further management Allergies No Known Drug Allergies Allergy (Verified 12/09/17 15:48) Unknown Home medications list reviewed: Yes Home Medications: Amlodipine [Norvasc*] 2.5 mg PO BID 12/09/17 Sotalol HCl [Betapace*] 80 mg PO BID* 12/09/17 Atorvastatin Calcium [Lipitor] 40 mg PO BEDTIME #30 tab 04/11/21 Rivaroxaban [Xarelto] 20 mg PO DAILY #30 tablet 04/11/21 Levothyroxine [Synthroid*] 50 mcg PO [id number] 05/10/21 Omeprazole 40 mg PO DAILY 05/10/21 Tamsulosin [Flomax*] 0.4 mg PO DAILY #30 cap 05/24/21 Loratadine [Claritin] 10 mg PO DAILY 02/08/23 Losartan Potassium 50 mg PO DAILY 02/08/23 - Past Medical/Surgical History Diabetic: No Past Medical History: Reviewed- Non-Contributory -: HTN -: Hypercholesterolemia -: Cerebral Palsy Past Surgical History: Reviewed- Non-Contributory -: Heart Stents 15 yrs ago -: Foot surgery - Family History Family History: Reviewed- Non-Contributory - Social History Smoking Status: Never smoker Alcohol use: No CD- Drugs: No Caffeine use: Yes Review of Systems 10-point ROS is otherwise unremarkable General: Weakness, Malaise Respiratory: Cough, Shortness of Breath Cardiovascular: Orthopnea Gastrointestinal: Unremarkable Genitourinary: Unremarkable Musculoskeletal: Unremarkable Neurological: Unremarkable Physical Examination - Vital Signs Temperature: 98.6 F Blood Pressure: 138/82 Pulse: 82 Respirations: 19 Pulse Ox (%): 96 - Physical Exam General: Alert, In no apparent distress, Oriented x3, Other (Hard of hearing) HEENT: Atraumatic, Normocephalic Neck: Supple, No Thyromegaly Respiratory: Diminished, Crackles/rales Cardiovascular: Regular rate/rhythm, Normal S1 S2 Capillary refill: <2 Seconds Gastrointestinal: Soft and benign, Non-distended, W/out succussion splash Musculoskeletal: No clubbing, No swelling Integumentary: No rashes Neurological: Normal speech, Abnormal strength, Abnormal tone Lymphatics: No axilla or inguinal lymphadenopathy - Studies Laboratory Data (last 24 hrs) 02/07/23 02/07/23 02/07/23 21:45 21:45 21:45 WBC 15.90 H Hgb 12.5 L Hct 37.0 L Plt Count 133 L PT 44.3 H INR 4.20 Sodium 133 L Potassium 3.8 BUN 22 H Creatinine 1.20 Glucose 159 H Magnesium 1.7 Total Bilirubin 1.1 H AST 8 L ALT 13 L Alkaline Phosphatase 87 Microbiology Data (last 24 hrs): 02/07/23 21:45 Nasopharnyx Influenza Type A Antigen Screen - Final 02/07/23 21:45 Nasopharnyx Influenza Type B Antigen Screen - Final Assessment and Plan - Problems (Diagnosis) (1) Pneumonia Current Visit: Yes Status: Acute Plan: X-ray was consistent with bibasilar pneumonia Will get a CT of the chest Start on IV antibiotic Will obtain cultures Change antibiotic as per sensitivity (2) CHF exacerbation Current Visit: Yes Status: Acute Plan: Patient has a history of A-fib and CHF Will start on diuresis Monitor closely under telemetry Will get a echocardiogram Continue home medications and titrate as needed (3) COPD exacerbation Current Visit: Yes Status: Acute Plan: Bronchodilators At the time of examination patient looks comfortable Will hold back on the steroids for now Oxygen supplementation to keep saturation more than 92 Cerebral palsy Hypertension Hyperlipidemia TIA Continue home medications and titrate as needed (4) Leukocytosis Current Visit: Yes Status: Acute Plan: Monitor CBC daily Discharge Plan: Home Plan to discharge in: 48 Hours - Advance Directives Does patient have a Living Will: No Does patient have a Durable POA for Healthcare: Yes - Code Status/Comfort Care Code Status: Full Code Time Spent Managing Pts Care (In Minutes): 48
[2023-02-08] MEDS ORDERED: ALBUTEROL 2.5 MG/3 ML NEB SOL IH PRN (00:41)
[2023-02-08] MEDS ORDERED: TRAMADOL HCL 50 MG TAB PO PRN (00:41)
[2023-02-08] MEDS ORDERED: AZITHROMYCIN 500 MG INJ IVPB ONE ×2 (00:50→07:32)
[2023-02-08] MEDS ORDERED: NA CHLORIDE 0.9% 250 ML ONE ×2 (00:51→07:34)
[2023-02-08] MEDS ORDERED: IPRATROPIUM BROM 0.5MG/2.5ML IH PRN (01:28)
[2023-02-08 02:21] LABS: Urine Bacteria None Seen /HPF (<20); Urine Bilirubin NEGATIVE (Negative); Urine Blood Negative (Negative); Urine Clarity Clear (Clear); Urine Color Light-Yellow (Yellow); Urine Glucose NEGATIVE (Negative); Urine Mucus Slight /HPF (None Seen); Urine Protein NEGATIVE (Negative); Urine RBC <5 /HPF (None Seen); Urine Urobilinogen Normal (Normal); Urine pH 5.5 (5.0-7.0)
[2023-02-08 02:25] VITALS: BMI 15.3
[2023-02-08] MEDS: LEVOTHYROXINE SOD 0.075 MG TAB PO SCH (06:00)
[2023-02-08] MEDS ORDERED: TAMSULOSIN 0.4 MG SR CAP ONE (07:31)
[2023-02-08] MEDS ORDERED: PANTOPRAZOLE 40MG TABLET PO ONE (07:31)
[2023-02-08] MEDS ORDERED: CEFTRIAXONE 1000 MG/VIAL ONE (07:31)
[2023-02-08] MEDS ORDERED: RIVAROXABAN 20 MG TABLET PO ONE (07:31)
[2023-02-08] MEDS ORDERED: ASPIRIN EC 81 MG TAB PO ONE (07:32)
[2023-02-08] MEDS ORDERED: AMLODIPINE 5 MG TAB ONE (07:32)
[2023-02-08] MEDS ORDERED: SOTALOL HCL 80 MG TAB ONE (07:32)
[2023-02-08] MEDS ORDERED: FUROSEMIDE 20 MG/ 2ML VIAL ONE (07:32)
[2023-02-08] MEDS: CEFTRIAXONE 1,000 MG in NA CHLORIDE 0.9% 50 ML IVPB SCH (08:26)
[2023-02-08] MEDS: SOTALOL HCL 80 MG TAB PO SCH (08:26)
[2023-02-08] MEDS: ASPIRIN EC 81 MG TAB PO SCH (08:26)
[2023-02-08] MEDS: PANTOPRAZOLE 40MG TABLET PO SCH (08:28)
[2023-02-08] MEDS: RIVAROXABAN 20 MG TABLET PO SCH (08:28)
[2023-02-08] MEDS: TAMSULOSIN 0.4 MG SR CAP PO SCH (08:28)
[2023-02-08] MEDS: FUROSEMIDE 20 MG/ 2ML VIAL IV SCH ×2 (08:28→16:28)
[2023-02-08] MEDS: AMLODIPINE 2.5 MG TAB PO SCH ×2 (08:28→20:38)
[2023-02-08] MEDS: AZITHROMYCIN IV 500 MG in NA CHLORIDE 0.9% 250 ML IVPB SCH (09:00)
[2023-02-08] MEDS ORDERED: ENOXAPARIN 40 MG/0.4 ML SQ SCH (09:00)
[2023-02-08] MEDS ORDERED: ALBUTEROL 2.5 MG/3 ML NEB SOL ONE (09:43)
[2023-02-08] MEDS ORDERED: IPRATROPIUM BROM 0.5MG/2.5ML ONE (09:43)
--- NOTE | 2023-02-08 13:24 | RAD REPORT ---
EXAM DESCRIPTION: CT - Abdomen Pelvis W Contrast - 02/08/2023 6:38 am CLINICAL HISTORY: 77 years Male, ABD PAIN TECHNIQUE: Helical CT axial images are obtained from the lung bases to the pubic symphysis with IV c ontrast. No oral contrast was administered. Multiplanar reconstruction. This exam was performed accor ding to our departmental dose-optimization program, which includes automated exposure control, adjust ment of the mA and/or kV according to patient size and/or use of iterative reconstruction technique. COMPARISON: May 05, 2021 FINDINGS: Streak artifacts from overlying support devices in motion mildly limits this exam. LUNG BASES: Partially seen moderate right lower lobe consolidation. Mild patchy consolidation left lo wer lobe and visualized lingula. Small bilateral pleural effusions. LIVER: Normal in size. Normal attenuation. 2 subjacent cysts within the right hepatic dome with the larger measuring 2.5 cm, stable and benign; no further workup is warranted. No suspicious hepatic le sions. HEPATOBILIARY: Normal-appearing gallbladder. No intra- or extrahepatic ductal dilatation. SPLEEN: Normal size. PANCREAS: Mild pancreatic ductal dilatation involving the proximal body with associated atrophy. Mid and distal body and tail of pancreas as well as head of pancreas are otherwise unremarkable. ADRENAL GLANDS: Normal size. No adrenal masses. KIDNEYS: Bilateral kidneys are normal in size without obstructing calculi or hydronephrosis. No nep hrolithiasis. Several scattered small bilateral simple benign renal cysts for which no further workup is warranted. No focal solid mass. BOWEL AND MESENTERY: No small or large bowel dilatation. No colonic diverticulosis. The appendix is not visualized, no secondary signs of appendicitis. No abnormal mesenteric lymphadenopathy. No alen e fluid or pneumoperitoneum. RETROPERITONEUM: Normal caliber abdominal aorta without aneurysm. Severe ASVD with tortuosity. No a bnormal retroperitoneal lymphadenopathy. PELVIS: Moderate prostatomegaly impressing upon the base of the urinary bladder. Otherwise unremark able urinary bladder. ABDOMINAL WALL: Small fat-containing right inguinal hernia. BONES: Moderate dextroconvex scoliosis thoracolumbar junction. No suspicious osseous lytic or blast ic lesions seen. IMPRESSION: 1. No acute intra-abdominal or pelvic disease. 2. Partially seen moderate right lower lobe consolidation, concerning for pneumonia. Mild patchy co nsolidation left lower lobe and visualized lingula, concerning for pneumonia. Small bilateral pleural effusions. 3. Mild pancreatic ductal dilatation involving the proximal body with associated atrophy. Mid and d istal body and tail of pancreas as well as head of pancreas are otherwise unremarkable. Recommend fur ther evaluation with nonemergent pancreatic mass protocol CT or MRI. 4. Moderate prostatomegaly impressing upon the base of the urinary bladder. 5. Moderate dextroconvex scoliosis thoracolumbar junction. 6. Streak artifacts from overlying support devices in motion mildly limits this exam. Electronically signed by: Miki Turner MD 02/07/2023 11:52 PM [employer] Due to temporary technical issues with the PACS/Fluency reporting system, reports are being signed by the in house radiologists without review as a courtesy to insure prompt reporting. The interpreting radiologist is fully responsible for the content of the report.
--- NOTE | 2023-02-08 15:04 | P.PN ---
Subjective Date of Service: 02/08/23 Chief Complaint: Cough , shortness of breath Pt is resting comfortably in bed. He was getting the breathing treatment. Pt is also getting iv abx for bibasilar pneumonia. No other complaints. Review of Systems Unremarkable General: Unremarkable Eyes: Unremarkable ENT: Unremarkable Respiratory: Unremarkable Cardiovascular: Unremarkable Gastrointestinal: Unremarkable Genitourinary: Unremarkable Musculoskeletal: Unremarkable Integumentary: Unremarkable Neurological: Unremarkable Lymphatics: Unremarkable Physical Examination - Vital Signs Temperature: 97.8 F Blood Pressure: 108/66 Pulse: 69 Respirations: 18 Pulse Ox (%): 95 - Physical Exam General: Alert, In no apparent distress, Oriented x3 HEENT: Atraumatic, Normocephalic Neck: Supple, 2+ carotid pulse no bruit Respiratory: Diminished, Crackles/rales Cardiovascular: No edema, Normal pulses, Regular rate/rhythm, Normal S1 S2 Capillary refill: <2 Seconds Gastrointestinal: Normal bowel sounds, Soft and benign, Non-distended Musculoskeletal: No clubbing, No swelling Integumentary: No rashes, No breakdown Neurological: Normal gait, Normal speech, Normal strength at 5/5 x4 extr Lymphatics: No axilla or inguinal lymphadenopathy - Studies Laboratory Data (last 24 hrs) 02/07/23 02/07/23 02/07/23 21:45 21:45 21:45 WBC 15.90 H Hgb 12.5 L Hct 37.0 L Plt Count 133 L PT 44.3 H INR 4.20 Sodium 133 L Potassium 3.8 BUN 22 H Creatinine 1.20 Glucose 159 H Magnesium 1.7 Total Bilirubin 1.1 H AST 8 L ALT 13 L Alkaline Phosphatase 87 Microbiology Data (last 24 hrs): 02/07/23 21:45 Nasopharnyx Influenza Type A Antigen Screen - Final 02/07/23 21:45 Nasopharnyx Influenza Type B Antigen Screen - Final Assessment And Plan - Plan Sepsis 2/2 bibaliar pneumonia: Will continue rocephin and azithro. Will follow up blood cx. Acute COPD exacerbation: Will continue steroid, iv abx, duoneb and oxygen. Will follow up with Pulm. Hx of CHF; BNP is 4137. Will continue low salt diet, strict i/O and daily weight. A. fib: Will continue telemetry, xarelto, sotalol and Eliquis. Hx of cerebral palsy; noted Htn: Continue home med HLD: statin Hx of TIA: noted DVT ppx: SCD Discharge Plan: Home Plan to discharge in: 24 Hours - Code Status/Comfort Care Code Status Assessed: Yes
--- NOTE | 2023-02-08 15:07 | EKG ---
Test Date: 2023-02-07 Test Time: 21:49:53 Maid Housekeeper: LUIS MEASUREMENT RESULTS: Intervals: Rate: 75 HI: 168 QRSD: 80 QT: 420 QTc: 469 [place]: P: 97 HI: 168 QRS: 20 T: 49 INTERPRETIVE STATEMENTS: Sinus rhythm with occasional premature ventricular complexes and premature atrial complexes Otherwise normal ECG Compared to ECG 11/27/2021 13:22:37 Atrial premature complex(es) now present Atrial flutter no longer present T-wave abnormality no longer present Prolonged QT interval no longer present Electronically Signed On 02-08-23 15:05:31 [employer] by Cristiano Boston
[2023-02-08] MEDS: ATORVASTATIN 40 MG TAB PO SCH (20:38)
[2023-02-09 03:37] LABS: Absolute Lymphocytes (CBC) 0.5 K/uL (0.7-4.9); Hematocrit 32.7 % (39.6-49.0); Lymphocytes % 4.2 % (15.3-44.8); MCV 90.3 fL (80-100); MPV 9.9 fL (7.6-11.3); Platelets 170 thou/uL (152-406); RBC Red Blood Cell Count 3.62 M/uL (4.33-5.43)
[2023-02-09 04:09] LABS: Albumin 2.1 g/dL (3.4-5.0); Bilirubin Total 0.5 mg/dL (0.2-1.0); Potassium 3.4 mEq/L (3.5-5.1)
[2023-02-09] MEDS: LEVOTHYROXINE SOD 0.075 MG TAB PO SCH (06:28)
[2023-02-09] MEDS ORDERED: POTASSIUM CL SA 10 MEQ TAB PO ONE (08:00)
[2023-02-09] MEDS: PANTOPRAZOLE 40MG TABLET PO SCH (08:45)
[2023-02-09] MEDS: predniSONE 20 MG TAB PO SCH (08:45)
[2023-02-09] MEDS: ASPIRIN EC 81 MG TAB PO SCH (08:46)
[2023-02-09] MEDS: FUROSEMIDE 20 MG/ 2ML VIAL IV SCH ×2 (08:46→16:10)
[2023-02-09] MEDS: SOTALOL HCL 80 MG TAB PO SCH (08:46)
[2023-02-09] MEDS: TAMSULOSIN 0.4 MG SR CAP PO SCH (08:46)
[2023-02-09] MEDS: CEFTRIAXONE 1,000 MG in NA CHLORIDE 0.9% 50 ML IVPB SCH (08:47)
[2023-02-09] MEDS: AZITHROMYCIN IV 500 MG in NA CHLORIDE 0.9% 250 ML IVPB SCH (08:48)
[2023-02-09] MEDS: AMLODIPINE 2.5 MG TAB PO SCH ×2 (09:08→21:01)
[2023-02-09] MEDS: RIVAROXABAN 20 MG TABLET PO SCH (09:08)
--- NOTE | 2023-02-09 12:11 | P.PN ---
Subjective Date of Service: 02/09/23 Chief Complaint: Cough , shortness of breath Pt is resting comfortably in bed. He was getting the breathing treatment. Pt is also getting iv abx for bibasilar pneumonia. No other complaints. Review of Systems Unremarkable General: Unremarkable Eyes: Unremarkable ENT: Unremarkable Respiratory: Unremarkable Cardiovascular: Unremarkable Gastrointestinal: Unremarkable Genitourinary: Unremarkable Musculoskeletal: Unremarkable Integumentary: Unremarkable Neurological: Unremarkable Lymphatics: Unremarkable Physical Examination - Vital Signs Temperature: 97.3 F Blood Pressure: 122/69 Pulse: 88 Respirations: 16 Pulse Ox (%): 90 - Physical Exam General: Alert, In no apparent distress, Oriented x3 HEENT: Atraumatic, Normocephalic, PERRLA Neck: Supple, 2+ carotid pulse no bruit Respiratory: Clear to auscultation bilaterally, Normal air movement Cardiovascular: No edema, Normal pulses, Regular rate/rhythm Capillary refill: <2 Seconds Gastrointestinal: Normal bowel sounds, Soft and benign, Non-distended Musculoskeletal: No clubbing, No swelling Integumentary: No rashes, No breakdown Neurological: Normal gait, Normal speech, Normal strength at 5/5 x4 extr Lymphatics: No axilla or inguinal lymphadenopathy Assessment And Plan - Plan Sepsis 2/2 bibaliar pneumonia: Will continue rocephin and azithro. Will follow up blood cx. Acute COPD exacerbation: Will continue steroid, iv abx, duoneb and oxygen. Will follow up with Pulm. Hx of CHF: BNP is 4137. Will continue low salt diet, strict i/O and daily weight. A. fib: Will continue telemetry, xarelto, sotalol and Eliquis. Hypokalemia: K is 3.4. Will replete and monitor. Hx of cerebral palsy: noted Htn: Continue home med HLD: statin Hx of TIA: noted DVT ppx: SCD
[2023-02-09] MEDS ORDERED: RIVAROXABAN 15 MG TABLET PO SCH (17:00)
[2023-02-09] MEDS: ATORVASTATIN 40 MG TAB PO SCH (21:02)
[2023-02-10 03:06] LABS: Absolute Lymphocytes (CBC) 0.6 K/uL (0.7-4.9); Hematocrit 34.1 % (39.6-49.0); Lymphocytes % 4.4 % (15.3-44.8); MCV 90.3 fL (80-100); MPV 9.2 fL (7.6-11.3); Platelets 193 thou/uL (152-406); RBC Red Blood Cell Count 3.78 M/uL (4.33-5.43)
[2023-02-10 03:23] LABS: Potassium 3.7 mEq/L (3.5-5.1)
[2023-02-10] MEDS ORDERED: GUAIFENESIN/DM 5 ML UCUP PO PRN (04:25)
[2023-02-10 05:23] LABS: Blood Morphology Comment NOT SEEN (NOT SEEN); Platelet Estimate ADEQ; White Blood Cell Scan OK (OK)
[2023-02-10] MEDS: LEVOTHYROXINE SOD 0.075 MG TAB PO SCH (05:25)
[2023-02-10] MEDS: AMLODIPINE 2.5 MG TAB PO SCH (07:40)
[2023-02-10] MEDS: FUROSEMIDE 20 MG/ 2ML VIAL IV SCH (07:42)
[2023-02-10] MEDS: TAMSULOSIN 0.4 MG SR CAP PO SCH (07:42)
[2023-02-10] MEDS: predniSONE 20 MG TAB PO SCH (07:42)
[2023-02-10] MEDS: ASPIRIN EC 81 MG TAB PO SCH (07:42)
[2023-02-10] MEDS: SOTALOL HCL 80 MG TAB PO SCH (07:43)
[2023-02-10] MEDS: AZITHROMYCIN IV 500 MG in NA CHLORIDE 0.9% 250 ML IVPB SCH (07:43)
[2023-02-10] MEDS: PANTOPRAZOLE 40MG TABLET PO SCH (07:43)
[2023-02-10] MEDS: CEFTRIAXONE 1,000 MG in NA CHLORIDE 0.9% 50 ML IVPB SCH (07:57)
[2023-02-10 09:10] VITALS: O2SAT 98
--- NOTE | 2023-02-10 09:50 | P.PN ---
Subjective Date of Service: 02/10/23 Chief Complaint: Cough , shortness of breath Pt is resting comfortably in bed. He is also getting iv abx for bibasilar pneumonia. CT abd is concerning for pancreatic mass. Will follow CT abd. No other complaints. Review of Systems Unremarkable General: Unremarkable Eyes: Unremarkable ENT: Unremarkable Respiratory: Unremarkable Cardiovascular: Unremarkable Gastrointestinal: Unremarkable Genitourinary: Unremarkable Musculoskeletal: Unremarkable Integumentary: Unremarkable Neurological: Unremarkable Lymphatics: Unremarkable Physical Examination - Vital Signs Temperature: 97.5 F Blood Pressure: 139/82 Pulse: 82 Respirations: 12 Pulse Ox (%): 94 - Physical Exam General: Alert, In no apparent distress, Oriented x3 HEENT: Atraumatic, Normocephalic, PERRLA Neck: Supple, 2+ carotid pulse no bruit Respiratory: Clear to auscultation bilaterally, Normal air movement Cardiovascular: No edema, Normal pulses Capillary refill: <2 Seconds Gastrointestinal: Normal bowel sounds, Soft and benign, Non-distended Musculoskeletal: No clubbing, No swelling Integumentary: No rashes, No breakdown Neurological: Normal gait, Normal speech, Normal strength at 5/5 x4 extr Lymphatics: No axilla or inguinal lymphadenopathy Assessment And Plan - Plan Sepsis 2/2 bibaliar pneumonia: Will continue rocephin and azithro. Will follow up blood cx. Acute COPD exacerbation: Will continue steroid, iv abx, duoneb and oxygen. Will follow up with Pulm. Hx of CHF: BNP is 4137. Will continue low salt diet, strict I/O and daily weight. A. fib: Will continue telemetry, xarelto, sotalol and Eliquis. Possible pancreatic lesion: CT abd shows pancreatic ductal dilatation. Will order CT abd with pancreatic mass protocol to r/o any mass. Hypokalemia: K is 3.7. Will replete and monitor. Hx of cerebral palsy: noted Htn: Continue home med HLD: statin Hx of TIA: noted DVT ppx: SCD
[2023-02-10 12:06] VITALS: BP 139/80; TEMP 97.4
--- NOTE | 2023-02-10 12:34 | RAD REPORT ---
EXAM DESCRIPTION: CT - Abdomen W/Wo Contrast - 02/10/2023 10:26 am CLINICAL HISTORY: Pancreatic protocol COMPARISON: Abdomen Pelvis W Contrast dated 02/07/2023; Abdomen Pelvis W Contrast dated 8; CT ABD PELVIS W WO CONTRAST dated 08/16/2010 TECHNIQUE: Thin cut axial CT imaging of the abdomen was performed without IV contrast. Multiplanar r eformats were generated and reviewed. All CT scans are performed using dose optimization technique as appropriate and may include automated exposure control or mA/KV adjustment according to patient size. FINDINGS: Motion artifact somewhat limits evaluation. Patchy bibasilar airspace opacities. Small to moderate pleural effusions, slightly progressed in size since the prior exam. Ungi-[id number] cardiomegaly. . The liver shows a stable bilobed fluid density right hepatic dome 3.3 cm cyst. Adrenal glands, spleen , and gallbladder are unremarkable, although the gallbladder is mildly contracted limiting evaluation . Re- demonstration of elongated fluid density structure along the body of the pancreas anteriorly, prateek suring 5 mm in caliber, and at least 1.7 cm in length, see series 801, image 52 and series 802 image 51 among others. Another crescentic/linear fluid density structure along the anterior margin of the p ancreatic neck more medially, extending towards the anterior margin of the portal vein, measuring 7 m m in caliber and approximately 12 mm in length. No wall enhancement or suggestion of a solid lesion. No discrete communication with the pancreatic duct Symmetric renal contour, with small bilateral cortical fluid density cysts, stable. No suspicious foc al lesions. No evidence of radiopaque calculi or hydroureteronephrosis. No dilated bowel loops or bowel wall thickening. No free air, free fluid or inflammatory stranding. N o hernia, mass or bulky lymphadenopathy. No suspicious bony findings. Degenerative changes of the thoracolumbar spine with focal kyphotic defo rmity along the upper lumbar region IMPRESSION: There are 2 elongated fluid density structures along the body and neck of the pancreas, up to 7 mm in caliber. No suspicious enhancing or solid components are identified. Either of the lesi ons could represent may or branch duct intraductal papillary mucinous neoplasm versus elongated cysts . These are favored to be of benign nature given size, and per the ACR white paper incidental pancrea tic cystic lesions, a follow-up MRI pancreatic protocol with contrast, including under MRCP sequence is recommended in 12 months to ensure stability, and better ascertain relationship to the pancreatic ducts. Patchy bibasilar airspace opacities with slightly progressive bilateral layering pleural effusions, c oncerning for pneumonia. Other stable findings as above.
--- NOTE | 2023-02-10 13:39 | P.DS ---
Admission Date: 02/08/23 Discharge Date: 02/10/23 Reason for Admission: Cough , shortness of breath - Problems (1) CHF (congestive heart failure) Onset Date: 10/01/14 Status: Acute (2) Leukocytosis Status: Acute (3) COPD exacerbation Status: Acute Brief History of Present Illness: Mr. Christensen is a pleasant 77-year-old male patient with a past medical history significant for cerebral palsy, COPD, CHF, TIA, hypertension, hyperlipidemia who was admitted to the [facility] on 02/08/2023 for bibas ilar pneumonia and CHF exacerbation. Patient was admitted in the hospital, antibiotic, IV fluid started, monitor the vital signs closely. On 02/11/2020, patient was seen on morning rounds and deemed medically stable for discharge. Patient was discharged with instructions to schedule follow-up appointments with PCP in 3 to 5 days and dynamo repairer 1 month. Patient was provided prescriptions for Zithromax and cefdinir. The patient and family members was given the opportunity to ask questions and reported no further questions. Furthermore, all questions were answered to the best of my ability. 1. Please call and schedule a follow-up appointment with your PCP in 3-5 days - Please follow-up with your PCP for medication refills/adjustments Hospital Course: History of Present Illness: 77-year-old male with history of cerebral palsy, COPD, CHF, TIA , hypertension, hyperlipidemia presents with cough, congestion and shortness of breath that has been going on for the last 2 to 3 days. He is a poor historian hence most of the history is obtained from the chart review and also talking to the ER physician. EMS was called for shortness of breath and administered Solu-Medrol and nebulizers which helped him a little bit. Denies any chest pain. No fever or chills. No sick contacts. No nausea vomiting or diarrhea. Patient was assessed in the ER and was admitted for bibasilar pneumonia and CHF exacerbation for further management. <Felix Becerra - Last Filed: 02/10/23 13:40> Admission Date: 02/08/23 Discharge Date: 02/19/23 Hospital Course: Pt seen and examined. I agree with the note by the PIER WORKER. Ok to discharge pt. <Anthony Emanuel - Last Filed: 02/19/23 15:11> Disposition: ROUTINE DISCHARGE Discharge Condition: GOOD Vital Signs/Physical Exam: Temp Pulse Resp BP Pulse Ox 97.4 F 97 H 14 139/80 97 02/10/23 11:58 02/10/23 11:58 02/10/23 11:58 02/10/23 11:58 02/10/23 11:58 General: Alert, Oriented x3 HEENT: Atraumatic Neck: Supple, 2+ carotid pulse no bruit Respiratory: Clear to auscultation bilaterally, Normal air movement Cardiovascular: No edema, Normal pulses Capillary refill: <2 Seconds Gastrointestinal: Normal bowel sounds, Soft and benign Musculoskeletal: No swelling Integumentary: No rashes Neurological: Normal gait, Normal speech, Normal tone, Normal affect Laboratory Data at Discharge: WBC 12.60 thou/uL (4.3-10.9) H 02/10/23 02:35 Hgb 11.5 g/dL (13.6-17.9) L 02/10/23 02:35 Hct 34.1 % (39.6-49.0) L 02/10/23 02:35 Plt Count 193 thou/uL (152-406) 02/10/23 02:35 PT 44.3 SECONDS (9.5-12.5) H 02/07/23 21:45 INR 4.20 02/07/23 21:45 Sodium 138 mEq/L (136-145) 02/10/23 02:35 Potassium 3.7 mEq/L (3.5-5.1) 02/10/23 02:35 BUN 28 mg/dL (7-18) H 02/10/23 02:35 Creatinine 0.92 mg/dL (0.70-1.30) 02/10/23 02:35 Glucose 110 mg/dL (74-106) H 02/10/23 02:35 Magnesium 1.7 mg/dL (1.6-2.4) 02/07/23 21:45 Total Bilirubin 0.5 mg/dL (0.2-1.0) 02/09/23 02:56 AST 7 U/L (15-37) L 02/09/23 02:56 ALT 13 U/L (16-61) L 02/09/23 02:56 Alkaline Phosphatase 79 U/L (45-117) 02/09/23 02:56 <Felix Becerra - Last Filed: 02/10/23 13:40> Vital Signs/Physical Exam: Temp Pulse Resp BP Pulse Ox 97.4 F 97 H 14 139/80 97 02/10/23 11:58 02/10/23 11:58 02/10/23 11:58 02/10/23 11:58 02/10/23 11:58 Laboratory Data at Discharge: WBC 12.60 thou/uL (4.3-10.9) H 02/10/23 02:35 Hgb 11.5 g/dL (13.6-17.9) L 02/10/23 02:35 Hct 34.1 % (39.6-49.0) L 02/10/23 02:35 Plt Count 193 thou/uL (152-406) 02/10/23 02:35 PT 44.3 SECONDS (9.5-12.5) H 02/07/23 21:45 INR 4.20 02/07/23 21:45 Sodium 138 mEq/L (136-145) 02/10/23 02:35 Potassium 3.7 mEq/L (3.5-5.1) 02/10/23 02:35 BUN 28 mg/dL (7-18) H 02/10/23 02:35 Creatinine 0.92 mg/dL (0.70-1.30) 02/10/23 02:35 Glucose 110 mg/dL (74-106) H 02/10/23 02:35 Magnesium 1.7 mg/dL (1.6-2.4) 02/07/23 21:45 Total Bilirubin 0.5 mg/dL (0.2-1.0) 02/09/23 02:56 AST 7 U/L (15-37) L 02/09/23 02:56 ALT 13 U/L (16-61) L 02/09/23 02:56 Alkaline Phosphatase 79 U/L (45-117) 02/09/23 02:56 <Anthony Emanuel - Last Filed: 02/19/23 15:11> Diet: Regular Activity: Ad mary Time spent managing pt's care (in minutes): 55 (Minutes) <Felix Becerra - Last Filed: 02/10/23 13:40> <Anthony Emanuel - Last Filed: 02/19/23 15:11> Home Medications: Amlodipine [Norvasc*] 2.5 mg PO BID 12/09/17 Sotalol HCl [Betapace*] 80 mg PO BID* 12/09/17 Atorvastatin Calcium [Lipitor] 40 mg PO BEDTIME #30 tab 04/11/21 Rivaroxaban [Xarelto] 20 mg PO DAILY #30 tablet 04/11/21 Levothyroxine [Synthroid*] 50 mcg PO [id number] 05/10/21 Omeprazole 40 mg PO DAILY 05/10/21 Tamsulosin [Flomax*] 0.4 mg PO DAILY #30 cap 05/24/21 Loratadine [Claritin] 10 mg PO DAILY 02/08/23 Losartan Potassium 50 mg PO DAILY 02/08/23 Azithromycin [Zithromax] 250 mg PO DAILY 5 Days #6 tab 02/10/23 Cefdinir [Cefdinir*] 300 mg PO BID 10 Days #20 cap 02/10/23 New Medications: Cefdinir [Cefdinir*] 300 mg PO BID 10 Days #20 cap Azithromycin [Zithromax] 250 mg PO DAILY 5 Days #6 tab Physician Discharge Instructions: Mr. Christensen is a pleasant 77-year-old male patient with a past medical history significant for cerebral palsy, COPD, CHF, TIA, hypertension, hyperlipidemia who was admitted to the [facility] on 02/08/2023 for bibasilar pneumonia and CHF exacerbation. Patient was admitted in the hospital, antibiotic, IV fluid started, monitor the vital signs closely. On 02/11/2020, patient was seen on morning rounds and deemed medically stable for discharge. Patient was discharged with instructions to schedule follow-up appointments with PCP in 3 to 5 days and dynamo repairer 1 month. Patient was provided prescriptions for Zithromax and cefdinir. The patient and family members was given the opportunity to ask questions and reported no further q uestions. Furthermore, all questions were answered to the best of my ability. 1. Please call and schedule a follow-up appointment with your PCP in 3-5 days 2. Please call and schedule a follow-up appointment with your dynamo repairer in 1 month - Please follow-up with your PCP for medication refills/adjustments Followup: Kannan Ceballos [ASSOCIATE-COURTESY - CAN ADMIT] -
[2023-02-10] MEDS ORDERED: RIVAROXABAN 15 MG TABLET PO SCH (17:00)
[2023-02-11] MEDS ORDERED: LOSARTAN POTASSIUM 50 MG TABLET PO SCH (09:00)
== END 2023-02-10 17:14 | disposition home or self-care (01) | DRG 871 ==
LOC: ER 21:12 → ERHOLD 02-08 00:36 → 2ND 02-08 14:39
PROVIDERS: ADMIT Family Medicine; ATTEND Hospitalist
DX: A41.9 Sepsis, unspecified organism (principal); J18.9 Pneumonia, unspecified organism; J44.1 Chronic obstructive pulmonary disease with (acute) exacerbation; I11.0 Hypertensive heart disease with heart failure; I50.9 Heart failure, unspecified; E87.6 Hypokalemia; E78.5 Hyperlipidemia, unspecified; I48.91 Unspecified atrial fibrillation; E78.00 Pure hypercholesterolemia, unspecified; G80.9 Cerebral palsy, unspecified; Z86.73 Personal history of transient ischemic attack (TIA), and cerebral infarction without residual deficits
CPT/HCPCS: 36415; 71045; 74170; 74177; 80048; 80053; 80076; 81001; 83605; 83735; 83880; 84484; 85025; 85610; 87040; 87804; 93005; 94640; 94760; 99285; J0696; J1940; J7050; J7512; J7613; J7644; Q9967

== ENCOUNTER 2023-06-27 11:02 | Emergency (ER) | payer OTHER ==
[2023-06-27 11:21] LABS: Absolute Eosinophils 0.2 K/uL (0-0.5); Absolute Lymphocytes (CBC) 0.6 K/uL (0.7-4.9); Absolute Monocytes 0.5 K/uL (0.1-1.3); Absolute Neutrophil 5.1 K/uL (1.8-8.0); Basophils % 0.8 % (0-1.3); Eosinophils % 2.5 % (0-4.4); Hematocrit 40.3 % (39.6-49.0); Hemoglobin 13.2 g/dL (13.6-17.9); Lymphocytes % 8.6 % (15.3-44.8); MCH 29.9 pg (27.0-35.0); MCHC 32.8 g/dL (32.0-36.0); MCV 91.3 fL (80-100); MPV 9.1 fL (7.6-11.3); Monocytes % 8.3 % (3.3-12.3); Neutrophils % 79.8 % (41.7-73.7); Platelets 207 thou/uL (152-406); RBC Red Blood Cell Count 4.41 M/uL (4.33-5.43); Red Cell Distribution Width 14.2 % (12.1-15.2)
[2023-06-27 11:28] LABS: PTT, Activated Partial Thromb 57.9 SECONDS (24.3-36.9)
[2023-06-27 11:52] LABS: Anion Gap 4.1 mEq/L (5.0-15.0); Potassium 4.1 mEq/L (3.5-5.1); Troponin High Sensitivity 15.7 pg/mL (<58.9)
--- NOTE | 2023-06-27 12:01 | RAD REPORT ---
EXAM DESCRIPTION: CT - Head C Spine Mpr Wo Con - 06/27/2023 11:48 am CLINICAL HISTORY: Head and neck injury status post fall. Head and neck pain COMPARISON: 2021 TECHNIQUE: Computed axial tomography of the head and cervical spine was obtained. Sagittal and coronal reconstruction was performed. All CT scans are performed using dose optimization technique as appropriate and may include automated exposure control or mA/KV adjustment according to patient size. FINDINGS: An intracranial bleed is not seen. The ventricles are normal in caliber. Mild low-density within periventricular, deep and subcortical white matter probably ischemic changes secondary to small vessel disease. Mild cerebral atrophy. An extra-axial fluid collection is not noted. Fluid within the visualized sinuses and mastoids is not seen A cervical fracture is not visualized. No dislocation is noted. Spondylosis cervical spine IMPRESSION: No acute intracranial abnormality is seen. A cervical fracture is not visualized. If the patient continues to have symptoms to suggest intracranial /spinal cord pathology then MRI wou ld be recommended
--- NOTE | 2023-06-27 12:22 | RAD REPORT ---
EXAM DESCRIPTION: Kye Single View06/27/2023 12:00 pm CLINICAL HISTORY: Chest pain COMPARISON: February 2023 FINDINGS: Small bilateral pleural effusions with bibasilar atelectasis The upper lobes appear clear Heart is moderately enlarged
--- NOTE | 2023-06-27 16:21 | RAD REPORT ---
EXAM DESCRIPTION: MRI - Brain Wo Cont - 06/27/2023 2:55 pm CLINICAL HISTORY: ataxia COMPARISON: Head CT of the same day. MRI brain 04/10/2021 TECHNIQUE: Multiplanar multisequence MRI of the brain performed without IV contrast. FINDINGS: No evidence of acute infarct or other diffusion signal abnormality. No evidence of acute intracranial hemorrhage or abnormal extra-axial fluid collections. Mild diffuse parenchymal volume loss. Ventricular caliber otherwise within normal for age. Midline st ructures are unremarkable. Stable subcortical and deep white matter T2/FLAIR hyperintensities, nonspecific, but suggestive of ch ronic small vessel ischemic changes. No mass effect or midline shift. Major vascular flow voids are preserved. Mastoid air cells and paranasal sinuses are clear. IMPRESSION: No acute intracranial process. No evidence of ventriculomegaly or mass effect.
[2023-06-27] MEDS ORDERED: KETOROLAC 30 MG/ML INJ ONE (16:36)
--- NOTE | 2023-06-27 16:37 | ER ---
Nurse's Notes [facility] Name: Jovani Reinoso Age: 78 yrs Sex: Male : 1945 Arrival Date: 06/27/2023 Time: 11:02 Bed 5 Private MD: Diagnosis: Fall on same level, unspecified;Ataxic gait Presentation: 06/26 11:04 Chief complaint: EMS states: toned out to pt home for being "off balance" today. Pt ld1 reports falling yesterday evening "picking up sticks", pt is taking Xarelto. C/O difficulty balancing, left elbow pain, headache. Coronavirus screen: At this time, the client does not indicate any symptoms associated with coronavirus-19. Ebola Screen: No symptoms or risks identified at this time. Initial Sepsis Screen: Does the patient meet any 2 criteria? No. Patient's initial sepsis screen is negative. Does the patient have a suspected source of infection? No. Patient's initial sepsis screen is negative. Risk Assessment: Do you want to hurt yourself or someone else? Patient reports no desire to harm self or others. Onset of symptoms was June 27, 2023. 11:04 Method Of Arrival: EMS: [facility] ld1 11:04 Acuity: CAMILA 2 ld1 Triage Assessment: 11:04 General: Appears in no apparent distress. comfortable, Behavior is calm, cooperative, ld1 appropriate for age. Pain: Complains of pain in face and left elbow Pain does not radiate. Pain currently is 7 out of 10 on a pain scale. Quality of pain is described as throbbing, Pain began suddenly, Is continuous. EENT: No signs and/or symptoms were reported regarding the EENT system. Neuro: Level of Consciousness is awake, alert, obeys commands, Oriented to person, place, time, situation, Reports headache. Cardiovascular: Capillary refill < 3 seconds Patient's skin is warm and dry. Respiratory: Airway is patent Respiratory effort is even, unlabored. GI: Abdomen is flat, non-distended. : No signs and/or symptoms were reported regarding the genitourinary system. Derm: No signs and/or symptoms reported regarding the dermatologic system. Musculoskeletal: No signs and/or symptoms reported regarding the musculoskeletal system. Historical: - Allergies: 11:03 No Known Allergies; ld1 - Home Meds: 11:04 Xarelto 20 mg Oral tab 1 tab once daily [Active]; ld1 - PMHx: 11:03 Atrial fibrillation; Cerebral Palsy; CHF; COPD; Transient cerebral ischemia; ld1 Hypertension; Blood clots (Hypertension); Hyperthyroidism; Vision/hearing loss; - Immunization history:: Adult Immunizations up to date. - Infectious Disease History:: Denies. - Social history:: Smoking status: Patient denies any tobacco usage or history of. Screenin:06 [facility] ED Fall Risk Assessment (Adult) History of falling in the last 3 months, mb9 including since admission Yes- single mechanical fall (1 pt) Confusion or Disorientation No (0 pts) Intoxicated or Sedated No (0 pts) Impaired Gait Yes (1 pt) Mobility Assist Device Used No (0 pt) Altered Elimination No (0 pt) Score/Fall Risk Level 3 or more points = High Risk Oriented to surroundings, Maintained a safe environment, Educated pt \\T\\ family on fall prevention, incl call for assistance when getting out of bed, Assessed \\T\\ reinforced patient's understanding of fall precautions, Provided non-skid footwear. Abuse screen: Denies threats or abuse. Nutritional screening: No deficits noted. Tuberculosis screening: No symptoms or risk factors identified. 11:17 Debby Swallow Protocol Brief Cognitive Screen What is your name? Normal, Where are you mb9 right now? Normal, What year is it? Normal. Oral Mechanism Examination Facial Symmetry: Normal, Motion: Normal, Lip Closure: Normal, Oral Mechanism Result: Normal. 3 oz Water Swallow Challenge: Pt able to drink all water without stopping, coughing, choking or throat clearing: Yes Result: PASS. Assessment: 11:09 Reassessment: See triage assessment. ld1 12:00 Reassessment: No changes from previously documented assessment. Patient and/or family mb9 updated on plan of care and expected duration. Pain level reassessed. Patient is alert, oriented x 3, equal unlabored respirations, skin warm/dry/pink. 13:00 Reassessment: No changes from previously documented assessment. Patient and/or family mb9 updated on plan of care and expected duration. Pain level reassessed. Patient is alert, oriented x 3, equal unlabored respirations, skin warm/dry/pink. 14:35 Reassessment: No changes from previously documented assessment. Patient and/or family ld1 updated on plan of care and expected duration. Pain level reassessed. Patient is alert, oriented x 3, equal unlabored respirations, skin warm/dry/pink. 16:24 Reassessment: No changes from previously documented assessment. Patient and/or family mb9 updated on plan of care and expected duration. Pain level reassessed. Patient is alert, oriented x 3, equal unlabored respirations, skin warm/dry/pink. 16:57 Reassessment: Patient appears in no apparent distress at this time. No changes from ld1 previously documented assessment. Patient and/or family updated on plan of care and expected duration. Pain level reassessed. Patient is alert, oriented x 3, equal unlabored respirations, skin warm/dry/pink. Vital Signs: 11:04 BP 144 / 88; Pulse 59; Resp 18; Temp 98.1(TE); Pulse Ox 98% on R/A; Weight 57.61 kg; ld1 Height 5 ft. 7 in. ; Pain 6/10; 13:39 BP 163 / 61; Pulse 54; Resp 18; Pulse Ox 100% on R/A; mb9 14:35 BP 158 / 65; Pulse 62; Resp 18; Pulse Ox 93% on R/A; ld1 16:29 BP 145 / 80; Pulse 60; Resp 18; Pulse Ox 99% on R/A; mb9 16:57 BP 143 / 76; Pulse 72; Resp 18; Pulse Ox 100% on R/A; ld1 11:04 Body Mass Index 19.89 (57.61 kg, 170.18 cm) ld1 11:04 Pain Scale: Adult ld1 ED Course: 11:03 Patient arrived in ED. ld1 11:03 Alex Rodriguez DO is Attending Physician. ms3 11:04 Arm band placed on right wrist. ld1 11:06 Initial lab(s) drawn, by me, sent to lab. EKG done, by ED staff, reviewed by Alex Rodriguez DO. Inserted saline lock: 22 gauge in right forearm, using aseptic technique. Blood collected. 11:07 Triage completed. ld1 11:07 Placed in gown. Bed in low position. Call light in reach. Side rails up X 1. Provided angeles Education on: press call light if needing anything. Client placed on continuous cardiac and pulse oximetry monitoring. NIBP monitoring applied. quality assurance monitor body on. 11:09 Door closed. Noise minimized. Warm blanket given. ld1 11:10 Sherry Rodriguez, RN is Primary Nurse. ld1 11:48 No provider procedures requiring assistance completed. mb9 11:50 CT Head C Spine In Process Unspecified. EDMS 12:02 CXR XRAY In Process Unspecified. EDMS 14:51 Brain Wo Cont In Process Unspecified. EDMS 16:36 Ceferino Tam DO is Referral Physician. ms3 17:00 IV discontinued, intact, bleeding controlled, No redness/swelling at site. ld1 Administered Medications: 16:40 Drug: Ketorolac IVP 10 mg 10 mg IVP once Route: IVP; Site: right antecubital; ld1 Medication: 11:17 VIS not applicable for this client. mb9 Outcome: 16:36 Discharge ordered by MD. ms3 16:59 Discharged to home via wheelchair, with family, ld1 16:59 Condition: stable 16:59 Discharge instructions given to patient, Instructed on discharge instructions, follow up and referral plans. Demonstrated understanding of instructions, follow-up care, 17:01 Patient left the ED. ld1 Signatures: Dispatcher [employer] EDMS Alex Rodriguez DO DO ms3 Sherry Rodriguez, RN RN ld1 Suly Ruth RN RN mb9
--- NOTE | 2023-06-27 16:37 | EDPHYS ---
Physician Documentation [facility] Name: Jovani Reinoso Age: 78 yrs Sex: Male : 1945 Arrival Date: 06/27/2023 Time: 11:02 Bed 5 Private MD: ED Physician Alex Rodriguez HPI: 06/26 11:13 This 78 yrs old Male presents to ER via EMS with complaints of Fall Injury, Difficulty ms3 walking. 11:13 78-year-old male with past medical history of atrial fibrillation, cerebral palsy, ms3 congestive heart failure, COPD, transient cerebral ischemia, hypertension presents to the emergency department via [facility] for fall that occurred yesterday. Patient states he has had equilibrium problems and they became worse after the fall. Patient states he is having moderate pain. Historical: - Allergies: 11:03 No Known Allergies; ld1 - Home Meds: 11:04 Xarelto 20 mg Oral tab 1 tab once daily [Active]; ld1 - PMHx: 11:03 Atrial fibrillation; Cerebral Palsy; CHF; COPD; Transient cerebral ischemia; ld1 Hypertension; Blood clots (Hypertension); Hyperthyroidism; Vision/hearing loss; - Immunization history:: Adult Immunizations up to date. - Infectious Disease History:: Denies. - Social history:: Smoking status: Patient denies any tobacco usage or history of. ROS: 11:13 Constitutional: Negative for fever, and chills. Neck: Negative for injury, pain, and ms3 swelling, Cardiovascular: Negative for chest pain, and palpitations. Respiratory: Negative for shortness of breath, cough, wheezing, and pleuritic chest pain, Abdomen/GI: Negative for abdominal pain, nausea, vomiting, diarrhea, and constipation, MS/Extremity: Negative for injury and deformity, 11:13 Neuro: Positive for dizziness, Exam: 11:13 Constitutional: This is a well developed, well nourished patient who is awake, alert, ms3 and in no acute distress. Head/Face: Normocephalic, atraumatic. Neck: Trachea midline, no cervical lymphadenopathy. Supple, full range of motion without nuchal rigidity, or vertebral point tenderness. No Meningismus. Chest/axilla: Normal chest wall appearance and motion. Nontender with no deformity. Cardiovascular: Regular rate and rhythm with a normal S1 and S2. No gallops, murmurs, or rubs. Normal PMI, no JVD. No pulse deficits. Respiratory: Lungs have equal breath sounds bilaterally, clear to auscultation and percussion. No rales, rhonchi or wheezes noted. No increased work of breathing, no retractions or nasal flaring. Abdomen/GI: Soft, non-tender, with normal bowel sounds. No distension or tympany. No guarding or rebound. No evidence of tenderness throughout. 11:13 ECG was reviewed by the Attending Physician. ms3 Vital Signs: 11:04 BP 144 / 88; Pulse 59; Resp 18; Temp 98.1(TE); Pulse Ox 98% on R/A; Weight 57.61 kg; ld1 Height 5 ft. 7 in. ; Pain 6/10; 13:39 BP 163 / 61; Pulse 54; Resp 18; Pulse Ox 100% on R/A; mb9 14:35 BP 158 / 65; Pulse 62; Resp 18; Pulse Ox 93% on R/A; ld1 16:29 BP 145 / 80; Pulse 60; Resp 18; Pulse Ox 99% on R/A; mb9 16:57 BP 143 / 76; Pulse 72; Resp 18; Pulse Ox 100% on R/A; ld1 11:04 Body Mass Index 19.89 (57.61 kg, 170.18 cm) ld1 11:04 Pain Scale: Adult ld1 MDM: 11:12 Patient medically screened. ms3 17:07 Differential diagnosis: abrasion, closed head injury, contusion, fracture, sprain, ms3 strain. Data reviewed: vital signs, nurses notes, lab test result(s), radiologic studies, CT scan, MRI, and as a result, I will discharge patient. Consideration of Admission/Observation Escalation of care including admission/observation considered. MRI brain without stroke. Historians other than the Patient: EMS: [facility]. Counseling: I had a detailed discussion with the patient and/or guardian regarding the historical points, exam findings, and any diagnostic results supporting the discharge/admit diagnosis, lab results, radiology results, the need for outpatient follow up, to return to the emergency department if symptoms worsen or persist or if there are any questions or concerns that arise at home. Special discussion: I discussed with the patient/guardian in detail that at this point there is no indication for admission to the hospital. It is understood, however, that if the symptoms persist or worsen the patient needs to return immediately for re-evaluation. ED course: Discussed labs, imaging with patient and his technology integration specialist. Patient to follow-up with primary care physician in 2 to 3 days. Patient understands and agrees with plan. All questions were answered. Return precautions discussed include worsening symptoms, or any other concerns. On reevaluation patient is alert, no apparent distress, nontoxic-appearing, speaking full sentences. Patient's technology integration specialist states patient is typically ataxic and is currently in physical therapy for this.. 06/26 11:13 Order name: Basic Metabolic Panel; Complete Time: 12:24 ms3 06/26 11:13 Order name: CBC with Diff; Complete Time: 12:24 ms3 06/26 11:13 Order name: High Sensitivity Troponin; Complete Time: 12:24 ms3 06/26 11:13 Order name: Protime (+inr); Complete Time: 12:24 ms3 06/26 11:13 Order name: Ptt, Activated; Complete Time: 12:24 ms3 06/26 11:13 Order name: CT Head C Spine; Complete Time: 12:24 ms3 06/26 11:13 Order name: CXR XRAY; Complete Time: 12:24 ms3 06/26 14:42 Order name: Brain Wo Cont; Complete Time: 16:30 EDMS 06/26 11:13 Order name: EKG; Complete Time: 11:13 ms3 06/26 11:13 Order name: Accucheck; Complete Time: 11:13 ms3 06/26 11:13 Order name: Cardiac monitoring; Complete Time: 11:13 ms3 06/26 11:13 Order name: EKG - Nurse/Tech; Complete Time: 11:13 ms3 06/26 11:13 Order name: IV Saline Lock; Complete Time: 11:13 ms3 06/26 11:13 Order name: Labs collected and sent; Complete Time: 11:13 ms3 06/26 11:13 Order name: NPO; Complete Time: 11:13 ms3 06/26 11:13 Order name: O2 Per Protocol; Complete Time: 11:13 ms3 06/26 11:13 Order name: O2 Sat Monitoring; Complete Time: 11: ms3 06/26 11:13 Order name: Stroke Swallow Screen; Complete Time: 11:17 ms3 EC:13 Rate is 57 beats/min. Rhythm is regular. QRS [place] is Normal. [place] interval is normal. QRS ms3 interval is normal. Clinical impression: Sinus bradycardia. Interpreted by me. Reviewed by me. Administered Medications: 16:40 Drug: Ketorolac IVP 10 mg 10 mg IVP once Route: IVP; Site: right antecubital; ld1 Disposition Summary: 06/27/23 16:36 Discharge Ordered Notes: Location: Home ms3 Condition: Stable ms3 Diagnosis - Fall on same level, unspecified ms3 - Ataxic gait ms3 Followup: ms3 - With: Ceferino Tam DO - When: 2 - 3 days - Reason: Recheck today's complaints Discharge Instructions: - Discharge Summary Sheet ms3 - Fall Prevention in the Home, Adult ms3 Forms: - Medication Reconciliation Form ms3 - Antibiotic Education ms3 - Prescription Opioid Use ms3 - Patient Portal Instructions ms3 - Leadership Thank You Letter ms3 Signatures: Dispatcher [employer] EDMS Alex Rodriguez DO DO ms3 Sherry Rodriguez, RN RN ld1 Corrections: (The following items were deleted from the chart) 11:13 11:13 BASIC METABOLIC PANEL+C.LAB.BRZ ordered. EDMS EDMS 11:13 11:13 CBC+H.LAB.BRZ ordered. EDMS EDMS 11:13 11:13 Troponin High Sensitivity+C.LAB.BRZ ordered. EDMS EDMS 11:13 11:13 PROTIME (+INR)+COAG.LAB.BRZ ordered. EDMS EDMS 11:13 11:13 PTT, ACTIVATED+COAG.LAB.BRZ ordered. EDMS EDMS 11:13 11:13 Chest Single View+RAD.RAD.BRZ ordered. EDMS EDMS 14:42 12:26 MR STROKE PROTOCOL+MRI.RAD.BRZ ordered. EDMS EDMS
[2023-06-27 18:26] VITALS: BP 143/76; TEMP 98.1; O2SAT 100
--- NOTE | 2023-07-01 13:32 | EKG ---
Test Date: 2023-06-27 Test Time: 11:08:08 Chainstitch Pants Outseamer: PATRIC MEASUREMENT RESULTS: Intervals: Rate: 57 TN: 160 QRSD: 88 QT: 468 QTc: 455 [place]: P: TN: 160 QRS: -3 T: -5 INTERPRETIVE STATEMENTS: Sinus bradycardia with premature atrial complexes Voltage criteria for left ventricular hypertrophy Abnormal ECG Compared to ECG 02/07/2023 21:49:53 Left ventricular hypertrophy now present Sinus rhythm no longer present Ventricular premature complex(es) no longer present Electronically Signed On 07-01-23 13:20:31 CDT by Cristiano Boston
== END 2023-06-27 17:01 | disposition home or self-care (01) ==
LOC: ER 11:02
DX: R26.0 Ataxic gait (principal); R42 Dizziness and giddiness; W18.30XA Fall on same level, unspecified, initial encounter; G80.9 Cerebral palsy, unspecified; I10 Essential (primary) hypertension; I48.91 Unspecified atrial fibrillation; Z79.01 Long term (current) use of anticoagulants
CPT/HCPCS: 36415; 70450; 70551; 71045; 72125; 80048; 84484; 85025; 85610; 85730; 93005; 96374; 99285

== ENCOUNTER 2023-09-30 20:54 | Inpatient (IN) | payer OTHER ==
[2023-09-30] MEDS ORDERED: ONDANSETRON 4 MG (ODT) TAB ONE (21:53)
[2023-09-30] MEDS ORDERED: HYDROCODONE/APAP 10/325 TAB ONE (21:53)
--- NOTE | 2023-09-30 22:33 | RAD REPORT ---
EXAM DESCRIPTION: CT - Head Brain Wo Cont - 09/30/2023 10:13 pm CLINICAL HISTORY: Head injury status post fall COMPARISON: 2021 TECHNIQUE: Computed axial tomography of the head was obtained. IV contrast was not requested. All CT scans are performed using dose optimization technique as appropriate and may include automated exposure control or mA/KV adjustment according to patient size. FINDINGS: An intracranial bleed is not seen The ventricles are normal in caliber No extra-axial fluid collection is noted. Prominent cerebral atrophy. Cerebellar vermis atrophy also noted. Mild to moderate low-density areas within periventricular, deep and subcortical white matter likely r epresent ischemic changes secondary to small vessel disease. Fluid within the sinuses/ mastoids is not seen. IMPRESSION: No acute intracranial abnormality is seen If patient's symptoms persist MRI of the brain would be recommended
--- NOTE | 2023-09-30 22:41 | RAD REPORT ---
EXAM DESCRIPTION: CT - Pelvis Wo Cont - 09/30/2023 10:13 pm CLINICAL HISTORY: Pelvic pain status post fall COMPARISON: None. TECHNIQUE: Computed axial tomography of the pelvis was obtained. Coronal and sagittal reconstruction performed All CT scans are performed using dose optimization technique as appropriate and may include automated exposure control or mA/KV adjustment according to patient size. FINDINGS: An impacted mildly displaced subcapital left femoral fracture No dislocation Lucency with a sclerotic border within right femoral head and neck probably benign Moderate right inguinal hernia contains bowel Moderate to marked prostatic enlargement IMPRESSION: Impacted mildly displaced subcapital fracture left femur
--- NOTE | 2023-09-30 22:42 | RAD REPORT ---
EXAM DESCRIPTION: RAD - Femur Left - 09/30/2023 10:12 pm CLINICAL HISTORY: Left leg pain FINDINGS: Impacted mildly displaced subcapital left femoral fracture
--- NOTE | 2023-10-01 03:01 | EDPHYS ---
Physician Documentation [facility] Name: Jvoani Reinoso Age: 78 yrs Sex: Male : 1945 Arrival Date: 09/30/2023 Time: 20:54 Bed 18 Private MD: ED Physician Reza Waters HPI: 09/29 21:03 This 78 yrs old Male presents to ER via Unassigned with complaints of COPD. sp4 21:11 Allergies: No Known Allergies Home Meds: Xarelto 20 mg Oral tab 1 tab once daily PMHx: sp4 Atrial fibrillation; Cerebral Palsy; CHF; COPD; Transient cerebral ischemia; Hypertension; Blood clots (Hypertension); Hyperthyroidism; Vision/hearing loss;. 09/30 04:25 Patient 78-year-old male presents with acute left hip pain and head injury after acute sp4 fall at home.. Historical: - Allergies: 09/29 21:04 No Known Allergies; ha1 - Home Meds: 21:04 Xarelto 20 mg Oral tab 1 tab once daily [Active]; ha1 - PMHx: 21:04 Atrial fibrillation; blood clots (Hypertension); Cerebral Palsy; CHF; COPD; ha1 Hypertension; hyperthyroidism; Transient cerebral ischemia; Vision/hearing loss; - Immunization history:: Adult Immunizations unknown. - Infectious Disease History:: Denies. - Social history:: Smoking status: Patient reports the use of cigarette tobacco products, Patient/guardian denies using tobacco, the patient reports quitting approximately 15 years ago. - Family history:: not pertinent. ROS: 09/30 04:25 Constitutional: Negative for fever, chills, and weight loss, positive for acute fall sp4 positive for left hip pain positive for head injury. All other systems are negative, Exam: 04:25 Constitutional: This is a well developed, well nourished patient who is awake, alert, sp4 and in no acute distress. Frail elderly male, stigmata of COPD, moderate dementia Head/Face: Normocephalic, atraumatic. Eyes: Pupils equal round and reactive to light, extra-ocular motions intact. Lids and lashes normal. Conjunctiva and sclera are not injected. Cornea within normal limits. Periorbital areas with no swelling, redness, or edema. ENT: Nares patent. No nasal discharge, no septal abnormalities noted. Tympanic membranes are normal and external auditory canals are clear. Oropharynx with no redness, swelling, or masses, exudates, or evidence of obstruction, uvula midline. Mucous membranes moist. Neck: Trachea midline, no thyromegaly or masses palpated, and no cervical lymphadenopathy. Supple, full range of motion without nuchal rigidity, or vertebral point tenderness. Chest/axilla: Normal chest wall appearance and motion. Nontender with no deformity. No lesions are appreciated. Cardiovascular: Positive irregularly irregular tachycardia. No gallops, murmurs, or rubs. Normal PMI, no JVD. No pulse deficits. Respiratory: Lungs have equal breath sounds bilaterally, clear to auscultation and percussion. No rales, rhonchi or wheezes noted. No increased work of breathing, no retractions or nasal flaring. Abdomen/GI: Soft, with normal bowel sounds. No distension or tympany. No guarding or rebound. No evidence of tenderness throughout. Back: No spinal tenderness. No costovertebral tenderness. Male : Normal genitalia with no discharge or lesions. Skin: Warm, dry with normal turgor. Normal color with no rashes, no lesions, and no evidence of cellulitis. MS/ Extremity: Pulses equal, no cyanosis. Neurovascular intact. Positive left hip tenderness but preserved range of motion. Neuro: Awake and alert, GCS 15, oriented to person, Cranial nerves II-XII grossly intact. Motor strength 5/5 in all extremities. Sensory grossly intact. Psych: Awake, alert, with orientation to person Behavior, mood, and affect are within normal limits 04:25 ECG was reviewed by the Attending Physician. EKG at 0 411 reveals atrial fibrillation at a rate of 129. Positive LVH. Vital Signs: 09/29 20:58 BP 144 / 80; Pulse 95; Resp 17 S; Temp 97.8(T); Pulse Ox 96% on R/A; Weight 57.61 kg; ha1 Height 5 ft. 2 in. ; 22:00 BP 144 / 82; Pulse 68; Resp 17 S; Pulse Ox 93% on R/A; ha1 23:00 BP 136 / 79; Pulse 96; Resp 17 S; Pulse Ox 92% on R/A; ha1 09/30 00:00 BP 139 / 73; Pulse 69; Resp 17 S; Pulse Ox 92% on R/A; ha1 01:00 BP 113 / 82; Pulse 89; Resp 17 S; Pulse Ox 98% on 2 lpm NC; ha1 02:00 BP 117 / 80; Pulse 96; Resp 17 S; Pulse Ox 98% on 2 lpm NC; ha1 03:00 BP 146 / 86; Pulse 118; Resp 17 S; Pulse Ox 98% on 2 lpm NC; ha1 04:00 BP 144 / 84; Pulse 69; Resp 17 S; Pulse Ox 99% on 2 lpm NC; ha1 04:20 BP 147 / 79; Pulse 110; Resp 17 S; Pulse Ox 97% on 2 lpm NC; ha1 05:20 BP 144 / 81; Pulse 97; Resp 17 S; Pulse Ox 96% on 2 lpm NC; ha1 09/29 20:58 Body Mass Index 23.23 (57.61 kg, 157.48 cm) ha1 MDM: 09/29 21:08 Patient medically screened. sp4 09/30 02:58 ED course: EXAM DESCRIPTION: CT - Head Brain Wo Cont - 09/30/2023 10:13 pm CLINICAL sp4 HISTORY: Head injury status post fall COMPARISON: 2021 TECHNIQUE: Computed axial tomography of the head was obtained. IV contrast was not requested. All CT scans are performed using dose optimization technique as appropriate and may include automated exposure control or mA/KV adjustment according to patient size. FINDINGS: An intracranial bleed is not seen The ventricles are normal in caliber No extra-axial fluid collection is noted. Prominent cerebral atrophy. Cerebellar vermis atrophy also noted. Mild to moderate low-density areas within periventricular, deep and subcortical white matter likely represent ischemic changes secondary to small vessel disease. Fluid within the sinuses/ mastoids is not seen. IMPRESSION: No acute intracranial abnormality is seen If patient's symptoms persist MRI of the brain would be recommended. ED course: EXAM DESCRIPTION: CT - Pelvis Wo Cont - 09/30/2023 10:13 pm CLINICAL HISTORY: Pelvic pain status post fall COMPARISON: None. TECHNIQUE: Computed axial tomography of the pelvis was obtained. Coronal and sagittal reconstruction performed All CT scans are performed using dose optimization technique as appropriate and may include automated exposure control or mA/KV adjustment according to patient size. FINDINGS: An impacted mildly displaced subcapital left femoral fracture No dislocation Lucency with a sclerotic border within right femoral head and neck probably benign Moderate right inguinal hernia contains bowel Moderate to marked prostatic enlargement IMPRESSION: Impacted mildly displaced subcapital fracture left femur . ED course: EXAM DESCRIPTION: RAD - Femur Left - 09/30/2023 10:12 pm CLINICAL HISTORY: Left leg pain FINDINGS: Impacted mildly displaced subcapital left femoral fracture . 04:25 Differential Diagnosis altered mental status, sepsis, flu. Data reviewed: vital signs, sp4 nurses notes, EMS record, old medical records, lab test result(s), EKG, radiologic studies, CT scan, plain films. Consideration of Admission/Observation Patient was admitted/placed on observation. Escalation of care including admission/observation considered. Management of patient was discussed with the following: Hospitalist: Admit team . Tar Chaser: Scooter MEHTA . ED course: Patient warrants admission for management of atrial fibrillation also additionally fixation of a left subcapital femoral fracture.. 09/30 02:56 Order name: Basic Metabolic Panel; Complete Time: 04:24 sp4 09/30 02:56 Order name: CBC with Diff; Complete Time: 05:04 sp4 09/30 02:56 Order name: LFT's; Complete Time: 04:24 sp4 09/30 02:56 Order name: Magnesium; Complete Time: 04:24 sp4 09/30 02:56 Order name: NT PRO-BNP; Complete Time: 04:24 sp4 09/30 02:56 Order name: PT-INR; Complete Time: 04:24 sp4 09/30 02:56 Order name: Troponin HS; Complete Time: 04:24 sp4 09/30 03:29 Order name: Type and Screen EDMS 09/30 03:29 Order name: Urinalysis w/ reflexes EDMS 09/30 03:29 Order name: Basic Metabolic Panel EDMS 09/30 03:29 Order name: Basic Metabolic Panel EDMS 09/30 03:29 Order name: Basic Metabolic Panel EDMS 09/30 03:29 Order name: CBC with Automated Diff EDMS 09/30 03:29 Order name: CBC with Automated Diff EDMS 09/30 03:29 Order name: CBC with Automated Diff EDMS 09/30 03:29 Order name: Magnesium EDMS 09/30 03:29 Order name: Magnesium EDMS 09/30 03:29 Order name: Magnesium EDMS 09/30 03:30 Order name: Packed RBC Leukored EDMS 09/30 03:30 Order name: Hematocrit [facility] 09/30 03:30 Order name: Hemoglobin [facility] 09/30 03:31 Order name: ABO/RH typing [facility] 09/30 03:31 Order name: Antibody Screen [facility] 09/30 04:58 Order name: CBC Smear Scan; Complete Time: 05:04 [facility] 09/29 21:23 Order name: CT Pelvis wo Cont; Complete Time: 00:55 sp4 09/29 21:23 Order name: Femur Left XRAY; Complete Time: 00:55 sp4 09/29 21:59 Order name: Head Brain Wo Cont CT; Complete Time: 00:55 sp4 09/30 02:56 Order name: XRAY Chest (1 view) [facility] 09/30 03:25 Order name: CONS Physician Consult [facility] 09/30 02:56 Order name: [place]; Complete Time: 03:36 sp4 09/30 02:56 Order name: Cardiac monitoring; Complete Time: 04:10 sp4 09/30 02:56 Order name: EKG - Nurse/Tech; Complete Time: 04:53 sp4 09/30 02:56 Order name: IV Saline Lock; Complete Time: 03:20 sp4 09/30 02:56 Order name: Labs collected and sent; Complete Time: 03:20 sp4 09/30 02:56 Order name: O2 Per Protocol; Complete Time: 03:20 sp4 09/30 02:56 Order name: O2 Sat Monitoring; Complete Time: 04:10 sp4 EC:25 Rate is 129 beats/min. Rhythm is irregularly irregular, A fib. QRS [place] is Normal. QRS sp4 interval is normal. QT interval is normal. No Q waves. T waves are Normal. No ST changes noted. Clinical impression: Atrial Fibrillation. Interpreted by me. Reviewed by me. Administered Medications: 09/29 21:56 Drug: [place] PO 10 mg-325 mg 1 tabs PO once Route: PO; ha1 22:20 Follow up: Response: No adverse reaction; Pain is decreased ha1 21:56 Drug: Ondansetron PO 4 mg PO once Route: PO; ha1 22:20 Follow up: Response: No adverse reaction; Marked relief of symptoms [facility] 09/30 03:33 Drug: morphine IVP or IV 4 mg IVP once over 4 mins Route: IVP; Infused Over: 4 mins; kl Site: left forearm; 04:00 Follow up: Response: No adverse reaction; Pain is decreased; RASS: Alert and Calm (0) ha1 03:33 Drug: Ondansetron IVP 4 mg IVP once; over 2 minutes Route: IVP; Site: left forearm; kl 04:00 Follow up: Response: No adverse reaction ha1 04:40 Drug: Diltiazem IVP 20 mg IVP once; Over 2 minutes Route: IVP; Site: left forearm; ha1 05:20 Follow up: Response: No adverse reaction; Marked relief of symptoms ha1 04:50 Drug: HYDROmorphone IVP 1 mg IVP once Route: IVP; Site: left forearm; ha1 05:20 Follow up: Response: No adverse reaction; Marked relief of symptoms; Pain is decreased; ha1 RASS: Alert and Calm (0) Disposition Summary: 10/01/23 03:00 Hospitalization Ordered Notes: Hospitalization Status: Inpatient Admission sp4 Provider: Levon Melvin Location: Telemetry/[facility] (Inpatient) sp4 Condition: Stable sp4 Problem: new sp4 Symptoms: have improved sp4 Bed/Room Type: Standard sp4 Room Assignment: [id number](10/01/23 03:31) jb4 Diagnosis - Acute left subcapital femur fracture, acute fall sp4 Forms: - Medication Reconciliation Form sp4 - SBAR form sp4 - Leadership Thank You Letter sp4 Signatures: Dispatcher [employer] Dilma Damon RN RN kl Bryson, James, RN RN jb4 Ariane Booth RN RN [facility] Reza Waters MD MD sp4 Grecia Cohen FNP FNP cm12 Corrections: (The following items were deleted from the chart) 02:57 02:57 BASIC METABOLIC PANEL+C.LAB.BRZ ordered. EDMS EDMS 02:57 02:57 CBC+H.LAB.BRZ ordered. EDMS EDMS 02:57 02:57 HEPATIC FUNCTION+C.LAB.BRZ ordered. EDMS EDMS 02:57 02:57 MAGNESIUM+C.LAB.BRZ ordered. EDMS EDMS 02:57 02:57 PROBNP+C.LAB.BRZ ordered. EDMS EDMS 02:57 02:57 PROTIME (+INR)+COAG.LAB.BRZ ordered. EDMS EDMS 02:57 02:57 Troponin High Sensitivity+C.LAB.BRZ ordered. EDMS EDMS 02:57 02:57 Chest Single View+RAD.RAD.BRZ ordered. EDMS EDMS 03:31 03:00 sp4 jb4
--- NOTE | 2023-10-01 03:01 | ER ---
Nurse's Notes [facility] Name: Jovani Reinoso Age: 78 yrs Sex: Male : 1945 Arrival Date: 09/30/2023 Time: 20:54 Bed 18 Private MD: Diagnosis: Acute left subcapital femur fracture, acute fall Presentation: 09/29 20:58 Chief complaint: EMS states: 78 year old male reports falling when he was trying to ha1 stand up from his chair. Pain on the left hip and leg. No LOC. 20:58 Coronavirus screen: Vaccine status: Patient reports being unvaccinated. Ebola Screen: ha1 No symptoms or risks identified at this time. Initial Sepsis Screen: Does the patient meet any 2 criteria? No. Patient's initial sepsis screen is negative. Does the patient have a suspected source of infection? No. Patient's initial sepsis screen is negative. Risk Assessment: Do you want to hurt yourself or someone else? Patient reports no desire to harm self or others. Onset of symptoms was September 30, 2023. 20:58 Method Of Arrival: EMS: [facility] ha1 20:58 Acuity: CAMILA 4 ha1 Triage Assessment: 20:58 General: Appears uncomfortable, Behavior is calm, cooperative. Pain: Complains of pain ha1 in left hip Pain radiates to left leg Pain currently is 7 out of 10 on a pain scale. Quality of pain is described as aching, sharp, throbbing, Pain began. Neuro: Level of Consciousness is awake, alert, obeys commands, Oriented to person, place, time, situation. Cardiovascular: Capillary refill < 3 seconds Patient's skin is warm and dry. Respiratory: Airway is patent Respiratory effort is even, unlabored, Respiratory pattern is regular, symmetrical. Musculoskeletal: Circulation, motion, and sensation intact. Reports pain in left leg. Historical: - Allergies: 21:04 No Known Allergies; ha1 - Home Meds: 21:04 Xarelto 20 mg Oral tab 1 tab once daily [Active]; ha1 - PMHx: 21:04 Atrial fibrillation; blood clots (Hypertension); Cerebral Palsy; CHF; COPD; ha1 Hypertension; hyperthyroidism; Transient cerebral ischemia; Vision/hearing loss; - Immunization history:: Adult Immunizations unknown. - Infectious Disease History:: Denies. - Social history:: Smoking status: Patient reports the use of cigarette tobacco products, Patient/guardian denies using tobacco, the patient reports quitting approximately 15 years ago. - Family history:: not pertinent. Screenin:00 [facility] ED Fall Risk Assessment (Adult) History of falling in the last 3 months, ha1 including since admission Yes- single mechanical fall (1 pt) Confusion or Disorientation No (0 pts) Intoxicated or Sedated No (0 pts) Impaired Gait Yes (1 pt) Mobility Assist Device Used Yes (1 pt) Altered Elimination No (0 pt) Score/Fall Risk Level 3 or more points = High Risk Oriented to surroundings, Maintained a safe environment, Educated pt \T\ family on fall prevention, incl call for assistance when getting out of bed, Hourly rounding (assess needs \T\ fall precautionary measures) done. Abuse screen: Denies threats or abuse. Denies injuries from another. Nutritional screening: No deficits noted. Tuberculosis screening: No symptoms or risk factors identified. Assessment: 20:58 Reassessment: see triage assessment. ha1 22:00 Reassessment: Patient and/or family updated on plan of care and expected duration. Pain ha1 level reassessed. Patient is alert, oriented x 3, equal unlabored respirations, skin warm/dry/pink. 23:00 Reassessment: Patient and/or family updated on plan of care and expected duration. Pain ha1 level reassessed. Patient is alert, oriented x 3, equal unlabored respirations, skin warm/dry/pink. 09/30 00:00 Reassessment: Patient and/or family updated on plan of care and expected duration. Pain ha1 level reassessed. Patient is alert, oriented x 3, equal unlabored respirations, skin warm/dry/pink. 01:00 Reassessment: Patient and/or family updated on plan of care and expected duration. Pain ha1 level reassessed. Patient is alert, oriented x 3, equal unlabored respirations, skin warm/dry/pink. 02:00 Reassessment: Patient and/or family updated on plan of care and expected duration. Pain ha1 level reassessed. Patient is alert, oriented x 3, equal unlabored respirations, skin warm/dry/pink. 03:00 Reassessment: Patient and/or family updated on plan of care and expected duration. Pain ha1 level reassessed. Patient is alert, oriented x 3, equal unlabored respirations, skin warm/dry/pink. 04:20 Reassessment: Patient and/or family updated on plan of care and expected duration. Pain ha1 level reassessed. Patient is alert, oriented x 3, equal unlabored respirations, skin warm/dry/pink. requesting pain medication. notified care provider. pain /. 05:20 Reassessment: Patient and/or family updated on plan of care and expected duration. Pain ha1 level reassessed. Patient is alert, oriented x 3, equal unlabored respirations, skin warm/dry/pink. Patient states feeling better. Patient states symptoms have improved. Vital Signs: 09/29 20:58 BP 144 / 80; Pulse 95; Resp 17 S; Temp 97.8(T); Pulse Ox 96% on R/A; Weight 57.61 kg; ha1 Height 5 ft. 2 in. ; 22:00 BP 144 / 82; Pulse 68; Resp 17 S; Pulse Ox 93% on R/A; ha1 23:00 BP 136 / 79; Pulse 96; Resp 17 S; Pulse Ox 92% on R/A; ha1 09/30 00:00 BP 139 / 73; Pulse 69; Resp 17 S; Pulse Ox 92% on R/A; ha1 01:00 BP 113 / 82; Pulse 89; Resp 17 S; Pulse Ox 98% on 2 lpm NC; ha1 02:00 BP 117 / 80; Pulse 96; Resp 17 S; Pulse Ox 98% on 2 lpm NC; ha1 03:00 BP 146 / 86; Pulse 118; Resp 17 S; Pulse Ox 98% on 2 lpm NC; ha1 04:00 BP 144 / 84; Pulse 69; Resp 17 S; Pulse Ox 99% on 2 lpm NC; ha1 04:20 BP 147 / 79; Pulse 110; Resp 17 S; Pulse Ox 97% on 2 lpm NC; ha1 05:20 BP 144 / 81; Pulse 97; Resp 17 S; Pulse Ox 96% on 2 lpm NC; ha1 09/29 20:58 Body Mass Index 23.23 (57.61 kg, 157.48 cm) [facility] ED Course: 09/29 20:58 Patient arrived in ED. kmf 20:58 Patient has correct armband on for positive identification. Bed in low position. Call ha1 light in reach. Side rails up X 1. 20:58 Arm band placed on right wrist. fs1 21:03 Reza Waters MD is Attending Physician. sp4 21:04 Triage completed. ha1 21:08 Ariane Booth, RN is Primary Nurse. ha1 22:14 Femur Left XRAY In Process Unspecified. EDMS 22:15 CT Pelvis wo Cont In Process Unspecified. EDMS 22:15 Head Brain Wo Cont CT In Process Unspecified. EDMS 09/30 02:56 EKG completed in triage. Results shown to MD. fs1 03:00 Levon Melvin is Hospitalizing Provider. sp4 03:20 Provided Education on: bolaños insertion . fs1 03:20 Basic Metabolic Panel Sent. kl 03:20 CBC with Diff Sent. kl 03:20 LFT's Sent. kl 03:20 Magnesium Sent. kl 03:20 NT PRO-BNP Sent. kl 03:20 PT-INR Sent. kl 03:20 Troponin HS Sent. kl 03:22 Inserted saline lock: 22 gauge in left forearm, using aseptic technique. Blood kl collected. Flushed with 10 mL NS Missed attempt(s): 20 gauge in right forearm. 03:30 Bolaños cath inserted, using sterile technique, 16 Fr., by ca, balloon inflated, to fs1 gravity drainage, returned clear yellow urine. Patient tolerated well. 03:42 XRAY Chest (1 view) In Process Unspecified. EDMS 05:28 No provider procedures requiring assistance completed. Patient admitted, IV remains in fs1 place. Administered Medications: 09/29 21:56 Drug: Texline PO 10 mg-325 mg 1 tabs PO once Route: PO; ha1 22:20 Follow up: Response: No adverse reaction; Pain is decreased ha1 21:56 Drug: Ondansetron PO 4 mg PO once Route: PO; ha1 22:20 Follow up: Response: No adverse reaction; Marked relief of symptoms ha1 09/30 03:33 Drug: morphine IVP or IV 4 mg IVP once over 4 mins Route: IVP; Infused Over: 4 mins; kl Site: left forearm; 04:00 Follow up: Response: No adverse reaction; Pain is decreased; RASS: Alert and Calm (0) ha1 03:33 Drug: Ondansetron IVP 4 mg IVP once; over 2 minutes Route: IVP; Site: left forearm; 04:00 Follow up: Response: No adverse reaction ha1 04:40 Drug: Diltiazem IVP 20 mg IVP once; Over 2 minutes Route: IVP; Site: left forearm; ha1 05:20 Follow up: Response: No adverse reaction; Marked relief of symptoms ha1 04:50 Drug: HYDROmorphone IVP 1 mg IVP once Route: IVP; Site: left forearm; ha1 05:20 Follow up: Response: No adverse reaction; Marked relief of symptoms; Pain is decreased; ha1 RASS: Alert and Calm (0) Medication: 05:30 VIS not applicable for this client. fs1 Outcome: 03:00 Decision to Hospitalize by Provider. spLinda 05:28 Admitted to Tele accompanied by tech, via stretcher, room 407, with oxygen, with chart, fs1 05:28 Condition: stable 05:28 Instructed on the need for admit, 05:35 Patient left the ED. ha1 Signatures: Dispatcher [employer] Dilma Damon RN RN kl Ayala, Heidy, RN RN ha1 Oscar Harrison fs1 Reza Waters MD MD sp4 Forrester, Kelsey Maroul [facility] Corrections: (The following items were deleted from the chart) 07:05 07:00 Patient left the ED. ha1 ha1
--- NOTE | 2023-10-01 03:21 | P.HP ---
Certification for Inpatient Patient admitted to: Inpatient With expected LOS: <2 Midnights <Grecia Cohen - Last Filed: 10/01/23 05:17> Patient History Date of Service: 10/01/23 Reason for admission: Left hip fracture History of Present Illness: 78-year-old male with a past medical history Atrial fibrillation; blood clots on Xarelto, (Hypertension); Cerebral Palsy; CHF; COPD; Hypertension; hyperthyroidism; Transient cerebral ischemia; Vision/hearing loss presents to the emergency room with fall. Reports associated left hip pain. ER evaluation CT of the abdomen displaced left femoral fracture, right moderate inguinal hernia marked prostatic enlargement,, femoral x-ray impacted mildly displaced subcapital capital left femoral fracture, CT of the head no acute intracranial abnormality, mild to moderate ischemic changes secondary to small vessel disease Kruse to bedside drainage, plan to admit to [facility] for left hip fracture, orthopedics surgery to eval, laboratory evaluation BNP elevated 4614, leukocytosis 11.0, microcytic anemia 13.1 hematocrit 39.1, atrial fibrillation on the monitor monitor, Cardizem given - Past Medical/Surgical History Diabetic: No -: HTN -: Hypercholesterolemia -: Cerebral Palsy -: Heart Stents 15 yrs ago -: Foot surgery - Social History Alcohol use: No CD- Drugs: No Caffeine use: Yes <Grecia Cohen - Last Filed: 10/01/23 05:17> Date of Service: 10/01/23 <Anthony Emanuel - Last Filed: 10/01/23 14:53> Allergies No Known Drug Allergies Allergy (Verified 12/09/17 15:48) Unknown Home Medications: Amlodipine [Norvasc*] 2.5 mg PO BID 12/09/17 Sotalol HCl [Betapace*] 80 mg PO BID* 12/09/17 Atorvastatin Calcium [Lipitor] 40 mg PO BEDTIME #30 tab 04/11/21 Rivaroxaban [Xarelto] 20 mg PO DAILY #30 tablet 04/11/21 Levothyroxine [Synthroid*] 50 mcg PO [id number] 05/10/21 Omeprazole 40 mg PO DAILY 05/10/21 Tamsulosin [Flomax*] 0.4 mg PO DAILY #30 cap 05/24/21 Loratadine [Claritin] 10 mg PO DAILY 02/08/23 Losartan Potassium 50 mg PO DAILY 02/08/23 Azithromycin [Zithromax] 250 mg PO DAILY 5 Days #6 tab 02/10/23 Cefdinir [Cefdinir*] 300 mg PO BID 10 Days #20 cap 02/10/23 Albuterol Neb [Proventil 0.083% Neb Soln] 1 in IN BID 10/01/23 Review of Systems Per HPI <Grecia Cohen - Last Filed: 10/01/23 05:17> Physical Examination - Physical Exam General: Alert, Oriented x3, Mild distress HEENT: Atraumatic, Normocephalic Neck: Supple, 2+ carotid pulse no bruit Respiratory: Diminished, Crackles/rales Cardiovascular: Normal pulses, Irregular heart rate/rhythm Gastrointestinal: Normal bowel sounds, Soft and benign Musculoskeletal: Other (Left hip fracture, lower extremity weakness, pain with range of motion) Integumentary: No breakdown, No significant lesion Neurological: Normal speech, Normal strength at 5/5 x4 extr, Cranial nerves 3-12 intact <Grecia Cohen - Last Filed: 10/01/23 05:17> - Studies Laboratory Data (last 24 hrs) 10/01/23 10/01/23 10/01/23 03:00 03:00 03:00 WBC 11.00 H Hgb 13.1 L Hct 39.1 L Plt Count 201 PT 21.7 H INR 1.98 Sodium 138 Potassium 3.9 BUN 21 H Creatinine 1.27 Glucose 114 H Magnesium 1.8 Total Bilirubin 0.8 AST 13 L ALT 20 Alkaline Phosphatase 101 <Anthony Emanuel - Last Filed: 10/01/23 14:53> Assessment and Plan - Plan Assessment plan atrial fibrillation RVR Chronic anticoagulation ;Xarelto, History of blood clot Acute on chronic heart Admit to [facility], cardiology to consult for cardiac clearance for A-fib/CHF 78-year-old male presents to the emergency room with fall. Reports associated left hip pain. ER evaluation CT of the abdomen displaced left femoral fracture, right moderate inguinal hernia marked prostatic enlargement,, femoral x-ray impacted mildly displaced subcapital capital left femoral fracture, CT of the head no acute intracranial abnormality, mild to moderate ischemic changes secondary to small vessel disease Kruse to bedside drainage, plan to admit to [facility] for left hip fracture, orthopedics surgery to eval, laboratory evaluation BNP elevated 4614, leukocytosis 11.0, , atrial fibrillation on the monitor monitor, Cardizem given Fall Left hip fracture Orthopedic surgery As needed analgesics PT eval post Fall precaution Microcytic anemia microcytic anemia 13.1 hematocrit 39.1 Trend H&H Type and cross preop (Hypertension) Cerebral Palsy COPD Hypertension hyperthyroidism Transient cerebral ischemia Vision/hearing loss Resume appropriate home meds Full code DVT per orthopedic surgery Diet n.p.o. surgery to eval Disposition, pending hospital Discharge Plan: Home - Advance Directives Does patient have a Living Will: No Does patient have a Durable POA for Healthcare: No - Code Status/Comfort Care Code Status: Full Code Critical Care: No Time Spent Managing Pts Care (In Minutes): 55 <Grecia Cohen - Last Filed: 10/01/23 05:17> - Plan Pt seen and examined. I agree with the note by the AIR POLLUTION ENGINEER. Pt is a 78yo male with past medical history Atrial fibrillation, blood clots on Xarelto, (Hypertension), Cerebral Palsy, CHF, COPD, Hypertension, hyperthyroidism, Transient cerebral ischemia, and Vision/hearing loss who presents with left hip pain s/p fall at home. On admission, CT abd/pelvis shows displaced left femoral fracture, right moderate inguinal hernia marked prostatic enlargement, femoral x-ray impacted mildly displaced subcapital capital left femoral fracture, CT of the head no acute intracranial abnormality, mild to moderate ischemic changes secondary to small vessel disease. Lab studies shows WBC 11, Hgb 13.1, cr 1.27 and glucose 114. At bedside, pt is in NAD. A/P: left hip fracture: Per CT pelvis. Consulted Ortho. Will continue prn pain med and PT. Hx of CHF. Pt has elevated BNP 4614. Will f/u Echo. Hx of COPD; Stable. Continue prn duoneb and oxygen. Htn: Continue home med. Continue home meds for other chronic medical problems. Code: full <Anthony Emanuel - Last Filed: 10/01/23 14:53>
[2023-10-01] MEDS ORDERED: ONDANSETRON 4 MG/2 ML VIAL IV PRN (03:23)
[2023-10-01] MEDS ORDERED: ALPRAZOLAM 0.25 MG TABLET PO PRN (03:23)
[2023-10-01 03:25] LABS: Absolute Eosinophils 0.1 K/uL (0-0.5); Absolute Lymphocytes (CBC) 0.3 K/uL (0.7-4.9); Absolute Monocytes 0.8 K/uL (0.1-1.3); Absolute Neutrophil 9.8 K/uL (1.8-8.0); Basophils % 0.4 % (0-1.3); Eosinophils % 0.6 % (0-4.4); Hematocrit 39.1 % (39.6-49.0); Hemoglobin 13.1 g/dL (13.6-17.9); Lymphocytes % 2.3 % (15.3-44.8); MCH 30.5 pg (27.0-35.0); MCHC 33.5 g/dL (32.0-36.0); MPV 8.6 fL (7.6-11.3); Monocytes % 7.4 % (3.3-12.3); Neutrophils % 89.3 % (41.7-73.7); Platelets 201 thou/uL (152-406); Red Cell Distribution Width 13.8 % (12.1-15.2)
[2023-10-01] MEDS ORDERED: ONDANSETRON 4 MG/2 ML VIAL ONE (03:27)
[2023-10-01] MEDS ORDERED: MORPHINE 4 MG/ML SYR ONE (03:28)
[2023-10-01 03:47] LABS: Albumin 3.1 g/dL (3.4-5.0); Albumin/Globulin Ratio 0.8 (1.1-1.8); Anion Gap 12.9 mEq/L (5.0-15.0); Bilirubin Direct 0.3 mg/dL (0-0.2); Bilirubin Indirect, Calculated 0.5 mg/dL (0.2-0.8); Bilirubin Total 0.8 mg/dL (0.2-1.0); Globulin 3.7 g/dL (2.3-3.5); Magnesium 1.8 mg/dL (1.6-2.4); Potassium 3.9 mEq/L (3.5-5.1); Protein, Total 6.8 g/dL (6.4-8.2); Troponin High Sensitivity 25.2 pg/mL (<58.9)
[2023-10-01 03:59] LABS: PT Prothrombin Time 21.7 SECONDS (9.4-12.5); Protime INR 1.98
[2023-10-01] MEDS ORDERED: NA CHLORIDE 0.9% 250 ML IV SCH (04:00)
[2023-10-01] MEDS ORDERED: HYDROMORPHONE HCL 1 MG/ML INJ ONE (04:54)
[2023-10-01] MEDS ORDERED: dilTIAZem HCL 25 MG/5 ML VIAL IV ONE (04:55)
[2023-10-01 04:58] LABS: Blood Morphology Comment NOT SEEN (NOT SEEN); Platelet Estimate ADEQ; White Blood Cell Scan OK (OK)
[2023-10-01] MEDS ORDERED: EPINEPHrine 1 MG/10 ML SYR IV ONE (05:19)
[2023-10-01] MEDS ORDERED: DOPAMINE 400 MG/250 ML D5W PREMIX IV ONE (05:19)
[2023-10-01] MEDS ORDERED: Calcium Chloride 10% INJ SYR IV ONE (05:19)
[2023-10-01 07:31] VITALS: O2SAT 96
--- NOTE | 2023-10-01 10:17 | RAD REPORT ---
EXAM DESCRIPTION: RAD - Chest Single View - 10/01/2023 3:41 am CLINICAL HISTORY: Hip fracture. COMPARISON: XR Chest 04/19/2021. TECHNIQUE: XR CHEST 1 VIEW 10/01/2023 2:56 AM CDT FINDINGS: The heart is enlarged. Lungs are clear without consolidation, atelectasis, mass or edema. There is no pleural effusion. There is no pneumothorax. There are no acute osseous findings. There is moderate leftward curvature of the thoracic spine. IMPRESSION: Clear lungs. Electronically signed by: Baljit Hitchcock MD 10/01/2023 05:29 AM CDT RP Due to temporary technical issues with the PACS/Fluency reporting system, reports are being signed by the in house radiologist without review as a courtesy to ensure prompt reporting. The interpreting r adiologist is fully responsible for the content of the report.
[2023-10-01] MEDS: MORPHINE 4 MG/ML SYR IV PRN (11:02)
[2023-10-01] MEDS: NA CHLORIDE 0.9% 1,000 ML IV SCH ×2 (11:06→22:00)
--- NOTE | 2023-10-01 11:45 | CON ---
Date of Consultation: 10/01/2023 This is my first time seeing this patient. To my knowledge, he is a 78-year-old gentleman who lives at a facility and unfortunately injured his left hip. He was taken to the emergency room where x-ray s were taken as well as CT scan, which demonstrated impacted femoral neck fracture. Risks, benefits, and alternatives of different methods of treating this were discussed with the patient. He appears to understand, although he does have some difficulty with history. At this time, he is anticoagulate d using Xarelto. Also, hospitalist feels that he probably needs cardiac clearance. We will therefor e let him eat today. The plan is for closed reduction or in situ screw fixation of the left femoral head. The risks of this have been discussed with the patient. There is the possibility that it coul d displace, so we will move forward with bipolar hemiarthroplasty. He understands the things as pres ented them to him and all of his questions were otherwise answered. /VICTOR HUGO Voice ID: [id number] Report ID: [id number]
[2023-10-01] MEDS: ALBUTEROL 2.5 MG/3 ML NEB SOL NEB SCH ×2 (13:00→22:00)
[2023-10-01] MEDS ORDERED: ATROPINE SULF 1 MG/10 ML SYR IV ONE (13:13)
[2023-10-01] MEDS: SOTALOL HCL 80 MG TAB PO ONE (16:25)
[2023-10-01] MEDS: RIVAROXABAN 20 MG TABLET PO SCH (17:00)
[2023-10-01] MEDS: METOPROLOL TARTRATE 5 MG/5 ML INJ IV ONE (18:02)
[2023-10-01] MEDS: METOPROLOL TARTRATE 5 MG/5 ML INJ IV PRN (18:09)
[2023-10-01 19:28] VITALS: BMI 23.2
[2023-10-01] MEDS ORDERED: METOPROLOL TARTRATE 5 MG/5 ML INJ IV PRN (19:55)
[2023-10-01 20:03] VITALS: TEMP 97.8
[2023-10-01] MEDS: NOREPINEPHRINE BITARTRATE/D5W 4 MG/250 ML KIT IV ONE ×4 (20:40→23:47)
[2023-10-01] MEDS: AMLODIPINE 2.5 MG TAB PO SCH (21:00)
[2023-10-01] MEDS: ATORVASTATIN 40 MG TAB PO SCH (21:00)
[2023-10-01] MEDS ORDERED: FENTANYL CITR 100 MCG/2 ML IV PRN (21:06)
[2023-10-01] MEDS: ATROPINE SULFATE 1 MG/ML INJ IV PRN (21:30)
[2023-10-01] MEDS ORDERED: DOPAMINE/D5W 400 MG/250 ML BAG IV SCH (21:45)
--- NOTE | 2023-10-01 21:53 | RAD REPORT ---
EXAM DESCRIPTION: RADChest Single View10/01/2023 9:11 pm CLINICAL HISTORY: post intubation COMPARISON: Chest Single View dated 10/01/2023; Chest Single View dated 06/27/2023; Chest Pa And Lat (2 Views) dated 02/20/2023; Chest Single View dated 02/07/2023 TECHNIQUE: Portable AP view of the chest. FINDINGS: Endotracheal tube terminates 6 cm above the ilia. Levoconvex thoracic scoliosis somewhat limits evaluation. Central interstitial prominence without focal airspace opacity, although defibril lator pad at the left base limits evaluation. No pneumothorax or effusion. The cardiomediastinal con tours are unremarkable. IMPRESSION: Central interstitial prominence which may suggest central venous congestion. Left basila r defibrillator pad limits evaluation.
[2023-10-01] MEDS: D5W 1,000 ML with NA BICARB 8.4% 100 MEQ IV SCH (22:00)
[2023-10-01] MEDS ORDERED: DEXMEDETOMIDINE HCL 200 MCG in NA CHLORIDE 0.9% 98 ML IV SCH (22:00)
[2023-10-01] MEDS ORDERED: NOREPINEPHRINE 4 MG in D5W 250 ML IV SCH ×2 (22:00→23:00)
[2023-10-01] MEDS: D5W 1,000 ML IV ONE (22:05)
[2023-10-01] MEDS: SODIUM BICARB 50 MEQ/50ML VIAL ONE (22:09)
--- NOTE | 2023-10-01 22:09 | RAD REPORT ---
EXAM DESCRIPTION: DARRELChest Single View10/01/2023 9:50 pm CLINICAL HISTORY: Central line placement COMPARISON: Chest Single View dated 10/01/2023; Chest Single View dated 10/01/2023; Chest Single View dated 06/27/2023; Chest Pa And Lat (2 Views) dated 02/20/2023 TECHNIQUE: Portable AP view of the chest. FINDINGS: Endotracheal tube unchanged in position. Enteric tube courses below the lower filled christo n. Interval placement of right IJ CVC with catheter tip projecting at the superior cavoatrial junctio n. Stable central interstitial prominence. No pneumothorax or effusion. The cardiomediastinal contou rs are unremarkable. IMPRESSION: Satisfactory positioning of right IJ CVC. Otherwise stable findings as above.
[2023-10-01 22:13] LABS: Arterial Blood Carboxyhemoglob 0.4 % (0-1.5); Blood Gas Oxyhemoglobin 91.5 % (94-97); Blood Gas THB 12.5 g/dl (12-18)
[2023-10-01] MEDS: METHYLPREDNISOLONE 125 MG INJ IV ONE (22:20)
[2023-10-01] MEDS: CALCIUM GLUCONATE 1 GM IVPB 1 GM/50 ML BAG IV ONE ×2 (22:28→22:35)
[2023-10-01] MEDS ORDERED: NOREPINEPHRINE BITARTRATE/D5W 4 MG/250 ML KIT IV ONE (22:35)
[2023-10-01] MEDS: IPRATROPIUM BROM 0.5MG/2.5ML NEB SCH (23:00)
[2023-10-02 01:05] VITALS: BP 0/0
--- NOTE | 2023-10-02 02:33 | P.DS ---
Admission Date: 10/01/23 Discharge Date: 10/02/23 Reason for Admission: Left hip fracture Brief History of Present Illness: 78-year-old male with a past medical history Atrial fibrillation; blood clots on Xarelto, (Hypertension); Cerebral Palsy; CHF; COPD; Hypertension; hyperthyroidism; Transient cerebral ischemia; Vision/hearing loss presents to the emergency room with fall. Reports associated left hip pain. ER evaluation CT of the abdomen displaced left femoral fracture, right moderate inguinal hernia marked prostatic enlargement,, femoral x-ray impacted mildly displaced subcapital capital left femoral fracture, CT of the head no acute intracranial abnormality, mild to moderate ischemic changes secondary to small vessel disease Kruse to bedside drainage, plan to admit to [facility] for left hip fracture, orthopedics surgery to eval, laboratory evaluation BNP elevated 4614, leukocytosis 11.0, microcytic anemia 13.1 hematocrit 39.1, atrial fibrillation on the monitor monitor, Cardizem given in the ER. - Physical Exam General: Acute hypoxic respiratory transferred to ICU intubated for respiratory failure HEENT: Atraumatic, Normocephalic Neck: Supple, 2+ carotid pulse no bruit Respiratory: Diminished, Crackles/rales Cardiovascular: Normal pulses, Irregular heart rate/rhythm Gastrointestinal: Soft Musculoskeletal: Other (Left hip fracture, lower extremity weakness, pain with range of motion) Integumentary: No breakdown, No significant lesion Neurological: Nonresponsive Hospital Course: 78-year-old male with a past medical history Atrial fibrillation; blood clots on Xarelto, (Hypertension); Cerebral Palsy; CHF; COPD; Hypertension; hyperthyroidism; Transient cerebral ischemia; Vision/hearing loss presented to the emergency room with fall with associated left hip pain. ER evaluation CT of the abdomen displaced left femoral fracture, atrial fibrillation on the monitor, heart rate in the 120s, patient was given metoprolol 5 mg IV for A-fib. History of COPD, patient was complaining of shortness of breath, albuterol Atrovent nebs were ordered, After arrival to floor, 09/30 1899 patient became hypotensive, soft blood pressure systolic 100 systolic. He as taken off of anticoagulation for upcoming hip replacement, with A-fib heart rate in the 120s, differential diagnosis patient could have had a CVA, PE, patient was too unstable for CT a of the head, chest to eval for PE or CVA. When nurse reposition patient in the bed, patient became nonresponsive. Rapid response was called, when patient lost heart rate, CODE BLUE was called. Patient was hemodynamically unstable, despite multiple rounds of CPR, pressors initiated, Patient was intubated, several rounds of CPR were initiated, central line was placed via ER physician. Patient was started on Levophed for hypotension. After Mr Muhammad received several rounds of epinephrine, amiodarone per ACLS protocol he was transported to ICU. While in ICU, On ventilator management, he declined despite therapeutic optimization being on several vasopressors, atropine, bicarb IV fluids. details as per code sheet. plan of care discussed with power of compliance attorney. After the third round of CODE BLUE, the decision was made to change CODE STATUS to DNR. Power of compliance attorney was notified during each CODE BLUE, patient status was updated with the family, at time of pronouncement, patient was not responsive to verbal or tact ile stimuli, heart and lungs sounds were both absent. pupils were bilaterally fixed and dilated. Time of was 10/01 2. POA was notified of time of . <Grecia Cohen - Last Filed: 10/02/23 02:36> Admission Date: 10/01/23 Discharge Date: 10/02/23 Hospital Course: Pt seen and examined. I agree with the note by the HONING MACHINE SET UP OPERATOR. Pt on 10/02/23. <Anthony Emanuel - Last Filed: 10/02/23 18:07> Disposition: Discharge Condition: Vital Signs/Physical Exam: Temp Pulse Resp BP Pulse Ox 97.8 F 0 L 12 0/0 L 0 L 10/01/23 20:00 10/02/23 00:00 10/02/23 00:00 10/02/23 00:00 10/02/23 00:00 Laboratory Data at Discharge: WBC 11.00 thou/uL (4.3-10.9) H 10/01/23 03:00 Hgb 13.1 g/dL (13.6-17.9) L 10/01/23 03:00 Hct 39.1 % (39.6-49.0) L 10/01/23 03:00 Plt Count 201 thou/uL (152-406) 10/01/23 03:00 PT 21.7 SECONDS (9.4-12.5) H 10/01/23 03:00 INR 1.98 10/01/23 03:00 Sodium 138 mEq/L (136-145) 10/01/23 03:00 Potassium 3.9 mEq/L (3.5-5.1) 10/01/23 03:00 BUN 21 mg/dL (7-18) H 10/01/23 03:00 Creatinine 1.27 mg/dL (0.70-1.30) 10/01/23 03:00 Glucose 114 mg/dL (74-106) H 10/01/23 03:00 Magnesium 1.8 mg/dL (1.6-2.4) 10/01/23 03:00 Total Bilirubin 0.8 mg/dL (0.2-1.0) 10/01/23 03:00 AST 13 U/L (15-37) L 10/01/23 03:00 ALT 20 U/L (16-61) 10/01/23 03:00 Alkaline Phosphatase 101 U/L (45-117) 10/01/23 03:00 <Grecia Cohen - Last Filed: 10/02/23 02:36> Vital Signs/Physical Exam: Temp Pulse Resp BP Pulse Ox 97.8 F 0 L 12 0/0 L 0 L 10/01/23 20:00 10/02/23 00:00 10/02/23 00:00 10/02/23 00:00 10/02/23 00:00 Laboratory Data at Discharge: WBC Cancelled 10/02/23 05:00 Hgb Cancelled 10/02/23 05:00 Hct Cancelled 10/02/23 05:00 Plt Count Cancelled 10/02/23 05:00 PT 21.7 SECONDS (9.4-12.5) H 10/01/23 03:00 INR 1.98 10/01/23 03:00 Sodium Cancelled 10/02/23 05:00 Potassium Cancelled 10/02/23 05:00 BUN Cancelled 10/02/23 05:00 Creatinine Cancelled 10/02/23 05:00 Glucose Cancelled 10/02/23 05:00 Magnesium Cancelled 10/02/23 05:00 Total Bilirubin 0.8 mg/dL (0.2-1.0) 10/01/23 03:00 AST 13 U/L (15-37) L 10/01/23 03:00 ALT 20 U/L (16-61) 10/01/23 03:00 Alkaline Phosphatase 101 U/L (45-117) 10/01/23 03:00 <Anthony Emanuel - Last Filed: 10/02/23 18:07> Time spent managing pt's care (in minutes): 45 <Grecia Cohen - Last Filed: 10/02/23 02:36> <Anthony Emanuel - Last Filed: 10/02/23 18:07> Home Medications: Amlodipine [Norvasc*] 2.5 mg PO BID 12/09/17 Sotalol HCl [Betapace*] 80 mg PO BID* 12/09/17 Atorvastatin Calcium [Lipitor] 40 mg PO BEDTIME #30 tab 04/11/21 Rivaroxaban [Xarelto] 20 mg PO DAILY #30 tablet 04/11/21 Levothyroxine [Synthroid*] 50 mcg PO [id number] 05/10/21 Omeprazole 40 mg PO DAILY 05/10/21 Tamsulosin [Flomax*] 0.4 mg PO DAILY #30 cap 05/24/21 Loratadine [Claritin] 10 mg PO DAILY 02/08/23 Albuterol Neb [Proventil 0.083% Neb Soln] 1 in IN BID 10/01/23 Followup: NONE,NONE [Primary Care Provider] -
--- NOTE | 2023-10-02 02:38 | P.PN ---
Date of Service: 10/01/23 Prior to 1800, chart review, 1730 MD was paged to due Afib RVR, 173 Ekg shows afib rvr HR 155 pt requiring 3L NC BP 172/88. no c/o of sp or discomfort fm pt. Dr. Emanuel informed, pt was given his home med of betapace at 1605. Orders for IV lopressor 5mg q6hp, 1st dose given at 1800 pt HR now 100-110s. Xarelto was restarted, albuterol and Atrovent was ordered. -1928 physician Grecia cohen notified by page that pt is afib RVR metoprolol 5 mg IV was ordered for elevated heart rate. After going to evaluate the patient, Rapid response was called due to patient not being responsive, with no pulse CODE BLUE was called CPR, ACLS protocol was initiated. <Grecia Cohen - Last Filed: 10/02/23 02:48> Pt seen and examined. I agree with the note by the DROP CREW LABORER. <Anthony Emanuel - Last Filed: 10/02/23 18:08>
--- NOTE | 2023-10-02 02:51 | P.PN ---
Date of Service: 10/02/23 Prior this annoucment, Mr Muhammad received had several rounds of CPR per ACLS protocol. Plan of care was discussed with attending. Mr Stoner was transported to ICU On ventilator and pressor management, he declined despite therapeutic optimization being on several vasopressors, atropine, bicarb IV fluids. details as per code sheet. plan of care discussed with power of senior trial attorney. After the third round of CODE BLUE, the decision was made to change CODE STATUS to DNR status. Brian Beltran [phone], Marsha PRICE, 10/02/23 0003 patient was not responsive to verbal or tactile stimuli, heart and lungs sounds were both absent. pupils were bilaterally fixed and dilated. Time of was 10/01 2. POA was notified of time of .
[2023-10-02] MEDS ORDERED: D50W 25 GM/50 ML SYRINGE IV ONE (05:19)
[2023-10-02] MEDS ORDERED: AMIODARONE IN DEXTROSE,ISO-OSM 360 MG/200 ML BAG IV ONE (05:19)
[2023-10-02] MEDS ORDERED: EPINEPHrine 1 MG/10 ML SYR IV ONE (05:19)
[2023-10-02] MEDS ORDERED: DOPAMINE 400 MG/250 ML D5W PREMIX IV ONE (05:19)
[2023-10-02] MEDS ORDERED: AMIODARONE HCL 150 MG/3 ML INJ IV ONE (05:19)
[2023-10-02] MEDS ORDERED: ATROPINE SULF 1 MG/10 ML SYR IV ONE (05:19)
[2023-10-02] MEDS ORDERED: Calcium Chloride 10% INJ SYR IV ONE (05:19)
[2023-10-02] MEDS ORDERED: LEVOTHYROXINE SOD 0.05 MG TABLET PO SCH (06:30)
[2023-10-02] MEDS ORDERED: LORATADINE 10 MG PO SCH (09:00)
[2023-10-02] MEDS ORDERED: SOTALOL HCL 80 MG TAB PO SCH (09:00)
[2023-10-02] MEDS ORDERED: TAMSULOSIN 0.4 MG SR CAP PO SCH (09:00)
[2023-10-02] MEDS ORDERED: LORATADINE 10 MG TAB PO SCH (09:00)
[2023-10-02] MEDS ORDERED: LOSARTAN POTASSIUM 50 MG TABLET PO SCH (09:00)
[2023-10-02] MEDS ORDERED: PIPER TAZO 3.375 GM in NA CHLORIDE 0.9% 100 ML IV SCH (10:00)
--- NOTE | 2023-10-02 16:30 | EKG ---
Test Date: 2023-10-01 Test Time: 04:21:00 Packing Machine Inspector: AUDREY MEASUREMENT RESULTS: Intervals: Rate: 126 DE: 176 QRSD: 76 QT: 312 QTc: 451 [place]: P: DE: 176 QRS: 4 T: 91 INTERPRETIVE STATEMENTS: Atrial flutter with RVR Nonspecific ST and T wave abnormality Abnormal ECG Compared to ECG 10/01/2023 04:19:11 Left ventricular hypertrophy no longer present ST (T wave) deviation still present Electronically Signed On 10-02-23 16:29:13 CDT by Cristiano Boston
--- NOTE | 2023-10-02 16:30 | EKG ---
Test Date: 2023-10-01 Test Time: 04:19:11 Order Entry Clerk: AUDREY MEASUREMENT RESULTS: Intervals: Rate: 129 [place]: QRSD: 72 QT: 272 QTc: 398 [place]: P: NC: QRS: -3 T: 102 INTERPRETIVE STATEMENTS: Atrial fibrillation with rapid ventricular response with premature ventricular or aberrantly conducted complexes Minimal voltage criteria for LVH, may be normal variant Nonspecific ST and T wave abnormality Abnormal ECG Compared to ECG 06/27/2023 11:08:08 Ventricular premature complex(es) now present ST (T wave) deviation now present Sinus bradycardia no longer present Atrial premature complex(es) no longer present Electronically Signed On 10-02-23 16:29:19 CDT by Cristiano Boston
--- NOTE | 2023-10-03 16:25 | EKG ---
Test Date: 2023-10-01 Test Time: 17:46:01 Jumpbasting Collar Baster: MANJINDER MEASUREMENT RESULTS: Intervals: Rate: 155 [place]: QRSD: 74 QT: 286 QTc: 459 [place]: P: AR: QRS: -5 T: 99 INTERPRETIVE STATEMENTS: Atrial fibrillation with rapid ventricular response with premature ventricular or aberrantly conducted complexes Nonspecific T wave abnormality Abnormal ECG Compared to ECG 10/01/2023 04:21:00 Ventricular premature complex(es) now present T-wave abnormality now present Atrial flutter no longer present ST (T wave) deviation no longer present Electronically Signed On 10-03-23 16:24:09 CDT by Kash Melgar
== END 2023-10-02 05:20 | disposition expired | DRG 535 ==
LOC: ER 20:54 → 4TH 10-01 03:21 → 3RD-ICU 10-01 20:58
PROVIDERS: ADMIT Hospitalist; ATTEND Hospitalist
PROC: 4A033R1 Measurement of Arterial Saturation, Peripheral, Percutaneous Approach (ICD-10-PCS; principal; 2023-10-01)
PROC: 5A1935Z Respiratory Ventilation, Less than 24 Consecutive Hours (ICD-10-PCS; 2023-10-01)
PROC: 0BH17EZ Insertion of Endotracheal Airway into Trachea, Via Natural or Artificial Opening (ICD-10-PCS; 2023-10-01)
PROC: 5A12012 Performance of Cardiac Output, Single, Manual (ICD-10-PCS; 2023-10-01)
PROC: 30233N1 Transfusion of Nonautologous Red Blood Cells into Peripheral Vein, Percutaneous Approach (ICD-10-PCS; 2023-10-01)
PROC: 02HV33Z Insertion of Infusion Device into Superior Vena Cava, Percutaneous Approach (ICD-10-PCS; 2023-10-01)
PROC: 3E043XZ Introduction of Vasopressor into Central Vein, Percutaneous Approach (ICD-10-PCS; 2023-10-01)
DX: S72.012A Unspecified intracapsular fracture of left femur, initial encounter for closed fracture (principal); J96.01 Acute respiratory failure with hypoxia; R65.11 Systemic inflammatory response syndrome (SIRS) of non-infectious origin with acute organ dysfunction; E87.20 Acidosis, unspecified; I46.9 Cardiac arrest, cause unspecified; I10 Essential (primary) hypertension; E03.9 Hypothyroidism, unspecified; I48.91 Unspecified atrial fibrillation; M25.552 Pain in left hip; D50.9 Iron deficiency anemia, unspecified; E78.00 Pure hypercholesterolemia, unspecified; H54.7 Unspecified visual loss; I95.9 Hypotension, unspecified; G80.9 Cerebral palsy, unspecified; H91.90 Unspecified hearing loss, unspecified ear; J44.9 Chronic obstructive pulmonary disease, unspecified; S09.90XA Unspecified injury of head, initial encounter; F17.210 Nicotine dependence, cigarettes, uncomplicated; Z95.5 Presence of coronary angioplasty implant and graft; Z79.01 Long term (current) use of anticoagulants; Z86.73 Personal history of transient ischemic attack (TIA), and cerebral infarction without residual deficits; Z79.890 Hormone replacement therapy; Z79.899 Other long term (current) drug therapy; W18.30XA Fall on same level, unspecified, initial encounter; Y93.9 Activity, unspecified; Y92.019 Unspecified place in single-family (private) house as the place of occurrence of the external cause; Y99.9 Unspecified external cause status
CPT/HCPCS: 36415; 36600; 51702; 70450; 71045; 72192; 80048; 80076; 82805; 82947; 83605; 83735; 83880; 84484; 85025; 85610; 86850; 86870; 86900; 86901; 92950; 93005; 94002; 96374; 96375; 99285; J0171; J0282; J0461; J0612; J1170; J1265; J2405; J2919; J7030; J7050; Q0162